=== PATIENT | female | born 1945 | race Caucasian/White ===

== ENCOUNTER 2022-11-01 15:08 | Emergency (ER) | payer MEDICARE, SELFPAY ==
[2022-11-01] VITALS (30 sets, daily range): BP systolic 119–180; BP diastolic 77–128; PULSE 63–88; RESP 15–97; TEMP 36.6; O2SAT 91–94; BMI 27.4
--- NOTE | 2022-11-01 15:13 | ED_ITS ---
Documented by User: CATALINO Valdivia 11/01/22 17:19 HPI - General Adult General Chief complaint: Dizziness Stated complaint: DIZZY Time Seen by Provider: 11/01/22 15:13 History of Present Illness HPI narrative: patient is a [age] her old female who arrives via EMS for evaluation of a dizzy episode. Patient states she was attending her grandson's graduation, felt well, started speaking with a friend that she had not seen in a long time. Started to feel as if she was going to pass out no set her vision started to come down, but she did not lose consciousness. Patient denies any room spinning or actual dizzy-like symptoms. Patient states now that she has sat down and had some IV fluidss per EMS she feels back to normal. She is on xarelto with a history of mini stroke. patient states with that episode she had noticeable dizziness with objects moving and double vision. Patient states she has not experiennced any of that with this episode. She reports having a similar episode of current symptoms in the spring with anemia/blood loss. Patient states she underwent a colonoscopy and had a part of the tumor removed, but does not feel it was cancerous. States after repeat colonoscopy to get more tissue. She reports being on iron supplementation and her stools are always black. patient denies any chest pain or shortness of breath, did have mild nausea with the episode but no palpitations. Patient feels like she is back to normal. Related Data Home Medications Medication Instructions Recorded Confirmed diltiazem HCl 180 mg capsule,24 180 mg PO DAILY 11/01/22 11/01/22 hr,extended release (Tiadylt ER) ferrous sulfate 325 mg (65 mg 325 mg PO BID 11/01/22 11/01/22 iron) tablet metoprolol tartrate 50 mg tablet 25 mg PO BID 11/01/22 11/01/22 rivaroxaban 20 mg tablet (Xarelto) 20 mg PO BID 11/01/22 11/01/22 Allergies Allergy/AdvReac Type Severity Reaction Status Date / Time No Known Drug Allergies Allergy Verified 11/01/22 15:14 Review of Systems ROS Constitutional Denies: fever or chills Eyes Denies: change in vision or blurry vision Ears, nose, mouth, and throat Denies: throat pain or neck pain Cardiovascular Denies: chest pain, palpitations or edema Respiratory Denies: shortness of breath, cough or wheezing Gastrointestinal Reports: nausea; Denies: abdominal pain, vomiting, diarrhea or blood in stool (dark stools with iron use) Genitourinary Denies: painful urination or urinary frequency Musculoskeletal Denies: back pain or neck pain Integumentary/Breast Denies: rash or itching Neurological Denies: headache, numbness in extremities, weakness in extremities (ppatient reports feeling weak all over like she was going to pass out), lack of coordination, dizziness, vertigo or confusion Psychiatric Denies: anxiety Allergic/Immunologic Denies: hives [facility] Medical History (Updated 11/01/22 @ 18:15 by Shivam Godinez) Exam Narrative Exam Narrative: Nurses notes and vital signs reviewed and patient is not hypoxic. General: The patient appears well and in no apparent distress. Patient is resting comfortably on cart. Skin: Warm, dry, no pallor noted. Head: Normocephalic, atraumatic Neck: Supple, trachea mid-line, no tenderness, no lymphadenopathy Eye: Pupils are equal, round and reactive to light, EOMI, remanence of cataract surgery noted, no subconjunctival pallor Ears, Nose, Mouth, and Throat: TM are clear, normal light reflex, oral mucosa is moist, no posterior oropharynx erythema or hypertrophy, uvula is mid-line Cardiovascular: Regular Rate and Rhythm Respiratory: Patient is in no distress, no accessory muscle use, lungs are clear to auscultation, no wheezing, rales or rhonchi. Chest Wall: no tenderness Back: non-tender, no CVA tenderness Musculoskeletal: normal ROM, no tenderness, no swelling GI: Normal bowel sounds, no tenderness to palpation, no masses appreciated. No rebound, guarding, or rigidity noted. Neurological: A&O x4, patient moves all extremities without difficulty. Psychiatric: Cooperative Constitutional Vital Signs, click to edit/add: Last Vital Signs Temp 97.9 F 11/01/22 15:10 Pulse 83 11/01/22 18:01 Resp 24 11/01/22 18:01 BP 119/85 11/01/22 18:01 Pulse Ox 94 L 11/01/22 15:20 O2 Del Method Room Air 11/01/22 15:20 Course Vital Signs Vital signs: Vital Signs Temperature 97.9 F 11/01/22 15:10 Pulse Rate 74 08/13/23 15:10 Respiratory Rate 20 11/01/22 15:10 Blood Pressure 177/101 H 11/01/22 15:10 Pulse Oximetry 94 L 11/01/22 15:10 Oxygen Delivery Method Room Air 11/01/22 15:10 Temperature 97.9 F 11/01/22 15:10 Pulse Rate 83 11/01/22 18:01 Respiratory Rate 24 11/01/22 18:01 Blood Pressure 119/85 11/01/22 18:01 Pulse Oximetry 94 L 11/01/22 15:20 Oxygen Delivery Method Room Air 11/01/22 15:20 Medical Decision Making MDM Narrative Medical decision making narrative: patient reports being in an air-conditioned building with a near syncopal episode after speaking with a friend she had not seen in a long time. After sitting down and receiving some IV fluid per EMS patient feels like she is back to normal. She denies any recent illness or fever. States she ate breakfast this morning and took her normal medications as prescribed. Notable history of xarelto use with prior TIA. Pt denies paresthesias dizziness, incoordination or vision changes. orthostatic vital signs unremarkable. patient reevaluated at 16:30. Patient reports feeling well, acting normal. She has been up into the bathroom without any difficulty. Patient made aware of her preliminary lab studies, chest x-ray, CT head pending. Recommend repeat 2 hour troponin patient agreeable. CT of the head, recommendations per radiologist will proceed with CTA of the head and neck for further evaluation. Patient reports having a MRI as for her any stroke workup with no mention of aneurysm at that time. Lab Data Labs: Lab Results 11/01/22 11/01/22 11/01/22 Range/Units 15:28 15:29 16:06 WBC 8.8 (4.0-11.0) 10^3/uL RBC 4.58 (4.20-5.40) 10^6/uL Hgb 13.8 (12.0-16.0) g/dL Hct 41.2 (36.0-48.0) % MCV 90.0 (81.0-99.0) fL MCH 30.1 (26.7-34.0) pg MCHC 33.5 (29.9-35.2) g/dL RDW 14.6 (11.0-15.0) % Plt Count 228 (150-450) 10^3/uL MPV 8.5 L (9.5-13.5) fL Neut % (Auto) 66.9 (43.0-75.0) % Lymph % (Auto) 20.9 (20.5-60.0) % Kern % (Auto) 8.1 (1.7-12.0) % Eos % (Auto) 2.8 (0.9-7.0) % Baso % (Auto) 0.8 (0.2-2.0) % Neut # (Auto) 5.9 (1.4-6.5) 10^3/uL Lymph # (Auto) 1.8 (1.2-3.8) 10^3/uL Kern # (Auto) 0.7 (0.3-0.8) 10^3/uL Eos # (Auto) 0.3 (0.0-0.7) 10^3/uL Baso # (Auto) 0.1 (0.0-0.1) 10^3/uL Abs Immat Gran (auto) 0.04 H (0.00-0.03) 10^3/uL Imm/Tot Granulo (auto) 0.5 (0.0-0.5) % PT 11.4 (9.0-11.6) sec INR 1.08 APTT 31.1 (22.3-36.2) sec Sodium 140 (136-145) mmol/L Potassium 4.0 (3.5-5.1) mmol/L Chloride 105 (98-107) mmol/L Carbon Dioxide 27.7 (21.0-32.0) mmol/L Anion Gap 11.3 BUN 19.0 H (7.0-18.0) mg/dL Creatinine 0.80 (0.55-1.02) mg/dL Est GFR ( Amer) >60 (>=60) Est GFR (Non-Af Amer) >60 (>=60) BUN/Creatinine Ratio 23.8 Glucose 120 H (74-106) mg/dL Calcium 8.3 L (8.5-10.1) mg/dL Total Bilirubin 0.3 (0.2-1.0) mg/dL AST 15 (15-37) U/L ALT <6 L (14-59) U/L Alkaline Phosphatase 108 (46-116) U/L Troponin I High Sens 5.6 (4.0-51.3) pg/mL Total Protein 6.5 (6.4-8.2) g/dL Albumin 3.6 (3.4-5.0) g/dL Globulin 2.9 g/dL Albumin/Globulin Ratio 1.2 Urine Color Lt. yellow (YELLOW) Urine Clarity Clear (CLEAR) Urine pH 6.0 (5.0-9.0) Ur Specific Fancy Gap 1.020 (1.005-1.025) Urine Protein Negative (NEG/TRACE) mg/dL Urine Glucose (UA) Negative (NEGATIVE) mg/dL Urine Ketones Negative (NEGATIVE) mg/dL Urine Occult Blood Small A (NEGATIVE) Urine Nitrite Negative (NEGATIVE) Urine Bilirubin Negative (NEGATIVE) Urine Urobilinogen 0.2 (0.2-1.0) EU/dL Ur Leukocyte Esterase Trace A (NEGATIVE) Urine RBC 2-5 A (0-2) #/HPF Urine WBC 0-2 A (NONE SEEN) #/HPF Ur Squamous Epith Cells Rare (NONE/RARE) #/LPF Urine Crystals None seen (None Seen) #/HPF Urine Bacteria Trace A (NONE SEEN) #/HPF Urine Casts None seen (NONE SEEN) #/LPF Urine Mucus Trace A (NONE SEEN) Ur Culture Indicated? No POC Glucose 111 H (74-106) mg/dL 11/01/22 Range/Units 17:18 WBC (4.0-11.0) 10^3/uL RBC (4.20-5.40) 10^6/uL Hgb (12.0-16.0) g/dL Hct (36.0-48.0) % MCV (81.0-99.0) fL MCH (26.7-34.0) pg MCHC (29.9-35.2) g/dL RDW (11.0-15.0) % Plt Count (150-450) 10^3/uL MPV (9.5-13.5) fL Neut % (Auto) (43.0-75.0) % Lymph % (Auto) (20.5-60.0) % Kern % (Auto) (1.7-12.0) % Eos % (Auto) (0.9-7.0) % Baso % (Auto) (0.2-2.0) % Neut # (Auto) (1.4-6.5) 10^3/uL Lymph # (Auto) (1.2-3.8) 10^3/uL Kern # (Auto) (0.3-0.8) 10^3/uL Eos # (Auto) (0.0-0.7) 10^3/uL Baso # (Auto) (0.0-0.1) 10^3/uL Abs Immat Gran (auto) (0.00-0.03) 10^3/uL Imm/Tot Granulo (auto) (0.0-0.5) % PT (9.0-11.6) sec INR APTT (22.3-36.2) sec Sodium (136-145) mmol/L Potassium (3.5-5.1) mmol/L Chloride (98-107) mmol/L Carbon Dioxide (21.0-32.0) mmol/L Anion Gap BUN (7.0-18.0) mg/dL Creatinine (0.55-1.02) mg/dL Est GFR ( Amer) (>=60) Est GFR (Non-Af Amer) (>=60) BUN/Creatinine Ratio Glucose (74-106) mg/dL Calcium (8.5-10.1) mg/dL Total Bilirubin (0.2-1.0) mg/dL AST (15-37) U/L ALT (14-59) U/L Alkaline Phosphatase (46-116) U/L Troponin I High Sens 6.0 (4.0-51.3) pg/mL Total Protein (6.4-8.2) g/dL Albumin (3.4-5.0) g/dL Globulin g/dL Albumin/Globulin Ratio Urine Color (YELLOW) Urine Clarity (CLEAR) Urine pH (5.0-9.0) Ur Specific Fancy Gap (1.005-1.025) Urine Protein (NEG/TRACE) mg/dL Urine Glucose (UA) (NEGATIVE) mg/dL Urine Ketones (NEGATIVE) mg/dL Urine Occult Blood (NEGATIVE) Urine Nitrite (NEGATIVE) Urine Bilirubin (NEGATIVE) Urine Urobilinogen (0.2-1.0) EU/dL Ur Leukocyte Esterase (NEGATIVE) Urine RBC (0-2) #/HPF Urine WBC (NONE SEEN) #/HPF Ur Squamous Epith Cells (NONE/RARE) #/LPF Urine Crystals (None Seen) #/HPF Urine Bacteria (NONE SEEN) #/HPF Urine Casts (NONE SEEN) #/LPF Urine Mucus (NONE SEEN) Ur Culture Indicated? POC Glucose (74-106) mg/dL Imaging Data Chest x-ray: Attestation: I have reviewed the pertinent imaging results. Radiologist's impression: Procedure: XR chest 1V EXAM: XR chest 1V HISTORY: near syncope COMPARISON: 05/28/2022 TECHNIQUE: Single view of the chest FINDINGS: Cardiomegaly, accentuated by technique. No pleural effusion. No pneumothorax. No vascular congestion. Multiple external leads. IMPRESSION: No acute findings. Electronically authenticated by: MALVIN MONTEJO Date: 11/01/2022 16:18 CT scan - head: Radiologist's impression: Procedure: CT head/brain wo con CT head without contrast CLINICAL: Near syncope. TECHNIQUE: Contiguous transaxial images were obtained from skull base to vertex without administration of intravenous contrast. Dose reduction: mA and/or kV are were adjusted by automated exposure control software based upon patients height and weight. FINDINGS: There are no prior exams for comparison. There is no focal scalp soft tissue swelling or acute calvarial fracture. The visualized globes and orbits are grossly normal. Visualized paranasal sinuses are clear. Bilateral mastoid air cells are clear. The ventricles and sulci are mildly prominent bilaterally. There are old bilateral basal ganglia lacunar infarcts. There is no intraparenchymal hemorrhage, extraaxial fluid collection, mass lesion, or acute large territory ischemia by noncontrast CT. 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 This corresponds to abnormality identified on artificial intelligence software. There is intracranial atherosclerosis. IMPRESSION: 1. No acute intracranial hemorrhage or acute large territory ischemia by noncontrast CT. 2. 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 Recommend follow-up CTA. 3. Old bilateral basal ganglia lacunar infarcts. I discussed critical findings with Dr. Godinez in the emergency department at 4:36 PM on 11/01/2022. Electronically authenticated by: RONNY SIBLEYJAN Date: 11/01/2022 16:38 ECG Data Attestation: I personally reviewed and interpreted this ECG as follows: Interpretation: EKG interpretation: Emergency Department physician interpretation, normal sinus rhythm,69bpm no ectopy, but no prominent [id number] artifact, no ST segment elevation, normal axis. Discharge Plan Discharge Chief Complaint: Dizziness Clinical Impression: Near syncope, Aneurysm, Hypertension Time of Disposition Decision: 18:15 Prescriptions / Home Meds: No Action diltiazem HCl [Tiadylt ER] 180 mg capsule,extended release 24 hr 180 mg PO DAILY ferrous sulfate 325 mg (65 mg iron) tablet 325 mg PO BID metoprolol tartrate 50 mg tablet 25 mg PO BID Xarelto 20 mg tablet 20 mg PO BID Instructions: Hypertension (ED), Near Syncope (ED) Stand Alone Forms: Portal Instructions Referrals: Physician,Non-Staff, MD [Primary Care Provider] - 1 week Documented by User: Shivam Godinez 11/01/22 18:15 HPI - General Adult General Chief complaint: Dizziness Stated complaint: DIZZY Time Seen by Provider: 11/01/22 15:13 Related Data Home Medications Medication Instructions Recorded Confirmed diltiazem HCl 180 mg capsule,24 180 mg PO DAILY 11/01/22 11/01/22 hr,extended release (Tiadylt ER) ferrous sulfate 325 mg (65 mg 325 mg PO BID 11/01/22 11/01/22 iron) tablet metoprolol tartrate 50 mg tablet 25 mg PO BID 11/01/22 11/01/22 rivaroxaban 20 mg tablet (Xarelto) 20 mg PO BID 11/01/22 11/01/22 Allergies Allergy/AdvReac Type Severity Reaction Status Date / Time No Known Drug Allergies Allergy Verified 11/01/22 15:14 [facility] Medical History (Updated 11/01/22 @ 18:15 by Shivam Godinez) Exam Constitutional Vital Signs, click to edit/add: Last Vital Signs Temp 97.9 F 11/01/22 15:10 Pulse 83 11/01/22 18:01 Resp 24 11/01/22 18:01 BP 119/85 11/01/22 18:01 Pulse Ox 94 L 11/01/22 15:20 O2 Del Method Room Air 11/01/22 15:20 Course Vital Signs Vital signs: Vital Signs Temperature 97.9 F 11/01/22 15:10 Pulse Rate 74 11/01/22 15:10 Respiratory Rate 20 11/01/22 15:10 Blood Pressure 177/101 H 11/01/22 15:10 Pulse Oximetry 94 L 11/01/22 15:10 Oxygen Delivery Method Room Air 11/01/22 15:10 Temperature 97.9 F 11/01/22 15:10 Pulse Rate 83 11/01/22 18:01 Respiratory Rate 24 11/01/22 18:01 Blood Pressure 119/85 11/01/22 18:01 Pulse Oximetry 94 L 11/01/22 15:20 Oxygen Delivery Method Room Air 11/01/22 15:20 Medical Decision Making MDM Narrative Medical decision making narrative: patient reports being in an air-conditioned building with a near syncopal episode after speaking with a friend she had not seen in a long time. After sitting down and receiving some IV fluid per EMS patient feels like she is back to normal. She denies any recent illness or fever. States she ate breakfast this morning and took her normal medications as prescribed. Notable history of xarelto use with prior TIA. Pt denies paresthesias dizziness, incoordination or vision changes. orthostatic vital signs unremarkable. patient reevaluated at 16:30. Patient reports feeling well, acting normal. She has been up into the bathroom without any difficulty. Patient made aware of her preliminary lab studies, chest x-ray, CT head pending. Recommend repeat 2 hour troponin patient agreeable. CT of the head shows possible non-leaking/non-ruptured aneurysm, recommendations per radiologist will proceed with CTA of the head and neck for further evaluation. Patient reports having a MRI as for her any stroke workup with no mention of aneurysm at that time. CTA revealed left supraclinoid ICA aneurysm [id number] - patient made aware of this finding and a copy of the report given to the patient. 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 Patient's BP was elevated so she received IV Labetalol and Vasotec. Her BP decreased to 119/85. On recheck she felt better and was ready to go home We discussed her results and the roll that her HTN played in her symptoms. I stressed the importance of seeing her PCP for follow up to address her HTN as well as referral information for her cerebral aneurysm. Family assured me they would have her follow up accordingly. Lab Data Lab results reviewed: Yes I reviewed the patient's lab results Labs: Lab Results 11/01/22 11/01/22 11/01/22 Range/Units 15:28 15:29 16:06 WBC 8.8 (4.0-11.0) 10^3/uL RBC 4.58 (4.20-5.40) 10^6/uL Hgb 13.8 (12.0-16.0) g/dL Hct 41.2 (36.0-48.0) % MCV 90.0 (81.0-99.0) fL MCH 30.1 (26.7-34.0) pg MCHC 33.5 (29.9-35.2) g/dL RDW 14.6 (11.0-15.0) % Plt Count 228 (150-450) 10^3/uL MPV 8.5 L (9.5-13.5) fL Neut % (Auto) 66.9 (43.0-75.0) % Lymph % (Auto) 20.9 (20.5-60.0) % Kern % (Auto) 8.1 (1.7-12.0) % Eos % (Auto) 2.8 (0.9-7.0) % Baso % (Auto) 0.8 (0.2-2.0) % Neut # (Auto) 5.9 (1.4-6.5) 10^3/uL Lymph # (Auto) 1.8 (1.2-3.8) 10^3/uL Kern # (Auto) 0.7 (0.3-0.8) 10^3/uL Eos # (Auto) 0.3 (0.0-0.7) 10^3/uL Baso # (Auto) 0.1 (0.0-0.1) 10^3/uL Abs Immat Gran (auto) 0.04 H (0.00-0.03) 10^3/uL Imm/Tot Granulo (auto) 0.5 (0.0-0.5) % PT 11.4 (9.0-11.6) sec INR 1.08 APTT 31.1 (22.3-36.2) sec Sodium 140 (136-145) mmol/L Potassium 4.0 (3.5-5.1) mmol/L Chloride 105 (98-107) mmol/L Carbon Dioxide 27.7 (21.0-32.0) mmol/L Anion Gap 11.3 BUN 19.0 H (7.0-18.0) mg/dL Creatinine 0.80 (0.55-1.02) mg/dL Est GFR ( Amer) >60 (>=60) Est GFR (Non-Af Amer) >60 (>=60) BUN/Creatinine Ratio 23.8 Glucose 120 H (74-106) mg/dL Calcium 8.3 L (8.5-10.1) mg/dL Total Bilirubin 0.3 (0.2-1.0) mg/dL AST 15 (15-37) U/L ALT <6 L (14-59) U/L Alkaline Phosphatase 108 (46-116) U/L Troponin I High Sens 5.6 (4.0-51.3) pg/mL Total Protein 6.5 (6.4-8.2) g/dL Albumin 3.6 (3.4-5.0) g/dL Globulin 2.9 g/dL Albumin/Globulin Ratio 1.2 Urine Color Lt. yellow (YELLOW) Urine Clarity Clear (CLEAR) Urine pH 6.0 (5.0-9.0) Ur Specific Fancy Gap 1.020 (1.005-1.025) Urine Protein Negative (NEG/TRACE) mg/dL Urine Glucose (UA) Negative (NEGATIVE) mg/dL Urine Ketones Negative (NEGATIVE) mg/dL Urine Occult Blood Small A (NEGATIVE) Urine Nitrite Negative (NEGATIVE) Urine Bilirubin Negative (NEGATIVE) Urine Urobilinogen 0.2 (0.2-1.0) EU/dL Ur Leukocyte Esterase Trace A (NEGATIVE) Urine RBC 2-5 A (0-2) #/HPF Urine WBC 0-2 A (NONE SEEN) #/HPF Ur Squamous Epith Cells Rare (NONE/RARE) #/LPF Urine Crystals None seen (None Seen) #/HPF Urine Bacteria Trace A (NONE SEEN) #/HPF Urine Casts None seen (NONE SEEN) #/LPF Urine Mucus Trace A (NONE SEEN) Ur Culture Indicated? No POC Glucose 111 H (74-106) mg/dL 11/01/22 Range/Units 17:18 WBC (4.0-11.0) 10^3/uL RBC (4.20-5.40) 10^6/uL Hgb (12.0-16.0) g/dL Hct (36.0-48.0) % MCV (81.0-99.0) fL MCH (26.7-34.0) pg MCHC (29.9-35.2) g/dL RDW (11.0-15.0) % Plt Count (150-450) 10^3/uL MPV (9.5-13.5) fL Neut % (Auto) (43.0-75.0) % Lymph % (Auto) (20.5-60.0) % Kern % (Auto) (1.7-12.0) % Eos % (Auto) (0.9-7.0) % Baso % (Auto) (0.2-2.0) % Neut # (Auto) (1.4-6.5) 10^3/uL Lymph # (Auto) (1.2-3.8) 10^3/uL Kern # (Auto) (0.3-0.8) 10^3/uL Eos # (Auto) (0.0-0.7) 10^3/uL Baso # (Auto) (0.0-0.1) 10^3/uL Abs Immat Gran (auto) (0.00-0.03) 10^3/uL Imm/Tot Granulo (auto) (0.0-0.5) % PT (9.0-11.6) sec INR APTT (22.3-36.2) sec Sodium (136-145) mmol/L Potassium (3.5-5.1) mmol/L Chloride (98-107) mmol/L Carbon Dioxide (21.0-32.0) mmol/L Anion Gap BUN (7.0-18.0) mg/dL Creatinine (0.55-1.02) mg/dL Est GFR ( Amer) (>=60) Est GFR (Non-Af Amer) (>=60) BUN/Creatinine Ratio Glucose (74-106) mg/dL Calcium (8.5-10.1) mg/dL Total Bilirubin (0.2-1.0) mg/dL AST (15-37) U/L ALT (14-59) U/L Alkaline Phosphatase (46-116) U/L Troponin I High Sens 6.0 (4.0-51.3) pg/mL Total Protein (6.4-8.2) g/dL Albumin (3.4-5.0) g/dL Globulin g/dL Albumin/Globulin Ratio Urine Color (YELLOW) Urine Clarity (CLEAR) Urine pH (5.0-9.0) Ur Specific Fancy Gap (1.005-1.025) Urine Protein (NEG/TRACE) mg/dL Urine Glucose (UA) (NEGATIVE) mg/dL Urine Ketones (NEGATIVE) mg/dL Urine Occult Blood (NEGATIVE) Urine Nitrite (NEGATIVE) Urine Bilirubin (NEGATIVE) Urine Urobilinogen (0.2-1.0) EU/dL Ur Leukocyte Esterase (NEGATIVE) Urine RBC (0-2) #/HPF Urine WBC (NONE SEEN) #/HPF Ur Squamous Epith Cells (NONE/RARE) #/LPF Urine Crystals (None Seen) #/HPF Urine Bacteria (NONE SEEN) #/HPF Urine Casts (NONE SEEN) #/LPF Urine Mucus (NONE SEEN) Ur Culture Indicated? POC Glucose (74-106) mg/dL Imaging Data cta head: Radiologist's impression: Patient Name: JEANETTE ACEVEDO MRN: [id number] date: 1945 Sex: F Assigned Patient Location: ER Current Patient Location: ER Accession/Order Number: [id number] Exam Date: 11/01/2022 17:00 Report Date: 11/01/2022 17:48 At the request of: SHIRA JOHN Procedure: CT angio head EXAMINATION: CT angio head, CT angio neck, 11/01/2022 2:00 PM PDT HISTORY: r/o aneurysm, near syncopal episode COMPARISON: Same day CT head. TECHNIQUE: Multiple CTA images of the head and neck were obtained after the rapid bolus intravenous contrast administration. MIP reformats or 3-dimensional volume related imaging created and submitted for evaluation. NASCET CRITERIA UTILIZATION: Carotid artery stenosis, if present, was calculated according to the NASCET criteria, which calculates the degree of stenosis with reference to the lumen of the internal carotid artery distal to the stenosis. Dose reduction technique was used including one or more of the following: automated exposure control, adjustment of mA and kV according to patient size, and/or iterative reconstruction. 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 No evidence of intracranial carotid canal. The left common carotid and internal carotid artery are compensatorily enlarged. Approximately 40% stenosis of the left cervical ICA at the origin. Otherwise the left ICA is patent. Left supraclinoid ICA aneurysm measures approximately 5 x 4 x 3 mm. Prominent left A1 segment anterior cerebral artery supplying the bilateral ACAs as well as the right MCA. Left MCA is patent. Right MCA is patent. Left-sided MANAGER TRANSIT is patent. 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 Basal artery patent. Dolichoectasia of the basilar artery tip. Intracranial vertebral arteries are patent. Moderate left subclavian artery origin stenosis. Biapical scarring and pleural plaque formation. Emphysema. 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 Compensatory enlarged left cervical and intracranial carotid vasculature. No acute intracranial large vessel occlusion. 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 40% stenosis of the left proximal cervical ICA. Moderate left subclavian artery origin stenosis. Electronically authenticated by: MALVIN MONTEJO Date: 11/01/2022 17:48 Discharge Plan Discharge Chief Complaint: Dizziness Clinical Impression: Near syncope, Aneurysm, Hypertension Time of Disposition Decision: 18:15 Prescriptions / Home Meds: No Action diltiazem HCl [Tiadylt ER] 180 mg capsule,extended release 24 hr 180 mg PO DAILY ferrous sulfate 325 mg (65 mg iron) tablet 325 mg PO BID metoprolol tartrate 50 mg tablet 25 mg PO BID Xarelto 20 mg tablet 20 mg PO BID Instructions: Hypertension (ED), Near Syncope (ED) Stand Alone Forms: Portal Instructions Referrals: Physician,Non-Staff, MD [Primary Care Provider] - 1 week
--- NOTE | 2022-11-01 15:14 | XR_ITS ---
The [address] [address] Patient Name: JEANETTE ACEVEDO MRN: [id number] date: 1945 Sex: F Assigned Patient Location: ER Current Patient Location: ER Accession/Order Number: [id number] Exam Date: 11/01/2022 15:45 Report Date: 11/01/2022 16:18 At the request of: SHIRA JOHN Procedure: XR chest 1V EXAM: XR chest 1V HISTORY: near syncope COMPARISON: 05/28/2022 TECHNIQUE: Single view of the chest FINDINGS: Cardiomegaly, accentuated by technique. No pleural effusion. No pneumothorax. No vascular congestion. Multiple external leads. XR/XR chest 1V IMPRESSION: No acute findings. Electronically authenticated by: MALVIN MONTEJO Date: 11/01/2022 16:18
--- NOTE | 2022-11-01 15:14 | ECG_ITS ---
The 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
--- NOTE | 2022-11-01 15:16 | CT_ITS ---
The [address] [address] Patient Name: JEANETTE ACEVEDO MRN: [id number] date: 1945 Sex: F Assigned Patient Location: ED.MAIN Current Patient Location: ED.MAIN Accession/Order Number: [id number] Exam Date: 11/01/2022 16:10 Report Date: 11/01/2022 16:38 At the request of: SHIRA JOHN Procedure: CT head/brain wo con CT head without contrast CLINICAL: Near syncope. TECHNIQUE: Contiguous transaxial images were obtained from skull base to vertex without administration of intravenous contrast. Dose reduction: mA and/or kV are were adjusted by automated exposure control software based upon patients height and weight. FINDINGS: There are no prior exams for comparison. There is no focal scalp soft tissue swelling or acute calvarial fracture. The visualized globes and orbits are grossly normal. Visualized paranasal sinuses are clear. Bilateral mastoid air cells are clear. The ventricles and sulci are mildly prominent bilaterally. There are old bilateral basal ganglia lacunar infarcts. There is no intraparenchymal hemorrhage, extraaxial fluid collection, mass lesion, or acute large territory ischemia by noncontrast CT. 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 This corresponds to abnormality identified on artificial intelligence software. There is intracranial atherosclerosis. CT/CT head/brain wo con IMPRESSION: 1. No acute intracranial hemorrhage or acute large territory ischemia by noncontrast CT. 2. 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 Recommend follow-up CTA. 3. Old bilateral basal ganglia lacunar infarcts. I discussed critical findings with Dr. Godinez in the emergency department at 4:36 PM on 11/01/2022. Electronically authenticated by: RONNY CHRISTINE Date: 11/01/2022 16:38
[2022-11-01 15:30] LABS: Glucometer 111 mg/dL (74-106)
[2022-11-01] MEDS: 0.9 % SODIUM CHLORIDE 1,000 ML 999 ML IV (15:36)
[2022-11-01 15:37] LABS: Basophils Absolute Auto 0.1 10^3/uL (0.0-0.1); Basophils Percent Auto 0.8 % (0.2-2.0); Eosinophils Absolute Auto 0.3 10^3/uL (0.0-0.7); Eosinophils Percent Auto 2.8 % (0.9-7.0); Hematocrit 41.2 % (36.0-48.0); Hemoglobin 13.8 g/dL (12.0-16.0); Immature Granulocytes Abs Auto 0.04 10^3/uL (0.00-0.03); Immature Granulocytes Pct Auto 0.5 % (0.0-0.5); Lymphocytes Absolute Auto 1.8 10^3/uL (1.2-3.8); Lymphocytes Percent Auto 20.9 % (20.5-60.0); Mean Corpuscular HGB Conc 33.5 g/dL (29.9-35.2); Mean Corpuscular Hemoglobin 30.1 pg (26.7-34.0); Mean Platelet Volume 8.5 fL (9.5-13.5); Monocytes Absolute Auto 0.7 10^3/uL (0.3-0.8); Monocytes Percent Auto 8.1 % (1.7-12.0); Neutrophils Absolute Auto 5.9 10^3/uL (1.4-6.5); Neutrophils Percent Auto 66.9 % (43.0-75.0); Platelet Count 228 10^3/uL (150-450); Red Blood Count 4.58 10^6/uL (4.20-5.40); Red Cell Distribution Width 14.6 % (11.0-15.0); White Blood Count 8.8 10^3/uL (4.0-11.0)
[2022-11-01 15:52] LABS: INR 1.08; Partial Thromboplastin Time 31.1 sec (22.3-36.2); Prothrombin Time 11.4 sec (9.0-11.6)
[2022-11-01 15:56] LABS: Alanine Aminotransferase <6 U/L (14-59); Albumin Globulin Ratio 1.2; Albumin Level 3.6 g/dL (3.4-5.0); Alkaline Phosphatase 108 U/L (46-116); Anion Gap 11.3; Aspartate Amino Transferase 15 U/L (15-37); BUN Creatinine Ratio 23.8; Bilirubin Total 0.3 mg/dL (0.2-1.0); Calcium 8.3 mg/dL (8.5-10.1); Carbon Dioxide 27.7 mmol/L (21.0-32.0); Chloride 105 mmol/L (98-107); Estimated GFR (African America >60 (>=60); Estimated GFR (Non-African Ame >60 (>=60); Globulin 2.9 g/dL; Glucose 120 mg/dL (74-106); Sodium 140 mmol/L (136-145); Total Protein 6.5 g/dL (6.4-8.2); Troponin I High Sensitivity 5.6 pg/mL (4.0-51.3)
[2022-11-01 16:16] LABS: Bilirubin Urine NEGATIVE (NEGATIVE); Blood Urine SMALL (NEGATIVE); Clarity Urine CLEAR (CLEAR); Color Urine LT. YELLOW (YELLOW); Glucose Urine UA NEGATIVE (NEGATIVE); Ketones Urine NEGATIVE (NEGATIVE); Leukocyte Esterase Urine TRACE (NEGATIVE); Nitrite Urine NEGATIVE (NEGATIVE); Protein Urine NEGATIVE (NEG/TRACE); Urobilinogen Urine 0.2 EU/dL (0.2-1.0)
--- NOTE | 2022-11-01 16:37 | CT_ITS ---
The [address] [address] Patient Name: JEANETTE ACEVEDO MRN: [id number] date: 1945 Sex: F Assigned Patient Location: ER Current Patient Location: Accession/Order Number: [id number] Exam Date: 11/01/2022 17:00 Report Date: 11/01/2022 17:48 At the request of: SHIRA JOHN Procedure: CT angio neck EXAMINATION: CT angio head, CT angio neck, 11/01/2022 2:00 PM PDT HISTORY: r/o aneurysm, near syncopal episode COMPARISON: Same day CT head. TECHNIQUE: Multiple CTA images of the head and neck were obtained after the rapid bolus intravenous contrast administration. MIP reformats or 3-dimensional volume related imaging created and submitted for evaluation. NASCET CRITERIA UTILIZATION: Carotid artery stenosis, if present, was calculated according to the NASCET criteria, which calculates the degree of stenosis with reference to the lumen of the internal carotid artery distal to the stenosis. Dose reduction technique was used including one or more of the following: automated exposure control, adjustment of mA and kV according to patient size, and/or iterative reconstruction. 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 No evidence of intracranial carotid canal. The left common carotid and internal carotid artery are compensatorily enlarged. Approximately 40% stenosis of the left cervical ICA at the origin. Otherwise the left ICA is patent. Left supraclinoid ICA aneurysm measures approximately 5 x 4 x 3 mm. Prominent left A1 segment anterior cerebral artery supplying the bilateral ACAs as well as the right MCA. Left MCA is patent. Right MCA is patent. Left-sided PRICING ANALYST is patent. Right photography intern patent. Basal artery patent. Dolichoectasia of the basilar artery tip. Intracranial vertebral arteries are patent. Moderate left subclavian artery origin stenosis. Biapical scarring and pleural plaque formation. Emphysema. 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 Compensatory enlarged left cervical and intracranial carotid vasculature. No acute intracranial large vessel occlusion. 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 40% stenosis of the left proximal cervical ICA. Moderate left subclavian artery origin stenosis. Electronically authenticated by: MALVIN MONTEJO Date: 11/01/2022 17:48
--- NOTE | 2022-11-01 16:37 | CT_ITS ---
The [address] [address] Patient Name: JEANETTE ACEVEDO MRN: [id number] date: 1945 Sex: F Assigned Patient Location: ER Current Patient Location: Accession/Order Number: [id number] Exam Date: 11/01/2022 17:00 Report Date: 11/01/2022 17:48 At the request of: SHIRA JOHN Procedure: CT angio head EXAMINATION: CT angio head, CT angio neck, 11/01/2022 2:00 PM PDT HISTORY: r/o aneurysm, near syncopal episode COMPARISON: Same day CT head. TECHNIQUE: Multiple CTA images of the head and neck were obtained after the rapid bolus intravenous contrast administration. MIP reformats or 3-dimensional volume related imaging created and submitted for evaluation. NASCET CRITERIA UTILIZATION: Carotid artery stenosis, if present, was calculated according to the NASCET criteria, which calculates the degree of stenosis with reference to the lumen of the internal carotid artery distal to the stenosis. Dose reduction technique was used including one or more of the following: automated exposure control, adjustment of mA and kV according to patient size, and/or iterative reconstruction. 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 No evidence of intracranial carotid canal. The left common carotid and internal carotid artery are compensatorily enlarged. Approximately 40% stenosis of the left cervical ICA at the origin. Otherwise the left ICA is patent. Left supraclinoid ICA aneurysm measures approximately 5 x 4 x 3 mm. Prominent left A1 segment anterior cerebral artery supplying the bilateral ACAs as well as the right MCA. Left MCA is patent. Right MCA is patent. Left-sided SENIOR BUSINESS ANALYST is patent. Right hair weaver patent. Basal artery patent. Dolichoectasia of the basilar artery tip. Intracranial vertebral arteries are patent. Moderate left subclavian artery origin stenosis. Biapical scarring and pleural plaque formation. Emphysema. 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 Compensatory enlarged left cervical and intracranial carotid vasculature. No acute intracranial large vessel occlusion. 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 40% stenosis of the left proximal cervical ICA. Moderate left subclavian artery origin stenosis. Electronically authenticated by: MALVIN MONTEJO Date: 11/01/2022 17:48
[2022-11-01 16:59] LABS: Urine Microscopic Indicated YES
[2022-11-01 17:08] LABS: Bacteria Urine TRACE #/HPF (NONE SEEN); Cast Seen? NONE SEEN #/LPF (NONE SEEN); Crystals Seen? None Seen #/HPF (None Seen); Mucus Urine TRACE (NONE SEEN); Squamous Epithelial Cell Urine RARE #/LPF (NONE/RARE); Urine Culture Indicated NO; WBC Urine 0-2 #/HPF (NONE SEEN)
[2022-11-01] MEDS: ENALAPRILAT DIHYDRATE 1.25 MG/ML VIAL IV (17:28)
[2022-11-01] MEDS: LABETALOL HCL 20 MG/4 ML SYRINGE IVP (17:28)
== END 2022-11-01 18:28 | disposition home or self-care (01) ==
PROVIDERS: Personal Emergency Response Attendant; Emergency Provider Emergency Medicine
DX: R55 Syncope and collapse (principal); I10 Essential (primary) hypertension; I67.1 Cerebral aneurysm, nonruptured; Z79.01 Long term (current) use of anticoagulants; Z86.73 Personal history of transient ischemic attack (TIA), and cerebral infarction without residual deficits; Z79.899 Other long term (current) drug therapy
CPT/HCPCS: 36415; 70450; 70496; 70498; 71045; 80053; 81001; 82948; 84484; 85025; 85610; 85730; 93005; 96361; 96374; 96375; 99285; Q9967

== ENCOUNTER 2022-11-20 11:36 | Outpatient (OUT) | payer MEDICARE, SELFPAY ==
[2022-11-20 12:34] LABS: Thyroid Stimulating Hormone 2.662 uIU/mL (0.358-3.740)
== END 2022-11-20 11:37 | disposition home or self-care (01) ==
LOC: LAB 11:39
PROVIDERS: PCP Family Medicine; Visit Provider Nurse Practitioner
DX: R55 Syncope and collapse (principal); R53.82 Chronic fatigue, unspecified
CPT/HCPCS: 36415; 84443

== ENCOUNTER 2022-11-30 13:51 | Outpatient (OUT) | payer MEDICARE, SELFPAY ==
--- NOTE | 2022-11-30 14:50 | CA_ITS ---
Patient: JEANETTE ACEVEDO Exam Date: 11/30/2022 : 1945 Gender:F Ordering : BOB GODFREY Admission #: [id number] Family : Order #: [id number] CLICK HERE TO VIEW EXAM ECHOCARDIOGRAM REPORT PROCEDURE: CA ECHO DOPPLER COMPLETE INDICATIONS: CAD, SYNCOPE AND COLLAPSE COMPARISON: None. DESCRIPTION: COMPLETE ECHOCARDIOGRAM Real-time transthoracic echocardiography with 2D, M-mode, spectral and color flow Doppler performed. QUALITY: Technical quality was good. LEFT VENTRICLE: Normal chamber size. Normal left ventricular wall thickness. LV EF: Global left ventricular systolic function is normal. Calculated left ventricular ejection fraction is 65% DIASTOLIC: Grade I diastolic dysfunction. ATRIAL SEPTUM: Inadequately seen. LEFT ATRIUM: Severe dilatation. RIGHT ATRIUM: Mild dilatation. RIGHT VENTRICLE: Normal chamber size. Normal right ventricular systolic function. TRICUSPID VALVE: Normal mobility and thickness. No stenosis with trivial regurgitation. Moderate pulmonary hypertension. RVSP 45mmHg MITRAL VALVE: Normal mobility and thickness. No evidence of mitral valve stenosis. There is no mitral annular calcification. Trivial mitral regurgitation. AORTIC VALVE: Normal trileaflet appearance. No visible sclerosis. Normal leaflet mobility. No evidence of aortic valve stenosis. No aortic regurgitation. AORTIC ROOT: Normal diameter and appearance. PULMONIC VALVE: Normal thickness and mobility. No stenosis. No regurgitation. PERICARDIUM: Anterior free space; trivial effusion versus fat pad. IVC: Collapses with inspirations. Normal size. CONCLUSION: 1. Global left ventricular systolic function is normal; visually estimated ejection fraction is 55 to 60% 2. Grade 1 diastolic dysfunction 3. Biatrial enlargement 4. Right ventricle is normal in size and systolic function 5. Moderately elevated right ventricular systolic pressure 6. No significant valvular abnormalities 7. Anterior free space; trivial effusion versus fat pad Adult Echocardiography Procedure Report Left Ventricle LVEDD (3.7 - 5.6 cm): 5.22 cm LVESD (2.2 - 4.0 cm): 3.60 cm LVIVS thickness (0.6 - 1.2 cm): 1.09 cm LVPW thickness (0.5 - 1.0 cm): 0.88 cm e': 0.07 m/s E - e': 7.39 LVOT Max Gradient: 3.51 mm[Hg] LVOT Area (cm2): 0.94 m/s Peak Velocity (LVOT): 0.94 m/s Mean Velocity (LVOT): 0.50 m/s LVOT Diameter 2.12 cm Left Ventricular Ejection Fraction: 65.09 % Left Atrium LA Volume Index (2D A2C): 56.62 ml/m2 Left Atrium Systolic Dimension: 4.00 cm Mitral Valve MV E to A Ratio: 0.59 Mitral Valve A-Wave Peak Velocity: 0.90 m/s Mitral Valve E-Wave Peak Velocity: 0.53 m/s Right Ventricle RV Internal Diastolic Dimension: 3.14 cm Aorta AO Root Diam: 3.42 cm Ascending Ao Diam: 2.78 cm Aortic Valve AoV Area (Peak Tulio): 2.14 cm2, 2.14 cm2 AoV Area (VTI): 1.96 cm2, 1.96 cm2 Peak Velocity(Antegrade Flow): 1.55 m/s Peak Gradient(Antegrade Flow): 9.55 mm[Hg] Mean Velocity(Antegrade Flow): 1.05 m/s Mean Gradient(Antegrade Flow): 5.04 mm[Hg] Velocity Time Integral: 37.20 cm Tricuspid Valve Peak Velocity (Regurgitant Flow): 2.68 m/s, 3.27 m/s, 3.21 m/s Pulmonic Valve Peak Velocity: 0.86 m/s Peak Gradient: 3.15 mm[Hg], 2.76 mm[Hg] Right Atrium Right Atrium Systolic Pressure: 43.13 ml, 43.13 ml Dictated by: Jack Lara M.D. on 12/01/2022 at 16:33 Approved by: Jcak Lara M.D. on 12/01/2022 at 16:37
== END 2022-11-30 13:52 | disposition home or self-care (01) ==
LOC: CARD 13:51
PROVIDERS: PCP Family Medicine; Visit Provider Nurse Practitioner
DX: I25.118 Atherosclerotic heart disease of native coronary artery with other forms of angina pectoris (principal); R55 Syncope and collapse
CPT/HCPCS: 93306

== ENCOUNTER 2022-12-02 08:50 | Outpatient (OUT) | payer MEDICARE, SELFPAY ==
--- NOTE | 2022-12-02 | PCN_ITS ---
CARDIAC STRESS TEST Requesting Physician:? Safia Mulligan NP Procedure Date:? 12/02/2022 PERFORMING PROVIDER:? Stephie Del Toro M.D. INDICATION:? Syncope, CAD. STRESS TEST PROTOCOL:? Lexiscan myocardial perfusion imaging. Resting heart rate:? 60 beats per minute. Max heart rate:? 92 beats per minute. Resting blood pressure:? 182/98 Maximum blood pressure: 182/98 CONCLUSIONS:? 1.? Baseline EKG is abnormal with sinus bradycardia with sinus arrhythmia. 2.? Abnormal resting blood pressure at 182/98. 3.? No definite EKG changes meeting the criteria for ischemia. 4.? Please refer to separately interpreted and reported myocardial perfusion imaging. ARIADNE
--- NOTE | 2022-12-02 07:45 | NM_ITS ---
Patient: JEANETTE ACEVEDO Exam Date: 12/02/2022 : 1945 Gender:F Ordering : BOB GODFREY Admission #: [id number] Family : DR WESLY ROSA DUmerOUmer Order #: [id number] CLICK HERE TO VIEW EXAM RADIOLOGY REPORT PROCEDURE: NM DINAH PERF SPECT REST STR COMPARISON: None. INDICATIONS: CORONARY ARTERY DISEASE TECHNIQUE: Exam Description: Stress/Rest one day protocol gated SPECT Rest Imagin.0 mCi Tc-99m Cardiolite IV on 12/02/2022 Stress Imaging 30.6 mCi Tc-99m Cardiolite IV on 12/02/2022 Exercise Protocol: 0.4 mg Lexiscan given IV Heart Rate (bpm): Rest: 60 Max: 92 PMHR: 63 Blood Pressure: Rest: 182/98 Max: 182/98 Symptoms: Rest and peak stress ECG findings were normal and the exercise portion of the study was normal per attending physician Dr. Del Toro . For more details please see separate cardiac stress test report. FINDINGS: QUALITY OF STUDY: Excellent. PERFUSION DEFECT: None. LOCATION: N/A SIZE: N/A. SEVERITY: N/A. TYPE: N/A. WALL MOTION: Normal. LV SIZE: Normal. 80 mL. TID / TCD: None; 0.8 LVEF: Normal. Calculated EF 69%. SUMMARY: Myocardial perfusion imaging study is NORMAL. CONCLUSION: 1. Normal nuclear medicine myocardial perfusion scan. Dictated by: Kulwant Franklin M.D. on 12/03/2022 at 15:29 Approved by: Kulwant Franklin M.D. on 12/03/2022 at 15:30
[2022-12-02] MEDS: REGADENOSON 0.4 MG/5 ML SYRINGE IV (09:37)
== END 2022-12-02 08:51 | disposition home or self-care (01) ==
LOC: NM 08:50
PROVIDERS: PCP Family Medicine; Visit Provider Nurse Practitioner
DX: I25.118 Atherosclerotic heart disease of native coronary artery with other forms of angina pectoris (principal); R55 Syncope and collapse
CPT/HCPCS: 78452; 93017; A9500; J2785

== ENCOUNTER 2022-12-11 14:44 | Outpatient (OUT) | payer MEDICARE, SELFPAY ==
--- NOTE | 2022-12-11 14:47 | US_ITS ---
[address] [address] Patient Name: JEANETTE ACEVEDO MRN: [id number] date: 1945 Sex: F Assigned Patient Location: Current Patient Location: Accession/Order Number: [id number] Exam Date: 12/11/2022 14:51 Report Date: 12/12/2022 02:09 At the request of: BOB GODFREY Procedure: US carotid duplex BI EXAMINATION: US carotid duplex BI HISTORY: Coronary artery disease, mixed hyperlipidemia ; syncope and collapse COMPARISON: No relevant comparison available. TECHNIQUE: Duplex Doppler ultrasound analysis of carotid and vertebral arteries. . Bilateral carotid arterial duplex examination was performed using B-mode, color flow and spectral analysis. Carotid stenosis is reported according to validated velocity parameters, similar to NASCET criteria. FINDINGS: RIGHT CAROTID ARTERY: Mild plaque within bulb and proximal ICA without significant stenosis. Right carotid artery is significantly smaller than left, 0.6 cm diameter versus 1.1 cm. RIGHT VERTEBRAL: Antegrade flow. Subclavian: PSV: 83.6 cm/s EDV: 0.0 cm/s CCA: Prox: PSV: 69.3 cm/s EDV: 12.4 cm/s Mid: PSV: 71.9 cm/s EDV: 13.7 cm/s Distal: PSV: 65.5 cm/s EDV: 9.8 cm/s BULB: PSV: 70.6 cm/s EDV: 11.1 cm/s ICA: Prox: PSV: 81.0 cm/s EDV: 8.5 cm/s Mid: PSV: 83.6 cm/s EDV: 13.7 cm/s Distal: PSV: 43.5 cm/s EDV: 7.2 cm/s ECA: PSV: 68.8 cm/s EDV: 6.7 cm/s VERTEBRAL: PSV: 53.0 cm/s EDV: 15.6 cm/s ICA/CCA ratio: PSV: 1.2 EDV: 1.0 LEFT CAROTID ARTERY: Moderate atherosclerotic plaque within bulb and proximal ICA with mild narrowing. LEFT VERTEBRAL: Antegrade flow. Subclavian: PSV: 161.4 cm/s EDV: 0.0 cm/s CCA: Prox: PSV: 65.9 cm/s EDV: 18.0 cm/s Mid: PSV: 44.4 cm/s EDV: 15.6 cm/s Distal: PSV: 41.8 cm/s EDV: 13.0 cm/s BULB: PSV: 40.0 cm/s EDV: 12.1 cm/s ICA: Prox: PSV: 57.5 cm/s EDV: 20.0 cm/s Mid: PSV: 80.1 cm/s EDV: 25.8 cm/s Distal: PSV: 78.8 cm/s EDV: 24.5 cm/s ECA: PSV: 65.9 cm/s EDV: 10.2 cm/s VERTEBRAL: PSV: 40.0 cm/s EDV: 10.4 cm/s ICA/CCA ratio: PSV: 1.2 EDV: 1.4 US/US carotid duplex BI IMPRESSION: 1. 0-49% flow stenosis within the right left carotid arteries. 2. Moderate atherosclerotic disease. Spectral Doppler US Thresholds Stenosis (%) PSV (cm/sec) VICA/VCCA 0-49 <150 <2.5 50-69 150-225 2.5-4.0 >70 >225 >4.0 Electronically authenticated by: AMANDA SANTOS Date: 12/12/2022 02:09
== END 2022-12-11 14:45 | disposition home or self-care (01) ==
LOC: US 14:44
PROVIDERS: PCP Family Medicine; Visit Provider Nurse Practitioner
DX: E78.2 Mixed hyperlipidemia (principal); R55 Syncope and collapse; I25.10 Atherosclerotic heart disease of native coronary artery without angina pectoris
CPT/HCPCS: 93880

== ENCOUNTER 2023-02-07 09:10 | Emergency (ER) | payer MEDICARE, SELFPAY ==
[2023-02-07 09:29] VITALS: BP 165/104; PULSE 75; RESP 18; TEMP 36.7; O2SAT 96; BMI 25.5
--- NOTE | 2023-02-07 09:33 | ED.GENADUL1 ---
HPI - General Adult General Chief complaint: Abdominal Pain Stated complaint: ABDOMINAL PAIN Time Seen by Provider: 02/07/23 09:20 History of Present Illness HPI narrative: 77-year-old female presents for dysuria, hematuria, frequency, and urinating small amounts. She's had this for the last few days. No gross hematuria or back pain. No fever or vomiting. She may have a urinary tract infection. Symptoms are intermittent. Related Data Home Medications Medication Instructions Recorded Confirmed diltiazem HCl 180 mg capsule,24 180 mg PO DAILY 11/01/22 02/07/23 hr,extended release (Tiadylt ER) ferrous sulfate 325 mg (65 mg 325 mg PO BID 11/01/22 02/07/23 iron) tablet metoprolol tartrate 50 mg tablet 25 mg PO BID 11/01/22 02/07/23 rivaroxaban 20 mg tablet (Xarelto) 20 mg PO BID 11/01/22 02/07/23 Previous Rx's Medication Instructions Recorded cephalexin 500 mg capsule 500 mg PO QID 7 days #21 caps 02/07/23 Allergies Allergy/AdvReac Type Severity Reaction Status Date / Time codeine AdvReac Intermediate Dizziness Verified 02/07/23 09:28 Review of Systems ROS Narrative A ten point review of systems is negative except as noted above. [facility] Medical History (Updated 02/07/23 @ 10:12 by Sameer Lazar MD) Afib ?I48.91 - Unspecified atrial fibrillation (ICD-10) COPD (chronic obstructive pulmonary disease) ?J44.9 - Chronic obstructive pulmonary disease, unspecified (ICD-10) Hypertension ?I10 - Essential (primary) hypertension (ICD-10) TIA (transient ischemic attack) ?G45.9 - Transient cerebral ischemic attack, unspecified (ICD-10) Social History Smoking status: Former smoker Exam Narrative Exam Narrative: Nurses note and vital signs reviewed and patient is not hypoxic. General: The patient appears well and in no apparent distress. Patient is resting comfortably on cart. Skin: Warm, dry, no pallor noted. There is no rash noted. Head: Normocephalic, atraumatic Eye: Normal conjunctiva, no drainage Ears, Nose, Mouth, and Throat: oral mucosa is moist. Nares patent. Cardiovascular: Regular Rate and Rhythm Respiratory: Patient is in no distress, no accessory muscle use, lungs are clear to auscultation, no wheezing, rales or rhonchi Back: non-tender GI: soft and nontender Musculoskeletal: The patient has no evidence of calf tenderness, no pitting edema, symmetrical pulses noted bilaterally Neurological: A&O, normal speech Psychiatric: Cooperative Constitutional Vital Signs, click to edit/add: Last Vital Signs Temp 98.0 F 02/07/23 09:29 Pulse 75 02/07/23 09:29 Resp 18 02/07/23 09:29 BP 165/104 H 02/07/23 09:29 Pulse Ox 96 02/07/23 09:29 O2 Del Method Room Air 02/07/23 09:29 Course Vital Signs Vital signs: Vital Signs Temperature 98.0 F 02/07/23 09:29 Pulse Rate 75 02/07/23 09:29 Respiratory Rate 18 02/07/23 09:29 Blood Pressure 165/104 H 02/07/23 09:29 Pulse Oximetry 96 02/07/23 09:29 Oxygen Delivery Method Room Air 02/07/23 09:29 Temperature 98.0 F 02/07/23 09:29 Pulse Rate 75 02/07/23 09:29 Respiratory Rate 18 02/07/23 09:29 Blood Pressure 165/104 H 02/07/23 09:29 Pulse Oximetry 96 02/07/23 09:29 Oxygen Delivery Method Room Air 02/07/23 09:29 Medical Decision Making MDM Narrative Medical decision making narrative: Urinary tract infection is identified. Culture ordered and she is started on Keflex here and prescribed same. Treatment diagnosis and follow-up were discussed with the patient. Differential Diagnosis Differential Diagnosis: urinary tract infection Lab Data Lab results reviewed: Yes I reviewed the patient's lab results Labs: Lab Results 02/07/23 Range/Units 09:40 Urine Color Lt. yellow (YELLOW) Urine Clarity Cloudy A (CLEAR) Urine pH 6.0 (5.0-9.0) Ur Specific [place] 1.025 (1.005-1.025) Urine Protein 30 A (NEG/TRACE) mg/dL Urine Glucose (UA) Negative (NEGATIVE) mg/dL Urine Ketones Negative (NEGATIVE) mg/dL Urine Occult Blood Large A (NEGATIVE) Urine Nitrite Positive A (NEGATIVE) Urine Bilirubin Negative (NEGATIVE) Urine Urobilinogen 0.2 (0.2-1.0) EU/dL Ur Leukocyte Esterase Moderate A (NEGATIVE) Urine RBC 10-20 A (0-2) #/HPF Urine WBC >100 A (NONE SEEN) #/HPF Ur Squamous Epith Cells None seen (NONE/RARE) #/LPF Urine Crystals None seen (None Seen) #/HPF Urine Bacteria Moderate A (NONE SEEN) #/HPF Urine Casts None seen (NONE SEEN) #/LPF Urine Mucus None seen (NONE SEEN) Ur Culture Indicated? Yes Discharge Plan Discharge Chief Complaint: Abdominal Pain Clinical Impression: Urinary tract infection Patient Disposition: Home, Self-Care Time of Disposition Decision: 10:11 Condition: Good Mode of Transportation: Private Vehicle Prescriptions / Home Meds: New cephalexin 500 mg capsule 500 mg PO QID 7 Days Qty: 21 0RF No Action diltiazem HCl [Tiadylt ER] 180 mg capsule,extended release 24 hr 180 mg PO DAILY ferrous sulfate 325 mg (65 mg iron) tablet 325 mg PO BID metoprolol tartrate 50 mg tablet 25 mg PO BID Xarelto 20 mg tablet 20 mg PO BID Instructions: Urinary Tract Infection in Women (ED) Stand Alone Forms: Portal Instructions Referrals: WESLY ROSA [Primary Care Provider] - 1 week
[2023-02-07 09:48] LABS: Bilirubin Urine NEGATIVE (NEGATIVE); Blood Urine LARGE (NEGATIVE); Color Urine LT. YELLOW (YELLOW); Glucose Urine UA NEGATIVE (NEGATIVE); Ketones Urine NEGATIVE (NEGATIVE); Leukocyte Esterase Urine MODERATE (NEGATIVE); Nitrite Urine POSITIVE (NEGATIVE); Protein Urine 30 mg/dL (NEG/TRACE); Specific Gravity Urine 1.025 (1.005-1.025); Urobilinogen Urine 0.2 EU/dL (0.2-1.0)
[2023-02-07 09:49] LABS: Clarity Urine CLOUDY (CLEAR)
[2023-02-07 09:54] LABS: Bacteria Urine MODERATE #/HPF (NONE SEEN); Crystals Seen? None Seen #/HPF (None Seen); Mucus Urine NONE SEEN (NONE SEEN); Squamous Epithelial Cell Urine NONE SEEN #/LPF (NONE/RARE); WBC Urine >100 #/HPF (NONE SEEN)
[2023-02-07 09:55] LABS: Cast Seen? NONE SEEN #/LPF (NONE SEEN); Urine Culture Indicated YES
[2023-02-07] MEDS: CEPHALEXIN 500 MG CAPSULE PO (10:15)
[2023-02-07 10:18] VITALS: BP 152/93; PULSE 63; RESP 22; O2SAT 95
== END 2023-02-07 10:21 | disposition home or self-care (01) ==
PROVIDERS: Emergency Provider Emergency Medicine; PCP Family Medicine
DX: N39.0 Urinary tract infection, site not specified (principal); I48.91 Unspecified atrial fibrillation; J44.9 Chronic obstructive pulmonary disease, unspecified; I10 Essential (primary) hypertension; Z86.73 Personal history of transient ischemic attack (TIA), and cerebral infarction without residual deficits; Z79.899 Other long term (current) drug therapy; Z79.01 Long term (current) use of anticoagulants; Z87.891 Personal history of nicotine dependence
CPT/HCPCS: 81001; 87086; 87150; 87186; 99283

== ENCOUNTER 2023-09-17 18:09 | Emergency (ER) | payer MEDICARE, SELFPAY ==
[2023-09-17 18:17] VITALS: BP 187/99; PULSE 75; TEMP 36.5; O2SAT 94; BMI 27.5
--- OUTSIDE RECORDS SUMMARY | 2023-09-17 18:17 | XMS_ITS | CCD ---
Author Organization [facility] CliniSyar Care Team Providers Care Manager Global Communications Name Role Phone MOE, JEB Primary Care Unavailable SELF, REFERRED Referring Unavailable KAYLA, MAURY Admitting Unavailable KAYLA, MAURY Attending Unavailable KAYLA, MAURY Admitting Unavailable HOUSE, JEB Referring Unavailable HOUSE, JEB Primary Care Unavailable KAYLA, MAURY Attending Unavailable KAYLA, MAURY Admitting Unavailable HOUSE, JEB Referring Unavailable HOUSE, JEB Primary Care Unavailable KAYLA, MAURY Attending Unavailable HOUSE, DR JARRELL Primary Care Unavailable MOSES ., DR KETAN Olivas Consulting Unavailable NADERER, DR NICK Baptiste Admitting Unavailable NADEREJosiah, DR NICK Baptiste Attending Unavailable JARRED, HERMELINDO Procedure Practitioner Unavailab katie MELENDEZ, DR NICK Baptiste Consulting Unavailable NILL ., DR JEFFERSON Consulting Unavailable JARRED, HERMELINDO Consulting Unavailable NILL ., DR JEFFERSON Procedure Practitioner Unagilbert LACY, EDDIE Consulting Unavailable RIVAS II, PER Consulting Unavailable JESSELARDARLING, CLARE Consulting Unavailable MAURY VILLAREAL Consulting Unavailable HOUSE, DR JARRELL Admitting Unavailable HOUSE, DR JARRELL Attending Unavailable HOUSE, DR JARRELL Primary Care Unavailable HOUSE, DR JARRELL Consulting Unavailable NILL, Max Rahman Attending Unavailable NILL, Max Rahman Attending Unavailable Unknown, Referring Provider Unavailable Unav ailable Self, Referral Referring Unavailable UNKNOWN, PCP Primary Care Unavailable MD RANDALL HAWTHORNE Attending Unavailable HOUSE, JEB Bauman Primary Care Unavailable HOUSE, JEB Bauman Primary Care Unavailable Vikas Bazzi MD Attending Unavailable HOUSE, JEB Bauman Primary Care Unavailable Vikas Bazzi MD Attending Unavailable VITO LEZAMA Attending Unavailable ELZBIETA MADRID Referring Unavailable NAWRPAUL SHARP Admitting Unavailable NAWRPAUL SHARP Attending Unavailable GALINA SANCHEZ Attending Unavailable CAMDEN GUTIERREZ Attending Unavailable BEKAH, RENETTA Attending Unavailable BEKAH, RENETTA Attending Unavailable Allergies Allergy Classification Reported Allergen(s) Allergy Type Date of Onset Reaction(s) Facility (4 sources) Codeine; Translations: [codeine] Drug Allergy 06-03-2012 [facility] Repository Medications Completed/Discontinued Medications Medication Drug Class(es) Dates Sig (Normalized) Sig (Original) aspirin 325 mg oral tablet (2 sources) Platelet Aggregation Inhibitor, Nonsteroidal Anti-inflammatory Drug Start: 11-12-2022 take 1 tablet by mouth every four hours as needed [facility] Advanced Aspirin Reg St 325 MG Oral Tablet TAKE 1 TABLET EVERY 4 HOURS NEEDED. Quantity: 0 Refills: 0 Ordered: 12-Nov-2022 DO Start : 12-Nov-2022 Active 24 hr dilTIAZem hydrochloride 240 mg extended release oral tablet (2 sources) Calcium Channel Kylah Start: 11-12-2022 take 1 tablet by mouth every twenty-four hours dilTIAZem HCl ER 240 MG Oral Tablet Extended Release 24 Hour Quantity: 0 Refills: 0 Ordered: 12-Nov-2022 DO Start : 12-Nov-2022 Active ferrous sulfate 324 mg delayed release oral tablet (2 sources) Start: 11-12-2022 Ferrous Sulfate 324 (65 Fe) MG Oral Tablet Delayed Release Quantity: 0 Refills: 0 Ordered: 12-Nov-2022 DO Start : 12-Nov-2022 Active hydrOXYzine hydrochloride 25 mg oral tablet (2 sources) Antihistamine Start: 11-12-2022 take 1 tablet by mouth three times daily as needed hydrOXYzine HCl - 25 MG Oral Tablet TAKE 1 TABLET 3 TIMES DAILY NEEDED. Quantity: 0 Refills: 0 Ordered: 12-Nov-2022 DO Start : 12-Nov-2022 Active metoprolol tartrate 25 mg oral tablet (2 sources) beta-Adrenergic Kylah Start: 11-12-2022 take 0.5 tablet by mouth twice daily Metoprolol Tartrate 25 MG Oral Tablet TAKE ONE-HALF (1/2) TABLET TWICE A DAY Quantity: 90 Refills: 1 Ordered: 12-Nov-2022 DO Start : 12-Nov-2022 Active rivaroxaban 20 mg oral tablet (2 sources) Factor Xa Inhibitor Start: 11-12-2022 take 1 tablet by mouth once daily Xarelto 20 MG Oral Tablet TAKE 1 TABLET BY MOUTH DAILY Quantity: 90 Refills: 0 Ordered: 12-Nov-2022 DO Start : 12-Nov-2022 Active rOPINIRole 5 mg oral tablet (2 sources) Nonergot Dopamine Agonist Start: 11-12-2022 take 1 tablet by mouth three times daily rOPINIRole HCl - 5 MG Oral Tablet TAKE 1 TABLET 3 TIMES DAILY. Quantity: 0 Refills: 0 Ordered: 12-Nov-2022 DO Start : 12-Nov-2022 Active Problems Active Problems Problem Classification Problem Date Documented Da te Episodic/Chronic Acute posthemorrhagic anemia (1 source) Acute posthemorrhagic anemia; Translations: [ACUTE POSTHEMORRHAGIC ANEMIA] Onset: 3 Episodic Cardiac dysrhythmias (5 sources) Paroxysmal atrial fibrillation; Translations: [Atrial fibrillation] Onset: 2 Chronic Chronic obstructive pulmonary disease and bronchiectasis (3 sources) Chronic obstructive pulmonary disease, unspecified; Translations: [COPD UNSPECIFIED] Onset: 2 Chronic Coronary atherosclerosis and other heart disease (5 sources) Atherosclerotic heart disease of [place] coronary artery without angina pectoris; Translations: [Atherosclerotic heart disease of [place] coronary artery with other forms of angina pectoris] Onset: 3 Chronic Deficiency and other anemia (4 sources) Anemia, unspecified; Translations: [ANEMIA UNSPECIFIED] Onset: 3 Episodic Deficiency and other anemia (2 sources) Iron deficiency anemia, unspecified; Translations: [IRON DEFICIENCY ANEMIA UNSPECIFIED] Onset: 3 Episodic Disorders of lipid metabolism (6 sources) Hyperlipidemia, unspecified; Translations: [Mixed hyperlipidemia] Onset: 2 Chronic Essential hypertension (3 sources) Essential (primary) hypertension; Translations: [ESSENTIAL PRIMARY HYPERTENSION] Onset: 2 Chronic Gastrointestinal hemorrhage (1 source) Gastrointestinal hemorrhage, unspecified; Translations: [GASTROINTESTINAL HEMORRHAGE UNS] Onset: 3 Episodic Malaise and fatigue (2 sources) Chronic fatigue, unspecified; Translations: [Chronic fatigue, unspecified] Onset: 3 Chronic Nonspecific chest pain (1 source) Chest pain, unspecified; Translations: [CHEST PAIN UNSPECIFIED] Onset: 3 Episodic Other aftercare (1 source) correction (current) use of aspirin; Translations: [RETIREMENT CURRENT USE OF ASPIRIN] Onset: 3 Episodic Other aftercare (1 source) correction (current) use of anticoagulants; Translations: [RETIREMENT CURRNT USE ANTICOAGULANTS] Onset: 3 Episodic Other aftercare (1 source) Other care home (current) drug therapy; Translations: [OTH CABIN SUPERVISOR CURRENT DRUG THERAPY] Onset: 3 Episodic Other and ill-defined cerebrovascular disease (1 source) Cerebral aneurysm, nonruptured; Translations: [Cerebral aneurysm, nonruptured] Onset: 3 Chronic Other and unspecified benign neoplasm (1 source) Polyp of colon; Translations: [POLYP OF COLON] Onset: 3 Episodic Other circulatory disease (1 source) Personal history of transient ischemic attack (TIA), and cerebral infarction without residual deficits; Translations: [PERS HX TIA AND CI NO RESID DEFICIT] Onset: 3 Episodic Other gastrointestinal disorders (1 source) Disease of intestine, unspecified; Translations: [DISEASE OF INTESTINE UNSPECIFIED] Onset: 3 Episodic Other gastrointestinal disorders (1 source) Other fecal abnormalities; Translations: [OTHER FECAL ABNORMALITIES] Onset: 3 Episodic Screening and history of mental health and substance abuse codes (1 source) Personal history of nicotine dependence; Translations: [PERSONAL HISTORY OF NICOTINE DEPEND] Onset: 3 Episodic Unclassified (1 source) ESOPHAGITIS UNSPEC WITHOUT BLEEDING; Translations: [ESOPHAGITIS UNSPEC WITHOUT BLEEDING] Onset: 3 Unclassified (2 sources) Other persistent atrial fibrillation; Translations: [Other persistent atrial fibrillation] Onset: 2 Past or Other Problems Problem Classification Problem Date Documented Da te Episodic/Chronic Other gastrointestinal disorders (2 sources) Other specified diseases of intestine; Translations: [Other specified diseases of intestine] Onset: 07-30-2022 Episodic Syncope (2 sources) Syncope and collapse; Translations: [Syncope and collapse] Onset: 11-20-2022 Episodic Results Test Name Value Interpretation Reference Range Facility Office Visiton 06-29-2023 Follow-up visit [id number] Karolina Bashir 1945 F Date Provider Department Center 06/29/2023 [id number] ANDRE Family History Problem Relation Age of Onset Diabetes Mother Heart failure Mother No Known Problems Father Family Status - Relation Status Age at Mother Father Level of Service:20002 [place] OFFICE/OUTPATIENT ESTABLISHED MOD MDM 30 MIN Reason for Visit and Comments: Follow-up [454503] - 6 month follow up [facility] Office Visiton 12-30-2022 Follow-up visit [id number] Karolina Bashir 1945 F Date Provider Department Center 12/30/2022 RENETTA SILVEIRAue Janneth Family History Problem Relation Age of Onset Diabetes Mother Heart failure Mother No Known Problems Father Family Status - Relation Status Age at Mother Father Level of Service:43810 [place] OFFICE/OUTPATIENT ESTABLISHED MOD MDM 30-39 MIN [facility] Documentationon 12-10-2022 Documentation [id number] Karolina Bashir 1945 F Date Provider Department Center 12/10/2022 RENETTA SILVEIRA [facility] Family History Problem Relation Age of Onset Diabetes Mother Heart failure Mother No Known Problems Father Family Status - Relation Status Age at Mother Father [facility] Office Visiton 11-20-2022 Follow-up visit [id number] Karolina Bashir 1945 F Date Provider Department Center 11/20/2022 RENETTA SILVEIRA Family History Problem Relation Age of Onset Diabetes Mother Heart failure Mother No Known Problems Father Family Status - Relation Status Age at Mother Father Level of Service:94248 [place] OFFICE/OUTPATIENT ESTABLISHED MOD [facility] 30-39 MIN [facility] Initial Visit (Neurosurgery) on 11-12-2022 Initial Visit (Neurosurgery) Provider Impressions I had the pleasure of seeing Ms. Bashir and her and had a thorough discussion as well as reviewed her CTA together. Upon reconstructing the source imaging of the CTA, she does not have a 8 or 9 mm left carotid aneurysm. 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 We discussed the natural history of cerebral aneurysms. Based on the location and her other factors, the annual rupture risks is <0.5%. We discussed the treatment options including observation with serial imaging, endovascular and microsurgical options. We also discussed the signs and symptoms of a ruptured aneurysm and she should seek the closest ER if that occurs. In addition, we discussed the statistics associated with a ruptured aneurysm and the functional outcome. I would recommend observation with repeat CTA in a year. All questions were answered to her satisfaction. Thank you for visiting our office today. It was our pleasure to take part in your healthcare. Do not hesitate to call with any questions regarding your plan of care after leaving at [phone] M-F 8am-5pm. To clinicians, thank you very much for this kind referral. It is a privilege to partner with you in the care of your patients. My office would be delighted to assist you with any further consultations or with questions regarding the plan of care outlined. Do not hesitate to call the office or contact me directly. Warmest Regards, Randall Hawthorne MD Cerebrovascular / Endovascular / Skull Base Surgery Director of Neurosurgery, [facility] Fellowship Director, Endovascular Neurosurgery [address] [place] [address] (p) [phone] (f) [phone] Chief Complaint Patient is being seen for an initial Neurosurgical evaluation and Hx of TIA with c/o of recent and sudden near syncope. Here for evaluation of possible Aneurysm. CTA 11/01/22 in PACs from [facility]. History of Present Illness Ms. Bashir is a 77-year-old lady recently diagnosed with TIA and syncope. Further work-up at [facility] showed a a reported 8 to 9 mm left carotid aneurysm. Quit smoking No family history of ruptured brain aneurysm No other symptoms Allergies No Known Allergies Recorded By: Kristen Alcazar; 11/12/2022 11:28:51 AM Current Meds Medication NameInstruction [place] Advanced Aspirin Reg St 325 MG Oral TabletTAKE 1 TABLET EVERY 4 HOURS NEEDED. dilTIAZem HCl ER 240 MG Oral Tablet Extended Release 24 Hour Ferrous Sulfate 324 (65 Fe) MG Oral Tablet Delayed Release hydrOXYzine HCl - 25 MG Oral TabletTAKE 1 TABLET 3 TIMES DAILY NEEDED. Metoprolol Tartrate 25 MG Oral TabletTAKE ONE-HALF (1/2) TABLET TWICE A DAY rOPINIRole HCl - 5 MG Oral TabletTAKE 1 TABLET 3 TIMES DAILY. Xarelto 20 MG Oral TabletTAKE 1 TABLET BY MOUTH DAILY Vitals Vital Signs Recorded: [id number] 11:20AM Heart Rate70 Heuhkmbomcu01 Wquvmdke298 Jbiwpfffe73 Height5 ft 3 in Hvmcjt723 lb BMI Rkydevgrqv07.69 kg/m2 BSA Calculated1.69 Tobacco Useb) No PHQ-2 #1. Over the last 2 weeks have you felt down, depressed or hopeless? (If yes, answer PHQ-9 below)No PHQ-2 #2. Over the last 2 weeks have you felt little interest or pleasure in doing things? (If yes, answer PHQ-9 below)No Falls Screening (Age 18+)a) No falls within the last year O2 Octpeirogy49 Physical Exam AAO x 3 PERRL, EOMI, FS, TML 5/5 SILT No drift Results/Data CTA ([facility]) -8 - 9 mm aneurysm of the left carotid artery Signatures Electronically signed by : Randall Hawthorne MD; Nov 13 2022 11:07PM EST (Author) Normal [employer] Tobacco Screening.on 023 Adult depression screening assessment No -Neurolog y-B [facility] Work Phone: Fall risk assessment a) No falls within the last year CG-Cabzjfoss-K [facility] Work Phone: Tobacco use status CPHS b) No UW-Ndivybkmv-U [facility] Work Phone: Patient Provided Health Data on 11-05-2022 Patient Provided Health Data [id number]#1.00 [facility] Patient Provided Health Data [id number]#1.00 [facility] Rad - Other Radiology Report on 11-05-2022 Rad - Other Radiology Report [id number]#1.00 [facility] Outside Recordson 11-03-2022 Outside Records [id number]#1.0 0[facility] Office Visiton 08-18-2022 Follow-up visit [id number] Karolina Bashir 1945 F Date Provider Department Center 08/18/2022 Kane-CAMDEN GUTIERREZ [facility] Family History Problem Relation Age of Onset Diabetes Mother Heart failure Mother No Known Problems Father Family Status - Relation Status Age at Mother Father Level of Service:05041 [place] OFFICE/OUTPATIENT ESTABLISHED MOD MDM 30-39 MIN Reason for Visit and Comments: Atrial Fibrillation [80] Coronary Artery Disease [187] Hyperlipidemia [182] Normal [facility] Anesthesiaon 07-30-2022 Anesthesia [id number] Karolina Bashir 1945 F Date Provider Department Center 07/30/2022 CRESENCIO BLEVINS [facility] MICHELLE Family History Problem Relation Age of Onset Diabetes Mother Heart failure Mother No Known Problems Father Family Status - Relation Status Age at Mother Father Normal [facility] HISTOLOGY - TISSUE EXAMon LAB AP CASE REPORT Normal [facility] Comment on above: Result Comment: Surg ical Pathology Case: [id number] Authorizing Provider: Paul Deal MD Collected: 07/30/2022 1158 Ordering Location: [facility] Received: 07/30/2022 1359 [facility] Endoscopy Pathologist: Taco Lua MD Specimens: A) - Large Intestine, Hepatic Flexure, hepatic flexure polyp EMR r/o adenoma B) - Large Intestine, Sigmoid Colon, Sigmoid polyp r/o Adenoma Performed By: #### L [id number] ####[facility] LAB (BEAKER)[address] [facility] [place] [address] LAB AP CLINICAL INFORMATION Order Diagnoses Normal [facility] Comment on above: Result Comment: K63. 89 - Mass of hepatic flexure of colon [ICD-10-CM] Performed By: #### L [id number] ####[facility] (BEAKER)[address] [facility] [place] [address] LAB AP DIAGNOSIS COMMENT A. Specimen received fragmented. Clinical and endoscopic correlation suggested regarding resection margin. [facility] Comment on above: Performed By: #### L [id number] ####[facility] (BEAKER)[address] [facility] [place] [address] LAB AP GROSS DESCRIPTION [facility] Comment on above: Result Comment: A. L arge Intestine, Hepatic Flexure. Part A is received in formalin and labeled Mardelle L. Setzler and hepatic flexure polyp EMR. It consists of numerous romo-pink, polypoid fragments of mucosal tissue measuring 3.2 x 2.8 x 0.4 cm in aggregate. The specimen is submitted in toto in 2 cassettes. Radha Fierro, Pathologists' Ophthalmic Assistant Student Dawood Potter Pathologists' Ophthalmic Assistant B. Large Intestine, Sigmoid Colon. Part B is received in formalin and labeled Mardelle L. Setzler and sigmoid polyp. It consists of a romo-pink, polypoid fragment of mucosal tissue measuring 0.5 x 0.5 x 0.5 cm. The resection margin is inked green. The specimen is trisected to reveal a romo-pink, homogenous cut surface. The specimen is entirely submitted in 1 cassette. Radha Fierro, Pathologists' Ophthalmic Assistant Student Dawood Potter, Pathologists' Ophthalmic Assistant Performed By: #### L [id number] ####[facility] (BEAKER)[address] [facility] [place] [address] LAB AP MICROSCOPIC DESCRIPTION Microscopic examination performed. [facility] Comment on above: Performed By: #### L [id number] ####[facility] (BEAKER)[address] [facility] [place] [address] LAB AP REPORT FINAL DIAGNOSIS NARRATIVE [facility] Comment on above: Result Comment: A. C olon, hepatic flexure polyp, endoscopic mucosal resection: Multiple fragments of tubular adenoma. No high-grade dysplasia or malignancy identified (see comment). B. Colon, sigmoid, polypectomy: Tubular adenoma. No high-grade dysplasia or malignancy identified. Performed By: #### L [id number] ####[facility] (BEAKER)[address] [facility] [place] [address] HPon 07-30-2022 HP H&P reviewed. The patient was examined and there are no changes to the H&P. A 77 y.o. female who had a routine colonoscopy when they discovered a large polyp around the hepatic flexure that was between 20 and 25% of the lumen. Plan for colonoscopy with EMR today. [facility] NURSNOTEon 07-30-2022 RENEE Gave discharge instructions at bedside [facility] NURSNOTE Refer to colorectal surgeon for surgical resection of EMR site r/t incomplete removal of polyp because mucosal area would not raise. Normal [facility] NURSNOTE Colonoscopy Findings : Hepatic Flexure Polyp; Sigmoid Polyp; Diverticulosis; Hemorrhoids Normal [facility] POCT GLUCOSE METER UNSOLICIT ED RESULTSon 07-30-2022 Glucose [Mass/Vol] 109 mg/dL High 70-105 Univer elli [facility] Comment on above: Result Comment: jenc k2 Performed By: #### L [id number] ####[facility] LAB (BEAKER)[address] [place] [address] Prep for Procedureon 023 Prep for Procedure [id number] WaleskamalikAdele downeyMason 1945 F Date Provider Department Center 07/22/2022 PAUL SALDANA [facility] GIS GEORGEI Family History Problem Relation Age of Onset Diabetes Mother Heart failure Mother No Known Problems Father Family Status - Relation Status Age at Mother Father Normal [facility] Orders Onlyon 07-15-2022 Orders Only [id number] WaleskamalikAracelis downeykatie Pino 1945 F Date Provider Department Center 07/15/2022 ELZBIETA ISBELL [facility] Family History Problem Relation Age of Onset Diabetes Mother Heart failure Mother No Known Problems Father Family Status - Relation Status Age at Mother Father [facility] Consulton 07-10-2022 Consult [id number] WaleskamalikAdele downeyMason 1945 Date Provider Department Center 07/10/2022 GALINA BUCKLEY [facility] SURG [place] Family History Problem Relation Age of Onset Diabetes Mother Heart failure Mother No Known Problems Father Family Status - Relation Status Age at Mother Father Level of Service:87799 [place] OFFICE/OUTPATIENT NEW MODERATE MDM 45-59 MINUTES Reason for Visit and Comments: Colon Cancer [308] - Karolina is in to consult for Tubular adenoma; Normal [facility] HPon 07-10-2022 HP Subjective Patient ID: Karolina Bashir is a 77 y.o. female who presents for Colon Cancer (Karolina is in to consult for Tubular adenoma;). HPIPatient was having a routine colonoscopy when they discovered a polyp around the hepatic flexure that was between 20 and 25% of the lumen. Otherwise there were no polyps that could not be removed during the scope. The pathology was all benign for these lesions but they were unable to completely resect this hepatic flexure lesion. All of her outside documentation was reviewed. I had a long discussion with the patient and the male in the room with her about attempting an EMR with GI before we proceed with right colectomy. Patient vocalized that she would like to proceed with an EMR and if it is unsuccessful or she needs surgery due to cancer diagnosis we will do the operation when I am back in October. Review of Systems Constitutional: Negative. HENT: Negative. Eyes: Negative. Respiratory: Negative. Cardiovascular: Negative. Gastrointestinal: Negative. Endocrine: Negative. Genitourinary: Negative. Musculoskeletal: Negative. Skin: Negative. Allergic/Immunologic: Negative. Neurological: Negative. Hematological: Negative. Psychiatric/Behavioral : Negative. Objective Visit Vitals BP 127/66 (BP Location: Right arm, Patient Position: Sitting) Pulse 66 Temp 36.6 ???C (97.9 ???F) Physical Exam Constitutional: Appearance: Normal appearance. HENT: Head: Normocephalic and atraumatic. Nose: Nose normal. Cardiovascular: Rate and Rhythm: Normal rate. Pulmonary: Effort: Pulmonary effort is normal. Abdominal: General: Abdomen is flat. Palpations: Abdomen is soft. Musculoskeletal: General: Normal range of motion. Cervical back: Normal range of motion. Skin: General: Skin is warm. Neurological: General: No focal deficit present. Mental Status: She is alert and oriented to person, place, and time. Psychiatric: Mood and Affect: Mood normal. Behavior: Behavior normal. Thought Content: Thought content normal. Judgment: Judgment normal. Assessment/Plan Diagnoses and all orders for this visit: Mass of hepatic flexure of colon - Ambulatory referral to Gastroenterology; Future Diagnosis Plan 1. Mass of hepatic flexure of colon Ambulatory referral to Gastroenterology Orders Placed This Encounter Procedures Ambulatory referral to Gastroenterology Standing Status: Future Standing Expiration Date: 01/09/2023 Referral Priority: Routine Referral Type: Consultation Referral Reason: Specialty Services Required Referred to Provider: Paul Deal MD Requested Specialty: Gastroenterology Number of Visits Requested: 1 Will refer for EMR and if unsuccessful or cancer diagnosis will do right colectomy in October. No results found for this or any previous visit (from the past 36 hour(s)). No follow-ups on file. Normal [facility] Pathology Noteon 06-18-2022 Pathology Note [id number] 0CD:127 Normal [facility] CBC AUTO DIFFon 06-10-2022 BASO # 0.1 103/ul Normal 0.0-0.1 [facility] Comment on above: Performed By: #### S EDR #### [facility] [address] [address] [address] Bao Hsu Basophils/100 WBC (Bld) 1.0 % Normal 0.2-2.0 [facility] Comment on above: Performed By: #### S EDR #### [facility] [address] [address] [address] Bao Hsu EO # 0.3 103/ul Normal 0.0-0.7 [facility] Comment on above: Performed By: #### S EDR #### [facility] [address] [address] [address] Bao Hsu Eosinophils/100 WBC (Bld) 2.7 % Normal 0.9-7.0 [facility] Comment on above: Performed By: #### S EDR #### [facility] [address] [address] [address] Bao Hsu Erythrocyte distribution width (RBC) [Ratio] 29.4 % Critically high 11.0-15.0 [facility] Comment on above: Performed By: #### S EDR #### [facility] [address] [address] [address] Bao Hsu Hematocrit (Bld) [Volume fraction] 34.5 % Critically low 36.0-48.0 [facility] Comment on above: Performed By: #### S EDR #### [facility] [address] [address] [address] Bao Hsu Hemoglobin (Bld) [Mass/Vol] 9.6 g/dL Critically low 12.0-16.0 [facility] Comment on above: Performed By: #### S EDR #### [facility] [address] [address] [address] Bao Hsu IG # 0.03 10e3/ul Normal 0.00-0.03 [facility] Comment on above: Performed By: #### S EDR #### [facility] [address] [address] [address] Bao Hsu IG % 0.3 % Normal 0.0-0.5 [facility] Comment on above: Performed By: #### S EDR #### [facility] [address] [place] [address] Dr. Bao Hsu LYMPH # 1.4 103/ul Normal 1.2-3.8 [facility] Comment on above: Performed By: #### S EDR #### [facility] [address] [place] [address] Dr. Bao Hsu Lymphocytes/100 WBC (Bld) 14.1 % Critically low 20.5-60.0 [facility] Comment on above: Performed By: #### S EDR #### [facility] [address] [place] [address] Dr. Bao Hsu MANUAL DIFF REQ NO Normal [facility] Comment on above: Performed By: #### S EDR #### [facility] [address] [address] [address] Bao Hsu MCH (RBC) [Entitic mass] 20.8 pg Critically low 26.7-34.0 [facility] Comment on above: Performed By: #### S EDR #### [facility] [address] [place] [address] Dr. Bao Hsu MCHC (RBC) [Mass/Vol] 27.8 g/dL Critically low 29.9-35.2 [facility] Comment on above: Performed By: #### S EDR #### [facility] [address] [place] [address] Dr. Bao Hsu MCV (RBC) [Entitic vol] 74.8 fL Critically low 81.0-99.0 [facility] Comment on above: Performed By: #### S EDR #### [facility] [address] [address] [address] Bao Hsu MONO # 0.6 103/ul Normal 0.3-0.8 [facility] Comment on above: Performed By: #### S EDR #### [facility] [address] [address] [address] Bao Hsu Monocytes/100 WBC (Bld) 5.9 % Normal 1.7-12.0 [facility] Comment on above: Performed By: #### S EDR #### [facility] [address] [place] [address] Dr. Bao Hsu NEUT # 7.5 103/ul Critically high 1.4-6.5 [facility] Comment on above: Performed By: #### S EDR #### [facility] [address] [place] [address] Dr. Bao Hsu Neutrophils/100 WBC (Bld) 76.0 % Critically high 43.0-75.0 [facility] Comment on above: Performed By: #### S EDR #### [facility] [address] [place] [address] Dr. Bao Hsu Platelet mean volume (Bld) [Entitic vol] 8.0 fL Critically low 9.5-13.5 [facility] Comment on above: Performed By: #### S EDR #### [facility] [address] [place] [address] Dr. Bao Hsu PLT 472 103/ul Critically high 150-450 [facility] Comment on above: Performed By: #### S EDR #### [facility] [address] [place] [address] Dr. Bao Hsu RBC 4.61 106/ul Normal 4.20-5.40 [facility] Comment on above: Performed By: #### S EDR #### [facility] [address] [place] [address] Dr. Bao Hsu WBC 9.9 103/ul Normal 4.0-11.0 [facility] Comment on above: Performed By: #### S EDR #### [facility] [address] [place] [address] Dr. Bao Hsu PRBC LEUKOREDUCEDon 06-11-19 ABO and Rh group Nom (Bld) Cross Match Result Compatible Unit Blood Type A Pos Unit Number [id number] Status Information Transfused Product ID Red Blood Cells Product Code [id number] Cross Match Result Compatible Unit Blood Type A Pos Unit Number [id number] Status Information Transfused Product ID Red Blood Cells Product Code [id number] Normal [facility] Comment on above: Performed By: #### C WESLEY, BMP #### [facility] [address] [place] [address] Dr. Bao Hsu Consultation Noteon 06-05-19 Consultation Note [id number] 0CD:127 Normal [facility] Outside Colonoscopyon 2022 Outside Colonoscopy [id number] CD:127 Normal [facility] CBC AUTO DIFFon 06-01-2022 BASO # 0.1 103/ul Normal 0.0-0.1 [facility] Comment on above: Performed By: #### C WESLEY, BMP #### [facility] [address] [place] [address] Dr. Bao Hsu Basophils/100 WBC (Bld) 0.3 % Normal 0.2-2.0 [facility] Comment on above: Performed By: #### C WESLEY, BMP #### [facility] [address] [place] [address] Dr. Bao Hsu EO # 0.1 103/ul Normal 0.0-0.7 [facility] Comment on above: Performed By: #### C WESLEY, BMP #### [facility] [address] [place] [address] Dr. Bao Hsu Eosinophils/100 WBC (Bld) 0.6 % Critically low 0.9-7.0 [facility] Comment on above: Performed By: #### C WESLEY, BMP #### [facility] [address] [place] [address] Dr. Bao Hsu Erythrocyte distribution width (RBC) [Ratio] 26.8 % Critically high 11.0-15.0 [facility] Comment on above: Performed By: #### C MADM, BMP #### [facility] [address] [place] [address] Dr. Bao Hsu Hematocrit (Bld) [Volume fraction] 31.8 % Critically low 36.0-48.0 [facility] Comment on above: Performed By: #### C MADM, BMP #### [facility] [address] [place] [address] Dr. Bao Hsu Hemoglobin (Bld) [Mass/Vol] 8.8 g/dL Critically low 12.0-16.0 [facility] Comment on above: Performed By: #### C MADM, BMP #### [facility] [address] [place] [address] Dr. Bao Hsu IG # 0.07 10e3/ul Critically high 0.00-0.03 [facility] Comment on above: Performed By: #### C MADM, BMP #### [facility] [address] [place] [address] Dr. Bao Hsu IG % 0.4 % Normal 0.0-0.5 [facility] Comment on above: Performed By: #### C DLM, BMP #### [facility] [address] [place] [address] Dr. Bao Hsu LYMPH # 1.3 103/ul Normal 1.2-3.8 [facility] Comment on above: Performed By: #### C MADM, BMP #### [facility] [address] [place] [address] Dr. Bao Hsu Lymphocytes/100 WBC (Bld) 7.8 % Critically low 20.5-60.0 [facility] Comment on above: Performed By: #### C MADM, BMP #### [facility] [address] [place] [address] Dr. Boa Hsu MANUAL DIFF REQ NO Normal [facility] Comment on above: Performed By: #### C WESLEY, BMP #### [facility] [address] [address] [address] Bao Hsu MCH (RBC) [Entitic mass] 19.4 pg Critically low 26.7-34.0 [facility] Comment on above: Performed By: #### C WESLEY, BMP #### [facility] [address] [address] [address] Bao Hsu MCHC (RBC) [Mass/Vol] 27.7 g/dL Critically low 29.9-35.2 [facility] Comment on above: Result Comment: slig ht hypochromasia present Performed By: #### C WESLEY, BMP #### [facility] [address] [place] [address] Dr. Bao Hsu MCV (RBC) [Entitic vol] 70.0 fL Critically low 81.0-99.0 [facility] Comment on above: Result Comment: slig ht microcytosis present Performed By: #### C WESLEY, BMP #### [facility] [address] [place] [address] Dr. Bao Hus MONO # 1.0 103/ul Critically high 0.3-0.8 [facility] Comment on above: Performed By: #### C WESLEY, BMP #### [facility] [address] [place] [address] Dr. Bao Hsu Monocytes/100 WBC (Bld) 5.6 % Normal 1.7-12.0 [facility] Comment on above: Performed By: #### C WESLEY, BMP #### [facility] [address] [place] [address] Dr. Bao Hsu NEUT # 14.4 103/ul Critically high 1.4-6.5 [facility] Comment on above: Performed By: #### C WESLEY, BMP #### [facility] [address] [place] [address] Dr. Bao Hsu Neutrophils/100 WBC (Bld) 85.3 % Critically high 43.0-75.0 [facility] Comment on above: Performed By: #### C WESLEY, BMP #### [facility] [address] [address] [address] Bao Hsu Platelet mean volume (Bld) [Entitic vol] 8.2 fL Critically low 9.5-13.5 [facility] Comment on above: Performed By: #### C MADM, BMP #### [facility] [address] [address] [address] Bao Hsu PLT 356 103/ul Normal 150-450 [facility] Comment on above: Performed By: #### C MADM, BMP #### [facility] [address] [address] [address] Bao Hsu RBC 4.54 106/ul Normal 4.20-5.40 [facility] Comment on above: Performed By: #### C MADM, BMP #### [facility] [address] [place] [address] Dr. Bao Hsu WBC 16.9 103/ul Critically high 4.0-11.0 [facility] Comment on above: Performed By: #### C MADM, BMP #### [facility] [address] [place] [address] Dr. Bao Hsu BASO # 0.1 103/ul Normal 0.0-0.1 [facility] Comment on above: Performed By: #### C DLM, BMP #### [facility] [address] [place] [address] Dr. Bao Hsu Basophils/100 WBC (Bld) 0.5 % Normal 0.2-2.0 [facility] Comment on above: Performed By: #### C MADM, BMP #### [facility] [address] [place] [address] Dr. Bao Hsu EO # 0.2 103/ul Normal 0.0-0.7 [facility] Comment on above: Performed By: #### C MADM, BMP #### [facility] [address] [place] [address] Dr. Bao Hsu Eosinophils/100 WBC (Bld) 1.2 % Normal 0.9-7.0 [facility] Comment on above: Performed By: #### C MADM, BMP #### [facility] [address] [place] [address] Dr. Bao Hsu Erythrocyte distribution width (RBC) [Ratio] 26.1 % Critically high 11.0-15.0 [facility] Comment on above: Performed By: #### C MADM, BMP #### [facility] [address] [place] [address] Dr. Bao Hsu Hematocrit (Bld) [Volume fraction] 28.8 % Critically low 36.0-48.0 [facility] Comment on above: Performed By: #### C MADM, BMP #### [facility] [address] [place] [address] Dr. Bao Hsu Hemoglobin (Bld) [Mass/Vol] 8.1 g/dL Critically low 12.0-16.0 [facility] Comment on above: Performed By: #### C DLM, BMP #### [facility] [address] [place] [address] Dr. Bao Hsu IG # 0.05 10e3/ul Critically high 0.00-0.03 [facility] Comment on above: Performed By: #### C MADM, BMP #### [facility] [address] [place] [address] Dr. Bao Hsu IG % 0.4 % Normal 0.0-0.5 [facility] Comment on above: Performed By: #### C DLM, BMP #### [facility] [address] [place] [address] Dr. Bao Hsu LYMPH # 1.6 103/ul Normal 1.2-3.8 [facility] Comment on above: Performed By: #### C MADM, BMP #### [facility] [address] [place] [address] Dr. Bao Hsu Lymphocytes/100 WBC (Bld) 12.0 % Critically low 20.5-60.0 [facility] Comment on above: Performed By: #### C MADM, BMP #### [facility] [address] [place] [address] Dr. Bao Hsu MANUAL DIFF REQ NO Normal [facility] Comment on above: Performed By: #### C DLM, BMP #### [facility] [address] [place] [address] Dr. Bao Hsu MCH (RBC) [Entitic mass] 19.4 pg Critically low 26.7-34.0 [facility] Comment on above: Performed By: #### C DLM, BMP #### [facility] [address] [place] [address] Dr. Bao Hsu MCHC (RBC) [Mass/Vol] 28.1 g/dL Critically low 29.9-35.2 [facility] Comment on above: Performed By: #### C WESLEY, BMP #### [facility] [address] [place] [address] Dr. Bao Hsu MCV (RBC) [Entitic vol] 69.1 fL Critically low 81.0-99.0 [facility] Comment on above: Performed By: #### C WESLEY, BMP #### [facility] [address] [place] [address] Dr. Bao Hsu MONO # 1.1 103/ul Critically high 0.3-0.8 [facility] Comment on above: Performed By: #### C WESLEY, BMP #### [facility] [address] [place] [address] Dr. Bao Hsu Monocytes/100 WBC (Bld) 8.2 % Normal 1.7-12.0 [facility] Comment on above: Performed By: #### C WESLEY, BMP #### [facility] [address] [place] [address] Dr. Bao Hsu NEUT # 10.4 103/ul Critically high 1.4-6.5 [facility] Comment on above: Performed By: #### C WESLEY, BMP #### [facility] [address] [place] [address] Dr. Bao Hsu Neutrophils/100 WBC (Bld) 77.7 % Critically high 43.0-75.0 [facility] Comment on above: Performed By: #### C WESLEY, BMP #### [facility] [address] [address] [address] Bao Hsu Platelet mean volume (Bld) [Entitic vol] 8.1 fL Critically low 9.5-13.5 [facility] Comment on above: Performed By: #### C WESLEY, BMP #### [facility] [address] [address] [address] Bao Hsu PLT 344 103/ul Normal 150-450 [facility] Comment on above: Performed By: #### C WESLEY, BMP #### [facility] [address] [address] [address] Bao Hsu RBC 4.17 106/ul Critically low 4.20-5.40 [facility] Comment on above: Performed By: #### C WESLEY, BMP #### [facility] [address] [address] [address] Bao Hsu WBC 13.3 103/ul Critically high 4.0-11.0 [facility] Comment on above: Performed By: #### C WESLEY, BMP #### [facility] [address] [place] [address] Dr. Bao Hsu MAGNESIUMon 06-01-2022 Magnesium [Mass/Vol] 1.8 mg/dL Normal 1.8-2.4 [facility] Comment on above: Performed By: #### C WESLEY, BMP #### [facility] [address] [place] [address] Dr. Bao Hsu PROF 14(COMP METB)on 023 Albumin [Mass/Vol] 3.4 g/dL Normal 3.4-5.0 [facility] Comment on above: Performed By: #### C WESLEY, BMP #### [facility] [address] [address] [address] Bao Hsu Albumin/Globulin [Mass ratio] 1.2 {ratio} Normal [facility] Comment on above: Performed By: #### C WESLEY, BMP #### [facility] [address] [address] [address] Bao Hsu ALP [Catalytic activity/Vol] 123 U/L Critically high 46-116 [facility] Comment on above: Performed By: #### C MADM, BMP #### [facility] [address] [address] [address] Bao Hsu ALT [Catalytic activity/Vol] 14 U/L Normal 14-59 [facility] Comment on above: Performed By: #### C MADM, BMP #### [facility] [address] [address] [address] Bao Hsu Anion gap [Moles/Vol] 13.7 mmol/L Normal [facility] Comment on above: Performed By: #### C MADM, BMP #### [facility] [address] [address] [address] Bao Hsu AST [Catalytic activity/Vol] 14 U/L Critically low 15-37 [facility] Comment on above: Performed By: #### C MADM, BMP #### [facility] [address] [address] [address] Bao Hsu Bilirubin [Mass/Vol] 0.6 mg/dL Normal 0.2-1.0 [facility] Comment on above: Performed By: #### C MADM, BMP #### [facility] [address] [address] [address] Bao Hsu Calcium [Mass/Vol] 8.4 mg/dL Critically low 8.5-10.1 [facility] Comment on above: Performed By: #### C MADM, BMP #### [facility] [address] [address] [address] Bao Hsu Chloride [Moles/Vol] 101 mmol/L Normal 98-107 [facility] Comment on above: Performed By: #### C MADM, BMP #### [facility] [address] [address] [address] Bao Hsu CO2 [Moles/Vol] 25.2 mmol/L Normal 21.0-32.0 [facility] Comment on above: Performed By: #### C MADM, BMP #### [facility] [address] [address] [address] Bao Hsu Creatinine [Mass/Vol] 0.68 mg/dL Normal 0.55-1.02 [facility] Comment on above: Performed By: #### C MADM, BMP #### [facility] [address] [address] [address] Bao Hsu EGFR-AF LEBANESE >60 Normal >=60 [facility] Comment on above: Performed By: #### C MADM, BMP #### [facility] [address] [address] [address] Bao Hsu EGFR-NON AF LEBANESE >60 Normal >=60 [facility] Comment on above: Performed By: #### C MADM, BMP #### [facility] [address] [address] [address] Bao Hsu Globulin (S) [Mass/Vol] 2.9 g/dL Normal [facility] Comment on above: Performed By: #### C MADM, BMP #### [facility] [address] [place] [address] Dr. Bao Hsu Glucose [Mass/Vol] 92 mg/dL Normal 74-106 [facility] Comment on above: Performed By: #### C MADM, BMP #### [facility] [address] [address] [address] Bao Hsu Potassium [Moles/Vol] 3.9 mmol/L Normal 3.5-5.1 [facility] Comment on above: Performed By: #### C MADM, BMP #### [facility] [address] [address] [address] Bao Hsu Protein [Mass/Vol] 6.3 g/dL Critically low 6.4-8.2 Th [facility] Comment on above: Performed By: #### C MADM, BMP #### [facility] [address] [address] [address] Bao Hsu Sodium [Moles/Vol] 136 mmol/L Normal 136-145 [facility] Comment on above: Performed By: #### C MADM, BMP #### [facility] [address] [address] [address] Bao Hsu Urea nitrogen [Mass/Vol] 12.0 mg/dL Normal 7.0-18.0 [facility] Comment on above: Performed By: #### C WESLEY, BMP #### [facility] [address] [place] [address] Dr. Bao Hsu Urea nitrogen/Creatinine [Mass ratio] 17.6 mg/mg Normal [facility] Comment on above: Performed By: #### C WESLEY, BMP #### [facility] [address] [place] [address] Dr. Bao Hsu PTTon 06-01-2022 aPTT Coag (Bld) [Time] 25.6 s Normal 22.3-36.2 [facility] Comment on above: Performed By: #### C WESLEY BMP #### [facility] [address] [place] [address] Dr. Bao Hsu SED RATE WESTERGRENon 2022 SED RATE 20 mm/hr Normal <=30 [facility] Comment on above: Performed By: #### S EDR #### [facility] [address] [place] [address] Dr. Bao Hsu CBC AUTO DIFFon 05-31-2022 BASO # 0.1 103/ul Normal 0.0-0.1 [facility] Comment on above: Performed By: #### C BC #### [facility] [address] [place] [address] Dr. Bao Hsu Basophils/100 WBC (Bld) 0.7 % Normal 0.2-2.0 [facility] Comment on above: Performed By: #### C BC #### [facility] [address] [place] [address] Dr. Bao Hsu EO # 0.5 103/ul Normal 0.0-0.7 [facility] Comment on above: Performed By: #### C BC #### [facility] [address] [place] [address] Dr. Bao Hsu Eosinophils/100 WBC (Bld) 3.7 % Normal 0.9-7.0 [facility] Comment on above: Performed By: #### C BC #### [facility] [address] [place] [address] Dr. Bao Hsu Erythrocyte distribution width (RBC) [Ratio] 25.7 % Critically high 11.0-15.0 [facility] Comment on above: Result Comment: 2+ a niso Performed By: #### C BC #### [facility] [address] [place] [address] Dr. Bao Hsu Hematocrit (Bld) [Volume fraction] 34.1 % Critically low 36.0-48.0 [facility] Comment on above: Performed By: #### C BC #### [facility] [address] [place] [address] Dr. Bao Hsu Hemoglobin (Bld) [Mass/Vol] 9.6 g/dL Critically low 12.0-16.0 [facility] Comment on above: Performed By: #### C BC #### [facility] [address] [place] [address] Dr. Bao Hsu IG # 0.08 10e3/ul Critically high 0.00-0.03 [facility] Comment on above: Performed By: #### C BC #### [facility] [address] [place] [address] Dr. Bao Hsu IG % 0.6 % Critically high 0.0-0.5 [facility] Comment on above: Performed By: #### C BC #### [facility] [address] [place] [address] Dr. Bao Hsu LYMPH # 1.9 103/ul Normal 1.2-3.8 [facility] Comment on above: Performed By: #### C BC #### [facility] [address] [place] [address] Dr. Bao Hsu Lymphocytes/100 WBC (Bld) 13.3 % Critically low 20.5-60.0 [facility] Comment on above: Performed By: #### C BC #### [facility] [address] [place] [address] Dr. Bao Hsu MANUAL DIFF REQ NO Normal [facility] Comment on above: Performed By: #### C BC #### [facility] [address] [address] [address] Bao Hsu MCH (RBC) [Entitic mass] 19.4 pg Critically low 26.7-34.0 [facility] Comment on above: Result Comment: 2+ h ypochromasia Performed By: #### C BC #### [facility] [address] [place] [address] Dr. Bao Hsu MCHC (RBC) [Mass/Vol] 28.2 g/dL Critically low 29.9-35.2 [facility] Comment on above: Performed By: #### C BC #### [facility] [address] [place] [address] Dr. Bao Hsu MCV (RBC) [Entitic vol] 68.9 fL Critically low 81.0-99.0 [facility] Comment on above: Performed By: #### C BC #### [facility] [address] [place] [address] Dr. Bao Hsu MONO # 0.9 103/ul Critically high 0.3-0.8 [facility] Comment on above: Performed By: #### C BC #### [facility] Laboratory [address] [place] [address] Dr. Bao Hsu Monocytes/100 WBC (Bld) 6.2 % Normal 1.7-12.0 [facility] Comment on above: Performed By: #### C BC #### [facility] [address] [place] [address] Dr. Bao Hsu NEUT # 10.9 103/ul Critically high 1.4-6.5 [facility] Comment on above: Performed By: #### C BC #### [facility] [address] [place] [address] Dr. Bao Hsu Neutrophils/100 WBC (Bld) 75.5 % Critically high 43.0-75.0 [facility] Comment on above: Performed By: #### C BC #### [facility] [address] [place] [address] Dr. Bao Hsu Platelet mean volume (Bld) [Entitic vol] 8.7 fL Critically low 9.5-13.5 [facility] Comment on above: Performed By: #### C BC #### [facility] [address] [address] [address] Bao Hsu PLT 375 103/ul Normal 150-450 [facility] Comment on above: Performed By: #### C BC #### [facility] [address] [address] [address] Bao Hsu RBC 4.95 106/ul Normal 4.20-5.40 [facility] Comment on above: Performed By: #### C BC #### [facility] [address] [address] [address] Bao Hsu WBC 14.4 103/ul Critically high 4.0-11.0 [facility] Comment on above: Performed By: #### C BC #### [facility] [address] [address] [address] Bao Hsu BASO # 0.1 103/ul Normal 0.0-0.1 [facility] Comment on above: Performed By: #### C WESLEY, BMP #### [facility] [address] [address] [address] Bao Hsu Basophils/100 WBC (Bld) 0.7 % Normal 0.2-2.0 [facility] Comment on above: Performed By: #### C WESLEY, BMP #### [facility] [address] [place] [address] Dr. Bao Hsu EO # 0.4 103/ul Normal 0.0-0.7 [facility] Comment on above: Performed By: #### C WESLEY, BMP #### [facility] [address] [address] [address] Bao Hsu Eosinophils/100 WBC (Bld) 3.7 % Normal 0.9-7.0 [facility] Comment on above: Performed By: #### C WESLEY, BMP #### [facility] [address] [place] [address] Dr. Bao Hsu Erythrocyte distribution width (RBC) [Ratio] 25.0 % Critically high 11.0-15.0 [facility] Comment on above: Performed By: #### C WESLEY, BMP #### [facility] [address] [place] [address] Dr. Bao Hsu Hematocrit (Bld) [Volume fraction] 29.9 % Critically low 36.0-48.0 [facility] Comment on above: Performed By: #### C MADM, BMP #### [facility] [address] [place] [address] Dr. Bao Hsu Hemoglobin (Bld) [Mass/Vol] 8.5 g/dL Critically low 12.0-16.0 [facility] Comment on above: Performed By: #### C MADM, BMP #### [facility] [address] [place] [address] Dr. Bao Hsu IG # 0.06 10e3/ul Critically high 0.00-0.03 [facility] Comment on above: Performed By: #### C MADM, BMP #### [facility] [address] [place] [address] Dr. Bao Hsu IG % 0.6 % Critically high 0.0-0.5 [facility] Comment on above: Performed By: #### C MADM, BMP #### [facility] [address] [place] [address] Dr. Bao Hsu LYMPH # 1.6 103/ul Normal 1.2-3.8 [facility] Comment on above: Performed By: #### C MADM, BMP #### [facility] [address] [place] [address] Dr. Bao Hsu Lymphocytes/100 WBC (Bld) 15.0 % Critically low 20.5-60.0 [facility] Comment on above: Performed By: #### C MADM, BMP #### [facility] [address] [place] [address] Dr. Bao Hsu MANUAL DIFF REQ NO Normal [facility] Comment on above: Performed By: #### C MADM, BMP #### [facility] [address] [place] [address] Dr. Bao Hsu MCH (RBC) [Entitic mass] 19.4 pg Critically low 26.7-34.0 [facility] Comment on above: Performed By: #### C WESLEY, BMP #### [facility] [address] [place] [address] Dr. Bao Hsu MCHC (RBC) [Mass/Vol] 28.4 g/dL Critically low 29.9-35.2 [facility] Comment on above: Performed By: #### C WESLEY, BMP #### [facility] [address] [place] [address] Dr. Bao Hsu MCV (RBC) [Entitic vol] 68.3 fL Critically low 81.0-99.0 [facility] Comment on above: Performed By: #### C WESLEY, BMP #### [facility] [address] [place] [address] Dr. Bao Hsu MONO # 0.8 103/ul Normal 0.3-0.8 [facility] Comment on above: Performed By: #### C WESLEY, BMP #### [facility] [address] [place] [address] Dr. Bao Hsu Monocytes/100 WBC (Bld) 7.8 % Normal 1.7-12.0 [facility] Comment on above: Performed By: #### C WESLEY, BMP #### [facility] [address] [place] [address] Dr. Bao Hsu NEUT # 7.7 103/ul Critically high 1.4-6.5 [facility] Comment on above: Performed By: #### C WESLEY, BMP #### [facility] [address] [place] [address] Dr. Bao Hsu Neutrophils/100 WBC (Bld) 72.2 % Normal 43.0-75.0 [facility] Comment on above: Performed By: #### C WESLEY, BMP #### [facility] [address] [place] [address] Dr. Bao Hsu Platelet mean volume (Bld) [Entitic vol] 8.4 fL Critically low 9.5-13.5 [facility] Comment on above: Performed By: #### C WESLEY, BMP #### [facility] [address] [place] [address] Dr. Bao Hsu PLT 369 103/ul Normal 150-450 [facility] Comment on above: Performed By: #### C DLM, BMP #### [facility] [address] [place] [address] Dr. Bao Hsu RBC 4.38 106/ul Normal 4.20-5.40 [facility] Comment on above: Performed By: #### C DLM, BMP #### [facility] [address] [place] [address] Dr. Bao Hsu WBC 10.7 103/ul Normal 4.0-11.0 [facility] Comment on above: Performed By: #### C DLM, BMP #### [facility] [address] [place] [address] Dr. Bao Hsu MAGNESIUMon 05-31-2022 Magnesium [Mass/Vol] 1.9 mg/dL Normal 1.8-2.4 [facility] Comment on above: Performed By: #### C MP, MG #### [facility] [address] [place] [address] Dr. Bao Hsu OCC BLD IMMUNO SCREENon 05-20 OCCULT BLOOD Positive Abnormal NEGATIVE [facility] Comment on above: Performed By: #### C DLM, BMP #### [facility] [address] [place] [address] Dr. Bao Hsu PROF 14(COMP METB)on 023 Albumin [Mass/Vol] 3.3 g/dL Critically low 3.4-5.0 [facility] Comment on above: Performed By: #### C MP, MG #### [facility] [address] [place] [address] Dr. Bao Hsu Albumin/Globulin [Mass ratio] 1.1 {ratio} Normal [facility] Comment on above: Performed By: #### C MP, MG #### [facility] [address] [place] [address] Dr. Bao Hsu ALP [Catalytic activity/Vol] 123 U/L Critically high 46-116 [facility] Comment on above: Performed By: #### C MP, MG #### [facility] [address] [address] [address] Bao Hsu ALT [Catalytic activity/Vol] 15 U/L Normal 14-59 [facility] Comment on above: Performed By: #### C MP, MG #### [facility] [address] [address] [address] Bao Hsu Anion gap [Moles/Vol] 11.8 mmol/L Normal [facility] Comment on above: Performed By: #### C MP, MG #### [facility] [address] [address] [address] Bao Hsu AST [Catalytic activity/Vol] 14 U/L Critically low 15-37 [facility] Comment on above: Performed By: #### C MP, MG #### [facility] [address] [place] [address] Dr. Bao Hsu Bilirubin [Mass/Vol] 0.5 mg/dL Normal 0.2-1.0 [facility] Comment on above: Performed By: #### C MP, MG #### [facility] [address] [address] [address] Bao Hsu Calcium [Mass/Vol] 8.7 mg/dL Normal 8.5-10.1 [facility] Comment on above: Performed By: #### C MP, MG #### [facility] [address] [place] [address] Dr. Bao Hsu Chloride [Moles/Vol] 101 mmol/L Normal 98-107 [facility] Comment on above: Performed By: #### C MP, MG #### [facility] [address] [address] [address] Bao Hsu CO2 [Moles/Vol] 27.0 mmol/L Normal 21.0-32.0 [facility] Comment on above: Performed By: #### C MP, MG #### [facility] [address] [address] [address] Bao Hsu Creatinine [Mass/Vol] 0.64 mg/dL Normal 0.55-1.02 [facility] Comment on above: Performed By: #### C MP, MG #### [facility] [address] [place] [address] Dr. Bao Hsu EGFR-AF LEBANESE >60 Normal >=60 [facility] Comment on above: Performed By: #### C MP, MG #### [facility] [address] [address] [address] Bao Hsu EGFR-NON AF LEBANESE >60 Normal >=60 [facility] Comment on above: Performed By: #### C MP, MG #### [facility] [address] [place] [address] Dr. Bao Hsu Globulin (S) [Mass/Vol] 3.1 g/dL Normal [facility] Comment on above: Performed By: #### C MP, MG #### [facility] [address] [place] [address] Dr. Bao Hsu Glucose [Mass/Vol] 103 mg/dL Normal 74-106 [facility] Comment on above: Performed By: #### C MP, MG #### [facility] [address] [place] [address] Dr. Bao Hsu Potassium [Moles/Vol] 3.8 mmol/L Normal 3.5-5.1 [facility] Comment on above: Performed By: #### C MP, MG #### [facility] [address] [place] [address] Dr. Bao Hsu Protein [Mass/Vol] 6.4 g/dL Normal 6.4-8.2 [facility] Comment on above: Performed By: #### C MP, MG #### [facility] [address] [place] [address] Dr. Bao Hsu Sodium [Moles/Vol] 136 mmol/L Normal 136-145 [facility] Comment on above: Performed By: #### C MP, MG #### [facility] [address] [place] [address] Dr. Bao Hsu Urea nitrogen [Mass/Vol] 12.0 mg/dL Normal 7.0-18.0 [facility] Comment on above: Performed By: #### C MP, MG #### [facility] [address] [place] [address] Dr. Bao Hsu Urea nitrogen/Creatinine [Mass ratio] 18.8 mg/mg Normal [facility] Comment on above: Performed By: #### C MP, MG #### [facility] [address] [place] [address] Dr. Bao Hsu PTTon 05-31-2022 aPTT Coag (Bld) [Time] 24.8 s Normal 22.3-36.2 [facility] Comment on above: Performed By: #### C MADM, BMP #### [facility] [address] [place] [address] Dr. Bao Hus [facility] 13 mm/hr Normal <=30 [facility] Comment on above: Performed By: #### C MADM, BMP #### [facility] [address] [place] [address] Dr. Bao Hsu CBC AUTO DIFFon 05-30-2022 BASO # 0.1 103/ul Normal 0.0-0.1 [facility] Comment on above: Performed By: #### C BC #### [facility] [address] [place] [address] Dr. Bao Hsu Performed By: #### S EDR #### [facility] [address] [place] [address] Dr. Bao Hsu Basophils/100 WBC (Bld) 0.5 % Normal 0.2-2.0 [facility] Comment on above: Performed By: #### C BC #### [facility] [address] [place] [address] Dr. Bao Hsu EO # 0.4 103/ul Normal 0.0-0.7 [facility] Comment on above: Performed By: #### C BC #### [facility] [address] [place] [address] Dr. Bao Hsu Eosinophils/100 WBC (Bld) 2.9 % Normal 0.9-7.0 [facility] Comment on above: Performed By: #### C BC #### [facility] [address] [place] [address] Dr. Bao Hsu Erythrocyte distribution width (RBC) [Ratio] 24.8 % Critically high 11.0-15.0 [facility] Comment on above: Result Comment: 2+ a nisocytosis Performed By: #### C BC #### [facility] [address] [place] [address] Dr. Bao Hsu Hematocrit (Bld) [Volume fraction] 32.0 % Critically low 36.0-48.0 [facility] Comment on above: Performed By: #### C BC #### [facility] [address] [place] [address] Dr. Bao Hsu Hemoglobin (Bld) [Mass/Vol] 9.0 g/dL Critically low 12.0-16.0 [facility] Comment on above: Performed By: #### C BC #### [facility] [address] [place] [address] Dr. Bao Hsu IG # 0.04 10e3/ul Critically high 0.00-0.03 [facility] Comment on above: Performed By: #### C BC #### [facility] [address] [place] [address] Dr. Bao Hsu Performed By: #### S EDR #### [facility] [address] [place] [address] Dr. Bao Hsu IG % 0.3 % Normal 0.0-0.5 [facility] Comment on above: Performed By: #### C BC #### [facility] [address] [place] [address] Dr. Bao Hsu Performed By: #### S EDR #### [facility] [address] [place] [address] Dr. Bao Hsu LYMPH # 1.8 103/ul Normal 1.2-3.8 [facility] Comment on above: Performed By: #### C BC #### [facility] [address] [place] [address] Dr. Bao Hsu Lymphocytes/100 WBC (Bld) 14.4 % Critically low 20.5-60.0 [facility] Comment on above: Performed By: #### C BC #### [facility] [address] [place] [address] Dr. Bao Hsu MANUAL DIFF REQ NO Normal [facility] Comment on above: Performed By: #### C BC #### [facility] [address] [place] [address] Dr. Bao Hsu Performed By: #### S EDR #### [facility] [address] [place] [address] Dr. Bao Hsu MCH (RBC) [Entitic mass] 19.2 pg Critically low 26.7-34.0 [facility] Comment on above: Result Comment: 2+ h ypochromasia Performed By: #### C BC #### [facility] [address] [place] [address] Dr. Bao Hsu MCHC (RBC) [Mass/Vol] 28.1 g/dL Critically low 29.9-35.2 [facility] Comment on above: Performed By: #### C BC #### [facility] [address] [place] [address] Dr. Bao Hsu MCV (RBC) [Entitic vol] 68.4 fL Critically low 81.0-99.0 [facility] Comment on above: Performed By: #### C BC #### [facility] [address] [place] [address] Dr. Bao Hsu MONO # 0.7 103/ul Normal 0.3-0.8 [facility] Comment on above: Performed By: #### C BC #### [facility] [address] [place] [address] Dr. Bao Hsu Monocytes/100 WBC (Bld) 5.5 % Normal 1.7-12.0 [facility] Comment on above: Performed By: #### C BC #### [facility] [address] [place] [address] Dr. Bao Hsu NEUT # 9.5 103/ul Critically high 1.4-6.5 [facility] Comment on above: Performed By: #### C BC #### [facility] [address] [place] [address] Dr. Bao Hsu Neutrophils/100 WBC (Bld) 76.4 % Critically high 43.0-75.0 [facility] Comment on above: Performed By: #### C BC #### [facility] [address] [place] [address] Dr. Bao Hsu Platelet mean volume (Bld) [Entitic vol] 8.4 fL Critically low 9.5-13.5 [facility] Comment on above: Performed By: #### C BC #### [facility] [address] [place] [address] Dr. Bao Hsu PLT 396 103/ul Normal 150-450 [facility] Comment on above: Performed By: #### C BC #### [facility] [address] [place] [address] Dr. Bao Hsu RBC 4.68 106/ul Normal 4.20-5.40 [facility] Comment on above: Performed By: #### C BC #### [facility] [address] [place] [address] Dr. Bao Hsu WBC 12.4 103/ul Critically high 4.0-11.0 [facility] Comment on above: Performed By: #### C BC #### [facility] [address] [place] [address] Dr. Bao Hsu Basophils/100 WBC (Bld) 0.7 % Normal 0.2-2.0 [facility] Comment on above: Performed By: #### S EDR #### [facility] [address] [place] [address] Dr. Bao Hsu EO # 0.3 103/ul Normal 0.0-0.7 [facility] Comment on above: Performed By: #### S EDR #### [facility] [address] [place] [address] Dr. Bao Hsu Eosinophils/100 WBC (Bld) 2.7 % Normal 0.9-7.0 [facility] Comment on above: Performed By: #### S EDR #### [facility] [address] [place] [address] Dr. Bao Hsu Erythrocyte distribution width (RBC) [Ratio] 23.8 % Critically high 11.0-15.0 [facility] Comment on above: Performed By: #### S EDR #### [facility] [address] [place] [address] Dr. Bao Hsu Hematocrit (Bld) [Volume fraction] 29.0 % Critically low 36.0-48.0 [facility] Comment on above: Performed By: #### S EDR #### [facility] [address] [address] [address] Bao Hsu Hemoglobin (Bld) [Mass/Vol] 8.3 g/dL Critically low 12.0-16.0 [facility] Comment on above: Performed By: #### S EDR #### [facility] [address] [place] [address] Dr. Bao Hsu LYMPH # 1.6 103/ul Normal 1.2-3.8 [facility] Comment on above: Performed By: #### S EDR #### [facility] [address] [place] [address] Dr. Bao Hsu Lymphocytes/100 WBC (Bld) 14.0 % Critically low 20.5-60.0 [facility] Comment on above: Performed By: #### S EDR #### [facility] [address] [place] [address] Dr. Bao Hsu MCH (RBC) [Entitic mass] 19.1 pg Critically low 26.7-34.0 [facility] Comment on above: Performed By: #### S EDR #### [facility] [address] [place] [address] Dr. Bao Hsu MCHC (RBC) [Mass/Vol] 28.6 g/dL Critically low 29.9-35.2 [facility] Comment on above: Performed By: #### S EDR #### [facility] [address] [place] [address] Dr. Bao Hsu MCV (RBC) [Entitic vol] 66.8 fL Critically low 81.0-99.0 [facility] Comment on above: Performed By: #### S EDR #### [facility] [address] [address] [address] Bao Hsu MONO # 0.8 103/ul Normal 0.3-0.8 [facility] Comment on above: Performed By: #### S EDR #### [facility] [address] [address] [address] Bao Hsu Monocytes/100 WBC (Bld) 6.9 % Normal 1.7-12.0 [facility] Comment on above: Performed By: #### S EDR #### [facility] [address] [place] [address] Dr. Bao Hsu NEUT # 8.7 103/ul Critically high 1.4-6.5 [facility] Comment on above: Performed By: #### S EDR #### [facility] [address] [place] [address] Dr. Bao Hsu Neutrophils/100 WBC (Bld) 75.4 % Critically high 43.0-75.0 [facility] Comment on above: Performed By: #### S EDR #### [facility] [address] [place] [address] Dr. Bao Hsu Platelet mean volume (Bld) [Entitic vol] 8.1 fL Critically low 9.5-13.5 [facility] Comment on above: Performed By: #### S EDR #### [facility] [address] [place] [address] Dr. Bao Hsu PLT 327 103/ul Normal 150-450 [facility] Comment on above: Performed By: #### S EDR #### [facility] [address] [place] [address] Dr. Bao Hsu RBC 4.34 106/ul Normal 4.20-5.40 [facility] Comment on above: Performed By: #### S EDR #### [facility] [address] [place] [address] Dr. Bao Hsu WBC 11.5 103/ul Critically high 4.0-11.0 [facility] Comment on above: Performed By: #### S EDR #### [facility] [address] [address] [address] Bao Hsu MAGNESIUMon 05-30-2022 Magnesium [Mass/Vol] 1.8 mg/dL Normal 1.8-2.4 [facility] Comment on above: Performed By: #### S EDR #### [facility] [address] [address] [address] Bao Hsu PROF 14(COMP METB)on 023 Albumin [Mass/Vol] 3.5 g/dL Normal 3.4-5.0 [facility] Comment on above: Performed By: #### S EDR #### [facility] [address] [address] [address] Bao Hsu Albumin/Globulin [Mass ratio] 1.2 {ratio} Normal [facility] Comment on above: Performed By: #### S EDR #### [facility] [address] [place] [address] Dr. Bao Hsu ALP [Catalytic activity/Vol] 135 U/L Critically high 46-116 [facility] Comment on above: Performed By: #### S EDR #### [facility] [address] [address] [address] Bao Hsu ALT [Catalytic activity/Vol] 12 U/L Critically low 14-59 [facility] Comment on above: Performed By: #### S EDR #### [facility] [address] [address] [address] Bao Hsu Anion gap [Moles/Vol] 9.3 mmol/L Normal [facility] Comment on above: Performed By: #### S EDR #### [facility] [address] [address] [address] Bao Hsu AST [Catalytic activity/Vol] 12 U/L Critically low 15-37 [facility] Comment on above: Performed By: #### S EDR #### [facility] [address] [address] [address] Bao Hsu Bilirubin [Mass/Vol] 0.7 mg/dL Normal 0.2-1.0 [facility] Comment on above: Performed By: #### S EDR #### [facility] [address] [address] [address] Bao Hsu Calcium [Mass/Vol] 8.6 mg/dL Normal 8.5-10.1 [facility] Comment on above: Performed By: #### S EDR #### [facility] [address] [address] [address] Bao Hsu Chloride [Moles/Vol] 102 mmol/L Normal 98-107 [facility] Comment on above: Performed By: #### S EDR #### [facility] [address] [address] [address] Bao Hsu CO2 [Moles/Vol] 26.6 mmol/L Normal 21.0-32.0 [facility] Comment on above: Performed By: #### S EDR #### [facility] [address] The [place] [address] Dr. Bao Hsu Creatinine [Mass/Vol] 0.59 mg/dL Normal 0.55-1.02 [facility] Comment on above: Performed By: #### S EDR #### [facility] [address] [place] [address] Dr. Bao Hsu EGFR-AF LEBANESE >60 Normal >=60 [facility] Comment on above: Performed By: #### S EDR #### [facility] [address] [place] [address] Dr. Bao Hsu EGFR-NON AF LEBANESE >60 Normal >=60 [facility] Comment on above: Performed By: #### S EDR #### [facility] [address] [place] [address] Dr. Bao Hsu Globulin (S) [Mass/Vol] 2.9 g/dL Normal [facility] Comment on above: Performed By: #### S EDR #### [facility] [address] [place] [address] Dr. Bao Hsu Glucose [Mass/Vol] 115 mg/dL Critically high 74-106 [facility] Comment on above: Performed By: #### S EDR #### [facility] [address] [address] [address] Bao Hsu Potassium [Moles/Vol] 3.9 mmol/L Normal 3.5-5.1 [facility] Comment on above: Performed By: #### S EDR #### [facility] [address] [place] [address] Dr. Bao Hsu Protein [Mass/Vol] 6.4 g/dL Normal 6.4-8.2 [facility] Comment on above: Performed By: #### S EDR #### [facility] [address] [address] [address] Bao Hsu Sodium [Moles/Vol] 134 mmol/L Critically low 136-145 [facility] Comment on above: Performed By: #### S EDR #### [facility] [address] [place] [address] Dr. Bao Hsu Urea nitrogen [Mass/Vol] 9.0 mg/dL Normal 7.0-18.0 [facility] Comment on above: Performed By: #### S EDR #### [facility] [address] [place] [address] Dr. Bao Hsu Urea nitrogen/Creatinine [Mass ratio] 15.3 mg/mg Normal [facility] Comment on above: Performed By: #### S EDR #### [facility] [address] [place] [address] Dr. Bao Hsu PTTon 05-30-2022 aPTT Coag (Bld) [Time] 23.1 s Normal 22.3-36.2 [facility] Comment on above: Performed By: #### S EDR #### [facility] [address] [place] [address] Dr. Bao Hsu SED RATE SHINNSTONERGRENon 2022 SED RATE 23 mm/hr Normal <=30 [facility] Comment on above: Performed By: #### S EDR #### [facility] [address] [place] [address] Dr. Bao Hsu ABO RH RETYPEon 05-29-2022 ABO and Rh group Nom (Bld) DONE Normal [facility] Comment on above: Performed By: #### C MADM, BMP #### [facility] [address] [address] [address] Bao Hsu CARDIAC DARION 3-6on 3 CK [Catalytic activity/Vol] 30 U/L Normal 26-192 [facility] Comment on above: Performed By: #### C MADM, BMP #### [facility] [address] [address] [address] Bao Hsu CK.MB [Mass/Vol] ng/mL Normal <=3.60 [facility] Comment on above: Performed By: #### C MADM, BMP #### [facility] [address] [address] [address] Bao Hsu HSTROP 7.0 pg/mL Normal 4.0-51.3 [facility] Comment on above: Result Comment: CUT- OFF POINTS HAVE BEEN ESTABLISHED BASED ON THE FOURTH UNIVERSAL DEFINITIONS OF MYOCARDIAL INFARCTION. THE UPPER REFERENCE LIMIT (URL) OF TROPONIN, DEFINED THE 99TH PERCENTILE OF cTnI DISTRIBUTION IN A REFERENCE POPULATION, HAS BEEN CONFIRMED THE DECISION THRESHOLD FOR [place] DIAGNOSIS. Performed By: #### C MADM, BMP #### [facility] [address] [address] [address] Bao Hsu CK [Catalytic activity/Vol] 62 U/L Normal 26-192 [facility] Comment on above: Performed By: #### C MADM, BMP #### [facility] [address] [address] [address] Bao Hsu CK.MB [Mass/Vol] ng/mL Normal <=3.60 [facility] Comment on above: Performed By: #### C MADM, BMP #### [facility] [address] [address] [address] Bao Hsu HSTROP 6.2 pg/mL Normal 4.0-51.3 [facility] Comment on above: Result Comment: CUT- OFF POINTS HAVE BEEN ESTABLISHED BASED ON THE FOURTH UNIVERSAL DEFINITIONS OF MYOCARDIAL INFARCTION. THE UPPER REFERENCE LIMIT (URL) OF TROPONIN, DEFINED THE 99TH PERCENTILE OF cTnI DISTRIBUTION IN A REFERENCE POPULATION, HAS BEEN CONFIRMED THE DECISION THRESHOLD FOR [place] DIAGNOSIS. Performed By: #### C MADM, BMP #### [facility] [address] [address] [address] Bao Hsu CARDIAC DARION ADMITon 023 CK [Catalytic activity/Vol] 29 U/L Normal 26-192 [facility] Comment on above: Performed By: #### C MADM, BMP #### [facility] [address] [address] [address] Bao Hsu CK.MB [Mass/Vol] ng/mL Normal <=3.60 [facility] Comment on above: Performed By: #### C MADM, BMP #### [facility] [address] [place] [address] Dr. Bao Hsu HSTROP 7.0 pg/mL Normal 4.0-51.3 [facility] Comment on above: Result Comment: CUT- OFF POINTS HAVE BEEN ESTABLISHED BASED ON THE FOURTH UNIVERSAL DEFINITIONS OF MYOCARDIAL INFARCTION. THE UPPER REFERENCE LIMIT (URL) OF TROPONIN, DEFINED THE 99TH PERCENTILE OF cTnI DISTRIBUTION IN A REFERENCE POPULATION, HAS BEEN CONFIRMED THE DECISION THRESHOLD FOR [place] DIAGNOSIS. Performed By: #### C MADM, BMP #### [facility] [address] [place] [address] Dr. Bao Hsu DINAH 24 ng/mL Normal 9-82 [facility] Comment on above: Performed By: #### C MADM, BMP #### [facility] [address] [place] [address] Dr. Bao Hsu CBC AUTO DIFFon 05-29-2022 BASO # 0.1 103/ul Normal 0.0-0.1 [facility] Comment on above: Performed By: #### C BC #### [facility] [address] [address] [address] Bao Hsu Basophils/100 WBC (Bld) 0.5 % Normal 0.2-2.0 [facility] Comment on above: Performed By: #### C BC #### [facility] [address] [place] [address] Dr. Bao Hsu EO # 0.2 103/ul Normal 0.0-0.7 [facility] Comment on above: Performed By: #### C BC #### [facility] [address] [address] [address] Bao Hsu Eosinophils/100 WBC (Bld) 1.9 % Normal 0.9-7.0 [facility] Comment on above: Performed By: #### C BC #### [facility] [address] [place] [address] Dr. Bao Hsu Erythrocyte distribution width (RBC) [Ratio] 24.0 % Critically high 11.0-15.0 [facility] Comment on above: Performed By: #### C BC #### [facility] [address] [place] [address] Dr. Bao Hsu Hematocrit (Bld) [Volume fraction] 30.1 % Critically low 36.0-48.0 [facility] Comment on above: Performed By: #### C BC #### [facility] [address] [place] [address] Dr. Bao Hsu Hemoglobin (Bld) [Mass/Vol] 8.8 g/dL Critically low 12.0-16.0 [facility] Comment on above: Performed By: #### C BC #### [facility] [address] [place] [address] Dr. Bao Hsu IG # 0.07 10e3/ul Critically high 0.00-0.03 [facility] Comment on above: Performed By: #### C BC #### [facility] [address] [place] [address] Dr. Bao Hsu IG % 0.6 % Critically high 0.0-0.5 [facility] Comment on above: Performed By: #### C BC #### [facility] [address] [place] [address] Dr. Bao Hsu LYMPH # 1.2 103/ul Normal 1.2-3.8 [facility] Comment on above: Performed By: #### C BC #### [facility] [address] [place] [address] Dr. Bao Hsu Lymphocytes/100 WBC (Bld) 10.6 % Critically low 20.5-60.0 [facility] Comment on above: Performed By: #### C BC #### [facility] [address] [address] [address] Bao Hsu MANUAL DIFF REQ NO Normal [facility] Comment on above: Performed By: #### C BC #### [facility] [address] [address] [address] Bao Hsu MCH (RBC) [Entitic mass] 19.4 pg Critically low 26.7-34.0 [facility] Comment on above: Performed By: #### C BC #### [facility] [address] [address] [address] Bao Hsu MCHC (RBC) [Mass/Vol] 29.2 g/dL Critically low 29.9-35.2 [facility] Comment on above: Performed By: #### C BC #### [facility] [address] [place] [address] Dr. Bao Hsu MCV (RBC) [Entitic vol] 66.3 fL Critically low 81.0-99.0 [facility] Comment on above: Performed By: #### C BC #### [facility] [address] [address] [address] Bao Hsu MONO # 0.7 103/ul Normal 0.3-0.8 [facility] Comment on above: Performed By: #### C BC #### [facility] [address] [place] [address] Dr. Bao Hsu Monocytes/100 WBC (Bld) 6.1 % Normal 1.7-12.0 [facility] Comment on above: Performed By: #### C BC #### [facility] [address] [place] [address] Dr. Bao Hsu NEUT # 9.2 103/ul Critically high 1.4-6.5 [facility] Comment on above: Performed By: #### C BC #### [facility] [address] [place] [address] Dr. Bao Hsu Neutrophils/100 WBC (Bld) 80.3 % Critically high 43.0-75.0 [facility] Comment on above: Performed By: #### C BC #### [facility] [address] [place] [address] Dr. Bao Hsu Platelet mean volume (Bld) [Entitic vol] 7.9 fL Critically low 9.5-13.5 [facility] Comment on above: Performed By: #### C BC #### [facility] [address] [place] [address] Dr. Bao Hsu PLT 322 103/ul Normal 150-450 [facility] Comment on above: Performed By: #### C BC #### [facility] [address] [place] [address] Dr. Bao Hsu RBC 4.54 106/ul Normal 4.20-5.40 [facility] Comment on above: Performed By: #### C BC #### [facility] [address] [place] [address] Dr. Bao Hsu WBC 11.4 103/ul Critically high 4.0-11.0 [facility] Comment on above: Performed By: #### C BC #### [facility] [address] [place] [address] Dr. Bao Hsu BASO # 0.1 103/ul Normal 0.0-0.1 [facility] Comment on above: Performed By: #### C BC #### [facility] [address] [place] [address] Dr. Bao Hsu Basophils/100 WBC (Bld) 0.4 % Normal 0.2-2.0 [facility] Comment on above: Performed By: #### C BC #### [facility] [address] [place] [address] Dr. Bao Hsu EO # 0.2 103/ul Normal 0.0-0.7 [facility] Comment on above: Performed By: #### C BC #### [facility] [address] [place] [address] Dr. Bao Hsu Eosinophils/100 WBC (Bld) 1.6 % Normal 0.9-7.0 [facility] Comment on above: Performed By: #### C BC #### [facility] [address] [place] [address] Dr. Bao Hsu Erythrocyte distribution width (RBC) [Ratio] 24.4 % Critically high 11.0-15.0 [facility] Comment on above: Performed By: #### C BC #### [facility] [address] [place] [address] Dr. Bao Hsu Hematocrit (Bld) [Volume fraction] 29.5 % Critically low 36.0-48.0 [facility] Comment on above: Performed By: #### C BC #### [facility] [address] [place] [address] Dr. Bao Hsu Hemoglobin (Bld) [Mass/Vol] 8.5 g/dL Critically low 12.0-16.0 [facility] Comment on above: Performed By: #### C BC #### [facility] [address] [place] [address] Dr. Bao Hsu IG # 0.06 10e3/ul Critically high 0.00-0.03 [facility] Comment on above: Performed By: #### C BC #### [facility] [address] [place] [address] Dr. Bao Hsu IG % 0.4 % Normal 0.0-0.5 [facility] Comment on above: Performed By: #### C BC #### [facility] [address] [place] [address] Dr. Bao Hsu LYMPH # 1.1 103/ul Critically low 1.2-3.8 [facility] Comment on above: Performed By: #### C BC #### [facility] [address] [place] [address] Dr. Bao Hsu Lymphocytes/100 WBC (Bld) 8.1 % Critically low 20.5-60.0 [facility] Comment on above: Performed By: #### C BC #### [facility] [address] [place] [address] Dr. Bao Hsu MANUAL DIFF REQ NO Normal [facility] Comment on above: Performed By: #### C BC #### [facility] [address] [place] [address] Dr. Bao Hsu MCH (RBC) [Entitic mass] 19.3 pg Critically low 26.7-34.0 [facility] Comment on above: Performed By: #### C BC #### [facility] [address] [address] [address] Bao Hsu MCHC (RBC) [Mass/Vol] 28.8 g/dL Critically low 29.9-35.2 [facility] Comment on above: Performed By: #### C BC #### [facility] [address] [address] [address] Bao Hsu MCV (RBC) [Entitic vol] 66.9 fL Critically low 81.0-99.0 [facility] Comment on above: Performed By: #### C BC #### [facility] [address] [place] [address] Dr. Bao Hsu MONO # 0.7 103/ul Normal 0.3-0.8 [facility] Comment on above: Performed By: #### C BC #### [facility] [address] [place] [address] Dr. Bao Hsu Monocytes/100 WBC (Bld) 5.3 % Normal 1.7-12.0 [facility] Comment on above: Performed By: #### C BC #### [facility] [address] [place] [address] Dr. Bao Hsu NEUT # 11.3 103/ul Critically high 1.4-6.5 [facility] Comment on above: Performed By: #### C BC #### [facility] [address] [place] [address] Dr. Bao Hsu Neutrophils/100 WBC (Bld) 84.2 % Critically high 43.0-75.0 [facility] Comment on above: Performed By: #### C BC #### [facility] [address] [place] [address] Dr. Bao Hsu Platelet mean volume (Bld) [Entitic vol] 8.2 fL Critically low 9.5-13.5 [facility] Comment on above: Performed By: #### C BC #### [facility] [address] [address] [address] Bao Hsu PLT 353 103/ul Normal 150-450 [facility] Comment on above: Performed By: #### C BC #### [facility] [address] [address] [address] Bao Hsu RBC 4.41 106/ul Normal 4.20-5.40 [facility] Comment on above: Performed By: #### C BC #### [facility] [address] [address] [address] Bao Hsu WBC 13.4 103/ul Critically high 4.0-11.0 [facility] Comment on above: Performed By: #### C BC #### [facility] [address] [place] [address] Dr. Bao Hsu BASO # 0.1 103/ul Normal 0.0-0.1 [facility] Comment on above: Performed By: #### C WESLEY, BMP #### [facility] [address] [place] [address] Dr. Bao Hsu Basophils/100 WBC (Bld) 0.4 % Normal 0.2-2.0 [facility] Comment on above: Performed By: #### C WESLEY, BMP #### [facility] [address] [place] [address] Dr. Bao Hsu EO # 0.2 103/ul Normal 0.0-0.7 [facility] Comment on above: Performed By: #### C WESLEY, BMP #### [facility] [address] [place] [address] Dr. Bao Hsu Eosinophils/100 WBC (Bld) 2.0 % Normal 0.9-7.0 [facility] Comment on above: Performed By: #### C WESLEY, BMP #### [facility] [address] [place] [address] Dr. Bao Hsu Erythrocyte distribution width (RBC) [Ratio] 20.8 % Critically high 11.0-15.0 [facility] Comment on above: Performed By: #### C WESLEY, BMP #### [facility] [address] [place] [address] Dr. Bao Hsu Hematocrit (Bld) [Volume fraction] 22.5 % Critically low 36.0-48.0 [facility] Comment on above: Performed By: #### C DLM, BMP #### [facility] [address] [place] [address] Dr. Bao Hsu Hemoglobin (Bld) [Mass/Vol] 5.7 g/dL Critically low 12.0-16.0 [facility] Comment on above: Performed By: #### C MADM, BMP #### [facility] [address] [place] [address] Dr. Bao Hsu IG # 0.07 10e3/ul Critically high 0.00-0.03 [facility] Comment on above: Performed By: #### C DLM, BMP #### [facility] [address] [place] [address] Dr. Bao Hsu IG % 0.6 % Critically high 0.0-0.5 [facility] Comment on above: Performed By: #### C DLM, BMP #### [facility] [address] [place] [address] Dr. Bao Hsu LYMPH # 1.7 103/ul Normal 1.2-3.8 [facility] Comment on above: Performed By: #### C DLM, BMP #### [facility] [address] [place] [address] Dr. Bao Hsu Lymphocytes/100 WBC (Bld) 15.0 % Critically low 20.5-60.0 [facility] Comment on above: Performed By: #### C MADM, BMP #### [facility] [address] [place] [address] Dr. Bao Hsu MANUAL DIFF REQ NO Normal [facility] Comment on above: Performed By: #### C MADM, BMP #### [facility] [address] [place] [address] Dr. Bao Hsu MCH (RBC) [Entitic mass] 15.8 pg Critically low 26.7-34.0 [facility] Comment on above: Performed By: #### C DLM, BMP #### [facility] [address] [place] [address] Dr. Bao Hsu MCHC (RBC) [Mass/Vol] 25.3 g/dL Critically low 29.9-35.2 [facility] Comment on above: Performed By: #### C MADM, BMP #### [facility] [address] [place] [address] Dr. Bao Hsu MCV (RBC) [Entitic vol] 62.3 fL Critically low 81.0-99.0 [facility] Comment on above: Performed By: #### C MADM, BMP #### [facility] [address] [place] [address] Dr. Bao Hsu MONO # 0.7 103/ul Normal 0.3-0.8 [facility] Comment on above: Performed By: #### C MADM, BMP #### [facility] [address] [place] [address] Dr. Bao Hsu Monocytes/100 WBC (Bld) 5.8 % Normal 1.7-12.0 [facility] Comment on above: Performed By: #### C MADM, BMP #### [facility] [address] [place] [address] Dr. Bao Hsu NEUT # 8.7 103/ul Critically high 1.4-6.5 [facility] Comment on above: Performed By: #### C MADM, BMP #### [facility] [address] [place] [address] Dr. Bao Hsu Neutrophils/100 WBC (Bld) 76.2 % Critically high 43.0-75.0 [facility] Comment on above: Performed By: #### C MADM, BMP #### [facility] [address] [place] [address] Dr. Bao Hsu Platelet mean volume (Bld) [Entitic vol] 8.4 fL Critically low 9.5-13.5 [facility] Comment on above: Performed By: #### C MADM, BMP #### [facility] [address] [place] [address] Dr. Bao Hsu PLT 384 103/ul Normal 150-450 [facility] Comment on above: Performed By: #### C MADM, BMP #### [facility] [address] [place] [address] Dr. Bao Hsu RBC 3.61 106/ul Critically low 4.20-5.40 [facility] Comment on above: Performed By: #### C MADM, BMP #### [facility] [address] [address] [address] Bao Hsu WBC 11.4 103/ul Critically high 4.0-11.0 [facility] Comment on above: Performed By: #### C MADM, BMP #### [facility] [address] [place] [address] Dr. Bao Hsu [facility]20 SARS-CoV-2 (COVID-19) RNA GREG+probe Ql (Unsp spec) Not detected Normal NOT DETECTED [facility] Comment on above: Result Comment: When diagnostic testing is negative, the possibility of a false negative should be considered in the context of a patient's recent exposures and the presence of clinical signs and symptoms consistent with SARS-CoV-2. This test is not yet approved or cleared by the [place] FDA. When there are no FDA-approved or cleared tests available, and other criteria are met, FDA can make tests available under an emergency access mechanism called an Emergency Use Authorization (EUA). The EUA for this test is supported by the [place] of Health and Human Service's declaration that circumstances exist to justify the emergency use of in vitro diagnostics for the detection and/or diagnosis of the virus that causes COVID-19. This EUA will remain in effect for the duration of the COVID-19 declaration justifying emergency of IVDs, unless it is terminated or revoked by the FDA (after which the test may no longer be used). Performed By: #### C VDTBH #### [facility] [address] [place] [address] Dr. Bao Hsu MAGNESIUMon 05-29-2022 Magnesium [Mass/Vol] 1.7 mg/dL Critically low 1.8-2.4 [facility] Comment on above: Performed By: #### C MADM, BMP #### [facility] [address] [address] [address] Bao Hsu PROF 14(COMP METB)on 023 Albumin [Mass/Vol] 3.7 g/dL Normal 3.4-5.0 [facility] Comment on above: Performed By: #### C MADM, BMP #### [facility] [address] [address] [address] Bao Hsu Albumin/Globulin [Mass ratio] 1.2 {ratio} Normal [facility] Comment on above: Performed By: #### C MADM, BMP #### [facility] [address] [address] [address] Bao Hsu ALP [Catalytic activity/Vol] 130 U/L Critically high 46-116 [facility] Comment on above: Performed By: #### C DLM, BMP #### [facility] [address] [place] [address] Dr. Bao Hsu ALT [Catalytic activity/Vol] 10 U/L Critically low 14-59 [facility] Comment on above: Performed By: #### C MADM, BMP #### [facility] [address] [place] [address] Dr. Bao Hsu Anion gap [Moles/Vol] 14.4 mmol/L Normal [facility] Comment on above: Performed By: #### C DLM, BMP #### [facility] [address] [address] [address] Bao Hsu AST [Catalytic activity/Vol] 14 U/L Critically low 15-37 [facility] Comment on above: Performed By: #### C MADM, BMP #### [facility] [address] [address] [address] Bao Hsu Bilirubin [Mass/Vol] 1.3 mg/dL Critically high 0.2-1.0 [facility] Comment on above: Performed By: #### C MADM, BMP #### [facility] [address] [address] [address] Bao Hsu Calcium [Mass/Vol] 8.9 mg/dL Normal 8.5-10.1 [facility] Administration Comment on above: Performed By: #### C MADM, BMP #### [facility] [address] [place] [address] Dr. Bao Hsu Chloride [Moles/Vol] 104 mmol/L Normal 98-107 [facility] Comment on above: Performed By: #### C MADM, BMP #### [facility] [address] [place] [address] Dr. Bao Hsu CO2 [Moles/Vol] 25.6 mmol/L Normal 21.0-32.0 [facility] Comment on above: Performed By: #### C MADM, BMP #### [facility] [address] [place] [address] Dr. Bao Hsu Creatinine [Mass/Vol] 0.62 mg/dL Normal 0.55-1.02 [facility] Comment on above: Performed By: #### C MADM, BMP #### [facility] [address] [place] [address] Dr. Bao Hsu EGFR-AF LEBANESE >60 Normal >=60 [facility] Comment on above: Performed By: #### C DLM, BMP #### [facility] [address] [place] [address] Dr. Bao Hsu EGFR-NON AF LEBANESE >60 Normal >=60 [facility] Comment on above: Performed By: #### C DLM, BMP #### [facility] [address] [place] [address] Dr. Bao Hsu Globulin (S) [Mass/Vol] 3.1 g/dL Normal [facility] Comment on above: Performed By: #### C MADM, BMP #### [facility] [address] [place] [address] Dr. Bao Hsu Glucose [Mass/Vol] 125 mg/dL Critically high 74-106 T [facility] Comment on above: Performed By: #### C MADM, BMP #### [facility] [address] [place] [address] Dr. Bao Hsu Potassium [Moles/Vol] 4.0 mmol/L Normal 3.5-5.1 [facility] Comment on above: Performed By: #### C WESLEY, BMP #### [facility] [address] [place] [address] Dr. Bao Hsu Protein [Mass/Vol] 6.8 g/dL Normal 6.4-8.2 The [facility] Comment on above: Performed By: #### C WESLEY, BMP #### [facility] [address] [place] [address] Dr. Bao Hsu Sodium [Moles/Vol] 140 mmol/L Normal 136-145 [facility] Comment on above: Performed By: #### C WESLEY, BMP #### [facility] [address] [place] [address] Dr. Bao Hsu Urea nitrogen [Mass/Vol] 8.0 mg/dL Normal 7.0-18.0 [facility] Comment on above: Performed By: #### C WESLEY, BMP #### [facility] [address] [place] [address] Dr. Bao Hsu Urea nitrogen/Creatinine [Mass ratio] 12.9 mg/mg Normal [facility] Comment on above: Performed By: #### C WESLEY, BMP #### [facility] [address] [place] [address] Dr. Bao Hsu PROF CHEM 8 (BAS METB)on Anion gap [Moles/Vol] 10.3 mmol/L Normal [facility] Comment on above: Performed By: #### C WESLEY, BMP #### [facility] [address] [place] [address] Dr. Bao Hsu Calcium [Mass/Vol] 8.8 mg/dL Normal 8.5-10.1 The [facility] Comment on above: Performed By: #### C WESLEY, BMP #### [facility] [address] [place] [address] Dr. Bao Hsu Chloride [Moles/Vol] 100 mmol/L Normal 98-107 [facility] Comment on above: Performed By: #### C WESLEY, BMP #### [facility] [address] [address] [address] Bao Hsu CO2 [Moles/Vol] 25.5 mmol/L Normal 21.0-32.0 [facility] Comment on above: Performed By: #### C DLM, BMP #### [facility] [address] [address] [address] Bao Hsu Creatinine [Mass/Vol] 0.67 mg/dL Normal 0.55-1.02 [facility] Comment on above: Performed By: #### C MADM, BMP #### [facility] [address] [address] [address] Bao Hsu EGFR-AF LEBANESE >60 Normal >=60 [facility] Comment on above: Performed By: #### C DLM, BMP #### [facility] [address] [address] [address] Bao Hsu EGFR-NON AF LEBANESE >60 Normal >=60 [facility] Comment on above: Performed By: #### C DLM, BMP #### [facility] [address] [address] [address] Bao Hsu Glucose [Mass/Vol] 118 mg/dL Critically high 74-106 T [facility] Comment on above: Performed By: #### C DLM, BMP #### [facility] [address] [address] [address] Bao Hsu Potassium [Moles/Vol] 3.8 mmol/L Normal 3.5-5.1 [facility] Comment on above: Performed By: #### C DLM, BMP #### [facility] [address] [address] [address] Bao Hsu Sodium [Moles/Vol] 132 mmol/L Critically low 136-145 Th [facility] Comment on above: Performed By: #### C MADM, BMP #### [facility] [address] [address] [address] Bao Hsu Urea nitrogen [Mass/Vol] 12.0 mg/dL Normal 7.0-18.0 [facility] Comment on above: Performed By: #### C DLM, BMP #### [facility] [address] [address] [address] Bao Hsu Urea nitrogen/Creatinine [Mass ratio] 17.9 mg/mg Normal [facility] Comment on above: Performed By: #### C WESLEY, BMP #### [facility] [address] [address] [address] Bao Hsu PTTon 05-29-2022 aPTT Coag (Bld) [Time] 27.5 s Normal 22.3-36.2 [facility] Comment on above: Performed By: #### S EDR #### [facility] [address] [place] [address] Dr. Bao Hsu [facility] 15 mm/hr Normal <=30 [facility] Comment on above: Performed By: #### S EDR #### [facility] [address] [place] [address] Dr. Bao Hsu TYPE AND SCREENon 05-29-2022 TYPE AND SCREEN Negative Normal [facility] Comment on above: Performed By: #### C WESLEY, BMP #### [facility] [address] [place] [address] Dr. Bao Hsu XR CHEST 1 Von 05-29-2022 XR CHEST 1 V EXAMINATION: XR CHES T 1 V HISTORY: Chest pain COMPARISON: Portable chest 01/30/2021 TECHNIQUE: Portable chest FINDINGS: The lung parenchyma is free of consolidation or infiltrate. No pneumothorax or pleural effusion. The cardiac, mediastinal and hilar contours are normal. The visualized osseous structures exhibit no gross abnormality. IMPRESSION: No acute cardiopulmonary abnormality. Electronically authenticated by: EDDIE LACY Date: 2022-05-28 23:05 Normal [facility] FERRITINon 05-28-2022 Ferritin [Mass/Vol] 4.0 ng/mL Critically low 8.0-252.0 T [facility] Comment on above: Performed By: #### S EDR #### [facility] [address] [place] [address] Dr. Bao Hsu IRON AND TIBCon 05-28-2022 % SATURATION 2.1 % Normal [facility] Comment on above: Performed By: #### S EDR #### [facility] [address] [address] [address] Bao Hsu Iron [Mass/Vol] 10.0 ug/dL Critically low 50.0-170.0 [facility] Comment on above: Performed By: #### S EDR #### [facility] [address] [place] [address] Dr. Bao Hsu TIBC DIRECT 483.0 ug/dL Critically high 250.0-450.0 [facility] Comment on above: Performed By: #### S EDR #### [facility] [address] [place] [address] Dr. Bao Hsu VIT B12 AND FOLATEon 2022 Cobalamin (Vitamin B12) [Mass/Vol] 438.0 pg/mL Normal 193.0-986.0 [facility] Comment on above: Performed By: #### S EDR #### [facility] [address] [place] [address] Dr. Bao Hsu FOLATE 8.80 ng/mL Normal 8.60-58.90 [facility] Comment on above: Performed By: #### S EDR #### [facility] [address] [place] [address] Dr. Bao Hsu CBC W/DIFFon 01-02-2021 ABS IMM GRANS 0.1 10*3/uL Normal 0.0-0.[address] [facility] Comment on above: Order Comment: pre a blation? pacemaker? Performed By: #### 5 0103 ####[facility] ABS NEUTROPHILS 15.2 10*3/uL High 1.6-7.6 The [facility] Comment on above: Order Comment: pre a blation? pacemaker? Performed By: #### 5 0103 ####[facility] [place] [address], [facility] Basophils (Bld) [#/Vol] 0.0 10*3/uL Normal 0.0-0.2 The [facility] Comment on above: Order Comment: pre a blation? pacemaker? Performed By: #### 5 0103 ####[facility] [place] [address], [facility] Basophils/100 WBC (Bld) 0.2 % Normal 0.0-1.0 The [facility] Comment on above: Order Comment: pre a blation? pacemaker? Performed By: #### 5 0103 ####[facility] [place] [address], [facility] Eosinophils (Bld) [#/Vol] 0.0 10*3/uL Normal 0.0-0.5 [facility] Comment on above: Order Comment: pre a blation? pacemaker? Performed By: #### 5 0103 ####[facility] [place] [address], [facility] Eosinophils/100 WBC (Bld) 0.0 % Normal 0.0-6.0 The [facility] Comment on above: Order Comment: pre a blation? pacemaker? Performed By: #### 5 0103 ####[facility] Erythrocyte distribution width (RBC) [Ratio] 18.6 % High 11.5-15.0 The [facility] Comment on above: Order Comment: pre a blation? pacemaker? Performed By: #### 5 0103 ####[facility] Hematocrit (Bld) [Volume fraction] 29.4 % Low 36.0-45.0 [facility] Comment on above: Order Comment: pre a blation? pacemaker? Performed By: #### 5 0103 ####[facility] [place] [address], [facility] Hemoglobin (Bld) [Mass/Vol] 8.1 g/dL Low 12.0-15.0 The [facility] Comment on above: Order Comment: pre a blation? pacemaker? Performed By: #### 5 0103 ####[facility] IMMATURE GRANS 0.6 % Normal 0.0-1.0 The [facility] Comment on above: Order Comment: pre a blation? pacemaker? Performed By: #### 5 0103 ####[facility] Lymphocytes (Bld) [#/Vol] 1.2 10*3/uL Normal 1.2-4.0 The [facility] Comment on above: Order Comment: pre a blation? pacemaker? Performed By: #### 5 0103 ####[facility] Lymphocytes/100 WBC (Bld) 6.8 % Low 20.0-45.0 [facility] Comment on above: Order Comment: pre a blation? pacemaker? Performed By: #### 5 0103 ####[facility] MCH (RBC) [Entitic mass] 20.7 pg Low 27.0-33.0 The [facility] Comment on above: Order Comment: pre a blation? pacemaker? Performed By: #### 5 0103 ####[facility] MCHC (RBC) [Mass/Vol] 27.6 g/dL Low 32.0-35.0 The [facility] Comment on above: Order Comment: pre a blation? pacemaker? Performed By: #### 5 0103 ####[facility] [place] [address] MCV (RBC) [Entitic vol] 75.2 fL Low 82.0-98.0 The [facility] Comment on above: Order Comment: pre a blation? pacemaker? Performed By: #### 5 0103 ####[facility] [facility] [address], [facility] Monocytes (Bld) [#/Vol] 1.3 10*3/uL High 0.1-1.0 The [facility] Comment on above: Order Comment: pre a blation? pacemaker? Performed By: #### 5 0103 ####[facility] [facility] [address], [facility] MONOS 7.3 % Normal 5.0-12.0 The [facility] Comment on above: Order Comment: pre a blation? pacemaker? Performed By: #### 5 0103 ####[facility] [facility] [address], [facility] Neutrophils/100 WBC (Bld) 85.1 % High 40.0-72.0 The [facility] Comment on above: Order Comment: pre a blation? pacemaker? Performed By: #### 5 0103 ####[facility] [facility] [address], [facility] Nucleated RBC/100 WBC (Bld) [Ratio] 0 % Normal 0-0 The [facility] Comment on above: Order Comment: pre a blation? pacemaker? Performed By: #### 5 0103 ####[facility] [facility] [address], [facility] PLAT CNT 404 10*3/uL High 150-[address] [facility] Comment on above: Order Comment: pre a blation? pacemaker? Performed By: #### 5 0103 ####[facility] [facility] [address], [facility] RBC (Bld) [#/Vol] 3.91 10*6/uL Normal 3.80-5.00 The [facility] Comment on above: Order Comment: pre a blation? pacemaker? Performed By: #### 5 0103 ####[facility] [place] [address], [facility] WBC (Bld) [#/Vol] 17.85 10*3/uL High 4.00-10.60 The [facility] Comment on above: Order Comment: pre a blation? pacemaker? Performed By: #### 5 0103 ####[facility] [place] [address], [facility] ABS IMM GRANS 0.1 10*3/uL Normal 0.0-0.[address] [facility] Comment on above: Order Comment: No: D o not add to previous draw Performed By: #### 5 0103 #### [facility] [address] [facility] [place] [address], [facility] ABS NEUTROPHILS 10.0 10*3/uL High 1.6-7.6 The [facility] Comment on above: Order Comment: No: D o not add to previous draw Performed By: #### 5 0103 #### [facility] [address] [facility] [place] [address], [facility] ANISO Moderate Normal The [facility] Comment on above: Order Comment: No: D o not add to previous draw Performed By: #### 5 0103 #### [facility] [address] [facility] [place] [address], [facility] Basophils (Bld) [#/Vol] 0.0 10*3/uL Normal 0.0-0.2 The [facility] Comment on above: Order Comment: No: D o not add to previous draw Performed By: #### 5 0103 #### [facility] [address] [facility] [place] [address], [facility] Basophils/100 WBC (Bld) 0.2 % Normal 0.0-1.0 The [facility] Comment on above: Order Comment: No: D o not add to previous draw Performed By: #### 5 0103 #### [facility] [address] Eosinophils (Bld) [#/Vol] 0.0 10*3/uL Normal 0.0-0.5 The [facility] Comment on above: Order Comment: No: D o not add to previous draw Performed By: #### 5 0103 #### [facility] [address] [place] [address], [facility] Eosinophils/100 WBC (Bld) 0.0 % Normal 0.0-6.0 The [facility] Comment on above: Order Comment: No: D o not add to previous draw Performed By: #### 5 0103 #### [facility] [address] Erythrocyte distribution width (RBC) [Ratio] 18.6 % High 11.5-15.0 The [facility] Comment on above: Order Comment: No: D o not add to previous draw Performed By: #### 5 0103 #### [facility] [address] [facility] [place] [address], [facility] Hematocrit (Bld) [Volume fraction] 29.4 % Low 36.0-45.0 The [facility] Comment on above: Order Comment: No: D o not add to previous draw Performed By: #### 5 0103 #### [facility] [address] [facility] [place] [address], [facility] Hemoglobin (Bld) [Mass/Vol] 8.3 g/dL Low 12.0-15.0 The [facility] Comment on above: Order Comment: No: D o not add to previous draw Performed By: #### 5 0103 #### [facility] [address] [place] [address], [facility] HYPO Slight Normal The [facility] Comment on above: Order Comment: No: D o not add to previous draw Performed By: #### 5 0103 #### [facility] [address] [place] [address], [facility] IMMATURE GRANS 0.5 % Normal 0.0-1.0 The [facility] Comment on above: Order Comment: No: D o not add to previous draw Performed By: #### 5 0103 #### [facility] [address] [place] [address], [facility] Lymphocytes (Bld) [#/Vol] 0.6 10*3/uL Low 1.2-4.0 The [facility] Comment on above: Order Comment: No: D o not add to previous draw Performed By: #### 5 0103 #### [facility] [address] Lymphocytes/100 WBC (Bld) 5.7 % Low 20.0-45.0 The [facility] Comment on above: Order Comment: No: D o not add to previous draw Performed By: #### 5 0103 #### [facility] [address] [place] [address], [facility] MCH (RBC) [Entitic mass] 20.9 pg Low 27.0-33.0 The [facility] Comment on above: Order Comment: No: D o not add to previous draw Performed By: #### 5 0103 #### [facility] [address] Performed By: #### 5 0608 ####[facility] MCHC (RBC) [Mass/Vol] 28.2 g/dL Low 32.0-35.0 The [facility] Comment on above: Order Comment: No: D o not add to previous draw Performed By: #### 5 0103 #### [facility] [address] [place] [address], [facility] MCV (RBC) [Entitic vol] 73.9 fL Low 82.0-98.0 The [facility] Comment on above: Order Comment: No: D o not add to previous draw Performed By: #### 5 0103 #### [facility] [address] [place] [address], [facility] MICRO Slight Normal [facility] Comment on above: Order Comment: No: D o not add to previous draw Performed By: #### 5 0103 #### [facility] [address] [place] [address], [facility] Monocytes (Bld) [#/Vol] 0.4 10*3/uL Normal 0.1-1.0 The [facility] Comment on above: Order Comment: No: D o not add to previous draw Performed By: #### 5 0103 #### [facility] [address] [place] [address], [facility] MONOS 3.6 % Low 5.0-12.0 The [facility] Comment on above: Order Comment: No: D o not add to previous draw Performed By: #### 5 3 #### [facility] [address] [place] [address], [facility] Neutrophils/100 WBC (Bld) 90.0 % High 40.0-72.0 The [facility] Comment on above: Order Comment: No: D o not add to previous draw Performed By: #### 5 0103 #### [facility] [address] [place] [address], [facility] Nucleated RBC/100 WBC (Bld) [Ratio] 0 % Normal 0-0 The [facility] Comment on above: Order Comment: No: D o not add to previous draw Performed By: #### 5 0103 #### [facility] [address] [place] [address], [facility] Performed By: #### 5 0608 ####[facility] [place] [address], [facility] PLAT CNT 385 10*3/uL Normal 150-[address] [facility] Comment on above: Order Comment: No: D o not add to previous draw Performed By: #### 5 0103 #### [facility] [address] [place] [address], [facility] RBC (Bld) [#/Vol] 3.98 10*6/uL Normal 3.80-5.00 The [facility] Comment on above: Order Comment: No: D o not add to previous draw Performed By: #### 5 0103 #### [facility] [address] [place] [address], [facility] WBC (Bld) [#/Vol] 11.14 10*3/uL High 4.00-10.60 The [facility] Comment on above: Order Comment: No: D o not add to previous draw Performed By: #### 5 0103 #### [facility] [address] [place] [address], [facility] CBC COMPLETE BLOOD COUNTon Erythrocyte distribution width (RBC) [Ratio] 18.2 % High 11.5-15.0 [facility] Comment on above: Performed By: #### 5 0608 ####[facility] [facility] [place] [address], [facility] Hematocrit (Bld) [Volume fraction] 24.7 % Low 36.0-45.0 The [facility] Comment on above: Performed By: #### 5 0608 ####[facility] [facility] [place] [address], [facility] Hemoglobin (Bld) [Mass/Vol] 6.9 g/dL Low 12.0-15.0 The [facility] Comment on above: Performed By: #### 5 0608 ####[facility] [facility] [place] [address], [facility] MCHC (RBC) [Mass/Vol] 27.9 g/dL Low 32.0-35.0 The [facility] Comment on above: Performed By: #### 5 0608 ####[facility] [facility] [place] [address], [facility] MCV (RBC) [Entitic vol] 74.8 fL Low 82.0-98.0 The [facility] Comment on above: Performed By: #### 5 0608 ####[facility] PLAT CNT 269 10*3/uL Normal 150-[address] [facility] Comment on above: Performed By: #### 5 0608 ####[facility] RBC (Bld) [#/Vol] 3.30 10*6/uL Low 3.80-5.00 The [facility] Comment on above: Performed By: #### 5 0608 ####[facility] WBC (Bld) [#/Vol] 7.66 10*3/uL Normal 4.00-10.60 [facility] Comment on above: Performed By: #### 5 0608 ####[facility] Cardiovascular Lab Reporton 01-01-2021 Cardiovascular Lab Report [facility] Patient Name: Karolina Bashir [facility] MR #: [id number] Physician: Maury Jay MD Department of Service Date: 01/01/2021 Medicine Birthdate: 1945 Division of Room #: [id number] Cardiology Adult Cardiovascular Services [place] [address] Cardiovascular Laboratory Report ATRIAL FIBRILLATION ABLATION PROCEDURE NOTE DATE OF PROCEDURE: 01/01/2021 PERFORMING PHYSICIAN: Dr. Maury Jay CONSENT: Patient NAME OF THE PROCEDURE: Pulmonary Vein Isolation and Comprehensive EP study. INDICATIONS FOR PROCEDURE: 1. Persistent atrial fibrillation non responsive to pharmacologic therapy. PROCEDURES PERFORMED: 1. Sonosite guided venous access as noted below and images stored. 2. Comprehensive EP study and catheter ablation for persistent atrial fibrillation through the pulmonary vein isolation technique. This includes right atrial recording and pacing, His bundle recording and right ventricular recording and pacing. 3. Intracardiac EP 3D mapping. 4. Intracardiac echocardiogram 5. Left atrial and coronary sinus recording and pacing to assess ablation results. 6. Left heart pressure measurements and LV pacing and recording. 7. Induction of arrhythmia and testing of ablation results using intravenous adenosine infusion. 8. Fluroscopy. FLUROSCOPY:2min 22s/10mGray PROCEDURE NOTE: 75-year-old lady with a history of atrial fibrillation has failed a trial of antiarrhythmic therapy, but had recurrence and wanted to avoid antiarrhythmia drugs. On the day she presented, she was noted to be in sinus rhythm. ADDIE was performed to rule out any left atrial clot and to assess left atrial anatomy. Risks, benefits and alternatives of the procedure were discussed with the patient and family who agreed to proceed. Please refer to my consult note for details of the discussion and of indications. The patient was brought to the EP lab and a procedural pause was performed identifying the patient, the procedure. The patient presented in SR and ADDIE was performed to rule out SANDRA clot. ICE imaging was used to rule out SANDRA clot. Both the groins were then prepared and draped. Ultrasound was used to determine the course and patency of the femoral veins on both sides and they were noted to be patent and the image stored in Merge. After infiltration with 1% lidocaine, 4 venous sheaths were placed in the right as noted below and a radial arterial line was placed by Anesthesia team. RFV: 8Fx4 ThermoCool SF Bi-Directional over SL1/ Vizigo, SL1:Pentaray, ICE catheter. 8Fx1 CS Catheter (EZ Steer) 8,000U Heparin bolus was given followed by continuous intravenous drip to target ACT around 350. An intracardiac ultrasound catheter was inserted into the right atrium to examine the right atrial anatomy, atrial septum, pulmonary vein anatomy and to monitor for pericardial effusion and guide transseptal access. At baseline, there was mild pericardial effusion and no SANDRA clot. Esophagus was mapped using the QHB HOLDINGSSOUND 3D mapping software and noted to be in the middle. Double transseptal access technique was used to cross to the left side. Following the first transseptal access, which was achieved via puncture of the thinner aspect of the septum using Ran needle, Pentaray catheter was placed in the left atrium. Mean LA pressures were noted to 18/10 mmHg at baseline. LV pacing revealed was performed. A second transseptal access was then achieved. With repeat access, SL1 sheath was exchanged over a wire to 8.5F Vizigo sheath. Pulmonary vein and left atrial anatomic mapping was performed using a 3-D CARTO computer-based mapping system. Identification of the pulmonary vein ostia was assisted by the left atrial signals on the ablation catheter, the ICE catheter and the Pentaray catheter placed in the individual pulmonary veins. There was signals noted in all the veins but the left common antrum was not very active. A temperature probe was placed in the esophagus to monitor and avoid rise of temperature by more than a degree celsius. Wide area circumferential ablation technique (WACA) was then performed. Power settings were 30watts in the anterior aspect of WACA and shorter lesions while ablating on the posterior wall as well as the roof. Following left WACA, entrance block was observed. When ablation was performed and there was no notable increase of temperature. Right sided PVI was then performed using a WACA approach with care to pace the anterior aspect of WACA and aparna to ensure there was no phrenic capture. Upon completion of the right sided WACA, entrance block was not seen. I then targeted the aparna area and following this entrance block was seen. Thereafter perivenous pacing confirmed isolation. In the end, all pulmonary veins were isolated. Adenosine was given in (more content not included)... Normal [facility] POC GLUCOSE LABon 01-01-2021 Glucose [Mass/Vol] 124 mg/dL High 70-100 [facility] Comment on above: Performed By: #### [id number] #### [facility] [address] [facility] [place] [address], [facility] PROTHROMBIN TIMEon 1 INR Coag (PPP) [Relative time] 1.10 {INR} Normal 0.91-1.16 [facility] Comment on above: Result Comment: ACCC P RECOMMENDED INR FOR WARFARIN THERAPY ------- ------- CONDITION INR PROPHYLAXIS OF VENOUS THROMBOSIS 2-3 (HIGH-RISK SURGERY) TREATMENT OF VENOUS THROMBOSIS 2-3 TREATMENT OF PULMONARY EMBOLISM 2-3 PREVENTION OF SYSTEMIC EMBOLISM: 2-3 ACUTE MYOCARDIAL INFARCTION TISSUE HEART VALVES VALVULAR HEART DISEASE ATRIAL FIBRILLATION RECURRENT SYSTEMIC EMBOLISM MECHANICAL HEART VALVE 2.5-3.5 FROM: ORAL ANTICOAGULANTS. MECHANISM OF ACTION, CLINICAL EFFECTIVENESS, AND OPTIMAL THERAPEUTIC RANGE. CHEST 1995;108:231S-246S. Performed By: #### 5 [id number] #### [facility] [address] PT Coag (PPP) [Time] 14.2 s Normal 12.3-14.8 [facility] Comment on above: Result Comment: ALL RESULTS MUST BE INTERPRETED WITH RESPECT TO BLOOD DRAWING ARTIFACT OR DILUTION ERROR OF ANTICOAGULANT AT THE TIME OF SAMPLING. Performed By: #### 5 [id number] #### [facility] [address] *SARS-CoV-2 COVID-19on 12-28 SARS-CoV-2 (COVID-19) RNA GREG+probe Ql (Unsp spec) Not detected Normal Not Detected [facility] Comment on above: Order Comment: The A ptima SARS-CoV-2 assay is a nucleic acid amplification test intended for the qualitative detection of RNA from SARS-CoV-2 isolated and purified from nasopharyngeal (BOTTOM CRANE OPERATOR),oropharyngeal (OP), nasal swab, sputum, and bronchoalveolar lavage (BAL) specimens from patients with signs and symptoms of infection who are suspected of COVID-19. Results are for the identification of SARS-CoV-2 RNA. The SARS-CoV-2 RNA is generally detectable during the acute phase of infection. The Aptima SARS-CoV-2 Assay on the LIFE INTERACTION and LIFE INTERACTION Fusion system is intended for use by laboratory personnel specifically instructed and trained in the operation of the [place] and [place] Fusion system. The Aptima SARS-CoV-2 assay is only for use under the Food and Drug Administration Emergency Use Authorization. Testing is limited to laboratories certified under the Clinical Laboratory Improvement Amendments of 1988 (CLIA), 42 U.S.C. ???263a, to perform high complexity tests. Not Detected: Not detected does not preclude SARS-CoV-2 infection and should not be used as the sole basis for patient management decisions. Not detected results must be combined with clinical observations, patient history, and epidemiological information. Performed By: #### 3 [id number] #### [facility] [address] [place] [address], [facility] BASIC METABOLIC PANELon 10-0 Calcium [Mass/Vol] 9.2 mg/dL Normal 8.6-10.3 [facility] Comment on above: Performed By: #### 0 0071 #### [facility] [address] [facility] [place] [address], [facility] Chloride [Moles/Vol] 102 mmol/L Normal 98-107 [facility] Comment on above: Performed By: #### 0 0071 #### [facility] [address] [facility] [place] [address], [facility] CO2 [Moles/Vol] 27 mmol/L Normal 21-31 [facility] Comment on above: Performed By: #### 0 0071 #### [facility] [address] [facility] [place] [address], [facility] Creatinine [Mass/Vol] 0.84 mg/dL Normal 0.60-1.20 [facility] Comment on above: Performed By: #### 0 0071 #### [facility] [address] [facility] [place] [address], [facility] GFR/1.73 sq M.predicted among blacks MDRD (S/P/Bld) [Vol rate/Area] mL/min/{1.73_m2} Normal >60 [facility] Comment on above: Result Comment: Calc ulation may not be valid for patients over 70 years Performed By: #### 0 0071 #### [facility] [address] [place] [address], [facility] GFR/1.73 sq M.predicted among non-blacks MDRD (S/P/Bld) [Vol rate/Area] mL/min/{1.73_m2} Normal >60 [facility] Comment on above: Result Comment: Calc ulation may not be valid for patients over 70 years Performed By: #### 0 0071 #### [facility] [address] [place] [address], [facility] Glucose [Mass/Vol] 105 mg/dL High 70-100 [facility] Comment on above: Performed By: #### 0 0071 #### [facility] [address] [place] [address], [facility] Potassium [Moles/Vol] 4.7 mmol/L Normal 3.5-5.1 [facility] Comment on above: Performed By: #### 0 0071 #### [facility] [address] [place] [address], [facility] Sodium [Moles/Vol] 136 mmol/L Normal 136-145 [facility] Comment on above: Performed By: #### 0 0071 #### [facility] [address] [place] [address], [facility] Urea nitrogen [Mass/Vol] 17 mg/dL Normal 7-25 [facility] Comment on above: Performed By: #### 0 0071 #### [facility] [address] [place] [address], [facility] CBC W/DIFFon 12-28-2020 ABS IMM GRANS 0.0 10*3/uL Normal 0.0-0.[address] [facility] Comment on above: Performed By: #### 5 0103 #### [facility] [address] [place] [address], [place] ABS NEUTROPHILS 8.7 10*3/uL High 1.6-7.6 The [facility] Comment on above: Performed By: #### 5 0103 #### [facility] [address] [facility] [place] [address], [facility] ANISO Moderate Normal [facility] Comment on above: Performed By: #### 5 0103 #### [facility] [address] [facility] [place] [address], [facility] Basophils (Bld) [#/Vol] 0.1 10*3/uL Normal 0.0-0.2 [facility] Comment on above: Performed By: #### 5 0103 #### [facility] [address] [place] [address], [facility] Basophils/100 WBC (Bld) 0.8 % Normal 0.0-1.0 [facility] Comment on above: Performed By: #### 5 0103 #### [facility] [address] [place] [address], [facility] Eosinophils (Bld) [#/Vol] 0.3 10*3/uL Normal 0.0-0.5 [facility] Comment on above: Performed By: #### 5 0103 #### [facility] [address] [place] [address], [facility] Eosinophils/100 WBC (Bld) 2.2 % Normal 0.0-6.0 [facility] Comment on above: Performed By: #### 5 0103 #### [facility] [address] Erythrocyte distribution width (RBC) [Ratio] 18.5 % High 11.5-15.0 [facility] Comment on above: Performed By: #### 5 3 #### [facility] [address] [facility] [place] [address], [facility] Hematocrit (Bld) [Volume fraction] 33.7 % Low 36.0-45.0 [facility] Comment on above: Performed By: #### 5 0103 #### [facility] [address] Hemoglobin (Bld) [Mass/Vol] 9.6 g/dL Low 12.0-15.0 [facility] Comment on above: Performed By: #### 5 0103 #### [facility] [address] HYPO Slight Normal [facility] Comment on above: Performed By: #### 3 #### [facility] [address] IMMATURE GRANS 0.3 % Normal 0.0-1.0 The [facility] Comment on above: Performed By: #### 5 3 #### [facility] [address] Lymphocytes (Bld) [#/Vol] 1.7 10*3/uL Normal 1.2-4.0 [facility] Comment on above: Performed By: #### 5 0103 #### [facility] [address] Lymphocytes/100 WBC (Bld) 14.7 % Low 20.0-45.0 [facility] Comment on above: Performed By: #### 5 3 #### [facility] [address] MCH (RBC) [Entitic mass] 20.7 pg Low 27.0-33.0 [facility] Comment on above: Performed By: #### 5 3 #### [facility] [address] MCHC (RBC) [Mass/Vol] 28.5 g/dL Low 32.0-35.0 [facility] Comment on above: Performed By: #### 5 3 #### [facility] [address] [place] [address], [facility] MCV (RBC) [Entitic vol] 72.8 fL Low 82.0-98.0 [facility] Comment on above: Performed By: #### 5 3 #### [facility] [address] [place] [address], [facility] MICRO Slight Normal [facility] Comment on above: Performed By: #### 3 #### [facility] [address] [place] [address], [facility] Monocytes (Bld) [#/Vol] 0.8 10*3/uL Normal 0.1-1.0 [facility] Comment on above: Performed By: #### 102 #### [facility] [address] [place] [address], [facility] MONOS 6.6 % Normal 5.0-12.0 [facility] Comment on above: Performed By: #### 102 #### [facility] [address] [place] [address], [facility] Neutrophils/100 WBC (Bld) 75.4 % High 40.0-72.0 [facility] Comment on above: Performed By: #### 102 #### [facility] [address] [place] [id number], [facility] Nucleated RBC/100 WBC (Bld) [Ratio] 0 % Normal 0-0 [facility] Comment on above: Performed By: #### 102 #### [facility] [address] [place] [address], [facility] PLAT CNT 417 10*3/uL High 150-[address] [facility] Comment on above: Performed By: #### 102 #### [facility] [address] [place] [address], [facility] POIK Slight Normal [facility] Comment on above: Performed By: #### 5 0103 #### [facility] [address] [place] [address], [facility] RBC (Bld) [#/Vol] 4.63 10*6/uL Normal 3.80-5.00 The [facility] Comment on above: Performed By: #### 5 0103 #### [facility] [address] [place] [address], [facility] WBC (Bld) [#/Vol] 11.48 10*3/uL High 4.00-10.60 [facility] Comment on above: Performed By: #### 5 0103 #### [facility] [address] [facility] [place] [address], [facility] CREATININE BLOODon Creatinine [Mass/Vol] 0.91 mg/dL Normal 0.60-1.20 [facility] Comment on above: Performed By: #### 2 5656 #### [facility] [address] [facility] [place] [address], [facility] GFR/1.73 sq M.predicted among blacks MDRD (S/P/Bld) [Vol rate/Area] mL/min/{1.73_m2} Normal >60 [facility] Comment on above: Result Comment: Calc ulation may not be valid for patients over 70 years Performed By: #### 2 5656 #### [facility] [address] [facility] [place] [address], [facility] GFR/1.73 sq M.predicted among non-blacks MDRD (S/P/Bld) [Vol rate/Area] mL/min/{1.73_m2} Normal >60 [facility] Comment on above: Result Comment: Calc ulation may not be valid for patients over 70 years Performed By: #### 2 5656 #### [facility] [address] [place] [address], [facility] CTA CHESTon 10-11-2020 CTA CHEST [facility] Department of Radiology [address] [place] [id number] ======== Patient Name: KAROLINA BASHIR : 1945 Sex: F Age: Race: White Pt. Location: 30 Patient Status: D Ordered Date: 09/27/2020 9:50:00 AM Completed Date: 10/11/2020 01:50 PM Requesting Provider: MAURY JAY Attending Provider: MAURY JAY Report Copy To: JEB ROSA Signs & Symptoms: I48.0 Paroxysmal atrial fibrillation I10 History: [place] patient will need labs NPO 4 hrs. medicare no pc required med nec passed 10/02/20 *kw [id number] Comments: pre ablation? pacemaker? Exam: CTA CHEST ======== CTA CHEST 10/11/2020 1:50 PM CLINICAL INDICATIONS: I48.0 Paroxysmal atrial fibrillation I10 TECHNOLOGIST COMMENTS: Pre-ablation. QUESTION FOR RADIOLOGIST: pre ablation? pacemaker? PROTOCOL: Axial CT angiography images were obtained with IV contrast. CONTRAST: Contrast: OMNIPAQUE 350 (LOCM), 100 milliliter, Intravenous Contrast: OMNIPAQUE 300 (LOCM), 30 milliliter, Oral TECHNIQUE: Multidetector CT angiogram was obtained using prospective ECG gating. Imaging was performed from the level of the clavicles to the level of the hemidiaphragms. In order to provide better evaluation of the anatomy and disease process, advanced off-line 3-D post-processing techniques, including 3-D volume rendered left atrial evaluation. were performed and viewed on PACS.. Medication administered in preparation for the examination is located in nursing documentation. All CT scans at this facility use dose modulation, iterative reconstruction, and/or weight based dosing when appropriate to reduce radiation dose to as low as reasonably achievable COMPARISON: None. Gated cardiac CT: There is normal cardiac size and configuration. There is normal size of the left atrium which measures maximum transverse dimensions of 8 x 5.4 cm. 2 pulmonary veins are seen on the right side with the ostium of the right superior pulmonary vein measuring 17 mm and first branch is approximately 2.7 cm from the ostium. The right inferior pulmonary vein ostium measures 19 mm and first branch is approximately 1.6 cm from the ostium. Left atrial appendage ostium measures 2.3 cm and the left atrial appendage is at least 3.5 cm in length with no filling defects appreciated to suspect blood clot. There is suggestion of a large common trunk of the left superior and inferior pulmonary veins best seen in the coronal reconstruction and demonstrates an ostium of 3.3 cm in caliber EXTRACARDIAC FINDINGS: Other lung findings: Paraseptal bilateral upper lobe emphysematous changes. There are also bilateral apical pleural thickening posteriorly and mild centrilobular emphysematous changes. Airway: Normal. Pleura: No pleural effusion, thickening, or pneumothorax. Thoracic aorta and great vessels: Prominent diameter of the ascending aorta measuring 4.0 x 3.8 cm which could be secondary to long-standing hypertension or may represent post aortic stenosis dilatation Pulmonary arteries: Normal. Heart and pericardium: Normal. Lymph nodes: No enlarged thoracic lymph nodes. Thoracic spine: Minimal spurring in the thoracic spine suggesting minimal spondylosis. Chest wall: Normal. Visualized upper abdomen: Normal. IMPRESSION: 1. Gated cardiac CT examination revealed normal size and configuration of the left atrium with 2 pulmonary veins seen on the right side and a large common trunk draining the left upper and lower pulmonary veins on the left side with the measurements described above. Left atrial appendage with no definite filling defects to suspect left clot. Normal cardiac size and configuration. Prominent ascending aorta which could be secondary to long-standing hypertension or may represent post aortic stenosis dilatation. Bilateral apical centrilobular and paraseptal emphysematous changes and apical bilateral pleural thickening. Electronically signed: Don Dobson. Transcribed by: [email or web address], User Resident: Electronically Signed by: DON DOBSON @ 10/15/2020 09:26 AM Normal [facility] Comment on above: Order Comment: pre a blation? pacemaker? Cardiovascular Lab Reporton 10-07-2020 Cardiovascular Lab Report [facility] Patient Name: [facility] Rufus Pino MR #: [id number] Department of Physician: Maury Jay MD Medicine Service Date: 09/30/2020 Division of Birthdate: 1945 Cardiology Room #: Adult Cardiovascular Services [facility] [address] [facility] [place] [address] Cardiovascular Laboratory Report DIRECT CARDIOVERSION PROCEDURE NOTE Date: 09/30/2020. Type of procedure: DC Cardioversion. Performed by: Maury Jay MD. Informed consent: Signed by patient. Indication: 75-year-old lady with a history of atrial fibrillation, who was known to have rapid ventricular rate and symptomatic with that. She was brought to the EP lab for cardioversion having been trialed already on amiodarone. She has been on uninterrupted anticoagulation for a minimum of 4 weeks. Preparation and technique: Patient was brought into the procedure room. After an informed consent was obtained following a discussion with the patient where I explained the risk and benefit of the procedure that is not limited to skin courtney, fluid in the lungs, heart attack, stroke, or even , though that is very rare. Patches were placed in anteroposterior direction and once patient was made comfortable with Versed 3.5mg and Fentanyl 32.5mcg. Following sedation, the patient underwent synchronized cardioversion using 300J which failed to convert to sinus rhythm. Patches were repositioned and 360J energy was applied in biphasic fashion and yet she continued to be in AF. At this point decision was made not to attempt further DCCV. Post procedure, the patient was stable but remained in AF. No complications noted. Plan: Continue anticoagulation. F/u in EP clinic to discuss about ablation. Maury Jay MD Cardiac Electrophysiology Electronically Signed by: Maury aJy MD 10/16/2020 07:01 P Maury Jay MD Date Dict: 10/07/2020/08:03 P/Maury Jay MD Date Trans: 10/07/2020 09:00 P/alisa [id number] cc: Jeb Rosa D.O. [address] [place] [address] [facility] Vital Signs Date Time Vital Sign Value Performing Clinician Alma cox 11-12-2022 11:20-0400 Body height 160.02 cm Referring Provider Unknown HC-Tkptewgch-Veqvu ll Work Phone: 11-12-2022 11:20-0400 Body mass index (BMI) [Ratio] 25.69 kg/m2 Referring Provider Unknown RE-Kuecrgiyy-Ipikf ll Work Phone: 11-12-2022 11:20-0400 Body surface area Derived from formula 1.69 m2 Referring Provider Unknown WS-Jrxcswvuy-Gvgjh ll Work Phone: 11-12-2022 11:20-0400 Body weight 65.77 kg Referring Provider Unknown TW-Nycwuncgs-Ikxrq ll Work Phone: 11-12-2022 11:20-0400 Diastolic blood pressure 66 mm[Hg] Referring Provider Unknown KC-Xrbxogcvf-Qdaqz ll Work Phone: 11-12-2022 11:20-0400 Heart rate 70 /min Referring Provider Unknown VP-Ohgijkkss-Ixmeb ll Work Phone: 11-12-2022 11:20-0400 Respiratory rate 19 /min Referring Provider Unknown FR-Ukvwazlsh-Bdhbi ll Work Phone: 11-12-2022 11:20-0400 SaO2% (BldA) [Mass fraction] 93 % Referring Provider Unknown NH-Yuljuclys-Zttfs ll Work Phone: 11-12-2022 11:20-0400 Systolic blood pressure 104 mm[Hg] Referring Provider Unknown ZH-Nwzefurgn-Mzkkq ll Work Phone: Encounters Encounter Date Encounter Type Care Provider Facility Start: 06-29-2023 End: 06-29-2023 ambulatory VITO LEZAMA [facility] Start: 05-31-2023 End: 06-01-2023 ambulatory JEB ROSA Facility:[facility] Start: 12-30-2022 End: 12-30-2022 ambulatory [facility] Start: 11-20-2022 End: 11-20-2022 ambulatory [facility] Start: 11-17-2022 End: 11-18-2022 ambulatory JEB ROSA Facility:[facility] Start: 11-12-2022 Office outpatient ne w 20 minutes Referring Provider Unknown YO-Xpnxfjjeegbb-UWFQY Work Phone: Start: 11-12-2022 Patient encounter procedure Referring Provider Unknown ZB-Yntupzrot-Deekkhl 5th Work Phone: Start: 11-12-2022 ambulatory Referral Self Facility: [facility] Start: 11-04-2022 End: 11-05-2022 ambulatory JEB ROSA Facility:[facility] Start: 08-18-2022 End: 08-18-2022 [facility] Start: 07-30-2022 End: 07-31-2022 ambulatory ELZBIETA MADRID [facility] Start: 07-10-2022 End: 07-10-2022 ambulatory GALINA SANHCEZ [facility] Start: 06-10-2022 End: 06-11-[address] JEB ROSA Facility:[facility] Start: 06-01-2022 ambulatory Max TATUM Facility :[facility] Start: 05-30-2022 End: 06-02-2022 ambulatory Max TATUM Facility:CD:[id number] Start: 05-29-2022 End: 06-01-2022 Evaluation and management of inpatient DR JEB ROSA Facility:[facility] Start: 01-01-2021 End: 01-02-2021 ambulatory JEB ROSA Facility:[facility] Start: 10-11-2020 End: 10-12-2020 ambulatory MAURY JAY Facility:[facility] Start: 09-30-2020 End: 10-01-2020 [facility] KAYLA Facility:[facility] Procedures Date Procedure Procedure Detail Performing Clinician Start: 06-01-2022 Excision of Ascendin g Colon, Via Natural or Artificial Opening Endoscopic, Diagnostic DR JEB ROSA Start: 06-01-2022 Excision of Sigmoid Colon, Via Natural or Artificial Opening Endoscopic DR JEB ROSA Start: 06-01-2022 Inspection of Upper Intestinal Tract, Via Natural or Artificial Opening Endoscopic DR JEB ROSA Start: 05-29-2022 Transfusion of Nonau tologous Red Blood Cells into Peripheral Vein, Percutaneous Approach DR JEB ROSA Payers Date Payer Category Payer Medicare [id number] 1945 Unknown [id number] 2.16.8 [id number] 1945 Unknown [id number] 2.16.8 [id number] 1945 Unknown [id number] 2.16.8 [id number] 1945 Unknown [id number] 2.16.84 [id number] 1945 Unknown [id number] 2.16.84 [id number] 1945 Unknown [id number] 2.16.8 [id number] 1945 Unknown [id number] 2.16.8 [id number] 1945 Unknown [id number] 2.16. [id number] 1945 Unknown [id number] 2.16.8 [id number] 1945 Unknown [id number] 2.16.8 [id number] Unknown MEDICARE Clinical Notes 05-29-2022 to 06-29-2023 Note Date & Type Note Facility 06-29-2023 Note [facility] CARDIOLOGY PROGR ESS NOTE HPI: Karolina Bashir is a 78 y.o. female here for f/U and review of diagnostic testing S/P syncopal episodes HPI 78-year-old female with a past medical history including hypertension, atrial fibrillation, nonobstructive CAD, and syncope. Patient was referred to cardiology due to syncope. She presents today for follow-up. Overall, patient states that she is doing very well. Patient adamantly denies any cardiac complaints or concerns. Patient denies any chest pain or shortness of breath. Patient denies any lower extremity edema, orthopnea, or proximal nocturnal dyspnea. No near-syncope or syncope. No dizziness or lightheadedness. She has not had any recurrent episodes since her initial episodes in October. As per her description, patient did not lose consciousness. She became somewhat altered and leaned to the side, as per her report. She states that her relative is an EMT, and relative confirms that there was no loss of consciousness. Review of Systems 10 point ROS is performed and is negative unless otherwise specified in HPI Visit Vitals BP 136/76 (BP Location: Left arm, Patient Position: Sitting) Pulse 66 Ht 1.6 m (5' 3 ) Wt 72.6 kg (160 lb) SpO2 96% BMI 28.34 kg/m??? Smoking Status Former BSA 1.8 m??? Allergies Allergen Reactions Codeine Other DIAPHORETIC, Medications: Current Outpatient Medications on File Prior to Visit Medication Sig Dispense Refill albuterol 2.5 mg /3 mL (0.083 %) nebulizer solution USE 1 VIAL IN NEBULIZER EVERY 6 HOURS NEEDED albuterol 90 mcg/actuation inhaler every 4 (four) hours. aspirin 81 mg EC tablet in the morning. ferrous sulfate 325 (65 Fe) MG tablet Take 1 tablet by mouth in the morning and at bedtime. hydrOXYzine HCL (Atarax) 25 mg tablet Take 1 tablet by mouth in the morning. metoprolol tartrate (Lopressor) 50 mg tablet TAKE 1 & 1/2 TABLETS BY MOUTH TWICE DAILY 270 tablet 3 rOPINIRole (Requip) 0.5 mg tablet Take 1 tablet by mouth at bedtime. Tiadylt ER 180 mg 24 hr capsule TAKE 1 CAPSULE BY MOUTH ONCE DAILY. DO NOT OPEN,CHEW, OR CRUSH 90 capsule 3 [DISCONTINUED] Xarelto 20 mg tablet Take 1 tablet (20 mg) by mouth in the morning. 30 tablet 3 [DISCONTINUED] hydrOXYzine pamoate (Vistaril) 25 mg capsule in the morning. No current facility-administered medications on file prior to visit. Physical Exam: Constitutional: Appearance: Normal appearance. Without apparent distress, chronically ill HENT: Head: Normocephalic and atraumatic. Nose: Nose normal. Mouth/Throat: Mouth: Mucous membranes are moist. Eyes: Extraocular Movements: Extraocular movements intact. Conjunctiva/sclera: Conjunctivae normal. Neck: Vascular: No JVD. Cardiovascular: Rate and Rhythm: Normal rate and regular rhythm. Pulses: Dorsalis pedis pulses are 3 on the right side and 3on the left side. Posterior tibial pulses are 3 on the right side and 3 on the left side. Heart sounds: Normal heart sounds, S1 normal and S2 normal. Pulmonary: Effort: Pulmonary effort is normal. Breath sounds: Normal breath sounds. Abdominal: General: Bowel sounds are normal. Palpations: Abdomen is soft. Musculoskeletal: General: Normal range of motion. Cervical back: Normal range of motion. Right lower leg: No edema. Left lower leg: No edema. Skin: General: Skin is warm and dry. Capillary Refill: Capillary refill takes less than 2 seconds. Neurological: General: No focal deficit present. Mental Status: She is alert and oriented to person, place, and time. Psychiatric: Mood and Affect: Mood normal. Behavior: Behavior normal. Thought Content: Thought content normal. Judgment: Judgment normal. Labs:- Reviewed labs, ECHo, Stress test, Carotid US and monitor with pt TSH normal 11/01/22 CBC stable Renal function and liver function normal K+ and NA normal Last lab values have been reviewed CV Testin11/30/22 TTE 12/02/22 Lexiscan- Myocardial perfusion is normal No ischemic EKG changes noted- Sinus bradycardia and Sinus arrhythmia noted baseline Carotid US 11/01/22 01/02/21 TTE 06/05/2016 No echocardiogram results found for the past 12 months Assessment/Plan: Coronary artery disease of [place] artery of [place] heart with stable angina pectoris (CMS/HCC) Coronary artery disease, moderate non obstructive on cath in 2017, is stable without any concerning symptoms Continue GDMT. She is not on statin. Start Crestor 20 mg daily and check a lipid panel, CMP in 6 months. Continue Daily aspirin continue risk factor modifications- heart healthy diet, regular exercise as tolerated and continue all medications. Benign essential hypertension Bp well controlled at home Continue metoprolol Atrial fibrillation (CMS/HCC) Stable continue xarelto and metoprolol No issues with bleeding Syncope and collapse Reviewed Echocardiogram, stress test, event monitor and carotid US with pt and hus (more content not included)... [facility] 06-29-2023 Note Patient here for 6 m o follow up afib, hypertension, and syncope. Denies chest pain, and recurrent syncope. Palpitations are less often now. Still gets SOB due to COPD she says. 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 [facility] 05-31-2023 Note Entered by PING ROSA DO on May 31, 2023 07:57:20 EDT From: JEB ROSA DO To: [facility]/pharmacy #[id number] Sent: 05/31/2023 07:57:20 EDT Subject: Medication Management Submitted: Complete:rOPINIRole (rOPINIRole 0.5 mg oral tablet) Signed by JEB ROSA DO 05/31/2023 07:57:00 EDT Submitted: Complete:hydrOXYzine (hydrOXYzine hydrochloride 25 mg oral tablet) Signed by JEB ROSA DO 05/31/2023 07:57:00 EDT Approved hydrOXYzine (HYDROXYZINE HCL 25 MG TABLET) TAKE 1 TABLET BY MOUTH EVERY DAY Qty: 90 tab(s) Days Supply: 90 Refills: 1 Substitutions Allowed Route To Pharmacy - [facility]/pharmacy #[id number] Approved rOPINIRole (ROPINIROLE HCL 0.5 MG TABLET) TAKE 1 TABLET BY MOUTH EVERY DAY Qty: 90 tab(s) Days Supply: 90 Refills: 1 Substitutions Allowed Route To Pharmacy - [facility]/pharmacy #[id number] Patient matched by JEB ROSA DO on 05/31/2023 07:56:26 EDT -------- From: [facility] STORE [id number] To: JEB ROSA DO Sent: May 30, 2023 1:27:41 PM CDT Subject: Medication Management Due: May 31, 2023 1:13:05 AM CDT On Hold Pending Signature Dispensed Drug: hydrOXYzine (hydrOXYzine hydrochloride 25 mg oral tablet), TAKE 1 TABLET BY MOUTH EVERY DAY Quantity: 90 tab(s) Days Supply: 90 Refills: 1 Substitutions Allowed Notes from Pharmacy: On Hold Pending Signature Dispensed Drug: rOPINIRole (rOPINIRole 0.5 mg oral tablet), TAKE 1 TABLET BY MOUTH EVERY DAY Quantity: 90 tab(s) Days Supply: 90 Refills: 1 Substitutions Allowed Notes from Pharmacy: -------- [facility]30[facility]2022 [facility] Reviewed Echocardiog giuseppe, stress test, event monitor and carotid US with pt and and no acute ischemia/ or perfusion defect noted, normal EF and mild elevated Rt sided pressures most likely r/t COPD Carotid no acute or concerning stenosis noted [facility] 12-30-2022 Note Stable continue xare lto and metoprolol [facility] 12-30-2022 Note Hypertension is stab le, in light of syncope will allow her B/P to range SBP 140-150/80-90 She will continue to monitor b/p at home Continue metoprolol [facility] 12-30-2022 Note Coronary artery dise ase is stable without any concerning symptoms Continue GDMT continue risk factor modifications- heart healthy diet, regular exercise as tolerated and continue all medications. [facility] 12-30-2022 Note [facility] CARDIOLOGY PROGR ESS NOTE HPI: Karolina Bashir is a 77 y.o. female here for f/U and review of diagnostic testing S/P syncopal episodes HPI Patient here for follow up ED visit for syncope. She says it just came on and she did not feel chest pain, palpitations, SOB, dizzy or lightheaded leading up to episodes. Says she was diaphoretic also. Denies chest pain, palpitations, and bleeding on Xarelto. Reports 2 episodes of syncope and collapse in the last 11 days states she has no history of prior of syncope. States that she has noted these episodes it happens after looking to the side and she just goes down, denied LOC. States that sometimes she can be sitting on the couch and this has happened. Denied recent illness , fever, chills, URI, sinus congestion. Patient here for follow up echo, stress test, carotid US, and event monitor. Denies recurrent syncope and bleeding on Xarelto. Denies chest pain and LE edema. Review of Systems Cardiovascular: Positive for dyspnea on exertion and palpitations. Neurological: Positive for headaches and light-headedness. All other systems reviewed and are negative Visit Vitals BP (!) 137/91 (BP Location: Left arm, Patient Position: Sitting) Pulse 67 Ht 1.6 m (5' 3 ) Wt 68 kg (150 lb) SpO2 94% BMI 26.57 kg/m??? Smoking Status Former BSA 1.74 m??? Allergies Allergen Reactions Codeine Other DIAPHORETIC, Medications: Current Outpatient Medications on File Prior to Visit Medication Sig Dispense Refill albuterol 2.5 mg /3 mL (0.083 %) nebulizer solution USE 1 VIAL IN NEBULIZER EVERY 6 HOURS NEEDED albuterol 90 mcg/actuation inhaler every 4 (four) hours. aspirin 81 mg EC tablet in the morning. ferrous sulfate 325 (65 Fe) MG tablet Take 1 tablet by mouth in the morning and at bedtime. hydrOXYzine pamoate (Vistaril) 25 mg capsule in the morning. metoprolol tartrate (Lopressor) 50 mg tablet TAKE 1 & 1/2 TABLETS BY MOUTH TWICE DAILY 270 tablet 3 rOPINIRole (Requip) 0.5 mg tablet Take 1 tablet by mouth at bedtime. Tiadylt ER 180 mg 24 hr capsule TAKE 1 CAPSULE BY MOUTH ONCE DAILY. DO NOT OPEN,CHEW, OR CRUSH 90 capsule 3 Xarelto 20 mg tablet Take 1 tablet (20 mg) by mouth in the morning. 30 tablet 3 No current facility-administered medications on file prior to visit. Physical Exam: Constitutional: Appearance: Normal appearance. Without apparent distress, chronically ill HENT: Head: Normocephalic and atraumatic. Nose: Nose normal. Mouth/Throat: Mouth: Mucous membranes are moist. Eyes: Extraocular Movements: Extraocular movements intact. Conjunctiva/sclera: Conjunctivae normal. Neck: Vascular: No JVD. Cardiovascular: Rate and Rhythm: Normal rate and regular rhythm. Pulses: Dorsalis pedis pulses are 3 on the right side and 3on the left side. Posterior tibial pulses are 3 on the right side and 3 on the left side. Heart sounds: Normal heart sounds, S1 normal and S2 normal. Pulmonary: Effort: Pulmonary effort is normal. Breath sounds: Normal breath sounds. Abdominal: General: Bowel sounds are normal. Palpations: Abdomen is soft. Musculoskeletal: General: Normal range of motion. Cervical back: Normal range of motion. Right lower leg: No edema. Left lower leg: No edema. Skin: General: Skin is warm and dry. Capillary Refill: Capillary refill takes less than 2 seconds. Neurological: General: No focal deficit present. Mental Status: She is alert and oriented to person, place, and time. Psychiatric: Mood and Affect: Mood normal. Behavior: Behavior normal. Thought Content: Thought content normal. Judgment: Judgment normal. Labs:- Reviewed labs, ECHo, Stress test, Carotid US and monitor with pt TSH normal 11/01/22 CBC stable Renal function and liver function normal K+ and NA normal Last lab values have been reviewed CV Testin11/30/22 TTE 12/02/22 Lexiscan- Myocardial perfusion is normal No ischemic EKG changes noted- Sinus bradycardia and Sinus arrhythmia noted baseline Carotid US 11/01/22 01/02/21 TTE 06/05/2016 No echocardiogram results found for the past 12 months Assessment/Plan: Coronary artery disease of [place] artery of [place] heart with stable angina pectoris (CMS/HCC) Coronary artery disease is stable without any concerning symptoms Continue GDMT continue risk factor modifications- heart healthy diet, regular exercise as tolerated and continue all medications. Benign essential hypertension Hypertension is stable, in light of syncope will allow her B/P to range SBP 140-150/80-90 She will continue to monitor b/p at home Continue metoprolol Atrial fibrillation (CMS/HCC) Stable continue xarelto and metoprolol Syncope and collapse Reviewed Echocardiogram, stress test, event monitor and carotid US with pt and and no acute ischemia/ or perfusion defect noted, normal EF and mild elevated Rt sided pressures most likely r/t COPD Carotid no acu (more content not included)... [facility] 12-30-2022 Note Patient here for fol low up echo, stress test, carotid US, and event monitor. Denies recurrent syncope and bleeding on Xarelto. Denies chest pain and LE edema. Review of Systems Cardiovascular: Positive for dyspnea on exertion and palpitations. Neurological: Positive for headaches and light-headedness. All other systems reviewed and are negative. [facility] 12-10-2022 Note Reviewed stress test and echocardiogram, no acute concerns noted that would correlate with syncopal episode, no ischemia or myocardial perfusion defect noted that would require a cardiac cath. Awaiting monitor results to assess for arrhythmia. 12/02/22 Stress test- normal myocardial perfusion, no ischemia noted- Normal stress test 12/02/22 TTE Normal LVSF- Gr 1 DD, elevated Rt sided pressures- may be r/t COPD. Renetta Mulligan NP Division of Cardiology, [facility]- [phone] Pager- [phone] Email- [email or web address] 11-20-2022 Note Check thyroid function [facility] 11-20-2022 Note Reports 2 episodes o f syncope over the last 3 days without any precipitating symptoms, loss of consciousness, loss of bowel or bladder function. We will order 30-day event monitor to assess for any concerning arrhythmias, echocardiogram to assess cardiac function and valvular function, stress test to assess for any significant perfusion defect or ischemia in light of known moderate coronary artery disease on heart cath in 2017. We will order carotid ultrasound in light of syncope and collapse to assess for any significant carotid stenosis. Return to clinic after testing is completed to review we will call patient for any acute concerns noted on any of these diagnostic tests [facility] 11-20-2022 Note Recent EKG in ED 10/20 06/11 was sinus rhythm Remains on xarelto and metoprolol [facility] 11-20-2022 Note Hypertension is well controlled 139/86 Continue metorpolol [facility] 11-20-2022 Note Moderate Coronary ar yoana disease noted on previous Cardiac cath 2017 Continue GDMT- ASA, metoprolol [facility] 11-20-2022 Note Monitored per PCP [facility] 11-20-2022 Note [facility] CARDIOLOGY PROGR ESS NOTE HPI: Karolina Bashir is a 77 y.o. female here for hospital f/U Patient here for follow up ED visit for syncope. She says it just came on and she did not feel chest pain, palpitations, SOB, dizzy or lightheaded leading up to episodes. Says she was diaphoretic also. Denies chest pain, palpitations, and bleeding on Xarelto. Reports 2 episodes of syncope and collapse in the last 11 days states she has no history of prior of syncope. States that she has noted these episodes it happens after looking to the side and she just goes down, denied LOC. States that sometimes she can be sitting on the couch and this has happened. Denied recent illness , fever, chills, URI, sinus congestion. Review of Systems Cardiovascular: Positive for dyspnea on exertion. Neurological: Positive for headaches and light-headedness. All other systems reviewed and are negative. Visit Vitals BP 139/86 (BP Location: Right arm, Patient Position: Sitting) Pulse 68 Ht 1.6 m (5' 3 ) Wt 65.8 kg (145 lb) SpO2 96% BMI 25.69 kg/m??? Smoking Status Former BSA 1.71 m??? Allergies Allergen Reactions Codeine Other DIAPHORETIC, Medications: Current Outpatient Medications on File Prior to Visit Medication Sig Dispense Refill albuterol 2.5 mg /3 mL (0.083 %) nebulizer solution USE 1 VIAL IN NEBULIZER EVERY 6 HOURS NEEDED albuterol 90 mcg/actuation inhaler every 4 (four) hours. aspirin 81 mg EC tablet in the morning. ferrous sulfate 325 (65 Fe) MG tablet Take 1 tablet by mouth in the morning and at bedtime. hydrOXYzine pamoate (Vistaril) 25 mg capsule in the morning. metoprolol tartrate (Lopressor) 50 mg tablet TAKE 1 & 1/2 TABLETS BY MOUTH TWICE DAILY 270 tablet 3 rOPINIRole (Requip) 0.5 mg tablet Take 1 tablet by mouth at bedtime. Tiadylt ER 180 mg 24 hr capsule TAKE 1 CAPSULE BY MOUTH ONCE DAILY. DO NOT OPEN,CHEW, OR CRUSH 90 capsule 3 Xarelto 20 mg tablet Take 1 tablet (20 mg) by mouth in the morning. 30 tablet 3 [DISCONTINUED] omeprazole (PriLOSEC) [address] capsule Take by mouth in the morning. No current facility-administered medications on file prior to visit. Physical Exam: Constitutional: Appearance: Normal appearance. Without apparent distress, chronically ill HENT: Head: Normocephalic and atraumatic. Nose: Nose normal. Mouth/Throat: Mouth: Mucous membranes are moist. Eyes: Extraocular Movements: Extraocular movements intact. Conjunctiva/sclera: Conjunctivae normal. Neck: Vascular: No JVD. Cardiovascular: Rate and Rhythm: Normal rate and regular rhythm. Pulses: Dorsalis pedis pulses are 3 on the right side and 3on the left side. Posterior tibial pulses are 3 on the right side and 3 on the left side. Heart sounds: Normal heart sounds, S1 normal and S2 normal. Pulmonary: Effort: Pulmonary effort is normal. Breath sounds: Normal breath sounds. Abdominal: General: Bowel sounds are normal. Palpations: Abdomen is soft. Musculoskeletal: General: Normal range of motion. Cervical back: Normal range of motion. Right lower leg: No edema. Left lower leg: No edema. Skin: General: Skin is warm and dry. Capillary Refill: Capillary refill takes less than 2 seconds. Neurological: General: No focal deficit present. CN II-XII grossly intact. EOMIs intact Mental Status: She is alert and oriented to person, place, and time. Psychiatric: Mood and Affect: Mood normal. Behavior: Behavior normal. Thought Content: Thought content normal. Judgment: Judgment normal. Labs: 11/01/22 CBC stable Renal function and liver function normal K+ and NA normal Last lab values have been reviewed CV Testin11/01/22 01/02/21 TTE 06/05/2016 No echocardiogram results found for the past 12 months Assessment/Plan: Hyperlipidemia Monitored per PCP Coronary artery disease of [place] artery of [place] heart with stable angina pectoris (CMS/HCC) Moderate Coronary artery disease noted on previous Cardiac cath 2016 Continue GDMT- ASA, metoprolol Benign essential hypertension Hypertension is well controlled 139/86 Continue metorpolol Atrial fibrillation (CMS/HCC) Recent EKG in ED 11/01/22 was sinus rhythm Remains on xarelto and metoprolol Syncope and collapse Reports 2 episodes of syncope over the last 3 days without any precipitating symptoms, loss of consciousness, loss of bowel or bladder function. We will order 30-day event monitor to assess for any concerning arrhythmias, echocardiogram to assess cardiac function and valvular function, stress test to assess for any significant perfusion defect or ischemia in light of known moderate coronary artery disease on heart cath in 2017. We will order carotid ultrasound in light of syncope and collapse to assess for any significant carotid stenosis. Return to clinic after testing is completed to review we will call patient for any acute concerns noted on any of these diagnostic tests (more content not included)... [facility] 11-20-2022 Note Patient here for fol low up ED visit for syncope. She says it just came on and she did not feel dizzy or lightheaded leading up to episodes. Says she was diaphoretic also. Denies chest pain, palpitations, and bleeding on Xarelto. Review of Systems Cardiovascular: Positive for dyspnea on exertion. Neurological: Positive for headaches and light-headedness. All other systems reviewed and are negative. [facility] 11-01-2022 Chief complaint Narrative - Reported Patient is being seen for an initial Neurosurgical evaluation and Hx of TIA with c/o of recent and sudden near syncope. Here for evaluation of possible Aneurysm. CTA 11/01/22 in PACs from [facility]. IZ[facility]Hybaqznww-Dimrj[facility] Work Phone: 11-01-2022 Chief complaint Narrative - Reported Patient is being seen for an initial Neurosurgical evaluation and Hx of TIA with c/o of recent and sudden near syncope. Here for evaluation of possible Aneurysm. CTA 11/01/22 in PACs from [facility]. NE-Uahaccwqsowh-BTIOC Work Phone: 08-18-2022 Note Patient here for 6 m o follow up PAF, CAD, and hyperlipidemia. She was admitted to [facility] in May 2022 for GI bleed. Xarelto and aspirin were put on hold. Mass was found in her colon on EGD/colonoscopy. She has since restarted Xarelto and aspirin. Feels much better now that her anemia has been treated. Denies chest pain and bleeding on AC. Review of Systems Cardiovascular: Positive for palpitations ( not often ). Neurological: Positive for headaches and light-headedness. All other systems reviewed and are negative. [facility] 08-18-2022 Note [facility] Cardiology Consul t Note Reason for Consultation: s/p PVI for Afib, 6-month follow HPI: Karolina is here for 6-month follow-up s/p PVI ablation. She been doing well since last seen with no complaints of chest pain, shortness of breath, VARELA, orthopnea, palpitations. She continues to take metoprolol tartrate 25 mg twice daily and Cardizem 180 mg daily and is tolerating them without concern. She continues to take Xarelto 20 mg aspirin 81 mg with no S/S of bleeding concerns she was seen at [facility] for diaphoresis and chest discomfort and she was found to have anemia hgb 5.7. she was stabilized and discharged. She later had colonoscopy done by [facility] found to have a large polyp. she is pending biopsy results. She was cleared to restart Xarelto. 02/03/[address] jay HPI: Karolina Bashir is a 77 y.o. year old with past medical history of moderate one-vessel CAD, COPD, proximal A. fib, COPD, dyspnea on exertion. She was recentlyt admitted to [facility] with AF and RVR. She wa smarkedl symptomatic. Patient reports that she notices chest pain typically at rest when she notices her atrial fib and her heartbeat is fast, denied chest pain with exertion, states this is her typical chest pain that she has had for years and is no different. Admits occasional palpitations. States her atrial fib occurs intermittently and only lasts a short amount of time and resolves. Pt underwent DCCV but did not convert. She wants to proxceed with more defintivive options. We discussed PPM+AVN abln vs PVI but she wants to try ablation before a PPM. Patient underwent A. fib ablation on 01/01/2021. She has been in SR and doing well. Limited echo done on 01/02/2021 revealed no change in echolucency compared to the ADDIE done on the same date. EP study 01/01/2021 A. fib ablation with PVI- [facility]. No CTI ablation was done due to concern of possible pericardial effusion without any hemodynamic changes. EKG 02/03/22 SR 05/20/2020 shows A. fib with ventricular rate ranging from 110 120 08/20/2019 shows again A. fib with RVR Event monitor that was placed from 01/15/2020 to 02/14/2020 shows evidence of A. fib with RVR as well as episode of nonsustained VT of 4 beats seen on 02/07/2020. Echocardiogram 05/29/2020 shows normal LV function, no significant valvular dysfunction, moderate biatrial enlargement and elevated right-sided pressures. 05/08/16 Echo Global left ventricular systolic function is normal (Visually estimated EF 60-65%). Normal right ventricular systolic function. Doppler studies suggest normal right sided pressures. There is a minimal pericardial effusion. No significant valvular abnormalities Cath 06/05/16 1. Moderate angiographic nonsignificant stenosis of the left anterior descending as assessed by fractional flow reserve. 2. Mild plaque disease of the left circumflex and right coronary artery. 3. Normal global left ventricular systolic function by noninvasive imaging. PMH: Past Medical History: Diagnosis Date Anemia Arthritis Atrial fibrillation (CMS/HCC) Chest pain H/O COPD (chronic obstructive pulmonary disease) ([facility]/HCC) Hypertension Mass of colon Shortness of breath Stroke ([facility]/HCC) PSH: Past Surgical History: Procedure Laterality Date ABLATION OF DYSRHYTHMIC FOCUS CARDIAC CATHETERIZATION CTA CHEST W AND/OR WO IV CONTRAST 10/15/2020 CT CHEST ANGIOGRAM W AND/OR WO IV CONTRAST BELLO CONVERSION IR ABLATION VEIN RFA heart ablation SH: Social Determinants of Health Tobacco Use: Medium Risk Smoking Tobacco Use: Former Smokeless Tobacco Use: Never Passive Exposure: Not on file Alcohol Use: Not on file Financial Resource Strain: Not on file Food Insecurity: Not on file Transportation Needs: Not on file Physical Activity: Not on file Stress: Not on file Social Connections: Not on file Intimate Partner Violence: Not on file Depression: Not on file Housing Stability: Not on file Meds: Current Outpatient Medications on File Prior to Visit Medication Sig Dispense Refill albuterol 2.5 mg /3 mL (0.083 %) nebulizer solution USE 1 VIAL IN NEBULIZER EVERY 6 HOURS NEEDED albuterol 90 mcg/actuation inhaler every 4 (four) hours. aspirin 81 mg EC tablet in the morning. ferrous sulfate 325 (65 Fe) MG tablet Take 1 tablet by mouth in the morning and at bedtime. hydrOXYzine pamoate (Vistaril) 25 mg capsule in the morning. metoprolol tartrate (Lopressor) 50 mg tablet TAKE 1 & 1/2 TABLETS BY MOUTH TWICE DAILY 270 tablet 3 omeprazole (PriLOSEC) [address] capsule Take by mouth in the morning. rOPINIRole (Requip) 0.5 mg tablet Take 1 tablet by mouth at bedtime. Tiadylt ER 180 mg 24 hr capsule TAKE 1 CAPSULE BY MOUTH ONCE DAILY. DO NOT OPEN,CHEW, OR CRUSH 90 capsule 3 Xarelto 20 mg tablet Take 1 tablet (20 mg) by mouth in the morning. (more content not included)... [facility] 07-31-2022 Note No concerns as per c all back guidelines [facility] 07-30-2022 Note Patient: Karolina Bashir Procedure Summary Date: 07/30/22 Room / Location: [facility] Endoscopy Anesthesia Start: 113 Anesthesia Stop: 1303 Procedure: DIAGNOSTIC COLONOSCOPY Diagnosis: Mass of hepatic flexure of colon Scheduled Providers: Abhilash Lockhart MD; LORETTA Savage; Paul Deal MD Responsible Provider: Abhilash Lockhart MD Anesthesia Type: MAC ASA Status: 3 Anesthesia Type: MAC Vitals Value Taken Time BP 140/69 07/30/22 1330 Temp 37 07/30/22 1345 Pulse 65 07/30/22 1330 Resp 20 07/30/22 1330 SpO2 93 % 07/30/22 1330 Anesthesia Post Evaluation Patient location during evaluation: PACU Level of consciousness: awake Pain score: 0 Pain management: adequate Airway patency: patent Cardiovascular status: stable Respiratory status: acceptable Hydration status: balanced No notable events documented. [facility] 07-30-2022 Note Patient: Karolina Bashir Procedure Summary Date: 07/30/22 Room / Location: [facility]oscopy Anesthesia Start: 113 Anesthesia Stop: Procedure: DIAGNOSTIC COLONOSCOPY Diagnosis: Mass of hepatic flexure of colon Scheduled Providers: Abhilash Lockhart MD; LORETTA Savage; Paul Deal MD Responsible Provider: Abhilash Lockhart MD Anesthesia Type: MAC ASA Status: 3 Anesthesia Post Transport Note Transport to: PACU O2 Route: room air Patient Monitor: direct observation Transport: uneventful Patient condition is: stable [facility] 07-30-2022 Note Airway Date/Time: 07/30/2022 11:42 AM Urgency: elective Airway not difficult General Information and Staff Patient location during procedure: OR Anesthesiologist: Abhilash Lockhart MD Resident/FIRST MATE/CAA: LORETTA Savage Performed: resident/FIRST MATE/CAA Indications and Patient Condition Indications for airway management: anesthesia Spontaneous Ventilation: absent Sedation level: deep Preoxygenated: yes Mask difficulty assessment: 1 - vent by mask Final Airway Details Final airway type: endotracheal airway Successful airway: ETT Cuffed: yes Successful intubation technique: video laryngoscopy Facilitating devices/methods: intubating stylet Endotracheal tube insertion site: oral Blade: Huynh Blade size: #3 ETT size (mm): 7.5 Cormack-Lehane Classification: grade I - full view of glottis Placement verified by: chest auscultation and capnometry Measured from: lips ETT to lips (cm): 20 Number of attempts at approach: 1 Number of other approaches attempted: 0 [facility] 07-30-2022 Note Patient: Karolina Bashir Procedure Information Date/Time: 07/30/22 1030 Scheduled providers: Abhilash Lockhart MD; LORETTA Savage; Paul Deal MD Procedure: DIAGNOSTIC COLONOSCOPY Location: [facility] Relevant Problems Cardio (+) Atrial fibrillation (CMS/HCC) (+) Benign essential hypertension (+) Migraine Neuro/Psych (+) Migraine (+) Transient ischemic attack Pulmonary (+) Chronic obstructive lung disease (CMS/HCC) Clinical information reviewed: Tobacco Allergies Meds Med Hx Surg Hx Fam Hx Soc Hx Physical Exam Airway Mallampati: II TM distance: >3 FB Neck ROM: full Cardiovascular Rhythm: regular Dental Pulmonary - normal exam Abdominal - normal exam Anesthesia Plan ASA 3 MAC The patient is not a current smoker. Patient was not previously instructed to abstain from smoking on day of procedure. Patient did not smoke on day of procedure. intravenous induction Anesthetic plan and risks discussed with patient. Use of blood products discussed with who consented to blood products. Plan discussed with CAA. Additional Equipment Requests [facility] 07-22-2022 Note Medications to take AM day of procedure with sips water only. ALBUTEROL HYDROXYZINE METOPROLOL TIADYLT Medication Hold instructions: NSAIDs (Motrin,Aleve): 5 days prior to procedure Vitamins/Supplements: 5 days prior to procedure Nothing to eat or drink after midnight, including Gum, Candy, Mints, Ice chips also. At least one person needs to accompany you, to be your patrol driver home and stay with you the first 24 hours after the procedure. Remove jewelry and leave at home day of procedure. Loose comfortable clothing is recommended. Bring insurance card and ID for registration purposes. [facility] 07-10-2022 Note Subjective Patient ID: Karolina Bashir is a 77 y.o. female who presents for Colon Cancer (Karolina is in to consult for Tubular adenoma;). HPIPatient was having a routine colonoscopy when they discovered a polyp around the hepatic flexure that was between 20 and 25% of the lumen. Otherwise there were no polyps that could not be removed during the scope. The pathology was all benign for these lesions but they were unable to completely resect this hepatic flexure lesion. All of her outside documentation was reviewed. I had a long discussion with the patient and the male in the room with her about attempting an EMR with GI before we proceed with right colectomy. Patient vocalized that she would like to proceed with an EMR and if it is unsuccessful or she needs surgery due to cancer diagnosis we will do the operation when I am back in October. Review of Systems Constitutional: Negative. HENT: Negative. Eyes: Negative. Respiratory: Negative. Cardiovascular: Negative. Gastrointestinal: Negative. Endocrine: Negative. Genitourinary: Negative. Musculoskeletal: Negative. Skin: Negative. Allergic/Immunologic: Negative. Neurological: Negative. Hematological: Negative. Psychiatric/Behavioral: Negative. Objective Visit Vitals BP 127/66 (BP Location: Right arm, Patient Position: Sitting) Pulse 66 Temp 36.6 ???C (97.9 ???F) Physical Exam Constitutional: Appearance: Normal appearance. HENT: Head: Normocephalic and atraumatic. Nose: Nose normal. Cardiovascular: Rate and Rhythm: Normal rate. Pulmonary: Effort: Pulmonary effort is normal. Abdominal: General: Abdomen is flat. Palpations: Abdomen is soft. Musculoskeletal: General: Normal range of motion. Cervical back: Normal range of motion. Skin: General: Skin is warm. Neurological: General: No focal deficit present. Mental Status: She is alert and oriented to person, place, and time. Psychiatric: Mood and Affect: Mood normal. Behavior: Behavior normal. Thought Content: Thought content normal. Judgment: Judgment normal. Assessment/Plan Diagnoses and all orders for this visit: Mass of hepatic flexure of colon - Ambulatory referral to Gastroenterology; Future Diagnosis Plan 1. Mass of hepatic flexure of colon Ambulatory referral to Gastroenterology Orders Placed This Encounter Procedures Ambulatory referral to Gastroenterology Standing Status: Future Standing Expiration Date: 01/09/2023 Referral Priority: Routine Referral Type: Consultation Referral Reason: Specialty Services Required Referred to Provider: Paul Deal MD Requested Specialty: Gastroenterology Number of Visits Requested: 1 Will refer for EMR and if unsuccessful or cancer diagnosis will do right colectomy in October. No results found for this or any previous visit (from the past 36 hour(s)). No follow-ups on file. [facility] 05-29-2022 Note OPERATIVE NOTE OPERATION DATE: 06/01/2022 PREOPERATIVE DIAGNOSIS: Iron deficiency anemia. POSTOPERATIVE DIAGNOSIS: Mild distal esophagitis, ascending colon mass, sigmoid polyps x2 and sigmoid diverticulosis. PROCEDURE: EGD and colonoscopy to cecum with biopsies of ascending colon mass, cold biopsy forceps polypectomy x1 with 3 mm proximal sigmoid colon polyp, and hot snare polypectomy x1 for distal sigmoid 5 mm colon polyp. SURGEON: Max Tatum M.D. ANESTHESIA: Monitored anesthesia care. ESTIMATED BLOOD LOSS: Less than 1 mL. INDICATIONS AND CONSENT: Patient is a 77-year-old female, presented with severe iron deficiency anemia and chest pain. Cardiac workup was negative. She did receive two units of packed red blood cells for hemoglobin of 5.7. It did come up appropriately. Has had no change in bowel habits or gross blood in the stool or melena. She has never had endoscopy. Indications, risks, benefits, alternatives of proceeding with EGD and colonoscopy were explained extensively to the patient, including risks of bleeding, aspiration, esophageal/gastric/duodenal or colonic perforation or anesthetic complications. All of her questions were answered. Informed consent was obtained. PROCEDURE: Patient brought to the operating room, placed in the left lateral decubitus position. Monitored anesthesia care was provided. Bite block was placed in the patient's mouth. Scope was inserted into the oropharynx under direct visualization. It was advanced into the esophagus, past the cricopharyngeus, down into the stomach. The stomach was insufflated with air. The pylorus was traversed down to the descending portion of the duodenum. There was no evidence of duodenitis or ulceration. There was no scarring within the pyloric channel. The scope was pulled back into the stomach and retroflexed. There was no significant hiatal hernia. The GE junction was noted at approximately 39 cm. There was mild distal esophagitis without Aguilar's changes. No narrowing. The remainder of the esophagus was unremarkable. The scope was then withdrawn. Patient was then positioned for colonoscopy. Rectal exam was performed which showed no masses or blood. The scope was then inserted into the anal canal. Under direct visualization, it was advanced. With the aid of abdominal compression, it was advanced to the cecum where cecal markings were clearly identified. There was noted to be a fair prep. Upon withdrawal of the scope, mucosal surfaces were carefully examined. Within the ascending colon, near the hepatic flexure, there was noted to be a polypoid mass that was sessile, encompassing approximately 20-25% of the circumference. Multiple biopsies were obtained with good hemostasis. Within the proximal sigmoid, there was noted to be a 3 mm sessile polyp that was removed with cold biopsy forceps. In the distal sigmoid, there was noted to be a 5 mm polyp mass with a broad base that was removed with hot snare with good hemostasis. There was moderate sigmoid diverticulosis as well, without inflammatory changes or scarring. In the rectum, there was no significant hemorrhoidal disease or other mass lesions. The scope was then withdrawn. Patient tolerated procedure well, was sent to recovery room in good condition. Follow up colonoscopy will likely be in one year, since she will likely require a colon resection. CC: Jeb Rosa M.D. Nick Melendez M.D. [facility] 05-29-2022 Note CONSULTATION CONSULTATION DATE: 05/30/2022 REASON FOR CONSULTATION: Iron deficiency anemia. HISTORY OF PRESENT ILLNESS: Patient is a 77-year-old female with history of COPD, atrial fibrillation, status post ablation one year ago, on Xarelto, who was admitted through the emergency room early yesterday morning with complaints of chest pain. She was found to have a hemoglobin of 5.7. Cardiac workup has been negative for acute ischemic changes. Patient denies any change in bowel habits. She has had no melena, hematochezia or bright red blood per rectum. She did have shortness of breath, which is not uncommon for her, due to her COPD. She denies any recent NSAID use. She does report some use of Excedrin. Her bowels have been unchanged. She denies any nausea or vomiting. No early satiety or weight loss. She has had no previous abdominal surgeries or previous endoscopies. No history of ulcer disease or gastroesophageal reflux disease. She is a former heavy smoker, quit two years ago. She denies alcohol use or illicit drug use. There is no family history of GI malignancy or irritable bowel disease. ALLERGIES: Only drug allergy is to codeine. MEDICATIONS: Home medications include DuoNeb, baby aspirin, diltiazem, hydroxyzine, metoprolol, Xarelto, Requip. PAST SURGICAL HISTORY: She denies any previous surgical operations. SOCIAL HISTORY: She is , a former smoker. Denies alcohol use or illicit drug use. FAMILY HISTORY: Noncontributory. REVIEW OF SYSTEMS: Ten system review of systems negative for recent weight loss or weight gain. She denies increased fatigue or light-headedness. She has had no earache or tinnitus. No sinus congestion. No sore throat or hoarseness. She did have chest pain that has resolved. She does have some intermittent shortness of breath and a chronic cough. No hemoptysis. No syncope. No abdominal pain, nausea or vomiting. No diarrhea, constipation, decreased caliber of the stool. No melena, hematochezia or bright red blood per rectum. No dysuria, frequency, urgency, or hematuria. No headaches, seizure or tremors. No easy bruising or bleeding. No heat or cold intolerance. No polydipsia, polyphagia, polyuria. PHYSICAL EXAM: VITAL SIGNS: Patient is afebrile. Blood pressure is 131/73. Heart rate is 71 and regular. Respiratory rate is 16. O2 saturation is 94% on room air. GENERAL: In general, she is a well developed, well nourished male, currently in acute distress. HEENT: Normocephalic, atraumatic. Sclerae anicteric. Conjunctiva not injected. Oral mucosa is moist, without lesions. NECK: Supple. There is no adenopathy, thyromegaly or JVD. LUNGS: Clear bilaterally. CARDIAC EXAM: Regular rhythm and rate without appreciable murmurs, rubs or gallops. ABDOMEN: Distended. There are positive bowel sounds. Soft, non-tender. There are no masses, hepatosplenomegaly or hernias appreciated. No CVA tenderness. SKIN: Warm and dry without lesions, rashes or ulcers. NEURO EXAM: Non-focal, non-lateralizing. Patient is awake, alert, oriented with appropriate affect. LABORATORY VALUES: Reveal normal electrolytes. CBC from this afternoon reveals an H AND H of 9.32 with a normal platelet count. The coagulation factors were normal. Patient did receive transfusion of two units of packed red blood cells yesterday. ASSESSMENT: That of a 77-year-old female with iron deficiency anemia, responding appropriately to transfusion. PLAN: The plan is to proceed with bowel prep tomorrow and EGD and colonoscopy on Wednesday morning for further evaluation. Patient does wish to have this performed while she is inpatient rather than being discharged and having this done as an outpatient. I believe this is reasonable, given her anticoagulation that is already on hold. CC: Nick Melendez M.D. [facility] History of Present illness Narrative Ms. Bashir is a 77-year-old lady recently diagnosed with TIA and syncope. Further work-up at [facility] showed a a reported 8 to 9 mm left carotid aneurysm.Quit smokingNo family history of ruptured brain aneurysmNo other symptoms [id number] Work Phone: Summary Purpose Family History No Family History Records FoundNo Family History Records FoundNo Family History Records FoundNo Family History Records FoundNo Family History Records FoundNo Family History Records FoundNo Family History Records Found Advance Directives No Advanced Directives Records FoundNo Advanced Directives Records FoundNo Advanced Directives Records FoundNo Advanced Directives Records FoundNo Advanced Directives Records FoundNo Advanced Directives Records FoundNo Advanced Directives Records Found Additional Source Comments INFORMATION SOURCE (unrecogn ized section and content) DATE CREATED AUTHOR 06/06/2021 [facility] DATE CREATED AUTHOR AUTHOR'S ORGANIZ ATION 06/21/2022 [facility] DATE CREATED AUTHOR AUTHOR'S ORGANIZ ATION [facility]/30/20[facility] DATE CREATED AUTHOR AUTHOR'S ORGANIZ ATION 11/15/2022 [employer] DATE CREATED AUTHOR AUTHOR'S ORGANIZ ATION 12/06/2022 [facility] DATE CREATED AUTHOR AUTHOR'S ORGANIZ ATION 06/02/2023 [facility] DATE CREATED AUTHOR AUTHOR'S ORGANIZ ATION 06/30/2023 [facility] FOR RECORDS PERTAINING TO PATIENTS WHO ARE OR HAVE BEEN ENROLLED IN A CHEMICAL DEPENDENCY/SUBSTANCEABUSE PROGRAM, SOME INFORMATION MAY BE OMITTED. This clinical summary was aggregated from multiple sources. Caution should be exercised in using it in the provision of clinical care. This summary normalizes information from multiple sources, and as a consequence, information in this document may materially change the coding, format and clinical context of patient data. In addition, data may be omitted in some cases. CLINICAL DECISIONS SHOULD BE BASED ON THE PRIMARY CLINICAL RECORDS. [employer] [facility] provides no warranty or guarantee of the accuracy or completeness of information in this document.
--- NOTE | 2023-09-17 21:30 | ED.ABDPAIN1 ---
HPI - Abdominal Pain General Chief Complaint: Abdominal Pain Stated Complaint: Abdominal Pain Time Seen by Provider: 09/17/23 21:27 Source: patient Mode of arrival: walk-in Limitations: no limitations History of Present Illness HPI narrative: patient presents complaining of RLQ pain that started around 3pm. No nausea, diarrhea or vomiting. No fever. Constant pain. No urinary complaints Related Data Home Medications ?Medication ?Instructions ?Recorded ?Confirmed diltiazem HCl 180 mg capsule,24 180 mg PO DAILY 11/01/22 02/07/23 hr,extended release (Tiadylt ER) ferrous sulfate 325 mg (65 mg 325 mg PO BID 11/01/22 09/17/23 iron) tablet metoprolol tartrate 50 mg tablet 25 mg PO BID 11/01/22 09/17/23 rivaroxaban 20 mg tablet (Xarelto) 20 mg PO BID 11/01/22 09/17/23 albuterol sulfate 2.5 mg/3 mL mg 09/17/23 (0.083 %) solution for nebulization diltiazem HCl 240 mg mg PO 09/17/23 capsule,extended release 24 hr hydroxyzine HCl 25 mg tablet mg 09/17/23 ropinirole 0.5 mg tablet mg 09/17/23 rosuvastatin 20 mg tablet mg 09/17/23 Allergies Allergy/AdvReac Type Severity Reaction Status Date / Time codeine AdvReac Intermediate Dizziness Verified 09/17/23 18:24 Review of Systems ROS Status of ROS 10 or more systems reviewed and unremarkable except as noted in history and below [facility] Medical History (Updated 09/18/23 @ 00:50 by Matt Delcid MD) COPD (chronic obstructive pulmonary disease) ?J44.9 - Chronic obstructive pulmonary disease, unspecified (ICD-10) Hypertension ?I10 - Essential (primary) hypertension (ICD-10) TIA (transient ischemic attack) ?G45.9 - Transient cerebral ischemic attack, unspecified (ICD-10) Afib ?I48.91 - Unspecified atrial fibrillation (ICD-10) Social History Smoking status: Former smoker Exam Constitutional Vital Signs, click to edit/add: Last Vital Signs Temp 97.7 F 09/17/23 18:17 Pulse 75 09/17/23 18:17 Resp 18 09/17/23 18:17 BP 187/99 H 09/17/23 18:17 Pulse Ox 94 L 09/17/23 18:17 O2 Del Method Room Air 09/17/23 18:17 Common normals: no apparent distress, average body habitus, oriented x3, no limitations, healthy appearing, alert and well nourished [facility] Common normals: normocephalic and head/scalp atraumatic Eye Common normals: EOMs intact bilaterally and conjunctivae normal Respiratory Common normals: normal respiratory effort, no retractions, no use of accessory muscles and clear to auscultation bilaterally Cardio Common normals: regular rate, regular rhythm, S1 normal heart sound and S2 normal heart sound GI Other: RLQ tenderness. no guarding Extremity Common normals: normal to inspection and full ROM Neuro Common normals: oriented x3, CN's II-XII intact bilaterally, moves all extremities, no focal motor deficits and no sensory deficits noted Psych Appearance: grossly normal Course Vital Signs Vital signs: Vital Signs Temperature 97.7 F 09/17/23 18:17 Pulse Rate 75 09/17/23 18:17 Respiratory Rate 18 09/17/23 18:17 Blood Pressure 187/99 H 09/17/23 18:17 Pulse Oximetry 94 L 09/17/23 18:17 Oxygen Delivery Method Room Air 09/17/23 18:17 Temperature 97.7 F 09/17/23 18:17 Pulse Rate 75 09/17/23 18:17 Respiratory Rate 18 09/17/23 18:17 Blood Pressure 187/99 H 09/17/23 18:17 Pulse Oximetry 94 L 09/17/23 18:17 Oxygen Delivery Method Room Air 09/17/23 18:17 MDM - Abdominal Pain MDM Narrative Medical decision making narrative: patient has past history of renal stones. Presents with RLQ pain. found to have RLQ and right CVA tenderness. UA without sign of infection. CT with findings of mild-mod right sided hydronephrosis most likely 2nd to right ureteropelvic junction obstruction. multiple right intrarenal calculi are present including Staghorn calculi. discussed findings with customer liaison Urologist Dr Alvarado. He feels this is more of a chronic finding on the scan and feels she can be seen in the office. Patient has not required pain medication while here but did ask to take some home incase she needed them. Discharged home and advised to follow up with Urology Imaging Data Abdominal x-ray: Radiologist's impression: ITS Impressions Abdomen/Pelvis CT 09/17/23 21:34 IMPRESSION: 1. There is mild to moderate right-sided hydronephrosis most likely secondary to a right ureteropelvic junction obstruction. 2. Multiple right intrarenal calculi are present including Staghorn calculi as discussed above. 3. Nonspecific right adrenal nodule possibly representing an adenoma. This could be further characterized with nonemergent adrenal protocol CT scan or MRI in the absence of any previous outside CT scans for direct correlation. Electronically authenticated by: DESMOND TIRADO Date: 09/17/2023 23:51 Discharge Plan Discharge Stand Alone Forms: Portal Instructions Chief Complaint: Abdominal Pain Clinical Impression: Hydronephrosis of right kidney, Acute right flank pain Patient Disposition: Home, Self-Care Prescriptions / Home Meds: No Action diltiazem HCl [Tiadylt ER] 180 mg capsule,extended release 24 hr 180 mg PO DAILY ferrous sulfate 325 mg (65 mg iron) tablet 325 mg PO BID metoprolol tartrate 50 mg tablet 25 mg PO BID Xarelto 20 mg tablet 20 mg PO BID albuterol sulfate 2.5 mg /3 mL (0.083 %) solution for nebulization diltiazem HCl 240 mg capsule,extended release 24hr PO ropinirole 0.5 mg tablet hydroxyzine HCl 25 mg tablet rosuvastatin 20 mg tablet Print Language: [place] Instructions: Abdominal Pain (ED), Flank Pain (ED), Hydronephrosis (ED) Additional Instructions: call Urology wednesday for an appointment next week. Return if worsening pain Referrals: WESLY ROSA [Primary Care Provider] - 1 week
--- NOTE | 2023-09-17 21:34 | CT_ITS ---
The [address] [address] Patient Name: JEANETTE ACEVEDO MRN: [id number] date: 1945 Sex: F Assigned Patient Location: ER Current Patient Location: ER Accession/Order Number: [id number] Exam Date: 09/17/2023 22:40 Report Date: 09/17/2023 23:51 At the request of: HERMELINDO STERN Procedure: CT abdomen pelvis w con CT ABDOMEN AND PELVIS WITH CONTRAST: INDICATION: abdominal pain. COMPARISON: Prior CT scans of the abdomen and pelvis for comparison.. TECHNIQUE:Multiple thin section transaxial slices were acquired through the abdomen and pelvis with intravenous contrast. Coronal and sagittal reconstructed images were reviewed. Oral contrastWas not administered. FINDINGS: LOWER CHEST: There is pleural-based thickening in the lingula. There are emphysematous changes in the lung bases. LIVER: Several tiny hypodensities are scattered throughout the liver favored to represent cysts. These are too small to optimally characterize. GALLBLADDER AND BILIARY SYSTEM: No obvious ductal dilation. No calcified stones. SPLEEN: The spleen is unremarkable. PANCREAS: The pancreas is unremarkable. ADRENAL GLANDS: There is a mixed attenuation nodule in the right adrenal gland measuring 3.0 x 2.2 cm. This is nonspecific and could represent an adenoma. There are no prior studies for direct correlation. KIDNEYS AND URETERS: There is mild right-sided hydronephrosis with an abrupt transition point at the right ureteral pelvic junction most likely due to ureteropelvic junction obstruction. Multiple nonobstructive right intrarenal calculi are present. There are staghorn calculi in the right renal collecting system measuring 1.9 x 0.8 cm.There is no left hydronephrosis. There is a calcification associated with the left kidney which is vascular in nature. No obstructing urologic history calcifications are present in either ureter. VASCULATURE: Atherosclerotic plaque is present in the abdominal aorta without aneurysm. PERITONEUM/RETROPERITONEUM: Peritoneum/retroperitoneum is unremarkable. LYMPH NODES: No suspicious lymphadenopathy. GASTROINTESTINAL TRACT: The bowel is normal in caliber.There is chronic colonic diverticulosis of the colon without acute inflammation.The appendix is visualized and is not inflamed. BLADDER: The urinary bladder is unremarkable. REPRODUCTIVE SYSTEM: Reproductive system is unremarkable. BODY WALL: There is a tiny fat-containing umbilical hernia. BONES: Osseous structures are unremarkable. CT/CT abdomen pelvis w con IMPRESSION: 1. There is mild to moderate right-sided hydronephrosis most likely secondary to a right ureteropelvic junction obstruction. 2. Multiple right intrarenal calculi are present including Staghorn calculi as discussed above. 3. Nonspecific right adrenal nodule possibly representing an adenoma. This could be further characterized with nonemergent adrenal protocol CT scan or MRI in the absence of any previous outside CT scans for direct correlation. Electronically authenticated by: DESMOND TIRADO Date: 09/17/2023 23:51
[2023-09-17 21:38] VITALS: BP 168/86; PULSE 73; O2SAT 94
[2023-09-17 21:41] LABS: Basophils Absolute Auto 0.1 10^3/uL (0.0-0.1); Basophils Percent Auto 0.6 % (0.2-2.0); Eosinophils Absolute Auto 0.4 10^3/uL (0.0-0.7); Eosinophils Percent Auto 2.6 % (0.9-7.0); Hematocrit 44.4 % (36.0-48.0); Hemoglobin 14.8 g/dL (12.0-16.0); Immature Granulocytes Abs Auto 0.04 10^3/uL (0.00-0.03); Immature Granulocytes Pct Auto 0.3 % (0.0-0.5); Lymphocytes Absolute Auto 2.4 10^3/uL (1.2-3.8); Lymphocytes Percent Auto 17.8 % (20.5-60.0); Mean Corpuscular HGB Conc 33.3 g/dL (29.9-35.2); Mean Corpuscular Hemoglobin 30.4 pg (26.7-34.0); Mean Corpuscular Volume 91.2 fL (81.0-99.0); Mean Platelet Volume 8.8 fL (9.5-13.5); Monocytes Absolute Auto 0.9 10^3/uL (0.3-0.8); Monocytes Percent Auto 6.9 % (1.7-12.0); Neutrophils Absolute Auto 9.5 10^3/uL (1.4-6.5); Neutrophils Percent Auto 71.8 % (43.0-75.0); Platelet Count 237 10^3/uL (150-450); Red Blood Count 4.87 10^6/uL (4.20-5.40); Red Cell Distribution Width 13.2 % (11.0-15.0); White Blood Count 13.3 10^3/uL (4.0-11.0)
[2023-09-17 22:00] LABS: Lactate/Lactic Acid 1.7 mmol/L (0.4-2.0)
[2023-09-17 22:20] LABS: Alanine Aminotransferase 19 U/L (14-59); Albumin Globulin Ratio 1.1; Alkaline Phosphatase 143 U/L (46-116); Anion Gap 15.9; Aspartate Amino Transferase 14 U/L (15-37); Bilirubin Total 0.5 mg/dL (0.2-1.0); Calcium 9.6 mg/dL (8.5-10.1); Carbon Dioxide 23.8 mmol/L (21.0-32.0); Chloride 104 mmol/L (98-107); Estimated GFR (African America >60 (>=60); Estimated GFR (Non-African Ame >60 (>=60); Globulin 3.6 g/dL; Glucose 115 mg/dL (74-106); Potassium 3.7 mmol/L (3.5-5.1); Sodium 140 mmol/L (136-145); Total Protein 7.6 g/dL (6.4-8.2); Troponin I High Sensitivity 5.2 pg/mL (4.0-51.3)
[2023-09-17 22:48] VITALS: BP 160/56; PULSE 76; O2SAT 94
[2023-09-18 00:05] VITALS: BP 154/80; PULSE 82; O2SAT 98
[2023-09-18 00:16] LABS: Bilirubin Urine NEGATIVE (NEGATIVE); Blood Urine MODERATE (NEGATIVE); Clarity Urine CLEAR (CLEAR); Color Urine YELLOW (YELLOW); Glucose Urine UA NEGATIVE (NEGATIVE); Ketones Urine NEGATIVE (NEGATIVE); Leukocyte Esterase Urine TRACE (NEGATIVE); Nitrite Urine NEGATIVE (NEGATIVE); Protein Urine NEGATIVE (NEG/TRACE); Urobilinogen Urine 0.2 EU/dL (0.2-1.0); pH Urine 5.5 (5.0-9.0)
[2023-09-18 00:17] LABS: Urine Microscopic Indicated YES
[2023-09-18 00:24] LABS: Amorphous Sediment Urine FEW; Bacteria Urine NONE SEEN #/HPF (NONE SEEN); Cast Seen? NONE SEEN #/LPF (NONE SEEN); Crystals Seen? None Seen #/HPF (None Seen); Mucus Urine SMALL (NONE SEEN); RBC Urine 0-2 #/HPF (0-2); Squamous Epithelial Cell Urine FEW #/LPF (NONE/RARE); Urine Culture Indicated NO
[2023-09-18] MEDS: HYDROCODONE/ACET 5-325 MG TABLET 2 TAB PO (00:59)
[2023-09-18 01:00] VITALS: BP 154/80; PULSE 82; TEMP 36.6; O2SAT 94
== END 2023-09-18 01:00 | disposition home or self-care (01) ==
PROVIDERS: Emergency Provider Internal Medicine; PCP Family Medicine
DX: N13.30 Unspecified hydronephrosis (principal); R10.9 Unspecified abdominal pain; Z87.891 Personal history of nicotine dependence; Z87.442 Personal history of urinary calculi
CPT/HCPCS: 36415; 74177; 80053; 81001; 83605; 83690; 84484; 85025; 99285; Q9967

== ENCOUNTER 2023-12-20 08:52 | Outpatient (OUT) | payer MEDICARE, SELFPAY ==
[2023-12-20 10:00] LABS: Alanine Aminotransferase 18 U/L (14-59); Albumin Globulin Ratio 1.2; Albumin Level 3.6 g/dL (3.4-5.0); Alkaline Phosphatase 122 U/L (46-116); Anion Gap 10.3; Aspartate Amino Transferase 16 U/L (15-37); BUN Creatinine Ratio 18.1; Bilirubin Total 0.6 mg/dL (0.2-1.0); Calcium 8.8 mg/dL (8.5-10.1); Carbon Dioxide 28.4 mmol/L (21.0-32.0); Chloride 104 mmol/L (98-107); Chol HDL Ratio 2.9; Cholesterol 136 mg/dL (<=200); Estimated GFR (African America >60 (>=60); Estimated GFR (Non-African Ame >60 (>=60); Glucose 130 mg/dL (74-106); HDL Cholesterol 47 mg/dL (40-60); Potassium 3.7 mmol/L (3.5-5.1); Sodium 139 mmol/L (136-145); Total Protein 6.6 g/dL (6.4-8.2); Triglycerides 105 mg/dL (<=150)
== END 2023-12-20 08:53 | disposition home or self-care (01) ==
LOC: LAB 08:54
PROVIDERS: PCP Family Medicine; Visit Provider Internal Medicine Cardiovascular Disease
DX: E78.5 Hyperlipidemia, unspecified (principal)
CPT/HCPCS: 36415; 80053; 80061

== ENCOUNTER 2024-05-17 21:05 | Emergency (ER) | payer MEDICARE, SELFPAY ==
[2024-05-17] VITALS (10 sets, daily range): BP systolic 129; BP diastolic 71; PULSE 69–74; TEMP 36.9; O2SAT 94–97; BMI 28.0
--- NOTE | 2024-05-17 21:14 | ECG_ITS ---
[facility] Test Date: 2024-05-17 Pat Name: JEANETTE ACEVEDO Department: Room: - Gender: Female [employer] Manager Architect: : 1945 Requested By: [id number] Order Number: [id number] Reading MD: TJ MCNEIL Measurements Intervals [place] Rate: 71 P: -30 IA: 150 QRS: 45 QRSD: 80 T: 65 QT: 390 QTc: 412 Interpretive Statements 1100 Sinus rhythm 4068 Nonspecific Twave abnormality 9130 borderline ECG Compared to ECG 11/01/2022 15:13:24 No significant changes Electronically Signed On 05-18-2024 6:54:57 EST by TJ MCNEIL
--- OUTSIDE RECORDS SUMMARY | 2024-05-17 21:14 | XMS_ITS | CCD ---
Author Organization [facility] Care Team Providers Care Produce Inspector Name Role Phone MOE, JEB Primary Care [...] Consulting Unavailable RIVAS II, PER Consulting Unavailable ANDRESSA, CLARE Consulting Unavailable MAURY VILLAREAL Consulting Unavailable HOUSE, DR JARRELL Admitting Unavailable HOUSE, DR JARRELL Attending Unavailable HOUSE, DR JARRELL Primary Care Unavailable HOUSE, DR JARRELL Consulting Unavailable NILL, Max Rahman Attending Unavailable NILL, Max Rahman Attending Unavailable Unknown, Referring Provider Unavailable Unav ailable Self, Referral Referring Unavailable UNKNOWN, PCP Primary Care Unavailable MD RANDALL HAWTHORNE Attending Unavailable JUNAID WALKER Admitting Unavailable JUNAID WALKER Attending Unavailable HOUSE, JEB Bauman Primary Care Unavailable BEN MIRELES Attending Unavailable HOUSE, JEB Bauman Primary Care Unavailable JUNAID WALKER Attending Unavailable JUNAID WALKER Referring Unavailable HOUSE, JEB Bauman Primary Care Unavailable AMANDA GEORGES Consulting Unavailable JUNAID WALKER Admitting Unavailable JUNAID WALKER Attending Unavailable HOUSE SRJEB Primary Care Unavailable JUNAID WALKER Attending Unavailable JUNAID WALKER Referring Unavailable HOUSE JEB GRAY Primary Care Unavailable VITO DEL TORO Attending Unavailable VITO DEL TORO Attending Unavailable HOUSE, DO JEB Bauman Attending Unavailable HOUSE, JEB P Primary Care Unavailable HOUSE, DO JEB P Attending Unavailable HOUSE, JEB P Primary Care Unavailable HOUSE, JEB P Primary Care Unavailable HOUSE, JEB P Primary Care Unavailable HOUSE, JEB P Primary Care Unavailable HOUSE, DO JEB P Attending Unavailable HOUSE, JEB P Primary Care Unavailable HOUSE, DO JEB P Attending Unavailable Unavailable Primary Care Provider Unavailabl e Allergies Allergy Classification Reported Allergen(s) Allergy Type Date of Onset Reaction(s) Facility (5 sources) Codeine; Translations: [CODEINE] Drug Allergy 3 [facility] Repository (3 sources) oxyCODONE; Translations: [OXYCODONE] Drug Allergy 4 Nausea And Vomiting [facility] Repository (1 source) Codeine Drug Allergy 4 Dizziness or Vertigo [facility] Medications Current Medications Medication Drug Class(es) Dates Sig (Normalized) Sig (Original) omeprazole 20 mg delayed release oral capsule (1 source) Proton Pump Inhibitor take 1 capsule by mouth once daily omeprazole (PRILOSEC) 20 MG delayed release capsule Take 1 capsule by mouth daily 0 Active rosuvastatin calcium 20 mg oral tablet (1 source) HMG-CoA Reductase Inhibitor take 1 tablet by mouth at bedtime rosuvastatin (CRESTOR) 20 MG tablet Take 1 tablet by mouth at bedtime 0 Active Completed/Discontinued Medications Medication Drug Class(es) Dates Sig (Normalized) Sig (Original) aspirin 325 mg oral tablet (3 sources) Platelet Aggregation Inhibitor, Nonsteroidal Anti-inflammatory Drug Start: 11-12-2022 take 1 tablet by mouth every four hours as needed [facility] Aspirin Reg [facility] 325 MG Oral Tablet TAKE 1 TABLET EVERY 4 HOURS NEEDED. Quantity: 0 Refills: 0 Ordered: 12-Nov-2022 DO Start : 12-Nov-2022 Active take 1 tablet by mouth once con y aspirin 81 MG EC tablet Take 1 tablet by mouth daily 0 Active 24 hr dilTIAZem hydrochloride 240 mg extended release oral tablet (3 sources) Calcium Channel Kylah Start: 11-12-2022 take 1 tablet by mouth every twenty-four hours dilTIAZem HCl ER 240 MG Oral Tablet Extended Release 24 Hour Quantity: 0 Refills: 0 Ordered: 12-Nov-2022 DO Start : 12-Nov-2022 Active take 1 capsule by mouth once lisandra ly dilTIAZem (DILACOR XR) 240 MG extended release capsule Take 1 capsule by mouth daily 0 Active ferrous sulfate 324 mg delay ed release oral tablet (3 sources) Start: 11-12-2022 Ferrous Sulfat e 324 (65 Fe) MG Oral Tablet Delayed Release Quantity: 0 Refills: 0 Ordered: 12-Nov-2022 DO Start : 12-Nov-2022 Active take 1 tablet by murphy th once daily in the evening ferrous sulfate (IRON 325) 325 (65 Fe) M G tablet Take 1 tablet by mouth every evening 0 Active hydrOXYzine hydrochloride 25 mg oral tablet (3 sources) Antihistamine Start: 11-12-2022 take 1 tablet by mouth three times daily as needed hydrOXYzine HCl - 25 MG Oral Tablet TAKE 1 TABLET 3 TIMES DAILY NEEDED. Quantity: 0 Refills: 0 Ordered: 12-Nov-2022 DO Start : 12-Nov-2022 Active take 1 capsule by mouth once lisandra ly hydrOXYzine pamoate (VISTARIL) 25 MG capsule Take 1 capsule by mouth daily 0 Active metoprolol tartrate 25 mg oral tablet (3 sources) beta-Adrenergic Kylah Start: 11-12-2022 take 0.5 tablet by mouth twice daily Metoprolol Tartrate 25 MG Oral Tablet TAKE ONE-HALF (1/2) TABLET TWICE A DAY Quantity: 90 Refills: 1 Ordered: 12-Nov-2022 DO Start : 12-Nov-2022 Active metoprolol tartr ate (LOPRESSOR) 50 MG tablet Take by mouth 2 times daily Takes 1.5 tablets BID Oral 0 Active rivaroxaban 20 mg oral tablet (3 sources) Factor Xa Inhibitor Start: 11-12-2022 take 1 tablet by mouth once daily Xarelto 20 MG Oral Tablet TAKE 1 TABLET BY MOUTH DAILY Quantity: 90 Refills: 0 Ordered: 12-Nov-2022 DO Start : 12-Nov-2022 Active rOPINIRole 5 mg oral tablet (3 sources) Nonergot Dopamine Agonist Start: 11-12-2022 take 1 tablet by mouth three times daily rOPINIRole HCl - 5 MG Oral Tablet TAKE 1 TABLET 3 TIMES DAILY. Quantity: 0 Refills: 0 Ordered: 12-Nov-2022 DO Start : 12-Nov-2022 Active Problems Problem Classification Problem Date Documented Da te Episodic/Chronic Acute posthemorrhagic anemia (1 source) Acute posthemorrhagic anemia; Translations: [ACUTE POSTHEMORRHAGIC ANEMIA] Onset: 3 Episodic Calculus of urinary tract (2 sources) Calculus of ureter; Translations: [Calculus of kidney] Onset: 4 Episodic Cardiac dysrhythmias (3 sources) Paroxysmal atrial fibrillation; Translations: [PAROXYSMAL ATRIAL FIBRILLATION] Onset: 2 Chronic Chronic obstructive pulmonary disease and bronchiectasis (1 source) Chronic obstructive pulmonary disease, unspecified; Translations: [COPD UNSPECIFIED] Onset: 3 Chronic Coronary atherosclerosis and other heart disease (1 source) Atherosclerotic heart disease of ramona coronary artery without angina pectoris; Translations: [ASHD [place]TOK CA W/O ANGINA PECTORIS] Onset: 3 Chronic Deficiency and other anemia (4 sources) Anemia, unspecified; Translations: [ANEMIA UNSPECIFIED] Onset: 3 Episodic Deficiency and other anemia (2 sources) Iron deficiency anemia, unspecified; Translations: [IRON DEFICIENCY ANEMIA UNSPECIFIED] Onset: 3 Episodic Disorders of lipid metabolism (2 sources) Hyperlipidemia, unspecified; Translations: [Hyperlipidemia, unspecified] Onset: 2 Chronic Essential hypertension (1 source) Essential (primary) hypertension; Translations: [ESSENTIAL PRIMARY HYPERTENSION] Onset: 3 Chronic Gastrointestinal hemorrhage (1 source) Gastrointestinal hemorrhage, unspecified; Translations: [GASTROINTESTINAL HEMORRHAGE UNS] Onset: 3 Episodic Nonspecific chest pain (1 source) Chest pain, unspecified; Translations: [CHEST PAIN UNSPECIFIED] Onset: 3 Episodic Other aftercare (1 source) buttermaker continuous churn (current) use of aspirin; Translations: [OVERLOCK HEMMER CURRENT USE OF ASPIRIN] Onset: 3 Episodic Other aftercare (1 source) [facility] (current) use of anticoagulants; Translations: [CUSTODIAL CURRNT USE ANTICOAGULANTS] Onset: 3 Episodic Other aftercare (1 source) Other fci (current) drug therapy; Translations: [OTH OVERLOCK HEMMER CURRENT DRUG THERAPY] Onset: 3 Episodic Other [...] NO RESID DEFICIT] Onset: 3 Episodic Other diseases of kidney and ureters (1 source) Hydronephrosis with renal and ureteral calculous obstruction; Translations: [Hydronephrosis with renal and ureteral calculous obstruction] Onset: 4 Episodic Other gastrointestinal disorders (1 source) Disease [...] [ESOPHAGITIS UNSPEC WITHOUT BLEEDING] Onset: 3 Unclassified (1 source) ureteral stone Onset: 4 Results Test Name Value Interpretation Reference Range Facility Office Visiton 12-20-2023 Follow-up visit [id number] Karolina Bashir 1945 F Date Provider Department Center 12/20/2023 3848-VITO DEL TORO [facility] Family History Problem Relation Age of Onset Diabetes Mother Heart failure Mother No Known Problems Father Family Status - Relation Status Age at Mother Father Level of Service:26184 [place] OFFICE/OUTPATIENT ESTABLISHED MOD MDM 30 MIN Normal [facility] Outside Recordson 11-23-2023 Outside Records [id number]#1.0 0OTGTIFF Normal [facility] Outside Recordson 10-25-2023 Outside Records [id number]#1.0 0OTGTIFF [facility] Outside Recordson 10-20-2023 Outside Records [id number]#1.00 OTGTIFF [facility] Stone Analysison 10-20-2023 Calculi description See Note [facility] Comment on above: Result Comment: (NOT E) Specimen consists of numerous brown and romo calculi fragments. The total weight is 136 mg. Performed By: #### A STONE #### [address] [address] [place] Encaser: Jm Cronin MD Composition See Note [facility] Comment on above: Result Comment: (NOT E) Calculi composed primarily of calcium oxalate monohydrate. INTERPRETIVE INFORMATION: Calculi (Stone) analysis Calculi are the products of physiological processes that yield crystalline compounds in a matrix of biological compounds and blood. Matrix components are not reported. The clinically significant crystalline components identified in calculi specimens are reported. Gross description may not be consistent with composition determined by FTIR analysis. Performed By: [facility] [address] [place] [address] Preservative Filler Machine Operator: Walter Gibson MD, PhD CLIA Number: [id number] Performed By: #### A STONE #### [address] [address] [place] Encaser: Jm Cronin MD Mass [address] [facility] Comment on above: Performed By: #### A STONE #### [address] [address] [place] Encaser: Jm Cronin MD HCG, ,Urineon 10-18 Beta HCG ( test) Ql (U) Negative Normal [facility] Comment on above: Result Comment: Spec imens with hCG levels near the threshold of the test (25 mIU/mL) may give a negative or indeterminate result. In such cases, another test should be performed with a new specimen in 48-72 hours. If early is suspected clinically in this setting, correlation with quantitative serum b-hCG level is suggested. Performed By: #### U HCG #### [facility] [address] [place] [address] Spring Encaser: Jose Blank MD Outside Recordson 10-19-2023 Outside Records [id number]#1.0 [facility] Outside Recordson 10-18-2023 Outside Records [id number]#1. [facility] [id number] 12 [id number]#1.0 [facility] Outside Recordson 10-11-2023 Outside Records [id number]#1.0 0[facility] Consultation/Specialist Note on 10-08-2023 Consultation/Specia list Note [id number]#1.00O [facility] 36on 10-07-2023 36 We received a paper request for this today via fax. I will email this to Dr. Del Toro. Normal [facility] URINE CULTUREon 09-21-2023 Bacteria identified Cx Nom (U) CULTURE RESULTS NO GROWTH AT <1000 CFU/mL [facility] Comment on above: Performed By: #### 6 30-4 #### [facility] ([id number]) [address], [address] [place] [address] Outside Recordson 09-20-2023 Outside Records [id number]#1. [facility] Office Visiton 06-29-2023 Follow-up visit [id number] Karolina Bashir 1945 F Date Provider Department Center 06/29/2023 3848-VITO DEL TORO Family History Problem Relation Age of Onset Diabetes Mother Heart failure Mother No Known Problems Father Family Status - Relation Status Age at Mother Father Level of Service:70645 [place] OFFICE/OUTPATIENT ESTABLISHED MOD MDM 30 MIN Reason for Visit and Comments: Follow-up [552862] - 6 month follow up Normal [facility] Initial Visit (Neurosurgery) on 11-12-2022 Initial Visit [...] your plan of care after leaving at [phone] M-F 8am-5pm. To clinicians, thank you very [...] / Skull Base Surgery Director of Neurosurgery, [facility] Fellowship Director, Endovascular Neurosurgery [address] [place] [address] (p) [phone] (f) [phone] Chief Complaint Patient is being seen for an initial Neurosurgical evaluation and Hx of TIA with c/o of recent and sudden near syncope. Here for evaluation of possible Aneurysm. CTA 11/01/22 in PACs from [facility]. History of Present Illness Ms. Bashir is a 77-year-old lady recently diagnosed with TIA and syncope. Further work-up at [facility] showed a a reported 8 to 9 [...] BY MOUTH DAILY Vitals Vital Signs Recorded: [id number] 11:20AM Heart Rate70 Eljjzfprhyw13 Ttjdwtus656 Wbpxqiuya55 Height5 ft 3 in Swvbgc865 lb BMI Qjgiywjjjw48.69 kg/m2 BSA Calculated1.69 Tobacco Useb) No PHQ-2 #1. Over the last 2 weeks have you felt down, depressed or hopeless? (If yes, answer PHQ-9 below)No PHQ-2 #2. Over the last 2 weeks have you felt little interest or pleasure in doing things? 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 Signatures Electronically signed by : Randall Hawthorne MD; Nov 13 2022 11:07PM EST (Author) Normal [facility] Tobacco Screening.on 023 Adult depression screening assessment No TF-Xvlywbjef-M [facility] Work Phone: Fall risk assessment a) No falls within the last year JU-Mytvgnojl-Q [facility] Work Phone: Tobacco use status CPHS b) No MQ-Ysogwtvvk-V [facility] Work Phone: Pathology Noteon 06-18-2022 Pathology Note [id number]#1.0 0CD:127 Normal [facility] CBC AUTO DIFFon 06-10-2022 BASO # 0.1 103/ul Normal 0.0-0.1 [facility] Comment on above: Performed By: #### S EDR #### [facility] [address] [place] [address] Dr. Bao Hsu Basophils/100 WBC (Bld) 1.0 % Normal 0.2-2.0 [facility] Comment on above: Performed By: #### S EDR #### [facility] [address] [place] [address] Dr. Bao Hsu EO # 0.3 103/ul Normal 0.0-0.7 [facility] Comment on above: Performed By: #### S EDR #### [facility] [address] [place] [address] Dr. Bao Hsu Eosinophils/100 WBC (Bld) 2.7 % Normal 0.9-7.0 [facility] Comment on above: Performed By: #### S EDR #### [facility] [address] [place] [address] Dr. Bao Hsu Erythrocyte distribution width (RBC) [Ratio] 29.4 % Critically high 11.0-15.0 [facility] Comment on above: Performed By: #### S EDR #### [facility] [address] [place] [address] Dr. Bao Hsu Hematocrit (Bld) [Volume fraction] 34.5 % Critically low 36.0-48.0 [facility] Comment on above: Performed By: #### S EDR #### [facility] [address] [place] [address] Dr. Bao Hsu Hemoglobin (Bld) [Mass/Vol] 9.6 g/dL Critically low 12.0-16.0 [facility] Comment on above: Performed By: #### S EDR #### [facility] [address] [place] [address] Dr. Bao Hsu IG # 0.03 10e3/ul Normal 0.00-0.03 [facility] Comment on above: Performed By: #### S EDR #### [facility] [address] [address] [address] Bao sHu IG % 0.3 % Normal 0.0-0.5 [facility] Comment on above: Performed By: #### S EDR #### [facility] [address] [address] [address] Bao Hsu LYMPH # 1.4 103/ul Normal 1.2-3.8 [facility] Comment on above: Performed By: #### S EDR #### [facility] [address] [address] [address] Bao Hsu Lymphocytes/100 WBC (Bld) 14.1 % Critically low 20.5-60.0 [facility] Comment on above: Performed By: #### S EDR #### [facility] [address] [place] [address] Dr. Bao Hsu MANUAL DIFF REQ NO Normal The [facility] Comment on above: Performed By: #### S EDR #### [facility] [address] [address] [address] Bao Hsu MCH (RBC) [Entitic mass] 20.8 pg Critically low 26.7-34.0 [facility] Comment on above: Performed By: #### S EDR #### [facility] [address] [address] [address] Bao Hsu MCHC (RBC) [Mass/Vol] 27.8 g/dL Critically low 29.9-35.2 [facility] Comment on above: Performed By: #### S EDR #### [facility] [address] [place] [address] Dr. Bao Hsu MCV (RBC) [Entitic vol] 74.8 fL Critically low 81.0-99.0 [facility] Comment on above: Performed By: #### S EDR #### [facility] [address] [place] [address] Dr. Bao Hsu MONO # 0.6 103/ul Normal 0.3-0.8 [facility] Comment on above: Performed By: #### S EDR #### [facility] [address] [address] [address] Bao Hsu Monocytes/100 WBC (Bld) 5.9 % Normal 1.7-12.0 [facility] Comment on above: Performed By: #### S EDR #### [facility] [address] [place] [address] Dr. Bao Hsu NEUT # 7.5 103/ul Critically high 1.4-6.5 The [facility] Comment on above: Performed By: #### S EDR #### [facility] [address] [place] [address] Dr. Bao Hsu Neutrophils/100 WBC (Bld) 76.0 % Critically high 43.0-75.0 [facility] Comment on above: Performed By: #### S EDR #### [facility] [address] [place] [address] Dr. Bao Hsu Platelet mean volume (Bld) [Entitic vol] 8.0 fL Critically low 9.5-13.5 [facility] Comment on above: Performed By: #### S EDR #### [facility] [address] [place] [address] Dr. Bao Hsu PLT 472 103/ul Critically high 150-450 The [facility] Comment on above: Performed By: #### S EDR #### [facility] [address] [place] [address] Dr. Bao Hsu RBC 4.61 106/ul Normal 4.20-5.40 [facility] Comment on above: Performed By: #### S EDR #### [facility] [address] [place] [address] Dr. Bao Hsu WBC 9.9 103/ul Normal 4.0-11.0 [facility] Comment on above: Performed By: #### S EDR #### [facility] [address] [place] [address] Dr. Bao Hsu PRBC LEUKOREDUCEDon 06-11-19 23 ABO and Rh group Nom (Bld) Cross Match Result Compatible Unit Blood Type A Pos Unit Number [id number] Status Information Transfused Product ID Red Blood Cells Product Code [id number] Cross Match Result Compatible Unit Blood Type A Pos Unit Number [id number] Status Information Transfused Product ID Red Blood Cells Product Code [id number] Normal [facility] Comment on above: Performed By: #### C WESLEY, BMP #### [facility] [address] [place] [address] Dr. Bao Hsu Consultation Noteon 06-05-19 Consultation Note [id number] 0CD:127 Normal [facility] Outside Colonoscopyon 2022 Outside Colonoscopy [id number]#1.00 CD:127 Normal [facility] CBC AUTO DIFFon 06-01-2022 BASO # 0.1 103/ul Normal 0.0-0.1 [facility] Comment on above: Performed By: #### C WESLEY, BMP #### [facility] [address] [place] [address] Dr. Bao Hsu Basophils/100 WBC (Bld) 0.3 % Normal 0.2-2.0 [facility] Comment on above: Performed By: #### C WESLEY, BMP #### [facility] [address] [place] [address] Dr. Bao Hsu EO # 0.1 103/ul Normal 0.0-0.7 [facility] Comment on above: Performed By: #### Jil OLSON, BMP #### [facility] [address] [place] [address] Dr. Bao Hsu Eosinophils/100 WBC (Bld) 0.6 % Critically low 0.9-7.0 [facility] Comment on above: Performed By: #### C WESLEY, BMP #### [facility] [address] [place] [address] Dr. Bao Hsu Erythrocyte distribution width (RBC) [Ratio] 26.8 % Critically high 11.0-15.0 [facility] Comment on above: Performed By: #### C WESLEY, BMP #### [facility] [address] [place] [address] Dr. Bao Hsu Hematocrit (Bld) [Volume fraction] 31.8 % Critically low 36.0-48.0 [facility] Comment on above: Performed By: #### C WESLEY, BMP #### [facility] [address] [address] [address] Bao Hsu Hemoglobin (Bld) [Mass/Vol] 8.8 g/dL Critically low 12.0-16.0 [facility] Comment on above: Performed By: #### C WESLEY, BMP #### [facility] [address] [address] [address] Bao Hsu IG # 0.07 10e3/ul Critically high 0.00-0.03 [facility] Comment on above: Performed By: #### C WESLEY, BMP #### [facility] [address] [place] [address] Dr. Bao Hsu IG % 0.4 % Normal 0.0-0.5 [facility] Comment on above: Performed By: #### C WESLEY, BMP #### [facility] [address] [place] [address] Dr. Bao Hsu LYMPH # 1.3 103/ul Normal 1.2-3.8 [facility] Comment on above: Performed By: #### C WESLEY, BMP #### [facility] [address] [address] [address] Bao Hsu Lymphocytes/100 WBC (Bld) 7.8 % Critically low 20.5-60.0 [facility] Comment on above: Performed By: #### C WESLEY, BMP #### [facility] [address] [place] [address] Dr. Bao Hsu MANUAL DIFF REQ NO Normal [facility] Comment on above: Performed By: #### C WESLEY, BMP #### [facility] [address] [address] [address] Bao Hsu MCH (RBC) [Entitic mass] 19.4 pg Critically low 26.7-34.0 [facility] Comment on above: Performed By: #### C WESLEY, BMP #### [facility] [address] [place] [address] Dr. Bao Hsu MCHC (RBC) [Mass/Vol] 27.7 g/dL Critically low 29.9-35.2 [facility] Comment on above: Result Comment: slig ht hypochromasia present Performed By: #### C DLM, BMP #### [facility] [address] [place] [address] Dr. Bao Hsu MCV (RBC) [Entitic vol] 70.0 fL Critically low 81.0-99.0 [facility] Comment on above: Result Comment: slig ht microcytosis present Performed By: #### C DLM, BMP #### [facility] [address] [place] [address] Dr. Bao Hsu MONO # 1.0 103/ul Critically high 0.3-0.8 [facility] Comment on above: Performed By: #### C WESLEY, BMP #### [facility] [address] [place] [address] Dr. Bao Hsu Monocytes/100 WBC (Bld) 5.6 % Normal 1.7-12.0 [facility] Comment on above: Performed By: #### C WESLEY, BMP #### [facility] [address] [place] [address] Dr. Bao Hsu NEUT # 14.4 103/ul Critically high 1.4-6.5 [facility] Comment on above: Performed By: #### C WESLEY, BMP #### [facility] [address] [place] [address] Dr. Bao Hsu Neutrophils/100 WBC (Bld) 85.3 % Critically high 43.0-75.0 [facility] [place] Comment on above: Performed By: #### C WESLEY, BMP #### [facility] [address] [place] [address] Dr. Bao Hsu Platelet mean volume (Bld) [Entitic vol] 8.2 fL Critically low 9.5-13.5 [facility] Comment on above: Performed By: #### C WESLEY, BMP #### [facility] [place] [facility] [address] [place] [address] Dr. Bao Hsu PLT 356 103/ul Normal 150-450 [facility] [place] Comment on above: Performed By: #### C WESLEY, BMP #### [facility] [place] [facility] [address] [place] [address] Dr. Bao Hsu RBC 4.54 106/ul Normal 4.20-5.40 [facility] Comment on above: Performed By: #### C WESLEY, BMP #### [facility] [place] [facility] [address] [place] [address] Dr. Bao Hsu WBC 16.9 103/ul Critically high 4.0-11.0 [facility] Comment on above: Performed By: #### C WESLEY, BMP #### [facility] [place] [facility] [address] [place] [address] Dr. Bao Hsu BASO # 0.1 103/ul Normal 0.0-0.1 [facility] Comment on above: Performed By: #### C WESLEY, BMP #### [facility] [place] [facility] [address] [place] [address] Dr. Bao Hsu Basophils/100 WBC (Bld) 0.5 % Normal 0.2-2.0 [facility] Comment on above: Performed By: #### C WESLEY, BMP #### [facility] [place] [facility] [address] [place] [address] Dr. Bao sHu EO # 0.2 103/ul Normal 0.0-0.7 [facility] Comment on above: Performed By: #### C WESLEY, BMP #### [facility] [place] [facility] [address] [place] [address] Dr. Bao Hsu Eosinophils/100 WBC (Bld) 1.2 % Normal 0.9-7.0 [facility] [place] Comment on above: Performed By: #### C WESLEY, BMP #### [facility] [place] [facility] [address] [place] [address] Dr. Bao Hsu Erythrocyte distribution width (RBC) [Ratio] 26.1 % Critically high 11.0-15.0 [facility] Comment on above: Performed By: #### C WESLEY, BMP #### [facility] [place] [facility] [address] [place], [place] [id number] Dr. Bao Hsu Hematocrit (Bld) [Volume fraction] 28.8 % Critically low 36.0-48.0 [facility] Comment on above: Performed By: #### C DLM, BMP #### [facility] [place] [facility] [address] [place] [address] Dr. Bao Hsu Hemoglobin (Bld) [Mass/Vol] 8.1 g/dL Critically low 12.0-16.0 [facility] Comment on above: Performed By: #### C MADM, BMP #### [facility] [place] [facility] [address] [place] [address] Dr. Bao Hsu IG # 0.05 10e3/ul Critically high 0.00-0.03 [facility] Comment on above: Performed By: #### C MADM, BMP #### [facility] [place] [facility] [address] [place] [address] Dr. Bao Hsu IG % 0.4 % Normal 0.0-0.5 [facility] Comment on above: Performed By: #### C DLM, BMP #### [facility] [place] [facility] [address] [place] [address] Dr. Bao Hsu LYMPH # 1.6 103/ul Normal 1.2-3.8 [facility] Comment on above: Performed By: #### C DLM, BMP #### [facility] [place] [facility] [address] [place] [address] Dr. Bao Hsu Lymphocytes/100 WBC (Bld) 12.0 % Critically low 20.5-60.0 [facility] Comment on above: Performed By: #### C MADM, BMP #### [facility] [place] [facility] [address] [place] [address] Dr. Bao Hsu MANUAL DIFF REQ NO Normal The [facility] Comment on above: Performed By: #### C MADM, BMP #### [facility] [place] [facility] [address] [place] [address] Dr. Bao Hsu MCH (RBC) [Entitic mass] 19.4 pg Critically low 26.7-34.0 [facility] Comment on above: Performed By: #### C MADM, BMP #### [facility] [place] [facility] [address] [address] [address] Bao Hsu MCHC (RBC) [Mass/Vol] 28.1 g/dL Critically low 29.9-35.2 [facility] Comment on above: Performed By: #### C MADM, BMP #### [facility] [place] [facility] [address] [address] [address] Bao Hsu MCV (RBC) [Entitic vol] 69.1 fL Critically low 81.0-99.0 [facility] Comment on above: Performed By: #### C MADM, BMP #### [facility] [place] [facility] [address] [address] [address] Bao Hsu MONO # 1.1 103/ul Critically high 0.3-0.8 The [facility] Comment on above: Performed By: #### C MADM, BMP #### [facility] [place] [facility] [address] [address] [address] Bao Hsu Monocytes/100 WBC (Bld) 8.2 % Normal 1.7-12.0 [facility] Comment on above: Performed By: #### C MADM, BMP #### [facility] [place] [facility] [address] [address] [address] Bao Hsu NEUT # 10.4 103/ul Critically high 1.4-6.5 [facility] Comment on above: Performed By: #### C MADM, BMP #### [facility] [place] [facility] [address] [address] [address] Bao Hsu Neutrophils/100 WBC (Bld) 77.7 % Critically high 43.0-75.0 [facility] Comment on above: Performed By: #### C MADM, BMP #### [facility] [address] [address] [address] Bao Hsu Platelet mean volume (Bld) [Entitic vol] 8.1 fL Critically low 9.5-13.5 [facility] Comment on above: Performed By: #### C MADM, BMP #### [facility] [place] [facility] [address] [address] [address] Bao Hsu PLT 344 103/ul Normal 150-450 [facility] Comment on above: Performed By: #### C WESLEY, BMP #### [facility] [place] [facility] [address] [address] [address] Bao Hsu RBC 4.17 106/ul Critically low 4.20-5.40 [facility] Comment on above: Performed By: #### C WESLEY, BMP #### [facility] [place] [facility] [address] [place] [address] Dr. Bao Hsu WBC 13.3 103/ul Critically high 4.0-11.0 [facility] Comment on above: Performed By: #### C WESLEY, BMP #### [facility] [place] [facility] [address] [place] [address] Dr. Bao Hsu MAGNESIUMon 06-01-2022 Magnesium [Mass/Vol] 1.8 mg/dL Normal 1.8-2.4 [facility] Comment on above: Performed By: #### C WESLEY, BMP #### [facility] [place] [facility] [address] [place] [address] Dr. Bao Hsu PROF 14(COMP METB)on 023 Albumin [Mass/Vol] 3.4 g/dL Normal 3.4-5.0 [facility] Comment on above: Performed By: #### C WESLEY, BMP #### [facility] [place] [facility] [address] [place] [address] Dr. Bao Hsu Albumin/Globulin [Mass ratio] 1.2 {ratio} Normal [facility] Comment on above: Performed By: #### C WESLEY, BMP #### [facility] [place] [facility] [address] [place] [address] Dr. Bao Hsu ALP [Catalytic activity/Vol] 123 U/L Critically high 46-116 [facility] Comment on above: Performed By: #### C WESLEY, BMP #### [facility] [place] [facility] [address] [place] [address] Dr. Bao Hsu ALT [Catalytic activity/Vol] 14 U/L Normal 14-59 [facility] Comment on above: Performed By: #### C WESLEY, BMP #### [facility] [place] [facility] [address] [address] [address] Bao Hsu Anion gap [Moles/Vol] 13.7 mmol/L Normal [facility] Comment on above: Performed By: #### C WESLEY, BMP #### [facility] [place] [facility] [address] [place] [address] Dr. Bao Hsu AST [Catalytic activity/Vol] 14 U/L Critically low 15-37 [facility] Comment on above: Performed By: #### C WESLEY, BMP #### [facility] [place] [facility] [address] [place] [address] Dr. Bao Hsu Bilirubin [Mass/Vol] 0.6 mg/dL Normal 0.2-1.0 [facility] Comment on above: Performed By: #### C WESLEY, BMP #### [facility] [place] [facility] [address] [place] [address] Dr. Bao Hsu Calcium [Mass/Vol] 8.4 mg/dL Critically low 8.5-10.1 [facility] Comment on above: Performed By: #### C WESLEY, BMP #### [facility] [place] [facility] [address] [place] [address] Dr. Bao Hsu Chloride [Moles/Vol] 101 mmol/L Normal 98-107 [facility] Comment on above: Performed By: #### C WESLEY, BMP #### [facility] [place] [facility] [address] [place] [address] Dr. Bao Hsu CO2 [Moles/Vol] 25.2 mmol/L Normal 21.0-32.0 [facility] Comment on above: Performed By: #### C WESLEY, BMP #### [facility] [place] [facility] [address] [place] [address] Dr. Bao Hsu Creatinine [Mass/Vol] 0.68 mg/dL Normal 0.55-1.02 [facility] [place] Comment on above: Performed By: #### C WESLEY, BMP #### [facility] [place] [facility] [address] [place] [address] Dr. Bao Hsu EGFR-AF CUBAN >60 Normal >=60 [facility] Comment on above: Performed By: #### C WESLEY, BMP #### [facility] [place] [facility] [address] [address] [address] Bao Hsu EGFR-NON AF CUBAN >60 Normal >=60 [facility] Comment on above: Performed By: #### C WESLEY, BMP #### [facility] [place] [facility] [address] [place] [address] Dr. Bao Hsu Globulin (S) [Mass/Vol] 2.9 g/dL Normal [facility] Comment on above: Performed By: #### C WESLEY, BMP #### [facility] [place] [facility] [address] [place] [address] Dr. Bao Hsu Glucose [Mass/Vol] 92 mg/dL Normal 74-106 [facility] Comment on above: Performed By: #### C WESLEY, BMP #### [facility] [place] [facility] [address] [place] [address] Dr. Bao Hsu Potassium [Moles/Vol] 3.9 mmol/L Normal 3.5-5.1 [facility] Comment on above: Performed By: #### C WESLEY, BMP #### [facility] [address] [place] [address] Dr. Bao Hsu Protein [Mass/Vol] 6.3 g/dL Critically low 6.4-8.2 [facility] Comment on above: Performed By: #### C WESLEY, BMP #### [facility] [place] [facility] [address] [place] [address] Dr. Bao Hsu Sodium [Moles/Vol] 136 mmol/L Normal 136-145 [facility] Comment on above: Performed By: #### C WESLEY, BMP #### [facility] [address] [place] [address] Dr. Bao Hsu Urea nitrogen [Mass/Vol] 12.0 mg/dL Normal 7.0-18.0 [facility] Comment on above: Performed By: #### C WESLEY, BMP #### [facility] [address] [place] [address] Dr. Bao Hsu Urea nitrogen/Creatinine [Mass ratio] 17.6 mg/mg Normal [facility] Comment on above: Performed By: #### C MADM, BMP #### [facility] [address] [place] [address] Dr. Bao Hsu PTTon 06-01-2022 aPTT Coag (Bld) [Time] 25.6 s Normal 22.3-36.2 [facility] Comment on above: Performed By: #### C ESTHER OLSON #### [facility] [address] [place] [address] Dr. Bao Hsu SED RATE WESTERGRENon 2022 SED RATE 20 mm/hr Normal <=30 [facility] Comment on above: Performed By: #### S EDR #### [facility] [address] [place] [address] Dr. Bao Hsu CBC AUTO DIFFon 05-31-2022 BASO # 0.1 103/ul Normal 0.0-0.1 [facility] Comment on above: Performed By: #### C BC #### [facility] [address] [place] [address] Dr. Bao Hsu Basophils/100 WBC (Bld) 0.7 % Normal 0.2-2.0 [facility] Comment on above: Performed By: #### C BC #### [facility] [address] [place] [address] Dr. Bao Hsu EO # 0.5 103/ul Normal 0.0-0.7 [facility] Comment on above: Performed By: #### C BC #### [facility] [address] [place] [address] Dr. Bao Hsu Eosinophils/100 WBC (Bld) 3.7 % Normal 0.9-7.0 [facility] Comment on above: Performed By: #### C BC #### [facility] [address] [place] [address] Dr. Bao Hsu Erythrocyte distribution width (RBC) [Ratio] 25.7 % Critically high 11.0-15.0 [facility] Comment on above: Result Comment: 2+ a niso Performed By: #### C BC #### [facility] [address] [place] [address] Dr. Bao Hsu Hematocrit (Bld) [Volume fraction] 34.1 % Critically low 36.0-48.0 [facility] Comment on above: Performed By: #### C BC #### [facility] [address] [place] [address] Dr. Bao Hsu Hemoglobin (Bld) [Mass/Vol] 9.6 g/dL Critically low 12.0-16.0 [facility] Comment on above: Performed By: #### C BC #### [facility] [address] [address] [address] Bao Hsu IG # 0.08 10e3/ul Critically high 0.00-0.03 [facility] Comment on above: Performed By: #### C BC #### [facility] [address] [place] [address] Dr. Bao Hsu IG % 0.6 % Critically high 0.0-0.5 [facility] Comment on above: Performed By: #### C BC #### [facility] [address] [place] [address] Dr. Bao Hsu LYMPH # 1.9 103/ul Normal 1.2-3.8 [facility] Comment on above: Performed By: #### C BC #### [facility] [address] [place] [address] Dr. Bao Hsu Lymphocytes/100 WBC (Bld) 13.3 % Critically low 20.5-60.0 [facility] Comment on above: Performed By: #### C BC #### [facility] [address] [place] [address] Dr. Bao Hsu MANUAL DIFF REQ NO Normal The [facility] Comment on above: Performed By: #### C BC #### [facility] [address] [place] [address] Dr. Bao Hsu MCH (RBC) [Entitic mass] 19.4 pg Critically low 26.7-34.0 [facility] Comment on above: Result Comment: 2+ h ypochromasia Performed By: #### C BC #### [facility] [address] [place] [address] Dr. Bao Hsu MCHC (RBC) [Mass/Vol] 28.2 g/dL Critically low 29.9-35.2 [facility] Comment on above: Performed By: #### C BC #### [facility] [address] [address] [address] Bao Hsu MCV (RBC) [Entitic vol] 68.9 fL Critically low 81.0-99.0 [facility] Comment on above: Performed By: #### C BC #### [facility] [address] [address] [address] Bao Hsu MONO # 0.9 103/ul Critically high 0.3-0.8 The [facility] Comment on above: Performed By: #### C BC #### [facility] [address] [place] [address] Dr. Bao Hsu Monocytes/100 WBC (Bld) 6.2 % Normal 1.7-12.0 [facility] Comment on above: Performed By: #### C BC #### [facility] [address] [place] [address] Dr. Bao Hsu NEUT # 10.9 103/ul Critically high 1.4-6.5 [facility] Comment on above: Performed By: #### C BC #### [facility] [address] [place] [address] Dr. Bao Hsu Neutrophils/100 WBC (Bld) 75.5 % Critically high 43.0-75.0 [facility] Comment on above: Performed By: #### C BC #### [facility] [address] [address] [address] Bao Hsu Platelet mean volume (Bld) [Entitic vol] 8.7 fL Critically low 9.5-13.5 [facility] Comment on above: Performed By: #### C BC #### [facility] [address] [place] [address] Dr. Bao Hsu PLT 375 103/ul Normal 150-450 [facility] Comment on above: Performed By: #### C BC #### [facility] [address] [place] [address] Dr. Bao Hsu RBC 4.95 106/ul Normal 4.20-5.40 [facility] Comment on above: Performed By: #### C BC #### [facility] [address] [place] [address] Dr. Bao Hsu WBC 14.4 103/ul Critically high 4.0-11.0 [facility] Comment on above: Performed By: #### C BC #### [facility] [address] [place] [address] Dr. Bao Hsu BASO # 0.1 103/ul Normal 0.0-0.1 [facility] Comment on above: Performed By: #### C MADM, BMP #### [facility] [address] [place] [address] Dr. Bao Hsu Basophils/100 WBC (Bld) 0.7 % Normal 0.2-2.0 [facility] Comment on above: Performed By: #### C MADM, BMP #### [facility] [address] [place] [address] Dr. Bao Hsu EO # 0.4 103/ul Normal 0.0-0.7 [facility] Comment on above: Performed By: #### C MADM, BMP #### [facility] [address] [place] [address] Dr. Bao Hsu Eosinophils/100 WBC (Bld) 3.7 % Normal 0.9-7.0 [facility] Comment on above: Performed By: #### C MADM, BMP #### [facility] [address] [place] [address] Dr. Bao Hsu Erythrocyte distribution width (RBC) [Ratio] 25.0 % Critically high 11.0-15.0 [facility] Comment on above: Performed By: #### C MADM, BMP #### [facility] [address] [place] [address] Dr. Bao Hsu Hematocrit (Bld) [Volume fraction] 29.9 % Critically low 36.0-48.0 [facility] Comment on above: Performed By: #### C MADM, BMP #### [facility] [address] [place] [address] Dr. Bao Hsu Hemoglobin (Bld) [Mass/Vol] 8.5 g/dL Critically low 12.0-16.0 [facility] Comment on above: Performed By: #### C WESLEY, BMP #### [facility] [address] [address] [address] Bao Hsu IG # 0.06 10e3/ul Critically high 0.00-0.03 [facility] Comment on above: Performed By: #### C WESLEY, BMP #### [facility] [address] [address] [address] Bao Hsu IG % 0.6 % Critically high 0.0-0.5 The [facility] Comment on above: Performed By: #### C WESLEY, BMP #### [facility] [address] [place] [address] Dr. Bao Hsu LYMPH # 1.6 103/ul Normal 1.2-3.8 [facility] Comment on above: Performed By: #### C WESLEY, BMP #### [facility] [address] [place] [address] Dr. Bao Hsu Lymphocytes/100 WBC (Bld) 15.0 % Critically low 20.5-60.0 [facility] Comment on above: Performed By: #### C WESLEY, BMP #### [facility] [address] [place] [address] Dr. Bao Hsu MANUAL DIFF REQ NO Normal The [facility] Comment on above: Performed By: #### C WESLEY, BMP #### [facility] [address] [address] [address] Bao Hsu MCH (RBC) [Entitic mass] 19.4 pg Critically low 26.7-34.0 [facility] Comment on above: Performed By: #### C WESLEY, BMP #### [facility] [address] [place] [address] Dr. Bao Hsu MCHC (RBC) [Mass/Vol] 28.4 g/dL Critically low 29.9-35.2 [facility] Comment on above: Performed By: #### C WESLEY, BMP #### [facility] [address] [address] [address] Bao Hsu MCV (RBC) [Entitic vol] 68.3 fL Critically low 81.0-99.0 [facility] Comment on above: Performed By: #### C MADM, BMP #### [facility] [address] [address] [address] Bao Hsu MONO # 0.8 103/ul Normal 0.3-0.8 [facility] Comment on above: Performed By: #### C MADM, BMP #### [facility] [address] [place] [address] Dr. Bao Hsu Monocytes/100 WBC (Bld) 7.8 % Normal 1.7-12.0 [facility] Comment on above: Performed By: #### C MADM, BMP #### [facility] [address] [place] [address] Dr. Bao Hsu NEUT # 7.7 103/ul Critically high 1.4-6.5 The [facility] Comment on above: Performed By: #### C MADM, BMP #### [facility] [address] [place] [address] Dr. Bao Hsu Neutrophils/100 WBC (Bld) 72.2 % Normal 43.0-75.0 [facility] Comment on above: Performed By: #### C MADM, BMP #### [facility] [address] [place] [address] Dr. Bao Hsu Platelet mean volume (Bld) [Entitic vol] 8.4 fL Critically low 9.5-13.5 [facility] Comment on above: Performed By: #### C MADM, BMP #### [facility] [address] [place] [address] Dr. Bao Hsu PLT 369 103/ul Normal 150-450 [facility] Comment on above: Performed By: #### C MADM, BMP #### [facility] [address] [place] [address] Dr. Bao Hsu RBC 4.38 106/ul Normal 4.20-5.40 [facility] Comment on above: Performed By: #### C MADM, BMP #### [facility] [address] [place] [address] Dr. Bao Hsu WBC 10.7 103/ul Normal 4.0-11.0 [facility] Comment on above: Performed By: #### C MADM, BMP #### [facility] [address] [place] [address] Dr. Bao Hsu MAGNESIUMon 05-31-2022 Magnesium [Mass/Vol] 1.9 mg/dL Normal 1.8-2.4 [facility] Comment on above: Performed By: #### C MP, MG #### [facility] [address] [place] [address] Dr. Bao Hsu OCC BLD IMMUNO SCREENon 05-20 OCCULT BLOOD Positive Abnormal NEGATIVE [facility] Comment on above: Performed By: #### C MADM, BMP #### [facility] [address] [place] [address] Dr. Bao Hsu PROF 14(COMP METB)on 023 Albumin [Mass/Vol] 3.3 g/dL Critically low 3.4-5.0 [facility] Comment on above: Performed By: #### C MP, MG #### [facility] [address] [place] [address] Dr. Bao Hsu Albumin/Globulin [Mass ratio] 1.1 {ratio} Normal [facility] Comment on above: Performed By: #### C MP, MG #### [facility] [address] [place] [address] Dr. Bao Hsu ALP [Catalytic activity/Vol] 123 U/L Critically high 46-116 [facility] Comment on above: Performed By: #### C MP, MG #### [facility] [address] [place] [address] Dr. Bao Hsu ALT [Catalytic activity/Vol] 15 U/L Normal 14-59 [facility] Comment on above: Performed By: #### C MP, MG #### [facility] [address] [place] [address] Dr. Bao Hsu Anion gap [Moles/Vol] 11.8 mmol/L Normal [facility] Comment on above: Performed By: #### C MP, MG #### [facility] [address] [place] [address] Dr. Bao Hsu AST [Catalytic activity/Vol] 14 U/L Critically low 15-37 [facility] Comment on above: Performed By: #### C MP, MG #### [facility] [address] [place] [address] Dr. Bao Hsu Bilirubin [Mass/Vol] 0.5 mg/dL Normal 0.2-1.0 [facility] Comment on above: Performed By: #### C MP, MG #### [facility] [address] [place] [address] Dr. Bao Hsu Calcium [Mass/Vol] 8.7 mg/dL Normal 8.5-10.1 [facility] Comment on above: Performed By: #### C MP, MG #### [facility] [address] [place] [address] Dr. Bao Hsu Chloride [Moles/Vol] 101 mmol/L Normal 98-107 [facility] Comment on above: Performed By: #### C MP, MG #### [facility] [address] [place] [address] Dr. Bao Hsu CO2 [Moles/Vol] 27.0 mmol/L Normal 21.0-32.0 [facility] Comment on above: Performed By: #### C MP, MG #### [facility] [address] [place] [address] Dr. Bao Hsu Creatinine [Mass/Vol] 0.64 mg/dL Normal 0.55-1.02 [facility] Comment on above: Performed By: #### C MP, MG #### [facility] [address] [place] [address] Dr. Bao Hsu EGFR-AF CUBAN >60 Normal >=60 [facility] Comment on above: Performed By: #### C MP, MG #### [facility] [facility] [address] [place] [address] Dr. Bao Hsu EGFR-NON AF CUBAN >60 Normal >=60 [facility] Comment on above: Performed By: #### C MP, MG #### [facility] [address] [place] [address] Dr. Bao Hsu Globulin (S) [Mass/Vol] 3.1 g/dL Normal [facility] Comment on above: Performed By: #### C MP, MG #### [facility] [address] [place] [address] Dr. Bao Hsu Glucose [Mass/Vol] 103 mg/dL Normal 74-106 [facility] Comment on above: Performed By: #### C MP, MG #### [facility] [address] [place] [address] Dr. Bao Hsu Potassium [Moles/Vol] 3.8 mmol/L Normal 3.5-5.1 [facility] Comment on above: Performed By: #### C MP, MG #### [facility] [address] [place] [address] Dr. Bao Hsu Protein [Mass/Vol] 6.4 g/dL Normal 6.4-8.2 [facility] Comment on above: Performed By: #### C MP, MG #### [facility] [address] [place] [address] Dr. Bao Hsu Sodium [Moles/Vol] 136 mmol/L Normal 136-145 [facility] Comment on above: Performed By: #### C MP, MG #### [facility] [address] [place] [address] Dr. Bao Hsu Urea nitrogen [Mass/Vol] 12.0 mg/dL Normal 7.0-18.0 [facility] Comment on above: Performed By: #### C MP, MG #### [facility] [address] [place] [address] Dr. Bao Hsu Urea nitrogen/Creatinine [Mass ratio] 18.8 mg/mg Normal [facility] Comment on above: Performed By: #### C MP, MG #### [facility] [address] [place] [address] Dr. Bao Hsu PTTon 05-31-2022 aPTT Coag (Bld) [Time] 24.8 s Normal 22.3-36.2 [facility] Comment on above: Performed By: #### C WESLEY, BMP #### [facility] [address] [place] [address] Dr. Bao Hsu SED RATE WESTERGRENon 2022 SED RATE 13 mm/hr Normal <=30 [facility] Comment on above: Performed By: #### C WESLEY, BMP #### [facility] [address] [place] [address] Dr. Bao Hsu CBC AUTO DIFFon 05-30-2022 BASO # 0.1 103/ul Normal 0.0-0.1 [facility] Comment on above: Performed By: #### C BC #### [facility] [address] [place] [address] Dr. Bao Hsu Performed By: #### S EDR #### [facility] [address] [place] [address] Dr. Bao Hsu Basophils/100 WBC (Bld) 0.5 % Normal 0.2-2.0 [facility] Comment on above: Performed By: #### C BC #### [facility] [address] [place] [address] Dr. Bao Hsu EO # 0.4 103/ul Normal 0.0-0.7 [facility] Comment on above: Performed By: #### C BC #### [facility] [address] [place] [address] Dr. Bao Hsu Eosinophils/100 WBC (Bld) 2.9 % Normal 0.9-7.0 [facility] Comment on above: Performed By: #### C BC #### [facility] [address] [place] [address] Dr. Boa Hsu Erythrocyte distribution width (RBC) [Ratio] 24.8 % Critically high 11.0-15.0 [facility] Comment on above: Result Comment: 2+ a nisocytosis Performed By: #### C BC #### [facility] [address] [place] [address] Dr. Bao Hsu Hematocrit (Bld) [Volume fraction] 32.0 % Critically low 36.0-48.0 [facility] Comment on above: Performed By: #### C BC #### [facility] [address] [place] [address] Dr. Bao Hsu Hemoglobin (Bld) [Mass/Vol] 9.0 g/dL Critically low 12.0-16.0 [facility] Comment on above: Performed By: #### C BC #### [facility] [address] [place] [address] Dr. Bao Hsu IG # 0.04 10e3/ul Critically high 0.00-0.03 [facility] Comment on above: Performed By: #### C BC #### [facility] [address] [place] [address] Dr. Bao Hsu Performed By: #### S EDR #### [facility] [address] [place] [address] Dr. Bao Hsu IG % 0.3 % Normal 0.0-0.5 [facility] Comment on above: Performed By: #### C BC #### [facility] [address] [place] [address] Dr. Bao Hsu Performed By: #### S EDR #### [facility] [address] [place] [address] Dr. Bao Hsu LYMPH # 1.8 103/ul Normal 1.2-3.8 [facility] Comment on above: Performed By: #### C BC #### [facility] [address] [place] [address] Dr. Bao Hsu Lymphocytes/100 WBC (Bld) 14.4 % Critically low 20.5-60.0 [facility] Comment on above: Performed By: #### C BC #### [facility] [address] [place] [address] Dr. Bao Hsu MANUAL DIFF REQ NO Normal [facility] Comment on above: Performed By: #### C BC #### [facility] [address] [place] [address] Dr. Bao Hsu Performed By: #### S EDR #### [facility] [address] [address] [address] Bao Hsu MCH (RBC) [Entitic mass] 19.2 pg Critically low 26.7-34.0 [facility] Comment on above: Result Comment: 2+ h ypochromasia Performed By: #### C BC #### [facility] [address] [place] [address] Dr. Bao Hsu MCHC (RBC) [Mass/Vol] 28.1 g/dL Critically low 29.9-35.2 [facility] Comment on above: Performed By: #### C BC #### [facility] [address] [place] [address] Dr. Bao Hsu MCV (RBC) [Entitic vol] 68.4 fL Critically low 81.0-99.0 [facility] Comment on above: Performed By: #### C BC #### [facility] [address] [place] [address] Dr. Bao Hsu MONO # 0.7 103/ul Normal 0.3-0.8 [facility] Comment on above: Performed By: #### C BC #### [facility] [address] [place] [address] Dr. Bao Hsu Monocytes/100 WBC (Bld) 5.5 % Normal 1.7-12.0 [facility] Comment on above: Performed By: #### C BC #### [facility] [address] [place] [address] Dr. Bao Hsu NEUT # 9.5 103/ul Critically high 1.4-6.5 [facility] Comment on above: Performed By: #### C BC #### [facility] [address] [place] [address] Dr. Bao Hsu Neutrophils/100 WBC (Bld) 76.4 % Critically high 43.0-75.0 [facility] Comment on above: Performed By: #### C BC #### [facility] [address] [place] [address] Dr. Bao Hsu Platelet mean volume (Bld) [Entitic vol] 8.4 fL Critically low 9.5-13.5 [facility] Comment on above: Performed By: #### C BC #### [facility] [address] [address] [address] Bao Hsu PLT 396 103/ul Normal 150-450 [facility] Comment on above: Performed By: #### C BC #### [facility] [address] [place] [address] Dr. Bao Hsu RBC 4.68 106/ul Normal 4.20-5.40 [facility] Comment on above: Performed By: #### C BC #### [facility] [address] [place] [address] Dr. Bao Hsu WBC 12.4 103/ul Critically high 4.0-11.0 [facility] Comment on above: Performed By: #### C BC #### [facility] [address] [place] [address] Dr. Bao Hsu Basophils/100 WBC (Bld) 0.7 % Normal 0.2-2.0 [facility] Comment on above: Performed By: #### S EDR #### [facility] [address] [place] [address] Dr. Bao Hsu EO # 0.3 103/ul Normal 0.0-0.7 [facility] Comment on above: Performed By: #### S EDR #### [facility] [address] [place] [address] Dr. Bao Hsu Eosinophils/100 WBC (Bld) 2.7 % Normal 0.9-7.0 [facility] Comment on above: Performed By: #### S EDR #### [facility] [address] [place] [address] Dr. Bao Hsu Erythrocyte distribution width (RBC) [Ratio] 23.8 % Critically high 11.0-15.0 [facility] Comment on above: Performed By: #### S EDR #### [facility] [address] [place] [address] Dr. Bao Hsu Hematocrit (Bld) [Volume fraction] 29.0 % Critically low 36.0-48.0 [facility] Comment on above: Performed By: #### S EDR #### [facility] [address] [address] [address] Bao Hsu Hemoglobin (Bld) [Mass/Vol] 8.3 g/dL Critically low 12.0-16.0 [facility] Comment on above: Performed By: #### S EDR #### [facility] [address] [place] [address] Dr. Bao Hsu LYMPH # 1.6 103/ul Normal 1.2-3.8 [facility] Comment on above: Performed By: #### S EDR #### [facility] [address] [place] [address] Dr. Bao Hsu Lymphocytes/100 WBC (Bld) 14.0 % Critically low 20.5-60.0 [facility] Comment on above: Performed By: #### S EDR #### [facility] [address] [place] [address] Dr. Bao Hsu MCH (RBC) [Entitic mass] 19.1 pg Critically low 26.7-34.0 [facility] Comment on above: Performed By: #### S EDR #### [facility] [address] [place] [address] Dr. Bao Hsu MCHC (RBC) [Mass/Vol] 28.6 g/dL Critically low 29.9-35.2 [facility] Comment on above: Performed By: #### S EDR #### [facility] [address] [place] [address] Dr. Bao Hsu MCV (RBC) [Entitic vol] 66.8 fL Critically low 81.0-99.0 [facility] Comment on above: Performed By: #### S EDR #### [facility] [address] [place] [address] Dr. Bao Hsu MONO # 0.8 103/ul Normal 0.3-0.8 [facility] Comment on above: Performed By: #### S EDR #### [facility] [address] [place] [address] Dr. Bao Hsu Monocytes/100 WBC (Bld) 6.9 % Normal 1.7-12.0 [facility] Comment on above: Performed By: #### S EDR #### [facility] [address] [place] [address] Dr. Bao Hsu NEUT # 8.7 103/ul Critically high 1.4-6.5 [facility] Comment on above: Performed By: #### S EDR #### [facility] [address] [place] [address] Dr. Bao Hsu Neutrophils/100 WBC (Bld) 75.4 % Critically high 43.0-75.0 [facility] Comment on above: Performed By: #### S EDR #### [facility] [address] [place] [address] Dr. Bao Hsu Platelet mean volume (Bld) [Entitic vol] 8.1 fL Critically low 9.5-13.5 [facility] Comment on above: Performed By: #### S EDR #### [facility] [address] [place] [address] Dr. Bao Hsu PLT 327 103/ul Normal 150-450 [facility] Comment on above: Performed By: #### S EDR #### [facility] [address] [place] [address] Dr. Bao Hsu RBC 4.34 106/ul Normal 4.20-5.40 [facility] Comment on above: Performed By: #### S EDR #### [facility] [address] [place] [address] Dr. Bao Hsu WBC 11.5 103/ul Critically high 4.0-11.0 [facility] Comment on above: Performed By: #### S EDR #### [facility] [address] [place] [address] Dr. Bao Hsu MAGNESIUMon 05-30-2022 Magnesium [Mass/Vol] 1.8 mg/dL Normal 1.8-2.4 [facility] Comment on above: Performed By: #### S EDR #### [facility] [address] [place] [address] Dr. Bao Hsu PROF 14(COMP METB)on 023 Albumin [Mass/Vol] 3.5 g/dL Normal 3.4-5.0 [facility] Comment on above: Performed By: #### S EDR #### [facility] [address] [place] [address] Dr. Bao Hsu Albumin/Globulin [Mass ratio] 1.2 {ratio} Normal [facility] Comment on above: Performed By: #### S EDR #### [facility] [address] [address] [address] Bao Hsu ALP [Catalytic activity/Vol] 135 U/L Critically high 46-116 [facility] Comment on above: Performed By: #### S EDR #### [facility] [address] [place] [address] Dr. Bao Hsu ALT [Catalytic activity/Vol] 12 U/L Critically low 14-59 [facility] Comment on above: Performed By: #### S EDR #### [facility] [address] [address] [address] Bao Hsu Anion gap [Moles/Vol] 9.3 mmol/L Normal [facility] Comment on above: Performed By: #### S EDR #### [facility] [address] [address] [address] Bao Hsu AST [Catalytic activity/Vol] 12 U/L Critically low 15-37 [facility] Comment on above: Performed By: #### S EDR #### [facility] [address] [address] [address] Bao Hsu Bilirubin [Mass/Vol] 0.7 mg/dL Normal 0.2-1.0 [facility] Comment on above: Performed By: #### S EDR #### [facility] [address] [place] [address] Dr. Bao Hsu Calcium [Mass/Vol] 8.6 mg/dL Normal 8.5-10.1 [facility] Comment on above: Performed By: #### S EDR #### [facility] [address] [place] [address] Dr. Bao Hsu Chloride [Moles/Vol] 102 mmol/L Normal 98-107 [facility] Comment on above: Performed By: #### S EDR #### [facility] [address] [address] [address] Bao Hsu CO2 [Moles/Vol] 26.6 mmol/L Normal 21.0-32.0 [facility] Comment on above: Performed By: #### S EDR #### [facility] [address] [address] [address] Bao Hsu Creatinine [Mass/Vol] 0.59 mg/dL Normal 0.55-1.02 [facility] Comment on above: Performed By: #### S EDR #### [facility] [address] [place] [address] Dr. Bao Hsu EGFR-AF CUBAN >60 Normal >=60 [facility] Comment on above: Performed By: #### S EDR #### [facility] [address] [address] [address] Bao Hsu EGFR-NON AF CUBAN >60 Normal >=60 [facility] Comment on above: Performed By: #### S EDR #### [facility] [address] [address] [address] Bao Hsu Globulin (S) [Mass/Vol] 2.9 g/dL Normal [facility] Comment on above: Performed By: #### S EDR #### [facility] [address] [address] [address] Bao Hsu Glucose [Mass/Vol] 115 mg/dL Critically high 74-106 [facility] Comment on above: Performed By: #### S EDR #### [facility] [address] [address] [address] Bao Hsu Potassium [Moles/Vol] 3.9 mmol/L Normal 3.5-5.1 [facility] Comment on above: Performed By: #### S EDR #### [facility] [address] [place] [address] Dr. Bao Hsu Protein [Mass/Vol] 6.4 g/dL Normal 6.4-8.2 [facility] Comment on above: Performed By: #### S EDR #### [facility] [address] [address] [address] Bao Hsu Sodium [Moles/Vol] 134 mmol/L Critically low 136-145 [facility] Comment on above: Performed By: #### S EDR #### [facility] [address] [address] [address] Bao Hsu Urea nitrogen [Mass/Vol] 9.0 mg/dL Normal 7.0-18.0 [facility] Comment on above: Performed By: #### S EDR #### [facility] [address] [place] [address] Dr. Bao Hsu Urea nitrogen/Creatinine [Mass ratio] 15.3 mg/mg Normal [facility] Comment on above: Performed By: #### S EDR #### [facility] [address] [place] [address] Dr. Bao Hsu PTTon 05-30-2022 aPTT Coag (Bld) [Time] 23.1 s Normal 22.3-36.2 [facility] Comment on above: Performed By: #### S EDR #### [facility] [address] [place] [address] Dr. Bao Hsu SED RATE MORROWERGRENon 2022 SED RATE 23 mm/hr Normal <=30 [facility] Comment on above: Performed By: #### S EDR #### [facility] [address] [place] [address] Dr. Bao Hsu ABO RH RETYPEon 05-29-2022 ABO and Rh group Nom (Bld) DONE Normal [facility] Comment on above: Performed By: #### C WESLEY BMP #### [facility] [address] [place] [address] Dr. Bao Hsu CARDIAC DARION 3-6on 3 CK [Catalytic activity/Vol] 30 U/L Normal 26-192 [facility] Comment on above: Performed By: #### C WESLEY BMP #### [facility] [address] [address] [address] Bao Hsu CK.MB [Mass/Vol] ng/mL Normal <=3.60 [facility] Comment on above: Performed By: #### C WESLEY, BMP #### [facility] [address] [address] [address] Bao Hsu HSTROP 7.0 pg/mL Normal 4.0-51.3 [facility] Comment on above: Result Comment: CUT- OFF POINTS HAVE BEEN ESTABLISHED BASED ON THE FOURTH UNIVERSAL DEFINITIONS OF MYOCARDIAL INFARCTION. THE UPPER REFERENCE LIMIT (URL) OF TROPONIN, DEFINED THE 99TH PERCENTILE OF cTnI DISTRIBUTION IN A REFERENCE POPULATION, HAS BEEN CONFIRMED THE DECISION THRESHOLD FOR PR DIAGNOSIS. Performed By: #### C WESLEY, BMP #### [facility] [address] [place] [address] Dr. Bao Hsu CK [Catalytic activity/Vol] 62 U/L Normal 26-192 [facility] Comment on above: Performed By: #### C WESLEY, BMP #### [facility] [address] [place] [address] Dr. Bao Hsu CK.MB [Mass/Vol] ng/mL Normal <=3.60 [facility] Comment on above: Performed By: #### C WESLEY, BMP #### [facility] [address] [place] [address] Dr. Bao Hsu HSTROP 6.2 pg/mL Normal 4.0-51.3 [facility] Comment on above: Result Comment: CUT- OFF POINTS HAVE BEEN ESTABLISHED BASED ON THE FOURTH UNIVERSAL DEFINITIONS OF MYOCARDIAL INFARCTION. THE UPPER REFERENCE LIMIT (URL) OF TROPONIN, DEFINED THE 99TH PERCENTILE OF cTnI DISTRIBUTION IN A REFERENCE POPULATION, HAS BEEN CONFIRMED THE DECISION THRESHOLD FOR PR DIAGNOSIS. Performed By: #### C WESLEY, BMP #### [facility] [address] [place] [address] Dr. Bao Hsu CARDIAC DARION ADMITon 023 CK [Catalytic activity/Vol] 29 U/L Normal 26-192 [facility] Comment on above: Performed By: #### C WESLEY, BMP #### [facility] [address] [place] [address] Dr. Bao Hsu CK.MB [Mass/Vol] ng/mL Normal <=3.60 [facility] Comment on above: Performed By: #### C ESTHER OLSON #### [facility] [address] [place] [address] Dr. Bao Hsu HSTROP 7.0 pg/mL Normal 4.0-51.3 [facility] Comment on above: Result Comment: CUT- OFF POINTS HAVE BEEN ESTABLISHED BASED ON THE FOURTH UNIVERSAL DEFINITIONS OF MYOCARDIAL INFARCTION. THE UPPER REFERENCE LIMIT (URL) OF TROPONIN, DEFINED THE 99TH PERCENTILE OF cTnI DISTRIBUTION IN A REFERENCE POPULATION, HAS BEEN CONFIRMED THE DECISION THRESHOLD FOR PR DIAGNOSIS. Performed By: #### C ESTHER OLSON #### [facility] [address] [place] [address] Dr. Bao Hsu DINAH 24 ng/mL Normal 9-82 [facility] Comment on above: Performed By: #### C ESTHER OLSON #### [facility] [address] [place] [address] Dr. Bao Hsu CBC AUTO DIFFon 05-29-2022 BASO # 0.1 103/ul Normal 0.0-0.1 [facility] Comment on above: Performed By: #### C BC #### [facility] [address] [place] [address] Dr. Bao Hsu Basophils/100 WBC (Bld) 0.5 % Normal 0.2-2.0 [facility] Comment on above: Performed By: #### C BC #### [facility] [address] [place] [address] Dr. Bao Hsu EO # 0.2 103/ul Normal 0.0-0.7 [facility] Comment on above: Performed By: #### C BC #### [facility] [address] [place] [address] Dr. Bao Hsu Eosinophils/100 WBC (Bld) 1.9 % Normal 0.9-7.0 [facility] Comment on above: Performed By: #### C BC #### [facility] [address] [place] [address] Dr. Bao Hsu Erythrocyte distribution width (RBC) [Ratio] 24.0 % Critically high 11.0-15.0 [facility] Comment on above: Performed By: #### C BC #### [facility] [address] [place] [address] Dr. Bao Hsu Hematocrit (Bld) [Volume fraction] 30.1 % Critically low 36.0-48.0 [facility] Comment on above: Performed By: #### C BC #### [facility] [address] [place] [address] Dr. Bao Hsu Hemoglobin (Bld) [Mass/Vol] 8.8 g/dL Critically low 12.0-16.0 [facility] Comment on above: Performed By: #### C BC #### [facility] [address] [place] [address] Dr. Bao Hsu IG # 0.07 10e3/ul Critically high 0.00-0.03 [facility] Comment on above: Performed By: #### C BC #### [facility] [address] [place] [address] Dr. Bao Hsu IG % 0.6 % Critically high 0.0-0.5 [facility] Comment on above: Performed By: #### C BC #### [facility] [address] [place] [address] Dr. Bao Hsu LYMPH # 1.2 103/ul Normal 1.2-3.8 [facility] Comment on above: Performed By: #### C BC #### [facility] [address] [place] [address] Dr. Bao Hsu Lymphocytes/100 WBC (Bld) 10.6 % Critically low 20.5-60.0 [facility] Comment on above: Performed By: #### C BC #### [facility] [address] [place] [address] Dr. Bao Hsu MANUAL DIFF REQ NO Normal The [facility] Comment on above: Performed By: #### C BC #### [facility] [address] [place] [address] Dr. Bao Hsu MCH (RBC) [Entitic mass] 19.4 pg Critically low 26.7-34.0 [facility] Comment on above: Performed By: #### C BC #### [facility] [address] [place] [address] Dr. Bao Hsu MCHC (RBC) [Mass/Vol] 29.2 g/dL Critically low 29.9-35.2 [facility] Comment on above: Performed By: #### C BC #### [facility] [address] [address] [address] Bao Hsu MCV (RBC) [Entitic vol] 66.3 fL Critically low 81.0-99.0 [facility] Comment on above: Performed By: #### C BC #### [facility] [address] [place] [address] Dr. Bao Hsu MONO # 0.7 103/ul Normal 0.3-0.8 [facility] Comment on above: Performed By: #### C BC #### [facility] [address] [place] [address] Dr. Bao Hsu Monocytes/100 WBC (Bld) 6.1 % Normal 1.7-12.0 [facility] Comment on above: Performed By: #### C BC #### [facility] [address] [place] [address] Dr. Bao Hsu NEUT # 9.2 103/ul Critically high 1.4-6.5 [facility] Comment on above: Performed By: #### C BC #### [facility] [address] [place] [address] Dr. Bao Hsu Neutrophils/100 WBC (Bld) 80.3 % Critically high 43.0-75.0 [facility] Comment on above: Performed By: #### C BC #### [facility] [address] [place] [address] Dr. Bao Hsu Platelet mean volume (Bld) [Entitic vol] 7.9 fL Critically low 9.5-13.5 [facility] Comment on above: Performed By: #### C BC #### [facility] [facility] [address] [place] [address] Dr. Bao Hsu PLT 322 103/ul Normal 150-450 [facility] Comment on above: Performed By: #### C BC #### [facility] [address] [place] [address] Dr. Bao Hsu RBC 4.54 106/ul Normal 4.20-5.40 [facility] Comment on above: Performed By: #### C BC #### [facility] [address] [place] [address] Dr. Bao Hsu WBC 11.4 103/ul Critically high 4.0-11.0 [facility] Comment on above: Performed By: #### C BC #### [facility] [address] [place] [address] Dr. Bao Hsu BASO # 0.1 103/ul Normal 0.0-0.1 [facility] Comment on above: Performed By: #### C BC #### [facility] [address] [place] [address] Dr. Bao Hsu Basophils/100 WBC (Bld) 0.4 % Normal 0.2-2.0 [facility] Comment on above: Performed By: #### C BC #### [facility] [address] [place] [address] Dr. Bao Hsu EO # 0.2 103/ul Normal 0.0-0.7 [facility] Comment on above: Performed By: #### C BC #### [facility] [address] [place] [address] Dr. Bao Hsu Eosinophils/100 WBC (Bld) 1.6 % Normal 0.9-7.0 [facility] Comment on above: Performed By: #### C BC #### [facility] [address] [place] [address] Dr. Bao Hsu Erythrocyte distribution width (RBC) [Ratio] 24.4 % Critically high 11.0-15.0 [facility] Comment on above: Performed By: #### C BC #### [facility] [address] [place] [address] Dr. Bao Hsu Hematocrit (Bld) [Volume fraction] 29.5 % Critically low 36.0-48.0 [facility] Comment on above: Performed By: #### C BC #### [facility] [address] [place] [address] Dr. Bao Hsu Hemoglobin (Bld) [Mass/Vol] 8.5 g/dL Critically low 12.0-16.0 [facility] Comment on above: Performed By: #### C BC #### [facility] [address] [place] [address] Dr. Bao Hsu IG # 0.06 10e3/ul Critically high 0.00-0.03 [facility] Comment on above: Performed By: #### C BC #### [facility] [address] [place] [address] Dr. Bao Hsu IG % 0.4 % Normal 0.0-0.5 [facility] Comment on above: Performed By: #### C BC #### [facility] [address] [place] [address] Dr. Bao Hsu LYMPH # 1.1 103/ul Critically low 1.2-3.8 [facility] Comment on above: Performed By: #### C BC #### [facility] [address] [place] [address] Dr. Bao Hsu Lymphocytes/100 WBC (Bld) 8.1 % Critically low 20.5-60.0 [facility] Comment on above: Performed By: #### C BC #### [facility] [address] [place] [address] Dr. Bao Hsu MANUAL DIFF REQ NO Normal [facility] Comment on above: Performed By: #### C BC #### [facility] [address] [place] [address] Dr. Bao Hsu MCH (RBC) [Entitic mass] 19.3 pg Critically low 26.7-34.0 [facility] Comment on above: Performed By: #### C BC #### [facility] [address] [place] [address] Dr. Bao Hsu MCHC (RBC) [Mass/Vol] 28.8 g/dL Critically low 29.9-35.2 [facility] Comment on above: Performed By: #### C BC #### [facility] [address] [address] [address] Bao Hsu MCV (RBC) [Entitic vol] 66.9 fL Critically low 81.0-99.0 [facility] Comment on above: Performed By: #### C BC #### [facility] [address] [address] [address] Bao Hsu MONO # 0.7 103/ul Normal 0.3-0.8 [facility] Comment on above: Performed By: #### C BC #### [facility] [address] [place] [address] Dr. Bao Hsu Monocytes/100 WBC (Bld) 5.3 % Normal 1.7-12.0 [facility] Comment on above: Performed By: #### C BC #### [facility] [address] [place] [address] Dr. Bao Hsu NEUT # 11.3 103/ul Critically high 1.4-6.5 [facility] Comment on above: Performed By: #### C BC #### [facility] [address] [place] [address] Dr. Bao Hsu Neutrophils/100 WBC (Bld) 84.2 % Critically high 43.0-75.0 [facility] Comment on above: Performed By: #### C BC #### [facility] [address] [address] [address] Bao Hsu Platelet mean volume (Bld) [Entitic vol] 8.2 fL Critically low 9.5-13.5 [facility] Comment on above: Performed By: #### C BC #### [facility] [address] [place] [address] Dr. Bao Hsu PLT 353 103/ul Normal 150-450 [facility] Comment on above: Performed By: #### C BC #### [facility] [address] [place] [address] Dr. Bao Hsu RBC 4.41 106/ul Normal 4.20-5.40 [facility] Comment on above: Performed By: #### C BC #### [facility] [address] [address] [address] Bao Hsu WBC 13.4 103/ul Critically high 4.0-11.0 [facility] Comment on above: Performed By: #### C BC #### [facility] [address] [address] [address] Bao Hsu BASO # 0.1 103/ul Normal 0.0-0.1 [facility] Comment on above: Performed By: #### C MADM, BMP #### [facility] [address] [address] [address] Bao Hsu Basophils/100 WBC (Bld) 0.4 % Normal 0.2-2.0 [facility] Comment on above: Performed By: #### C MADM, BMP #### [facility] [address] [place] [address] Dr. Bao Hsu EO # 0.2 103/ul Normal 0.0-0.7 [facility] Comment on above: Performed By: #### C MADM, BMP #### [facility] [address] [place] [address] Dr. Bao Hsu Eosinophils/100 WBC (Bld) 2.0 % Normal 0.9-7.0 [facility] Comment on above: Performed By: #### C MADM, BMP #### [facility] [address] [place] [address] Dr. Bao Hsu Erythrocyte distribution width (RBC) [Ratio] 20.8 % Critically high 11.0-15.0 [facility] Comment on above: Performed By: #### C MADM, BMP #### [facility] [address] [place] [address] Dr. Bao Hsu Hematocrit (Bld) [Volume fraction] 22.5 % Critically low 36.0-48.0 [facility] Comment on above: Performed By: #### C MADM, BMP #### [facility] [address] [address] [address] Bao Hsu Hemoglobin (Bld) [Mass/Vol] 5.7 g/dL Critically low 12.0-16.0 [facility] Comment on above: Performed By: #### C MADM, BMP #### [facility] [address] [address] [address] Bao Hsu IG # 0.07 10e3/ul Critically high 0.00-0.03 [facility] Comment on above: Performed By: #### C MADM, BMP #### [facility] [address] [address] [address] Bao Hsu IG % 0.6 % Critically high 0.0-0.5 [facility] Comment on above: Performed By: #### C MADM, BMP #### [facility] [address] [place] [address] Dr. Bao Hsu LYMPH # 1.7 103/ul Normal 1.2-3.8 [facility] Comment on above: Performed By: #### C DLM, BMP #### [facility] [address] [place] [address] Dr. Bao Hsu Lymphocytes/100 WBC (Bld) 15.0 % Critically low 20.5-60.0 [facility] Comment on above: Performed By: #### C DLM, BMP #### [facility] [address] [place] [address] Dr. Bao Hsu MANUAL DIFF REQ NO Normal [facility] Comment on above: Performed By: #### C MADM, BMP #### [facility] [address] [place] [address] Dr. Bao Hsu MCH (RBC) [Entitic mass] 15.8 pg Critically low 26.7-34.0 [facility] Comment on above: Performed By: #### C MADM, BMP #### [facility] [address] [place] [address] Dr. Bao Hsu MCHC (RBC) [Mass/Vol] 25.3 g/dL Critically low 29.9-35.2 [facility] Comment on above: Performed By: #### C MADM, BMP #### [facility] [address] [place] [address] Dr. Bao Hsu MCV (RBC) [Entitic vol] 62.3 fL Critically low 81.0-99.0 [facility] Comment on above: Performed By: #### C WESLEY, BMP #### [facility] [address] [place] [address] Dr. Bao Hsu MONO # 0.7 103/ul Normal 0.3-0.8 [facility] Comment on above: Performed By: #### C WESLEY, BMP #### [facility] [address] [place] [address] Dr. Bao Hsu Monocytes/100 WBC (Bld) 5.8 % Normal 1.7-12.0 [facility] Comment on above: Performed By: #### C WESLEY, BMP #### [facility] [address] [place] [address] Dr. Bao Hsu NEUT # 8.7 103/ul Critically high 1.4-6.5 The [facility] Comment on above: Performed By: #### C WESLEY, BMP #### [facility] [address] [place] [address] Dr. Bao Hsu Neutrophils/100 WBC (Bld) 76.2 % Critically high 43.0-75.0 [facility] Comment on above: Performed By: #### C WESLEY, BMP #### [facility] [address] [place] [address] Dr. Bao Hsu Platelet mean volume (Bld) [Entitic vol] 8.4 fL Critically low 9.5-13.5 [facility] Comment on above: Performed By: #### C WESLEY, BMP #### [facility] [address] [place] [address] Dr. Bao Hsu PLT 384 103/ul Normal 150-450 [facility] Comment on above: Performed By: #### C WESLEY, BMP #### [facility] [address] [place] [address] Dr. Bao Hsu RBC 3.61 106/ul Critically low 4.20-5.40 The [facility] Comment on above: Performed By: #### C WESLEY, BMP #### [facility] [address] [place] [address] Dr. Bao Hsu WBC 11.4 103/ul Critically high 4.0-11.0 [facility] Comment on above: Performed By: #### C WESLEY, ESTHER #### [facility] [address] [place] [address] Dr. Bao Hsu [facility] SARS-CoV-2 (COVID-19) RNA GREG+probe Ql (Unsp spec) Not detected Normal NOT DETECTED [facility] Comment on above: Result Comment: When diagnostic [...] for this test is supported by the Pull Out Operator of Health and Human Service's declaration that [...] used). Performed By: #### C VDTBH #### [facility] [address] [place] [address] Dr. Bao Hsu MAGNESIUMon 05-29-2022 Magnesium [Mass/Vol] 1.7 mg/dL Critically low 1.8-2.4 [facility] Comment on above: Performed By: #### C ESTHER OSLON #### [facility] [address] [place] [address] Dr. Bao Hsu PROF 14(COMP METB)on 023 Albumin [Mass/Vol] 3.7 g/dL Normal 3.4-5.0 [facility] Comment on above: Performed By: #### C WESLEY, BMP #### [facility] [address] [address] [address] Bao Hsu Albumin/Globulin [Mass ratio] 1.2 {ratio} Normal [facility] Comment on above: Performed By: #### C DLM, BMP #### [facility] [address] [address] [address] Bao Hsu ALP [Catalytic activity/Vol] 130 U/L Critically high 46-116 [facility] Comment on above: Performed By: #### C DLM, BMP #### [facility] [address] [address] [address] Bao Hsu ALT [Catalytic activity/Vol] 10 U/L Critically low 14-59 [facility] Comment on above: Performed By: #### C WESLEY, BMP #### [facility] [address] [address] [address] Bao Hsu Anion gap [Moles/Vol] 14.4 mmol/L Normal [facility] Comment on above: Performed By: #### C WESLEY, BMP #### [facility] [address] [address] [address] Bao Hsu AST [Catalytic activity/Vol] 14 U/L Critically low 15-37 [facility] Comment on above: Performed By: #### C WESLEY, BMP #### [facility] [address] [address] [address] Bao Hsu Bilirubin [Mass/Vol] 1.3 mg/dL Critically high 0.2-1.0 [facility] Comment on above: Performed By: #### C WESLEY, BMP #### [facility] [address] [address] [address] Bao Hsu Calcium [Mass/Vol] 8.9 mg/dL Normal 8.5-10.1 [facility] Comment on above: Performed By: #### C WESLEY, BMP #### [facility] [address] [address] [address] Bao Hsu Chloride [Moles/Vol] 104 mmol/L Normal 98-107 [facility] Comment on above: Performed By: #### C MADM, BMP #### [facility] [address] [address] [address] Bao Hsu CO2 [Moles/Vol] 25.6 mmol/L Normal 21.0-32.0 [facility] Comment on above: Performed By: #### C DLM, BMP #### [facility] [address] [address] [address] Bao Hsu Creatinine [Mass/Vol] 0.62 mg/dL Normal 0.55-1.02 [facility] Comment on above: Performed By: #### C DLM, BMP #### [facility] [address] [address] [address] Bao Hsu EGFR-AF CUBAN >60 Normal >=60 [facility] Comment on above: Performed By: #### C DLM, BMP #### [facility] [address] [address] [address] Bao Hsu EGFR-NON AF CUBAN >60 Normal >=60 [facility] Comment on above: Performed By: #### C WESLEY, BMP #### [facility] [address] [address] [address] Bao Hsu Globulin (S) [Mass/Vol] 3.1 g/dL Normal [facility] Comment on above: Performed By: #### C WESLEY, BMP #### [facility] [address] [address] [address] aBo Hsu Glucose [Mass/Vol] 125 mg/dL Critically high 74-106 [facility] Comment on above: Performed By: #### C DLM, BMP #### [facility] [address] [address] [address] Bao Hsu Potassium [Moles/Vol] 4.0 mmol/L Normal 3.5-5.1 [facility] Comment on above: Performed By: #### C DLM, BMP #### [facility] [address] [address] [address] Bao Hsu Protein [Mass/Vol] 6.8 g/dL Normal 6.4-8.2 [facility] Comment on above: Performed By: #### C MADM, BMP #### [facility] [address] [address] [address] Bao Hsu Sodium [Moles/Vol] 140 mmol/L Normal 136-145 [facility] Comment on above: Performed By: #### C MADM, BMP #### [facility] [address] [address] [address] Bao Hsu Urea nitrogen [Mass/Vol] 8.0 mg/dL Normal 7.0-18.0 [facility] Comment on above: Performed By: #### C MADM, BMP #### [facility] [address] [address] [address] Bao Hsu Urea nitrogen/Creatinine [Mass ratio] 12.9 mg/mg Normal [facility] Comment on above: Performed By: #### C DLM, BMP #### [facility] [address] [place] [address] Dr. Bao Hsu PROF CHEM 8 (BAS METB)on Anion gap [Moles/Vol] 10.3 mmol/L Normal [facility] Comment on above: Performed By: #### C WESLEY, BMP #### [facility] [address] [address] [address] Bao Hsu Calcium [Mass/Vol] 8.8 mg/dL Normal 8.5-10.1 [facility] Comment on above: Performed By: #### C DLM, BMP #### [facility] [address] [address] [address] Bao Hsu Chloride [Moles/Vol] 100 mmol/L Normal 98-107 [facility] Comment on above: Performed By: #### C DLM, BMP #### [facility] [address] [address] [address] Bao Hsu CO2 [Moles/Vol] 25.5 mmol/L Normal 21.0-32.0 [facility] Comment on above: Performed By: #### C DLM, BMP #### [facility] [address] [address] [address] Bao Hsu Creatinine [Mass/Vol] 0.67 mg/dL Normal 0.55-1.02 [facility] Comment on above: Performed By: #### C MADM, BMP #### [facility] [address] [address] [address] Bao Hsu EGFR-AF CUBAN >60 Normal >=60 [facility] Comment on above: Performed By: #### C MADM, BMP #### [facility] [address] [address] [address] Bao Hsu EGFR-NON AF CUBAN >60 Normal >=60 [facility] Comment on above: Performed By: #### C MADM, BMP #### [facility] [address] [address] [address] Bao Hsu Glucose [Mass/Vol] 118 mg/dL Critically high 74-106 [facility] Comment on above: Performed By: #### C MADM, BMP #### [facility] [address] [address] [address] Bao Hsu Potassium [Moles/Vol] 3.8 mmol/L Normal 3.5-5.1 [facility] Comment on above: Performed By: #### C MADM, BMP #### [facility] [address] [address] [address] Bao Hsu Sodium [Moles/Vol] 132 mmol/L Critically low 136-145 [facility] Comment on above: Performed By: #### C MADM, BMP #### [facility] [address] [address] [address] Bao Hsu Urea nitrogen [Mass/Vol] 12.0 mg/dL Normal 7.0-18.0 [facility] Comment on above: Performed By: #### C MADM, BMP #### [facility] [address] [address] [address] Bao Hsu Urea nitrogen/Creatinine [Mass ratio] 17.9 mg/mg Normal [facility] Comment on above: Performed By: #### C MADM, BMP #### [facility] [address] [address] [address] Bao Hsu PTTon 05-29-2022 aPTT Coag (Bld) [Time] 27.5 s Normal 22.3-36.2 [facility] Comment on above: Performed By: #### S EDR #### [facility] [address] [address] [address] Bao Hsu SED RATE WESTERGRENon 2022 SED RATE 15 mm/hr Normal <=30 [facility] Comment on above: Performed By: #### S EDR #### [facility] [address] [address] [address] Bao Hsu TYPE AND SCREENon 05-29-2022 TYPE AND SCREEN Negative Normal [facility] Comment on above: Performed By: #### C WESLEY, BMP #### [facility] [address] [place] [address] Dr. Bao Hsu XR CHEST 1 Von [...] by: EDDIE LACY Date: 2022-05-28 23:05 Normal [facility] FERRITINon 05-28-2022 Ferritin [Mass/Vol] 4.0 ng/mL Critically low 8.0-252.0 [facility] Comment on above: Performed By: #### S EDR #### [facility] [address] [place] [address] Dr. Bao Hsu IRON AND TIBCon 05-28-2022 % SATURATION 2.1 % Normal [facility] Comment on above: Performed By: #### S EDR #### [facility] [address] [place] [address] Dr. Bao Hsu Iron [Mass/Vol] 10.0 ug/dL Critically low 50.0-170.0 [facility] Comment on above: Performed By: #### S EDR #### [facility] [address] [place] [address] Dr. Bao Hsu TIBC DIRECT 483.0 ug/dL Critically high 250.0-450.0 [facility] Comment on above: Performed By: #### S EDR #### [facility] [address] [address] [address] Bao sHu VIT B12 AND FOLATEon 023 Cobalamin (Vitamin B12) [Mass/Vol] 438.0 pg/mL Normal 193.0-986.0 [facility] Comment on above: Performed By: #### S EDR #### [facility] [address] [address] [address] Bao Hsu FOLATE 8.80 ng/mL Normal 8.60-58.90 [facility] Comment on above: Performed By: #### S EDR #### [facility] [address] [address] [address] Bao Hsu CBC W/DIFFon 01-02-2021 ABS IMM GRANS 0.1 10*3/uL Normal 0.0-0.2 [facility] Comment on above: Order Comment: pre a blation? pacemaker? Performed By: #### 5 0103 ####[facility] ABS NEUTROPHILS 15.2 10*3/uL High 1.6-7.6 [facility] Comment on above: Order Comment: pre a blation? pacemaker? Performed By: #### 5 0103 ####[facility] Basophils (Bld) [#/Vol] 0.0 10*3/uL Normal 0.0-0.2 [facility] Comment on above: Order Comment: pre a blation? pacemaker? Performed By: #### 5 0103 ####[facility] Basophils/100 WBC (Bld) 0.2 % Normal 0.0-1.0 [facility] Comment on above: Order Comment: pre a blation? pacemaker? Performed By: #### 5 0103 ####[facility] Eosinophils (Bld) [#/Vol] 0.0 10*3/uL Normal 0.0-0.5 [facility] Comment on above: Order Comment: pre a blation? pacemaker? Performed By: #### 5 0103 ####[facility] Eosinophils/100 WBC (Bld) 0.0 % Normal 0.0-6.0 [facility] Comment on above: Order Comment: pre a blation? pacemaker? Performed By: #### 5 0103 ####[facility] Erythrocyte distribution width (RBC) [Ratio] 18.6 % High 11.5-15.0 [facility] Comment on above: Order Comment: pre a blation? pacemaker? Performed By: #### 5 0103 ####[facility] Hematocrit (Bld) [Volume fraction] 29.4 % Low 36.0-45.0 [facility] Comment on above: Order Comment: pre a blation? pacemaker? Performed By: #### 5 0103 ####[facility] Hemoglobin (Bld) [Mass/Vol] 8.1 g/dL Low 12.0-15.0 [facility] Comment on above: Order Comment: pre a blation? pacemaker? Performed By: #### 5 0103 ####[facility] IMMATURE GRANS 0.6 % Normal 0.0-1.0 [facility] Comment on above: Order Comment: pre a blation? pacemaker? Performed By: #### 5 0103 ####[facility] Lymphocytes (Bld) [#/Vol] 1.2 10*3/uL Normal 1.2-4.0 [facility] Comment on above: Order Comment: pre a blation? pacemaker? Performed By: #### 5 0103 ####[facility] Lymphocytes/100 WBC (Bld) 6.8 % Low 20.0-45.0 [facility] Comment on above: Order Comment: pre a blation? pacemaker? Performed By: #### 5 0103 ####[facility] MCH (RBC) [Entitic mass] 20.7 pg Low 27.0-33.0 [facility] Comment on above: Order Comment: pre a blation? pacemaker? Performed By: #### 5 0103 ####[facility] MCHC (RBC) [Mass/Vol] 27.6 g/dL Low 32.0-35.0 [facility] Comment on above: Order Comment: pre a blation? pacemaker? Performed By: #### 5 0103 ####[facility] [place] [address], [facility] MCV (RBC) [Entitic vol] 75.2 fL Low 82.0-98.0 [facility] Comment on above: Order Comment: pre a blation? pacemaker? Performed By: #### 5 0103 ####[facility] [place] [address], [facility] Monocytes (Bld) [#/Vol] 1.3 10*3/uL High 0.1-1.0 [facility] Comment on above: Order Comment: pre a blation? pacemaker? Performed By: #### 5 0103 ####[facility] [place] [address], [facility] MONOS 7.3 % Normal 5.0-12.0 [facility] Comment on above: Order Comment: pre a blation? pacemaker? Performed By: #### 5 0103 ####[facility] [place] [address], [place] Neutrophils/100 WBC (Bld) 85.1 % High 40.0-72.0 [facility] [facility] Comment on above: Order Comment: pre a blation? pacemaker? Performed By: #### 5 0103 ####[facility] [place] [address], [facility] Nucleated RBC/100 WBC (Bld) [Ratio] 0 % Normal 0-0 [facility] Comment on above: Order Comment: pre a blation? pacemaker? Performed By: #### 5 0103 ####[facility] [place] [address], [place] PLAT CNT 404 10*3/uL High 150-400 [facility] Comment on above: Order Comment: pre a blation? pacemaker? Performed By: #### 5 0103 ####[facility] [facility] [place] [address], [facility] RBC (Bld) [#/Vol] 3.91 10*6/uL Normal 3.80-5.00 The [facility] Comment on above: Order Comment: pre a blation? pacemaker? Performed By: #### 5 0103 ####[facility] [place] [address], [place] WBC (Bld) [#/Vol] 17.85 10*3/uL High 4.00-10.60 [facility] Comment on above: Order Comment: pre a blation? pacemaker? Performed By: #### 5 0103 ####[facility] [place] [address], [facility] ABS IMM GRANS 0.1 10*3/uL Normal 0.0-0.2 The [facility] Comment on above: Order Comment: No: D o not add to previous draw Performed By: #### 5 0103 #### [facility] [address] [place] [address], [facility] ABS NEUTROPHILS 10.0 10*3/uL High 1.6-7.6 The [facility] Comment on above: Order Comment: No: D o not add to previous draw Performed By: #### 5 0103 #### [facility] [address] [place] [address], [facility] ANISO Moderate Normal [facility] Comment on above: Order Comment: No: D o not add to previous draw Performed By: #### 5 0103 #### [facility] [address] [facility] [place] [address], [facility] Basophils (Bld) [#/Vol] 0.0 10*3/uL Normal 0.0-0.2 [facility] Comment on above: Order Comment: No: D o not add to previous draw Performed By: #### 5 0103 #### [facility] [address] [place] [address], [facility] Basophils/100 WBC (Bld) 0.2 % Normal 0.0-1.0 [facility] Comment on above: Order Comment: No: D o not add to previous draw Performed By: #### 5 0103 #### [facility] [address] [place] [address], [facility] Eosinophils (Bld) [#/Vol] 0.0 10*3/uL Normal 0.0-0.5 [facility] Comment on above: Order Comment: No: D o not add to previous draw Performed By: #### 5 0103 #### [facility] [address] [place] [address], [facility] Eosinophils/100 WBC (Bld) 0.0 % Normal 0.0-6.0 [facility] Comment on above: Order Comment: No: D o not add to previous draw Performed By: #### 5 0103 #### [facility] [address] [place] [id number], [facility] Erythrocyte distribution width (RBC) [Ratio] 18.6 % High 11.5-15.0 [facility] Comment on above: Order Comment: No: D o not add to previous draw Performed By: #### 5 0103 #### [facility] [address] [place] [address], [facility] Hematocrit (Bld) [Volume fraction] 29.4 % Low 36.0-45.0 [facility] Comment on above: Order Comment: No: D o not add to previous draw Performed By: #### 5 0103 #### [facility] [address] [place] [address], [facility] Hemoglobin (Bld) [Mass/Vol] 8.3 g/dL Low 12.0-15.0 [facility] Comment on above: Order Comment: No: D o not add to previous draw Performed By: #### 5 0103 #### [facility] [address] [place] [address], [facility] HYPO Slight Normal [facility] Comment on above: Order Comment: No: D o not add to previous draw Performed By: #### 5 0103 #### [facility] [address] [place] [address], [facility] IMMATURE GRANS 0.5 % Normal 0.0-1.0 The [facility] Comment on above: Order Comment: No: D o not add to previous draw Performed By: #### 5 0103 #### [facility] [address] [place] [address], [facility] Lymphocytes (Bld) [#/Vol] 0.6 10*3/uL Low 1.2-4.0 [facility] Comment on above: Order Comment: No: D o not add to previous draw Performed By: #### 5 0103 #### [facility] [address] [place] [address], [facility] Lymphocytes/100 WBC (Bld) 5.7 % Low 20.0-45.0 [facility] Comment on above: Order Comment: No: D o not add to previous draw Performed By: #### 5 0103 #### [facility] [address] [place] [address], [facility] MCH (RBC) [Entitic mass] 20.9 pg Low 27.0-33.0 [facility] Comment on above: Order Comment: No: D o not add to previous draw Performed By: #### 5 0103 #### [facility] [address] [facility]. [address] Performed By: #### 5 0608 ####[facility] [facility] [place] [address], [facility] MCHC (RBC) [Mass/Vol] 28.2 g/dL Low 32.0-35.0 [facility] Comment on above: Order Comment: No: D o not add to previous draw Performed By: #### 5 0103 #### [facility] [address] [place] [id number], [facility] MCV (RBC) [Entitic vol] 73.9 fL Low 82.0-98.0 [facility] Comment on above: Order Comment: No: D o not add to previous draw Performed By: #### 5 0103 #### [facility] [address] [facility]. [place] [id number], [facility] MICRO Slight Normal [facility] Comment on above: Order Comment: No: D o not add to previous draw Performed By: #### 5 3 #### [facility] [address] [place] [id number], [facility] Monocytes (Bld) [#/Vol] 0.4 10*3/uL Normal 0.1-1.0 [facility] Comment on above: Order Comment: No: D o not add to previous draw Performed By: #### 5 0103 #### [facility] [address] [place] [address], [facility] MONOS 3.6 % Low 5.0-12.0 [facility] Comment on above: Order Comment: No: D o not add to previous draw Performed By: #### 5 0103 #### [facility] [address] [place] [address], [facility] Neutrophils/100 WBC (Bld) 90.0 % High 40.0-72.0 [facility] Comment on above: Order Comment: No: D o not add to previous draw Performed By: #### 5 0103 #### [facility] [address] [place] [address], [facility] Nucleated RBC/100 WBC (Bld) [Ratio] 0 % Normal 0-0 [facility] Comment on above: Order Comment: No: D o not add to previous draw Performed By: #### 5 0103 #### [facility] [address] Performed By: #### 5 0608 ####[facility] [place] [address], [facility] PLAT CNT 385 10*3/uL Normal 150-400 [facility] Comment on above: Order Comment: No: D o not add to previous draw Performed By: #### 5 0103 #### [facility] [address] [place] [address], [facility] RBC (Bld) [#/Vol] 3.98 10*6/uL Normal 3.80-5.00 [facility] Comment on above: Order Comment: No: D o not add to previous draw Performed By: #### 5 0103 #### [facility] [address] [facility]. [address] WBC (Bld) [#/Vol] 11.14 10*3/uL High 4.00-10.60 [facility] Comment on above: Order Comment: No: D o not add to previous draw Performed By: #### 5 0103 #### [facility] [address] [facility]. [address] CBC COMPLETE BLOOD COUNTon Erythrocyte distribution width (RBC) [Ratio] 18.2 % High 11.5-15.0 [facility] Comment on above: Performed By: #### 5 0608 ####[facility] Hematocrit (Bld) [Volume fraction] 24.7 % Low 36.0-45.0 [facility] Comment on above: Performed By: #### 5 0608 ####[facility] Hemoglobin (Bld) [Mass/Vol] 6.9 g/dL Low 12.0-15.0 [facility] Comment on above: Performed By: #### 5 0608 ####[facility] MCHC (RBC) [Mass/Vol] 27.9 g/dL Low 32.0-35.0 [facility] Comment on above: Performed By: #### 5 0608 ####[facility] [place] [address], [facility] MCV (RBC) [Entitic vol] 74.8 fL Low 82.0-98.0 [facility] Comment on above: Performed By: #### 5 0608 ####[facility] [facility] [place] [address], [facility] PLAT CNT 269 10*3/uL Normal 150-400 [facility] Comment on above: Performed By: #### 5 0608 ####[facility] RBC (Bld) [#/Vol] 3.30 10*6/uL Low 3.80-5.00 [facility] Comment on above: Performed By: #### 5 0608 ####[facility] WBC (Bld) [#/Vol] 7.66 10*3/uL Normal 4.00-10.60 [facility] Comment on above: Performed By: #### 5 0608 ####[facility] Cardiovascular Lab Reporton 01-01-2021 Cardiovascular Lab Report [facility] #: [id number] Physician: Maury Jay MD Department of Service Date: 01/01/2021 Medicine Birthdate: 1945 Division of Room #: [id number] Cardiology Adult Cardiovascular Services [place] [address] Cardiovascular Laboratory Report ATRIAL FIBRILLATION ABLATION PROCEDURE [...] SANDRA clot. Esophagus was mapped using the [employer] 3D mapping software and noted to be [...] in (more content not included)... Normal [facility] POC GLUCOSE LABon 01-01-2021 Glucose [Mass/Vol] 124 mg/dL High 70-100 [facility] Comment on above: Performed By: #### 8 5499 #### [facility] [address] PROTHROMBIN TIMEon 1 INR Coag (PPP) [Relative time] 1.10 {INR} Normal 0.91-1.16 [facility] Comment on above: Result Comment: ACCC P RECOMMENDED INR FOR WARFARIN THERAPY ------ ------- CONDITION INR PROPHYLAXIS OF VENOUS THROMBOSIS 2-3 (HIGH-RISK SURGERY) TREATMENT OF VENOUS THROMBOSIS 2-3 TREATMENT OF PULMONARY EMBOLISM 2-3 PREVENTION OF SYSTEMIC EMBOLISM: 2-3 ACUTE MYOCARDIAL INFARCTION TISSUE HEART VALVES VALVULAR HEART DISEASE ATRIAL FIBRILLATION RECURRENT SYSTEMIC EMBOLISM MECHANICAL HEART VALVE 2.5-3.5 FROM: ORAL ANTICOAGULANTS. MECHANISM OF ACTION, CLINICAL EFFECTIVENESS, AND OPTIMAL THERAPEUTIC RANGE. CHEST 1995;108:231S-246S. Performed By: #### 5 6101 #### [facility] [address] [facility]. [address] PT Coag (PPP) [Time] 14.2 s Normal 12.3-14.8 [facility] Comment on above: Result Comment: ALL RESULTS MUST BE INTERPRETED WITH RESPECT TO BLOOD DRAWING ARTIFACT OR DILUTION ERROR OF ANTICOAGULANT AT THE TIME OF SAMPLING. Performed By: #### 5 6101 #### [facility] [address] [facility] *SARS-CoV-2 COVID-19on 12-28 SARS-CoV-2 (COVID-19) RNA GREG+probe Ql (Unsp spec) Not detected Normal Not Detected [facility] Comment on above: Order Comment: The A ptima SARS-CoV-2 assay is a nucleic acid amplification test intended for the qualitative detection of RNA from SARS-CoV-2 isolated and purified from nasopharyngeal (RECYCLE WORKER),oropharyngeal (OP), nasal swab, sputum, and bronchoalveolar lavage (BAL) specimens from patients with signs and symptoms of infection who are suspected of COVID-19. Results are for the identification of SARS-CoV-2 RNA. The SARS-CoV-2 RNA is generally detectable during the acute phase of infection. The Aptima SARS-CoV-2 Assay on the [place] [employer] [place] [employer] system is intended for use by laboratory personnel specifically instructed and trained in the operation of the [place] [employer] [place] [employer] system. The Aptima SARS-CoV-2 assay is [...] information. Performed By: #### 3 1792 #### [facility] [address] [place] [address], [facility] BASIC METABOLIC PANELon 10-0 Calcium [Mass/Vol] 9.2 mg/dL Normal 8.6-10.[address] [facility] Comment on above: Performed By: #### 0 0071 #### [facility] [address] [place] [address], [place] Chloride [Moles/Vol] 102 mmol/L Normal 98-107 [facility] Comment on above: Performed By: #### 0 0071 #### [facility] [address] [place] [address], [place] CO2 [Moles/Vol] 27 mmol/L Normal 21-31 [facility] Comment on above: Performed By: #### 0 0071 #### [facility] [address] [place] [address], [place] Creatinine [Mass/Vol] 0.84 mg/dL Normal 0.60-1.20 [facility] Comment on above: Performed By: #### 0 0071 #### [facility] [address] [place] [address], [place] GFR/1.73 sq M.predicted among blacks MDRD (S/P/Bld) [Vol rate/Area] mL/min/{1.73_m2} Normal >60 [facility] Comment on above: Result Comment: Calc ulation may not be valid for patients over 70 years Performed By: #### 0 0071 #### [facility] [address] [place] [address], [place] GFR/1.73 sq M.predicted among non-blacks MDRD (S/P/Bld) [Vol rate/Area] mL/min/{1.73_m2} Normal >60 [facility] Comment on above: Result Comment: Calc ulation may not be valid for patients over 70 years Performed By: #### 0 0071 #### [facility] [address] [place] [address], [facility] Glucose [Mass/Vol] 105 mg/dL High 70-100 [facility] Comment on above: Performed By: #### 0 0071 #### [facility] [address] [place] [address], [facility] Potassium [Moles/Vol] 4.7 mmol/L Normal 3.5-5.1 [facility] Comment on above: Performed By: #### 0 0071 #### [facility] [address] [facility] [place] [address], [facility] Sodium [Moles/Vol] 136 mmol/L Normal 136-145 [facility] Comment on above: Performed By: #### 0 0071 #### [facility] [address] [facility]. [address] Urea nitrogen [Mass/Vol] 17 mg/dL Normal 7-25 [facility] Comment on above: Performed By: #### 0 0071 #### [facility] [address] [facility] [place] [address], [facility] CBC W/DIFFon 12-28-2020 ABS IMM GRANS 0.0 10*3/uL Normal 0.0-0.2 [facility] Comment on above: Performed By: #### 5 3 #### [facility] [address] [facility] [place] [address], [facility] ABS NEUTROPHILS 8.7 10*3/uL High 1.6-7.6 The [facility] Comment on above: Performed By: #### 5 102 #### [facility] [address] [place] [address], [facility] ANISO Moderate Normal [facility] Comment on above: Performed By: #### 5 0103 #### [facility] [address] [place] [address], [facility] Basophils (Bld) [#/Vol] 0.1 10*3/uL Normal 0.0-0.2 [facility] Comment on above: Performed By: #### 5 102 #### [facility] [address] [place] [address], [facility] Basophils/100 WBC (Bld) 0.8 % Normal 0.0-1.0 [facility] Comment on above: Performed By: #### 3 #### [facility] [address] [facility] [place] [address], [facility] Eosinophils (Bld) [#/Vol] 0.3 10*3/uL Normal 0.0-0.5 [facility] Comment on above: Performed By: #### 102 #### [facility] [address] [place] [address], [facility] Eosinophils/100 WBC (Bld) 2.2 % Normal 0.0-6.0 [facility] Comment on above: Performed By: #### 3 #### [facility] [address] [facility]. [address] Erythrocyte distribution width (RBC) [Ratio] 18.5 % High 11.5-15.0 [facility] Comment on above: Performed By: #### 3 #### [facility] [address] [facility] [place] [address], [facility] Hematocrit (Bld) [Volume fraction] 33.7 % Low 36.0-45.0 [facility] Comment on above: Performed By: #### 102 #### [facility] [address] [place] [address], [facility] Hemoglobin (Bld) [Mass/Vol] 9.6 g/dL Low 12.0-15.0 [facility] Comment on above: Performed By: #### 5 0103 #### [facility] [address] [facility] [place] [address], [facility] HYPO Slight Normal [facility] Comment on above: Performed By: #### 5 0103 #### [facility] [address] [place] [address], [facility] IMMATURE GRANS 0.3 % Normal 0.0-1.0 [facility] Comment on above: Performed By: #### 5 0103 #### [facility] [address] [facility] [place] [address], [facility] Lymphocytes (Bld) [#/Vol] 1.7 10*3/uL Normal 1.2-4.0 [facility] Comment on above: Performed By: #### 3 #### [facility] [address] [facility] [place] [address], [facility] Lymphocytes/100 WBC (Bld) 14.7 % Low 20.0-45.0 [facility] Comment on above: Performed By: #### 5 0103 #### [facility] [address] [facility] [place] [address], [facility] MCH (RBC) [Entitic mass] 20.7 pg Low 27.0-33.0 [facility] Comment on above: Performed By: #### 5 0103 #### [facility] [address] [facility] [place] [address], [facility] MCHC (RBC) [Mass/Vol] 28.5 g/dL Low 32.0-35.0 [facility] Comment on above: Performed By: #### 5 0103 #### [facility] [address] [facility] [place] [address], [facility] MCV (RBC) [Entitic vol] 72.8 fL Low 82.0-98.0 [facility] Comment on above: Performed By: #### 5 3 #### [facility] [address] [place] [address], [facility] MICRO Slight Normal [facility] Comment on above: Performed By: #### 5 0103 #### [facility] [address] [facility] [place] [address], [facility] Monocytes (Bld) [#/Vol] 0.8 10*3/uL Normal 0.1-1.0 [facility] Comment on above: Performed By: #### 5 0103 #### [facility] [address] [facility] [place] [address], [facility] MONOS 6.6 % Normal 5.0-12.0 [facility] Comment on above: Performed By: #### 5 0103 #### [facility] [address] Neutrophils/100 WBC (Bld) 75.4 % High 40.0-72.0 [facility] Comment on above: Performed By: #### 5 3 #### [facility] [address] [facility]. [address] Nucleated RBC/100 WBC (Bld) [Ratio] 0 % Normal 0-0 [facility] Comment on above: Performed By: #### 5 010 #### [facility] [address] [facility] [place] [address], [facility] PLAT CNT 417 10*3/uL High 150-400 [facility] Comment on above: Performed By: #### 5 3 #### [facility] [address] [facility] [place] [address], [facility] POIK Slight Normal [facility] Comment on above: Performed By: #### 5 3 #### [facility] [address] [facility] [place] [address], [facility] RBC (Bld) [#/Vol] 4.63 10*6/uL Normal 3.80-5.00 [facility] Comment on above: Performed By: #### 5 3 #### [facility] [address] [place] [address], [facility] WBC (Bld) [#/Vol] 11.48 10*3/uL High 4.00-10.60 [facility] Comment on above: Performed By: #### 5 0103 #### [facility] [address] [place] [address], [facility] CREATININE BLOODon Creatinine [Mass/Vol] 0.91 mg/dL Normal 0.60-1.20 [facility] Comment on above: Performed By: #### 2 5656 #### [facility] [address] [place] [address], [facility] GFR/1.73 sq M.predicted among blacks MDRD (S/P/Bld) [Vol rate/Area] mL/min/{1.73_m2} Normal >60 [facility] Comment on above: Result Comment: Calc ulation may not be valid for patients over 70 years Performed By: #### 2 5656 #### [facility] [address] [facility] [place] [address], [facility] GFR/1.73 sq M.predicted among non-blacks MDRD (S/P/Bld) [Vol rate/Area] mL/min/{1.73_m2} Normal >60 [facility] Comment on above: Result Comment: Calc ulation may not be valid for patients over 70 years Performed By: #### 2 5656 #### [facility] [address] [facility] [place] [address], [facility] CTA CHESTon 10-11-2020 CTA CHEST [facility] Department of Radiology [address] [place] [id number] ======== Patient Name: KAROLINA BASHIR : 1945 Sex: F Age: Race: White Pt. Location: 30 Patient Status: D Ordered Date: 09/27/2020 9:50:00 AM Completed Date: 10/11/2020 01:50 PM Requesting Provider: MAURY JAY Attending Provider: MAURY JAY Report Copy To: JEB ROSA Signs & Symptoms: I48.0 Paroxysmal atrial fibrillation I10 History: Sophie patient will need labs NPO 4 hrs. medicare no pc required med nec passed 10/02/20 *kw [id number] Comments: pre ablation? pacemaker? Exam: CTA CHEST [...] thickening. Electronically signed: Don Dobson. Transcribed by: [email or web address], User Resident: Electronically Signed by: DON DOBSON @ 10/15/2020 09:26 AM Normal [facility] Comment on above: Order Comment: pre a blation? pacemaker? Cardiovascular Lab Reporton 10-07-2020 Cardiovascular Lab Report [facility] Patient Name: [facility] Karolina Pino MR #: [id number] Department of Physician: Maury Jay MD Medicine Service Date: 09/30/2020 Division of Birthdate: 1945 Cardiology Room #: Adult Cardiovascular Services [facility] [address] [place] [id number] Cardiovascular Laboratory Report DIRECT CARDIOVERSION PROCEDURE NOTE [...] MD Cardiac Electrophysiology Electronically Signed by: Maury Jay MD 10/16/2020 07:01 P Maury Jay MD Date Dict: 10/07/2020/08:03 P/Maury Jay MD Date Trans: 10/07/2020 09:00 P/alisa [id number] cc: [place] [address] [place] [facility] Vital Signs Date Time Vital Sign Value Performing Clinician Alma cox 10-04-2023 10:190400 Body height 160 cm Sta 3 [facility] 10-04-2023 10:19-0400 Body mass index (BMI) [Ratio] 27.46 kg/m2 Sta 3 [facility] 10-04-2023 10:19-0400 Body weight 70.31 kg Sta 3 [facility] 11-12-2022 11:20-0400 Body height 160.02 cm Referring Provider Unknown LJ-Dgrnfcnys-Buwsx Work Phone: 11-12-2022 11:20-0400 Body mass index (BMI) [Ratio] 25.69 kg/m2 Referring Provider Unknown TN-Evsongocv-Jdrlh Work Phone: 11-12-2022 11:20-0400 Body surface area Derived from formula 1.69 m2 Referring Provider Unknown LE-Dffegkgux-Vfvqf Work Phone: 11-12-2022 11:20-0400 Body weight 65.77 kg Referring Provider Unknown DV-Pgbhhqkmg-Kbyer Work Phone: 11-12-2022 11:20-0400 Diastolic blood pressure 66 mm[Hg] Referring Provider Unknown KQ-Idsgqqrry-Iflzq Work Phone: 11-12-2022 11:20-0400 Heart rate 70 /min Referring Provider Unknown QD-Tihcpkdin-Psngg Work Phone: 11-12-2022 11:20-0400 Respiratory rate 19 /min Referring Provider Unknown KP-Chympiaak-Kteei Work Phone: 11-12-2022 11:20-0400 SaO2% (BldA) [Mass fraction] 93 % Referring Provider Unknown XQ-Mciajweij-Teazi ll Work Phone: 11-12-2022 11:20-0400 Systolic blood pressure 104 mm[Hg] Referring Provider Unknown OA-Jxatqgwsq-Eehfc Work Phone: Encounters Encounter Date Encounter Type Care Provider Facility Start: 02-21-2024 End: 02-21-2024 ambulatory DO JEB ROSA Facility:[facility] Start: 01-17-2024 End: 01-17-2024 ambulatory DO JEB ROSA Facility:[facility] Start: 12-20-2023 End: 12-20-2023 ambulatory [facility] Start: 10-18-2023 End: 10-20-2023 ambulatory [facility] Start: 10-14-2023 End: 10-14-2023 ambulatory JEB Bauman BRIGHTON Facility:[facility] Start: 10-04-2023 End: 10-04-2023 Subsequent hospital visit by physician Elile Harrison 3 STATiff PRE-ADMIT TESTING Comment on above: No Show Start: 09-29-2023 End: 09-29-2023 ambulatory JEB Bauman BRIGHTON Facility:[facility] Start: 09-22-2023 End: 09-22-2023 Evaluation and management of inpatient [facility] Start: 09-21-2023 End: 09-22-2023 Evaluation and management of inpatient [facility] Start: 09-21-2023 Encounter for other preprocedural examination [facility] Start: 09-21-2023 End: 09-21-2023 Evaluation and management of inpatient [facility] Start: 09-21-2023 End: 09-21-2023 Emergency department patient visit [facility] Start: 09-20-2023 End: 09-20-2023 ambulatory JEB ROSA Facility:[facility] Start: 06-29-2023 End: 06-29-2023 ambulatory [facility] Start: 05-31-2023 End: 05-31-2023 ambulatory JEB ROSA Facility:[facility] Start: 11-12-2022 Office outpatient ne w 20 minutes Referring Provider Unknown UN-Cnmshsijudud-RINFS Work Phone: Start: 11-12-2022 Patient encounter procedure Referring Provider Unknown DT-Hubwoemmd-Tgwvdst 5th Work Phone: Start: 11-12-2022 ambulatory Referral Self Facility: [facility] Start: 06-10-2022 End: 06-11-[address] JEB ROSA Facility: Start: 06-01-2022 ambulatory Max TATUM Facility : [facility] Start: 05-30-2022 End: 06-02-2022 ambulatory Max TATUM Facility::[id number] Start: 05-29-2022 End: 06-01-2022 Evaluation and management of inpatient DR JEB ROSA Facility: Start: 01-01-2021 End: 01-02-2021 ambulatory JEB ROSA Facility:[facility] Start: 10-11-2020 End: 10-12-2020 ambulatory MAURY JAY Facility:[facility] Start: 09-30-2020 End: 10-01-2020 ambulatory MAURY JAY Facility:[facility] Procedures Date Procedure Procedure Detail Performing [...] Peripheral Vein, Percutaneous Approach DR JEB ROSA Plan of Treatment Date Care Activity Detail Author Start: 10-21-2023 Influenza vaccination Flu vaccine (# 1) [facility] Start: 10-18-2023 End: 10-18-2023 Admission to same day surgery center 10/18/2023 8:00 AM EDT - 10/18/2023 10:55 AM EDT Surgery [facility] [address] [place] [address] Junaid Walker MD [address] [place] [address] CYSTOSCOPY, RIGHT OCCLUSION BALLOON, URETERAL STENT PLACEMENT, RIGHT PERCUTANEOUS NEPHROLITHOTOMY [facility] Comment on above: CYSTOSCOPY, RIGHT OC CLUSION BALLOON, URETERAL STENT PLACEMENT, RIGHT PERCUTANEOUS NEPHROLITHOTOMY Start: 10-18-2023 End: 10-18-2023 Cysto w/tx ureteral stricture CYSTOSCOPY URETERAL BALLOON DILATATION Right kidney stone 10/18/2023 8:[address] [facility] Start: 10-18-2023 End: 10-18-2023 Patient encounter procedure 10/18/2023 8:00 AM EDT Appointment [facility] [address] [place] [address] Radiologist, Ellie Ir order in mediawire to bladder in syrup machine laborer, right, arrive 630am main reg, scheduled with nathan DX kidney stone [facility] Comment on above: order in media wire to bladder in syrup machine laborer, right, arrive 630am main reg, scheduled with nathan DX kidney stone Start: 10-18-2023 End: 10-18-2023 Prq nephrostolithotomy/pyelos tolithotomy 2 cm NEPHROLITHOTOMY PERCUTANEOUS Right kidney stone 10/18/2023 8:[address] [facility] Start: 10-18-2023 Subsequent hospital visit by physician 10/18/2023 8:00 AM EDT Hospital Encounter [facility] [address] [place] [address] Junaid Walker MD [address] [place] [address] [facility] Start: 09-28-2023 Annual Wellness Visi t (Medicare) Annual Wellness Visit (Medicare) [facility] Start: 2011 Pneumococcal 65+ yea rs Vaccine (1 of 1 - PCV) Pneumococcal 65+ years Vaccine (1 of 1 - PCV) [facility] Start: 2006 Respiratory Syncytia l Virus (RSV) or age 60 yrs+ (1 - 1-dose 60+ series) Respiratory Syncytial Virus (RSV) or age 60 yrs+ (1 - 1-dose 60+ series) [facility] Start: 2001 Screening for osteoporosis DEXA (modify frequency per FRAX score) [facility] Start: 1996 Shingles vaccine (1 of 2) Vickers gles vaccine (1 of 2) [facility] Start: 1965 DTaP/Tdap/Td vaccine (1 - Tdap) DTaP/Tdap/Td vaccine (1 - Tdap) [facility] Start: 1964 Hepatitis C screening Hepatitis C sc reen [facility] Start: 1958 Depression Screen Depression Screen [facility] Start: 1956 Lipid panel Lipids [facility] Start: 1945 COVID-19 Vaccine (#1) COVID-19 Vacci ne (#1) [facility] Payers Date Payer Category Payer Medicare [id number] 1945 Unknown [id number] 2.16.8 [id number] 1945 Unknown [id number] 2.16.8 40.1.934579.3.579.2.647 1945 Unknown [id number] 2.16.8 40.1.943118.3.579.2.647 1945 Unknown [id number] 2.16.84 0.1.280134.3.579.2.593 1945 Unknown [id number] 2.16.84 0.1.942099.3.579.2.593 1945 Unknown [id number] 2.16.8 40.1.697683.3.579.2.727 1945 Unknown [id number] 2.16.8 40.1.128091.3.579.2.727 1945 Unknown [id number] 2.16. 840.1.453959.3.579.2.356 1945 Unknown [id number] 2.16.8 40.1.075007.3.579.2.1286 1945 Unknown [id number] 2.16.8 40.1.145505.3.579.2.1286 1945 Unknown [id number] 2.16.8 40.1.825526.3.579.2.1286 1945 Unknown [id number] 2.16.8 40.1.570103.3.579.2.1286 1945 Unknown [id number] 2.16.8 40.1.459991.3.579.2.1286 1945 Unknown [id number] 2.16.8 40.1.406645.3.579.2.177 1945 Unknown [id number] 2.16.8 40.1.901608.3.579.2.177 1945 Unknown [id number] 2.16.8 40.1.488204.3.579.2.718 1945 Unknown [id number] 2.16.8 40.1.437277.3.579.2.718 1945 Unknown [id number] 2.16.8 40.1.757975.3.579.2.718 1945 Unknown [id number] 2.16.8 40.1.554865.3.579.2.718 Unknown MEDICARE Social History Date Type Detail Facility Start: 10-04-2023 Tobacco smoking stat [facility] Ex-smoker [facility] History of tobacco use Current smoker [facility] History of tobacco use Cigarette Smoker B ON [facility] Start: 10-04-2023 Tobacco use and exposure Smokeless tobacco non-user [facility] Start: 10-05-2023 Alcohol intake Lifetime non-d rosa (finding) [facility] Start: 10-04-2023 End: 10-05-2023 History of Social function [facility] Start: 10-04-2023 End: 10-05-2023 Tobacco use panel [facility] 1945 Sex Assigned At Not on file B ON [facility] Clinical Notes 05-29-2022 to 2024 Note Date & Type Note Facility 2024 Note Entered by PING ROSA DO on 2024 07:33:12 EST From: JEB ROSA DO To: [facility]/pharmacy #[id number] Sent: 2024 07:33:12 EST Subject: Medication Management Submitted: Complete:ferrous sulfate (ferrous sulfate 325 mg (65 mg elemental iron) oral tablet) Signed by JEB ROSA DO 2024 07:33:00 EST Approved with modifications: ferrous sulfate (FERROUS SULFATE 325 MG TABLET) TAKE 1 TABLET BY MOUTH TWICE A DAY Qty: 180 tab(s) Days Supply: 90 Refills: 1 Substitutions Allowed Route To Pharmacy - [facility]/pharmacy #[id number] -------- From: [id number] To: JEB ROSA DO Sent: March 21, 2024 11:45:09 PM CATTLE DIPPER Subject: Medication Management Due: March 22, 2024 12:06:23 AM CATTLE DIPPER On Hold Pending Signature Dispensed Drug: ferrous sulfate (ferrous sulfate 325 mg (65 mg elemental iron) oral tablet), TAKE 1 TABLET BY MOUTH TWICE A DAY Quantity: 180 tab(s) Days Supply: 90 Refills: 1 Substitutions Allowed Notes from Pharmacy: -------- [facility] 12-20-2023 Note [facility] CARDIOLOGY PROGR [facility] NOTE HPI: Karolina Bashir is a 78 y.o. female here for f/U HPI 78-year-old female with a past medical history including hypertension, atrial fibrillation, nonobstructive CAD, and syncope. Patient was referred to cardiology due to syncope, which was characterized by patient as not true syncope. She presents today for follow-up. She is doing well. Patient adamantly denies any cardiac complaints or concerns. Patient denies any chest pain or shortness of breath. Patient denies any lower extremity edema, orthopnea, or proximal nocturnal dyspnea. No near-syncope or syncope. No dizziness or lightheadedness. Bp is above target range. Review of Systems 10 point ROS is performed and is negative unless otherwise specified in HPI Visit Vitals BP (!) 136/94 Pulse 73 Ht 1.6 m (5' 3 ) Wt 69.9 kg (154 lb) SpO2 95% BMI 27.28 kg/m??? Smoking Status Former BSA 1.76 m??? Allergies Allergen Reactions Codeine Other DIAPHORETIC, [...] Take 1 tablet by mouth at bedtime. rosuvastatin (Crestor) 20 mg tablet Take 1 tablet (20 mg) by mouth at bedtime. 90 tablet 3 Tiadylt ER 180 mg 24 hr capsule TAKE 1 CAPSULE BY MOUTH ONCE DAILY. DO NOT OPEN,CHEW, OR CRUSH 90 capsule 3 Xarelto 20 mg tablet Take 1 tablet (20 mg) by mouth daily with evening meal. 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 She was started on crestor 20 mg daily during last visit. LDL is 68. Discussed uptitrating statin. Patient would like to wait at the present time. Continue Daily aspirin continue risk factor modifications- heart healthy diet, regular exercise as tolerated and continue all medications. Benign essential hypertension BP suboptimally controlled [facility] metoprolol to carvedilol 12.5 mg BID Patient instructed to check daily blood pressure at home 2 hours after taking medication. Patient is instructed to maintain daily blood pressure log. Patient is to contact cardiology if blood pressures above discuss target range. Patient voices understanding. Atrial fibrillation (CMS/HCC) Stable continue xarelto and carvedilol No issues with bleeding Syncope and collapse Reviewed Echocardiogram, stress test, event monitor and carotid US with pt and and n (more content not included)... [facility] 11-28-2023 Note Entered by PING ROSA DO on November 28, 2023 17:47:35 EDT From: JEB ROSA DO To: [facility]/pharmacy #[id number] Sent: 11/28/2023 17:47:35 EDT Subject: Medication Management Submitted: Complete:hydrOXYzine (hydrOXYzine hydrochloride 25 mg oral tablet) Signed by JEB ROSA DO 11/28/2023 17:47:00 EDT Submitted: Complete:rOPINIRole (rOPINIRole 0.5 mg oral tablet) Signed by JEB ROSA DO 11/28/2023 17:47:00 EDT Approved with modifications: hydrOXYzine (HYDROXYZINE HCL 25 MG TABLET) TAKE 1 TABLET BY MOUTH EVERY DAY Qty: 90 tab(s) Days Supply: 90 Refills: 1 [facility]stit[id number] Approved with modifications: rOPINIRole (ROPINIROLE HCL 0.5 MG TABLET) TAKE 1 TABLET BY MOUTH EVERY DAY Qty: 90 tab(s) Days Supply: 90 Refills: 1 Substitutions [id number] From: [id number] To: JBE ROSA DO Sent: November 27, 2023 1:06:34 AM CDT Subject: Medication Management Due: November 28, 2023 12:58:34 AM CDT On Hold Pending Signature Dispensed [...] 1 Substitutions Allowed Notes from Pharmacy: -------- [facility] 10-18-2023 Note PROCEDURE: IR WIRE TO BLADDER PRE PCNL GENERAL ANESTHESIA 10/18/2023 HISTORY: ORDERING SYSTEM PROVIDED HISTORY: Ureteral stone TECHNOLOGIST PROVIDED HISTORY: wire to bladder co-op with the OR CONTRAST: 10 mL SEDATION: General anesthesia provided by anesthesiology. FLUOROSCOPY DOSE AND TYPE: Fluoroscopy time-15.2 minutes D AP-radiation Exposure Index: Kerma mGy, 1366 DESCRIPTION OF PROCEDURE: Informed consent was obtained from the patient after thorough discussion of the alternatives, risks, expectations and implications, and a time-out/universal protocol was observed. The existing images were reviewed prior to the procedure. A retrograde ureteral stent was placed by urology in cystoscopy prior procedure. A table lever operator film was obtained. The patient was placed in prone position on the table and conscious sedation was administered. Using 1% lidocaine for local anesthesia and sterile technique under real-time ultrasonic guidance, a 21ga. gauge needle was placed into a posterior lower pole zander of the right kidney. Contrast material was injected gently under fluoroscopic control via the ureteral stent demonstrating satisfactory location lower pole puncture. A 3 in 1 transition set was inserted. With Seldinger technique, the tract was accessed and various 4 [place] angled catheters and a 0.035 inch glidewire were used access the ureter. Once in the urinary bladder, the Glidewire was removed and replaced with a 0.035 inch stiff Amplatz wire. The 3 in 1 transition set was removed, and the case was turned over to Dr. Walker. FINDINGS: As above. IMPRESSION: Successful wire to bladder access for PCNL. Interpreted by: Christian Ordonez MD Signed by: Christian Ordonez MD 10/18/23 Final result [facility] 09-29-2023 Note Entered by PING ROSA DO on September 29, 2023 20:48:42 EDT From: JEB ROSA DO To: [facility]/pharmacy #[id number] Sent: 09/29/2023 20:48:42 EDT Subject: Medication Management Documented Complete:ferrous sulfate (ferrous sulfate 325 mg (65 mg elemental iron) oral tablet) Signed by JEB ROSA DO 09/29/2023 20:48:00 EDT Approved with modifications: ferrous sulfate (FERROUS SULFATE 325 MG TABLET) TAKE 1 TABLET BY MOUTH TWICE A DAY Qty: 180 tab(s) Days Supply: 90 Refills: 1 Substitutions Allowed Route To Pharmacy - [facility] #[id number] Patient matched by JEB ROSA DO on 09/29/2023 20:48:04 EDT -------- From: [facility]ORE [id number] To: JEB ROSA DO Sent: September 29, 2023 7:44:30 PM CDT Subject: Medication Management Due: September 30, 2023 12:02:13 AM CDT On Hold Pending Signature Dispensed Drug: ferrous sulfate (ferrous sulfate 325 mg (65 mg elemental iron) oral tablet), TAKE 1 TABLET BY MOUTH TWICE A DAY Quantity: 180 tab(s) Days Supply: 90 Refills: 3 Substitutions Allowed Notes from Pharmacy: -------- [facility] 06-29-2023 Note Patient here for 6 m o follow up afib, hypertension, and syncope. Denies chest pain, and recurrent syncope. Palpitations are less often now. Still gets SOB due to COPD she says. 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 [facility] 05-31-2023 Note Entered by PING ROSA DO on May 31, 2023 07:57:20 EDT From: JEB ROSA DO [facility]: [id number] Sent: 05/31/2023 07:57:20 EDT Subject: Medication Management [...] 1 Substitutions Allowed Route To Pharmacy - [facility] #[id number] Approved rOPINIRole (ROPINIROLE HCL 0.5 MG TABLET) TAKE 1 TABLET BY MOUTH EVERY DAY Qty: 90 tab(s) Days Supply: 90 Refills: 1 Substitutions Allowed Route To Pharmacy - [facility]/pharmacy #[id number] Patient matched by JEB ROSA DO on 05/31/2023 07:56:26 EDT -------- From: [facility] [id number] To: JEB ROSA DO Sent: May 30, [...] 1 Substitutions Allowed Notes from Pharmacy: -------- [facility] 11-01-2022 Chief complaint Narrative - Reported Patient is being seen for an initial Neurosurgical evaluation and Hx of TIA with c/o of recent and sudden near syncope. Here for evaluation of possible Aneurysm. CTA 11/01/22 in PACs from [facility]. IB-Frblygand-Ondryla 5th Work Phone: 11-01-2022 Chief complaint Narrative - Reported Patient is being seen for an initial Neurosurgical evaluation and Hx of TIA with c/o of recent and sudden near syncope. Here for evaluation of possible Aneurysm. CTA 11/01/22 in PACs from [facility]. HS-Chkdaxqiogrc-LBGVN Work Phone: 05-29-2022 Note OPERATIVE NOTE OPERATION DATE: 06/01/2022 [...] Jeb Rosa M.D. Nick Melendez M.D. [facility] 05-29-2022 Note CONSULTATION CONSULTATION DATE: 05/30/2022 REASON [...] on hold. CC: Nick Melendez M.D. [facility] History of Present illness Narrative Ms. Bashir is a 77-year-old lady recently diagnosed with TIA and syncope. Further work-up at [facility] showed a a reported 8 to 9 mm left carotid aneurysm.Quit smokingNo family history of ruptured brain aneurysmNo other symptoms NC-Qczkazsakrts-YUBXT Work Phone: Summary Purpose Family History No [...] DATE CREATED AUTHOR 06/06/2021 [facility] DATE CREATED AUTHOR AUTHOR'S ORGANIZ ATION 06/21/2022 [facility] DATE CREATED AUTHOR AUTHOR'S ORGANIZ ATION 06/30/2022 [facility] DATE CREATED AUTHOR AUTHOR'S ORGANIZ ATION 11/15/2022 [facility] DATE CREATED AUTHOR AUTHOR'S ORGANIZ ATION 12/06/2022 [facility] DATE CREATED AUTHOR AUTHOR'S ORGANIZ ATION 09/22/2023 [facility] DATE CREATED AUTHOR AUTHOR'S ORGANIZ ATION 10/23/2023 [facility] DATE CREATED AUTHOR AUTHOR'S ORGANIZ ATION 02/07/2024 [facility] DATE CREATED AUTHOR AUTHOR'S ORGANMATT ATION 03/24/[address] [facility] FOR RECORDS PERTAINING TO PATIENTS WHO ARE [...] BE BASED ON THE PRIMARY CLINICAL RECORDS. [employer] [facility]. provides no warranty or guarantee of the accuracy or completeness of information in this document.
--- NOTE | 2024-05-17 21:17 | ED_ITS ---
Documented by User: CATALINO Coffman 05/17/24 21:45 HPI - SOB/Dyspnea General Chief Complaint: Shortness of Breath/Dyspnea Stated Complaint: short of breath Time Seen by Provider: 05/17/24 21:10 Source: patient Mode of arrival: ambulance History of Present Illness HPI Narrative: Patient is a 79-year-old female who presents to the emergency department by ambulance for shortness of breath and increased this evening. She has a history of COPD. She wears oxygen at 2.5 L nasal cannula chronically. She states 3 days ago she developed cough and congestion, diarrhea and dry heaving. Her is ill with the same. No objective fevers. She denies chest pain. She states today she felt more short of breath and this evening, her breathing treatments were not helping so she called 911. She felt very winded on exertion. EMS gave a DuoNeb prior to arrival without significant improvement. She has not had any peripheral edema. Related Data Home Medications ?Medication ?Instructions ?Recorded ?Confirmed diltiazem HCl 180 mg capsule,24 180 mg PO DAILY 11/01/22 05/17/24 hr,extended release (Tiadylt ER) ferrous sulfate 325 mg (65 mg 325 mg PO BID 11/01/22 05/17/24 iron) tablet rivaroxaban 20 mg tablet (Xarelto) 20 mg PO DAILY 11/01/22 05/17/24 albuterol sulfate 2.5 mg/3 mL 2.5 mg inhalation Q6H PRN 09/17/23 05/17/24 (0.083 %) solution for nebulization shortness of breath or wheezing hydroxyzine HCl 25 mg tablet 25 mg PO Q6H PRN anxiety 09/17/23 05/17/24 ropinirole 0.5 mg tablet 0.5 mg PO DAILY 09/17/23 05/17/24 rosuvastatin 20 mg tablet 20 mg PO DAILY 09/17/23 05/17/24 carvedilol 12.5 mg tablet 18.75 mg PO BID 05/17/24 05/17/24 Previous Rx's ?Medication ?Instructions ?Recorded prednisone 20 mg tablet 60 mg (3 x 20 mg) PO DAILY 5 days 05/17/24 #15 tabs Allergies Allergy/AdvReac Type Severity Reaction Status Date / Time codeine AdvReac Intermediate Dizziness Verified 09/17/23 18:24 Review of Systems ROS Constitutional Denies: fever or chills Ears, nose, mouth, and throat Denies: throat pain or nasal congestion Cardiovascular Denies: chest pain Respiratory Reports: shortness of breath and cough Gastrointestinal Denies: nausea or vomiting Musculoskeletal Denies: back pain or neck pain Integumentary/Breast Denies: rash Neurological Denies: numbness in extremities or weakness in extremities Hematologic/Lymphatic Denies: easy bruising or easy bleeding PFSH [facility] Medical History (Updated 05/17/24 @ 23:52 by Richie Malloy MD) COPD (chronic obstructive pulmonary disease) ?J44.9 - Chronic obstructive pulmonary disease, unspecified (ICD-10) Hypertension ?I10 - Essential (primary) hypertension (ICD-10) TIA (transient ischemic attack) ?G45.9 - Transient cerebral ischemic attack, unspecified (ICD-10) Afib ?I48.91 - Unspecified atrial fibrillation (ICD-10) Social History Smoking status: Former smoker Little interest or pleasure in doing things: not at all Feeling down, depressed, or hopeless: not at all Exam Narrative Exam Narrative: Gen.: Awake, alert, in no distress Head: Normocephalic, atraumatic ENT: Moist mucous membranes Respiratory: No respiratory distress, lungs clear bilaterally Cardio: Regular rate and rhythm Gastrointestinal: Abdomen is soft, nondistended and nontender to palpation Extremities: Moves extremities equally, no pedal edema Psych: Normal mood and affect Neuro: No focal neuro deficit Skin: Warm, dry, intact Constitutional Vital Signs, click to edit/add: Last Vital Signs Temp 98.4 F 05/17/24 21:08 Pulse 69 05/17/24 22:30 Resp 22 H 05/17/24 22:30 BP 129/71 05/17/24 21:08 Pulse Ox 95 05/17/24 22:30 O2 Del Method Nasal Cannula 05/17/24 21:08 O2 Flow Rate 4 05/17/24 21:08 Course Vital Signs Vital signs: Vital Signs Temperature 98.4 F 05/17/24 21:08 Pulse Rate 74 05/17/24 21:08 Respiratory Rate 24 H 05/17/24 21:08 Blood Pressure 129/71 05/17/24 21:08 Pulse Oximetry 97 05/17/24 21:08 Oxygen Delivery Method Nasal Cannula 05/17/24 21:08 Oxygen Delivery Flow Rate 4 05/17/24 21:08 Temperature 98.4 F 05/17/24 21:08 Pulse Rate 69 05/17/24 22:30 Respiratory Rate 22 H 05/17/24 22:30 Blood Pressure 129/71 05/17/24 21:08 Pulse Oximetry 95 05/17/24 22:30 Oxygen Delivery Method Nasal Cannula 05/17/24 21:08 Oxygen Delivery Flow Rate 4 05/17/24 21:08 MDM - SOB/Dyspnea MDM Narrative Medical decision making narrative: 2139: Workup initiated. Patient is hemodynamically stable at this time. Case is turned over to attending physician at this time. SHARED APC VISIT, PHYSICIAN ATTESTATION: [id number] I performed a substantive part of the MDM during the patient?s E/M visit. I personally evaluated and examined the patient. I personally made or approved the documented management plan and acknowledge its risk of complications. Medical Records Attestation: I reviewed the patient's medical records. Lab Data Attestation: I reviewed the patient's lab results. Labs: Lab Results 05/17/24 05/17/24 Range/Units 21:10 21:15 WBC 7.9 (4.0-11.0) 10^3/uL RBC 4.67 (4.20-5.40) 10^6/uL Hgb 14.2 (12.0-16.0) g/dL Hct 43.2 (36.0-48.0) % MCV 92.5 (81.0-99.0) fL MCH 30.4 (26.7-34.0) pg MCHC 32.9 (29.9-35.2) g/dL RDW 13.6 (11.0-15.0) % Plt Count 179 (150-450) 10^3/uL MPV 8.7 L (9.5-13.5) fL Neut % (Auto) 76.1 H (43.0-75.0) % Lymph % (Auto) 12.8 L (20.5-60.0) % Childress % (Auto) 9.6 (1.7-12.0) % Eos % (Auto) 0.9 (0.9-7.0) % Baso % (Auto) 0.5 (0.2-2.0) % Neut # (Auto) 6.0 (1.4-6.5) 10^3/uL Lymph # (Auto) 1.0 L (1.2-3.8) 10^3/uL Childress # (Auto) 0.8 (0.3-0.8) 10^3/uL Eos # (Auto) 0.1 (0.0-0.7) 10^3/uL Baso # (Auto) 0.0 (0.0-0.1) 10^3/uL Abs Immat Gran (auto) 0.01 (0.00-0.03) 10^3/uL Imm/Tot Granulo (auto) 0.1 (0.0-0.5) % PT 12.8 H (9.0-11.6) sec INR 1.23 VBG pH 7.373 (7.330-7.430) VBG pCO2 47.1 (40.0-52.0) mmHg Sodium 139 (136-145) mmol/L Potassium 3.7 (3.5-5.1) mmol/L Chloride 101 (98-107) mmol/L Carbon Dioxide 27.7 (21.0-32.0) mmol/L Anion Gap 14.0 BUN 14.0 (7.0-18.0) mg/dL Creatinine 0.89 (0.55-1.02) mg/dL Est GFR ( Amer) >60 (>=60 mL/min/1.73m^2) Est GFR (Non-Af Amer) >60 (>=60 mL/min/1.73m^2) BUN/Creatinine Ratio 15.7 Glucose 144 H (74-106) mg/dL Lactate 0.8 (0.4-2.0) mmol/L Calcium 8.8 (8.5-10.1) mg/dL Magnesium 1.7 L (1.8-2.4) mg/dL Total Bilirubin 0.5 (0.2-1.0) mg/dL AST 13 L (15-37) U/L ALT 15 (14-59) U/L Alkaline Phosphatase 110 (46-116) U/L Troponin I High Sens 6.3 (4.0-51.3) pg/mL NT-Pro-B Natriuret Pep 483.0 (<=1800.0) pg/mL Total Protein 7.0 (6.4-8.2) g/dL Albumin 3.7 (3.4-5.0) g/dL Globulin 3.3 g/dL Albumin/Globulin Ratio 1.1 Influenza Type A Ag Negative Influenza Type B Ag Negative RSV Antigen Not detected (NOT DETECTE) SARS-CoV-2 Ag (CV2AG) Negative (NEGATIVE) ECG Data Attestation: I personally reviewed and interpreted this ECG as follows: (normal sinus rhythm at a rate of 71, no acute ST elevation or ectopy. EKG reviewed by attending physician) Discharge Plan Discharge Chief Complaint: Shortness of Breath/Dyspnea Clinical Impression: Shortness of breath, Acute exacerbation of chronic obstructive pulmonary disease Patient Disposition: Home, Self-Care Time of Disposition Decision: 23:48 Condition: Good Mode of Transportation: Private Vehicle Prescriptions / Home Meds: New prednisone 20 mg tablet 60 mg PO DAILY 5 Days Qty: 15 0RF No Action diltiazem HCl [Tiadylt ER] 180 mg capsule,extended release 24 hr 180 mg PO DAILY ferrous sulfate 325 mg (65 mg iron) tablet 325 mg PO BID Xarelto 20 mg tablet 20 mg PO DAILY albuterol sulfate 2.5 mg /3 mL (0.083 %) solution for nebulization 2.5 mg inhalation Q6H PRN (Reason: shortness of breath or wheezing) ropinirole 0.5 mg tablet 0.5 mg PO DAILY hydroxyzine HCl 25 mg tablet 25 mg PO Q6H PRN (Reason: anxiety) rosuvastatin 20 mg tablet 20 mg PO DAILY carvedilol 12.5 mg tablet 18.75 mg PO BID Print Language: Kyrgyz Instructions: COPD (Chronic Obstructive Pulmonary Disease) (ED), How to Use a Nebulizer (ED) Additional Instructions: Call the office of your primary care doctor to arrange for follow-up within the above-stated timeframe. Your ED visit was focused on your acute issue and does not replace primary care. You should review your labs, imaging, and diagnoses from this ED visit with your primary care physician. There may be non-emergent/ incidental findings that need further evaluation. You should review your vital signs including blood pressure with your PCP. If you were prescribed medications you should discuss possible side-effects and drug interactions with your pharmacist. Call 911 or go to the nearest Emergency Department if you develop any new or worsening symptoms. Seek immediate medical attention if you develop: worsening shortness of breath, difficulty breathing, chest pain, nausea, vomiting, weakness, numbness, tingling, excessive sweating, loss of motion in your arms or legs, or any new or worsening symptoms. Begin taking prednisone tomorrow. You may use your albuterol nebulizer treatments up to 2 treatments every 4 hours as needed for shortness of breath. If you are requiring more than that or more frequently than that you should return to the ER for repeat evaluation. Referrals: WESLY ROSA [Primary Care Provider] - 1 week Documented by User: Richie Malloy MD 05/17/24 23:52 HPI - SOB/Dyspnea General Chief Complaint: Shortness of Breath/Dyspnea Stated Complaint: short of breath Time Seen by Provider: 05/17/24 21:10 Related Data Home Medications ?Medication ?Instructions ?Recorded ?Confirmed diltiazem HCl 180 mg capsule,24 180 mg PO DAILY 11/01/22 05/17/24 hr,extended release (Tiadylt ER) ferrous sulfate 325 mg (65 mg 325 mg PO BID 11/01/22 05/17/24 iron) tablet rivaroxaban 20 mg tablet (Xarelto) 20 mg PO DAILY 11/01/22 05/17/24 albuterol sulfate 2.5 mg/3 mL 2.5 mg inhalation Q6H PRN 09/17/23 05/17/24 (0.083 %) solution for nebulization shortness of breath or wheezing hydroxyzine HCl 25 mg tablet 25 mg PO Q6H PRN anxiety 09/17/23 05/17/24 ropinirole 0.5 mg tablet 0.5 mg PO DAILY 09/17/23 05/17/24 rosuvastatin 20 mg tablet 20 mg PO DAILY 09/17/23 05/17/24 carvedilol 12.5 mg tablet 18.75 mg PO BID 05/17/24 05/17/24 Previous Rx's ?Medication ?Instructions ?Recorded prednisone 20 mg tablet 60 mg (3 x 20 mg) PO DAILY 5 days 05/17/24 #15 tabs Allergies Allergy/AdvReac Type Severity Reaction Status Date / Time codeine AdvReac Intermediate Dizziness Verified 09/17/23 18:24 [facility] Medical History (Updated 05/17/24 @ 23:52 by Richie Malloy MD) COPD (chronic obstructive pulmonary disease) ?J44.9 - Chronic obstructive pulmonary disease, unspecified (ICD-10) Hypertension ?I10 - Essential (primary) hypertension (ICD-10) TIA (transient ischemic attack) ?G45.9 - Transient cerebral ischemic attack, unspecified (ICD-10) Afib ?I48.91 - Unspecified atrial fibrillation (ICD-10) Social History Smoking status: Former smoker Little interest or pleasure in doing things: not at all Feeling down, depressed, or hopeless: not at all Exam Constitutional Vital Signs, click to edit/add: Last Vital Signs Temp 98.4 F 05/17/24 21:08 Pulse 69 05/17/24 22:30 Resp 22 H 05/17/24 22:30 BP 129/71 05/17/24 21:08 Pulse Ox 95 05/17/24 22:30 O2 Del Method Nasal Cannula 05/17/24 21:08 O2 Flow Rate 4 05/17/24 21:08 Course Vital Signs Vital signs: Vital Signs Temperature 98.4 F 05/17/24 21:08 Pulse Rate 74 05/17/24 21:08 Respiratory Rate 24 H 05/17/24 21:08 Blood Pressure 129/71 05/17/24 21:08 Pulse Oximetry 97 05/17/24 21:08 Oxygen Delivery Method Nasal Cannula 05/17/24 21:08 Oxygen Delivery Flow Rate 4 05/17/24 21:08 Temperature 98.4 F 05/17/24 21:08 Pulse Rate 69 05/17/24 22:30 Respiratory Rate 22 H 05/17/24 22:30 Blood Pressure 129/71 05/17/24 21:08 Pulse Oximetry 95 05/17/24 22:30 Oxygen Delivery Method Nasal Cannula 05/17/24 21:08 Oxygen Delivery Flow Rate 4 05/17/24 21:08 MDM - SOB/Dyspnea MDM Narrative Medical decision making narrative: 2139: Workup initiated. Patient is hemodynamically stable at this time. Case is turned over to attending physician at this time. Signout note: Lab work reviewed. No major abnormalities. Her troponin and BNP are normal. Chest x-ray without acute findings. 2329: Patient reevaluated at the bedside. She feels much improved. She passed an ambulatory pulse ox without her oxygen on. I offered the patient admission and she declined. She would like to be discharged home. I believe this is a reasonable plan given how well she appears now. Prednisone is prescribed. She will continue albuterol nebulizer treatments at home of which she reports that she has plenty. Return precautions were discussed. All questions were answered. The patient was discharged home. SHARED APC VISIT, PHYSICIAN ATTESTATION: [id number] I performed a substantive part of the MDM during the patient?s E/M visit. I personally evaluated and examined the patient. I personally made or approved the documented management plan and acknowledge its risk of complications. Lab Data Labs: Lab Results 05/17/24 05/17/24 Range/Units 21:10 21:15 WBC 7.9 (4.0-11.0) 10^3/uL RBC 4.67 (4.20-5.40) 10^6/uL Hgb 14.2 (12.0-16.0) g/dL Hct 43.2 (36.0-48.0) % MCV 92.5 (81.0-99.0) fL MCH 30.4 (26.7-34.0) pg MCHC 32.9 (29.9-35.2) g/dL RDW 13.6 (11.0-15.0) % Plt Count 179 (150-450) 10^3/uL MPV 8.7 L (9.5-13.5) fL Neut % (Auto) 76.1 H (43.0-75.0) % Lymph % (Auto) 12.8 L (20.5-60.0) % Childress % (Auto) 9.6 (1.7-12.0) % Eos % (Auto) 0.9 (0.9-7.0) % Baso % (Auto) 0.5 (0.2-2.0) % Neut # (Auto) 6.0 (1.4-6.5) 10^3/uL Lymph # (Auto) 1.0 L (1.2-3.8) 10^3/uL Childress # (Auto) 0.8 (0.3-0.8) 10^3/uL Eos # (Auto) 0.1 (0.0-0.7) 10^3/uL Baso # (Auto) 0.0 (0.0-0.1) 10^3/uL Abs Immat Gran (auto) 0.01 (0.00-0.03) 10^3/uL Imm/Tot Granulo (auto) 0.1 (0.0-0.5) % PT 12.8 H (9.0-11.6) sec INR 1.23 VBG pH 7.373 (7.330-7.430) VBG pCO2 47.1 (40.0-52.0) mmHg Sodium 139 (136-145) mmol/L Potassium 3.7 (3.5-5.1) mmol/L Chloride 101 (98-107) mmol/L Carbon Dioxide 27.7 (21.0-32.0) mmol/L Anion Gap 14.0 BUN 14.0 (7.0-18.0) mg/dL Creatinine 0.89 (0.55-1.02) mg/dL Est GFR ( Amer) >60 (>=60 mL/min/1.73m^2) Est GFR (Non-Af Amer) >60 (>=60 mL/min/1.73m^2) BUN/Creatinine Ratio 15.7 Glucose 144 H (74-106) mg/dL Lactate 0.8 (0.4-2.0) mmol/L Calcium 8.8 (8.5-10.1) mg/dL Magnesium 1.7 L (1.8-2.4) mg/dL Total Bilirubin 0.5 (0.2-1.0) mg/dL AST 13 L (15-37) U/L ALT 15 (14-59) U/L Alkaline Phosphatase 110 (46-116) U/L Troponin I High Sens 6.3 (4.0-51.3) pg/mL NT-Pro-B Natriuret Pep 483.0 (<=1800.0) pg/mL Total Protein 7.0 (6.4-8.2) g/dL Albumin 3.7 (3.4-5.0) g/dL Globulin 3.3 g/dL Albumin/Globulin Ratio 1.1 Influenza Type A Ag Negative Influenza Type B Ag Negative RSV Antigen Not detected (NOT DETECTE) SARS-CoV-2 Ag (CV2AG) Negative (NEGATIVE) Imaging Data Chest x-ray: Attestation: I have reviewed the pertinent imaging results. Radiologist's impression: See PACS document Discharge Plan Discharge Chief Complaint: Shortness of Breath/Dyspnea Clinical Impression: Shortness of breath, Acute exacerbation of chronic obstructive pulmonary disease Patient Disposition: Home, Self-Care Time of Disposition Decision: 23:48 Condition: Good Mode of Transportation: Private Vehicle Prescriptions / Home Meds: New prednisone 20 mg tablet 60 mg PO DAILY 5 Days Qty: 15 0RF No Action diltiazem HCl [Tiadylt ER] 180 mg capsule,extended release 24 hr 180 mg PO DAILY ferrous sulfate 325 mg (65 mg iron) tablet 325 mg PO BID Xarelto 20 mg tablet 20 mg PO DAILY albuterol sulfate 2.5 mg /3 mL (0.083 %) solution for nebulization 2.5 mg inhalation Q6H PRN (Reason: shortness of breath or wheezing) ropinirole 0.5 mg tablet 0.5 mg PO DAILY hydroxyzine HCl 25 mg tablet 25 mg PO Q6H PRN (Reason: anxiety) rosuvastatin 20 mg tablet 20 mg PO DAILY carvedilol 12.5 mg tablet 18.75 mg PO BID Print Language: Kyrgyz Instructions: COPD (Chronic Obstructive Pulmonary Disease) (ED), How to Use a Nebulizer (ED) Additional Instructions: Call the office of your primary care doctor to arrange for follow-up within the above-stated timeframe. Your ED visit was focused on your acute issue and does not replace primary care. You should review your labs, imaging, and diagnoses from this ED visit with your primary care physician. There may be non-emergent/ incidental findings that need further evaluation. You should review your vital signs including blood pressure with your PCP. If you were prescribed medications you should discuss possible side-effects and drug interactions with your pharmacist. Call 911 or go to the nearest Emergency Department if you develop any new or worsening symptoms. Seek immediate medical attention if you develop: worsening shortness of breath, difficulty breathing, chest pain, nausea, vomiting, weakness, numbness, tingling, excessive sweating, loss of motion in your arms or legs, or any new or worsening symptoms. Begin taking prednisone tomorrow. You may use your albuterol nebulizer treatments up to 2 treatments every 4 hours as needed for shortness of breath. If you are requiring more than that or more frequently than that you should return to the ER for repeat evaluation. Referrals: WESLY ROSA [Primary Care Provider] - 1 week
[2024-05-17] MEDS: METHYLPREDNISOLONE SOD SUCC PF 125 MG/2 ML VIAL IVP (21:27)
[2024-05-17 21:28] LABS: Basophils Percent Auto 0.5 % (0.2-2.0); Eosinophils Absolute Auto 0.1 10^3/uL (0.0-0.7); Eosinophils Percent Auto 0.9 % (0.9-7.0); Hematocrit 43.2 % (36.0-48.0); Hemoglobin 14.2 g/dL (12.0-16.0); Immature Granulocytes Abs Auto 0.01 10^3/uL (0.00-0.03); Immature Granulocytes Pct Auto 0.1 % (0.0-0.5); Lymphocytes Percent Auto 12.8 % (20.5-60.0); Mean Corpuscular HGB Conc 32.9 g/dL (29.9-35.2); Mean Corpuscular Hemoglobin 30.4 pg (26.7-34.0); Mean Corpuscular Volume 92.5 fL (81.0-99.0); Mean Platelet Volume 8.7 fL (9.5-13.5); Monocytes Absolute Auto 0.8 10^3/uL (0.3-0.8); Monocytes Percent Auto 9.6 % (1.7-12.0); Neutrophils Percent Auto 76.1 % (43.0-75.0); Platelet Count 179 10^3/uL (150-450); Red Blood Count 4.67 10^6/uL (4.20-5.40); Red Cell Distribution Width 13.6 % (11.0-15.0); White Blood Count 7.9 10^3/uL (4.0-11.0)
[2024-05-17 21:29] LABS: PCO2 VBG 47.1 mmHg (40.0-52.0); pH VBG 7.373 (7.330-7.430)
[2024-05-17 21:39] LABS: INR 1.23; Prothrombin Time 12.8 sec (9.0-11.6)
[2024-05-17 21:42] LABS: Lactate/Lactic Acid 0.8 mmol/L (0.4-2.0)
[2024-05-17 21:47] LABS: Influenza Virus A Antigen Negative; Influenza Virus B Antigen Negative; Internal Control Within Normal Limits; Respiratory Syncytial Virus Not Detected (NOT DETECTE); SARS-CoV-2 Ag NEGATIVE (NEGATIVE)
[2024-05-17 21:51] LABS: Alanine Aminotransferase 15 U/L (14-59); Albumin Globulin Ratio 1.1; Albumin Level 3.7 g/dL (3.4-5.0); Alkaline Phosphatase 110 U/L (46-116); Aspartate Amino Transferase 13 U/L (15-37); BUN Creatinine Ratio 15.7; Bilirubin Total 0.5 mg/dL (0.2-1.0); Calcium 8.8 mg/dL (8.5-10.1); Carbon Dioxide 27.7 mmol/L (21.0-32.0); Chloride 101 mmol/L (98-107); Estimated GFR (African America >60 (>=60 mL/min/1.73m^2); Estimated GFR (Non-African Ame >60 (>=60 mL/min/1.73m^2); Globulin 3.3 g/dL; Glucose 144 mg/dL (74-106); Magnesium 1.7 mg/dL (1.8-2.4); Potassium 3.7 mmol/L (3.5-5.1); Sodium 139 mmol/L (136-145); Troponin I High Sensitivity 6.3 pg/mL (4.0-51.3)
--- NOTE | 2024-05-17 22:50 | PC.NURSE ---
pt states feeling better at this time. Oxygen continues at the pt's norm 2.5L and pt's pulse ox levels remain stable.
== END 2024-05-18 00:14 | disposition home or self-care (01) ==
PROVIDERS: Physician Assistant; Emergency Provider Student in an Organized Health Care Education/Training Program; PCP Family Medicine
DX: J44.1 Chronic obstructive pulmonary disease with (acute) exacerbation (principal); R06.02 Shortness of breath; Z87.891 Personal history of nicotine dependence
CPT/HCPCS: 36415; 71045; 80053; 82800; 83605; 83735; 83880; 84484; 85025; 85610; 87420; 87804; 87811; 93005; 96374; 99285; J2919

== ENCOUNTER 2024-12-29 17:56 | Emergency (ER) | payer MEDICARE, SELFPAY ==
[2024-12-29] VITALS (8 sets, daily range): BP systolic 130–153; BP diastolic 82–103; PULSE 102–131; TEMP 37.2; O2SAT 92–97; BMI 27.3
--- OUTSIDE RECORDS SUMMARY | 2024-12-29 18:19 | XMS_ITS | CCD ---
Author Organization [facility] [place] Care Team Providers Care Tub Mender Name Role Phone HOUSE, JEB Primary Care Unavailable SELF, REFERRED Referring Unavailable MAURY JAY Admitting Unavailable KAYLA, MAURY Attending Unavailable KAYLA, MAURY Admitting Unavailable HOUSE, JEB Referring Unavailable HOUSE, JBE Primary Care Unavailable KAYLA, MAURY Attending Unavailable KAYLA, MAURY Admitting Unavailable HOUSE, JEB Referring Unavailable HOUSE, JEB Primary Care Unavailable KAYLA, MAURY Attending Unavailable HOUSE, DR JARRELL Primary Care Unavailable MOSES ., DR KETAN Olivas Consulting Unavailable DIMITRIEREJosiah, DR NICK Baptiste Admitting Unavailable AL, DR NICK Baptiste Attending Unavailable JARRED, HERMELINDO Procedure Practitioner Unavailab katie MELENDEZ, DR NICK Baptiste Consulting Unavailable NILL ., DR JEFFERSON Consulting Unavailable JARRED, HERMELINDO Consulting Unavailable NILL ., DR JEFFERSON Procedure Practitioner Unagilbert LACY, EDDIE Consulting Unavailable RIVAS II, PER Consulting Unavailable CLARE CRISOSTOMO Consulting Unavailable MAURY VILLAREAL Consulting Unavailable HOUSE, DR JARRELL Admitting Unavailable HOUSE, DR JARRELL Attending Unavailable HOUSE, DR JARRELL Primary Care Unavailable HOUSE, DR JARRELL Consulting Unavailable NILL, Max Rahman Attending Unavailable NILL, Max Rahman Attending Unavailable Unknown, Referring Provider Unavailable Unav ailable Self, Referral Referring Unavailable UNKNOWN, PCP Primary Care Unavailable MD RANDALL HAWTHORNE Attending Unavailable TULIO WALKER Admitting Unavailable TULIO WALKER Attending Unavailable MOE, JEB Bauman Primary Care Unavailable BEN MIRELES Attending Unavailable MOE, JEB Bauman Primary Care Unavailable TULIO WALKER Attending Unavailable TULIO WALKER Referring Unavailable MOE, JEB Bauman Primary Care Unavailable AMANDA GEORGES Consulting Unavailable TULIO WALKER Admitting Unavailable TULIO WALKER Attending Unavailable HOUSE JEB GRAY Primary Care Unavailable TULIO WALKER Attending Unavailable TULIO WALKER Referring Unavailable HOUSE JEB GRAY Primary Care Unavailable Unavailable Primary Care Provider Unavailabl e HOUSE, DO JEB Bauman Attending Unavailable HOUSE, JEB P Primary Care Unavailable HOUSE, JEB P Primary Care Unavailable HOUSE, DO JEB P Attending Unavailable HOUSE, DO JEB P Attending Unavailable HOUSE, JEB P Primary Care Unavailable HOUSE, JEB P Primary Care Unavailable HOUSE, DO JEB P Attending Unavailable HOUSE, JEB P Primary Care Unavailable HOUSE, DO JEB Bauman Attending Unavailable KAL RUSH Attending Unavailable KAL RUSH Attending Unavailable MAURY JAY Attending Unavailable Allergies Allergy Classification Reported Allergen(s) Allergy Type Date of Onset Reaction(s) Facility (5 sources) Codeine; Translations: [CODEINE] Drug Allergy 3 [facility] Repository (3 sources) oxyCODONE; Translations: [OXYCODONE] Drug Allergy 4 Nausea And Vomiting [facility] Repository (1 source) Codeine Drug Allergy 4 Dizziness or Vertigo [facility] Medications Current Medications Medication Drug Class(es) Dates [...] Onset: 3 Episodic Calculus of urinary tract (3 sources) Calculus of ureter; Translations: [Calculus of kidney] Onset: 4 Episodic Cardiac dysrhythmias (4 sources) Paroxysmal atrial fibrillation; Translations: [Unspecified atrial fibrillation] Onset: 2 Chronic Chronic obstructive pulmonary disease and bronchiectasis (2 sources) Chronic obstructive pulmonary disease, unspecified; Translations: [COPD UNSPECIFIED] Onset: 3 Chronic Coronary atherosclerosis and other heart disease (1 source) Atherosclerotic heart disease of douglas coronary artery without angina pectoris; Translations: [ASHD [place] W/O ANGINA PECTORIS] Onset: 3 Chronic Deficiency and other anemia (4 sources) Anemia, unspecified; Translations: [ANEMIA UNSPECIFIED] Onset: 3 Episodic Deficiency and other anemia (2 sources) Iron deficiency anemia, unspecified; Translations: [IRON DEFICIENCY ANEMIA UNSPECIFIED] Onset: 3 Episodic Essential hypertension (2 sources) Essential (primary) hypertension; Translations: [ESSENTIAL PRIMARY HYPERTENSION] Onset: 3 Chronic Gastrointestinal hemorrhage (1 source) Gastrointestinal hemorrhage, unspecified; Translations: [GASTROINTESTINAL HEMORRHAGE UNS] Onset: 3 Episodic Nonspecific chest pain (1 source) Chest pain, unspecified; Translations: [CHEST PAIN UNSPECIFIED] Onset: 3 Episodic Other aftercare (1 source) longterm (current) use of aspirin; Translations: [AGENT SPA DESK CURRENT USE OF ASPIRIN] Onset: 3 Episodic Other aftercare (1 source) manager terminal (current) use of anticoagulants; Translations: [CUSTODIAL CURRNT USE ANTICOAGULANTS] Onset: 3 Episodic Other aftercare (1 source) Other manager terminal (current) drug therapy; Translations: [OTH CUSTODIAL CURRENT DRUG THERAPY] Onset: 3 Episodic Other and ill-defined cerebrovascular disease (2 sources) Cerebral aneurysm, nonruptured; Translations: [Cerebral aneurysm, nonruptured] Onset: 3 Chronic Other and unspecified benign neoplasm (1 source) Polyp of colon; Translations: [POLYP OF COLON] Onset: 3 Episodic Other circulatory disease (2 sources) Personal history of transient ischemic attack (TIA), [...] Translations: [OTHER FECAL ABNORMALITIES] Onset: 3 Episodic Other hereditary and degenerative nervous system conditions (1 source) Restless legs syndrome; Translations: [Restless legs syndrome] Onset: 5 Chronic Screening and history of mental health and substance abuse codes (1 source) Personal history of nicotine dependence; Translations: [PERSONAL HISTORY OF NICOTINE DEPEND] Onset: 3 Episodic Unclassified (1 source) ESOPHAGITIS UNSPEC WITHOUT BLEEDING; Translations: [ESOPHAGITIS UNSPEC WITHOUT BLEEDING] Onset: 3 Unclassified (1 source) ureteral stone Onset: 4 Unclassified (2 sources) Other persistent atrial fibrillation; Translations: [Other persistent atrial fibrillation] Onset: 2 Results Test Name Value Interpretation Reference Range Facility Orders Onlyon 12-21-2024 Orders Only [id number] Karolina Bashir 1945 F Date Provider Department Center 12/21/2024 GAUTAM BRINK FRANK Lagunas Family History Problem Relation Age of Onset Diabetes Mother Heart failure Mother No Known Problems Father Family Status - Relation Status Age at Mother Father [facility] Office Visiton 12-12-2024 Follow-up visit [id number] Karolina Bashir 1945 Date Provider Department Center 12/12/2024 MAURY MORRISON FRANK Lagunas Family History Problem Relation Age of Onset Diabetes Mother Heart failure Mother No Known Problems Father Family Status - Relation Status Age at Mother Father Level of Service:80087 MS OFFICE/OUTPATIENT ESTABLISHED LOW MDM 20 MIN [facility] Office Visiton 09-06-2024 Follow-up visit [id number] Karolina Bashir Odette 1945 Date Provider Department Center 09/06/2024 KAL HAMILTON Family History Problem Relation Age of Onset Diabetes Mother Heart failure Mother No Known Problems Father Family Status - Relation Status Age at Mother Father Level of Service:30265 MS OFFICE/OUTPATIENT ESTABLISHED MOD MDM 30 MIN Reason for Visit and Comments: Atrial Fibrillation [80] Hypertension [943606] [facility] Progress Note - Nurseon Progress Note - Nurse Gave 40mg of Kenalog into patients right deltoid IM. Patient tolerated well. No adverse reactions. Medication provided by office. [Electronically Signed on: 08/22/2024 11:48 EDT] Kerline Partida MA [Verified on: 08/22/2024 11:48 EDT] Kerline Partida MA [facility] Provider [place] 07-13-2024 Provider Orders [id number] [facility] Provider [place] 07-04-2024 Provider Orders [id number] 0OTGTIFF [facility] Office Visiton 05-24-2024 Follow-up visit [id number] Aracelis Bashirkatie Pino 1945 Date Provider Department Center 05/24/2024 KAL HAMILTON Family History Problem Relation Age of Onset Diabetes Mother Heart failure Mother No Known Problems Father Family Status - Relation Status Age at Mother Father Level of Service:20774 MS OFFICE/OUTPATIENT ESTABLISHED LOW MDM 20 MIN Reason for Visit and Comments: Hypertension [713950] Atrial Fibrillation [80] Normal [facility] Stone Analysison 10-20-2023 Calculi description See Note Normal [facility] Comment on above: Result Comment: (NOT E) Specimen consists of numerous brown and romo calculi fragments. The total weight is 136 mg. Performed By: #### A STONE #### [facility] [address] [address] Wheel Buffer: Jm Cronin MD Composition See Note Normal [facility] Comment on above: Result Comment: (NOT E) [...] composition determined by FTIR analysis. Performed By: [facility] [address] [place] [id number] Locomotive Crane Engineer: Walter Gibson MD, PhD CLIA Number: [id number] Performed By: #### A STONE #### [address] [address] Wheel Buffer: Jm Cronin MD Mass [address] [facility] Comment on above: Performed By: #### A STONE #### [address] [address] Wheel Buffer: Jm Cronin MD HCG, ,Urineon 10-18 Beta HCG ( test) Ql (U) Negative Normal [facility]G [facility] Comment on above: Result Comment: Spec imens with hCG levels near the threshold of the test (25 mIU/mL) may give a negative or indeterminate result. In such cases, another test should be performed with a new specimen in 48-72 hours. If early is suspected clinically in this setting, correlation with quantitative serum b-hCG level is suggested. Performed By: #### U HCG #### [facility] [address] [place] [address] Wheel Buffer: Jose Blank MD URINE CULTUREon 09-21-2023 Bacteria identified Cx Nom (U) CULTURE RESULTS NO GROWTH AT <1000 CFU/mL Normal [facility] Comment on above: Performed By: #### 6 30-4 #### [facility] ([id number]) [address], [address] [place] [address] Initial Visit (Neurosurgery) on 11-12-2022 Initial Visit [...] your plan of care after leaving at [phone] M-F 8am-5pm. To clinicians, thank you very [...] / Skull Base Surgery Director of Neurosurgery, [facility] Fellowship Director, Endovascular Neurosurgery [address], [address] [place] [address] (p) [phone] (f) [phone] Chief Complaint Patient is being seen for an initial Neurosurgical evaluation and Hx of TIA with c/o of recent and sudden near syncope. Here for evaluation of possible Aneurysm. CTA 11/01/22 in PACs from [facility]. History of Present Illness Ms. Bashir is a 77-year-old lady recently diagnosed with TIA and syncope. Further work-up at [facility] showed a a reported 8 to 9 [...] BY MOUTH DAILY Vitals Vital Signs Recorded: [id number] 11:20AM Heart Rate70 Wtknfnlwjyt96 Dkstsmed628 Vuiwwzdip37 Height5 ft 3 in Nqptad045 lb BMI Bdytgktbun81.69 kg/m2 BSA Calculated1.69 Tobacco Useb) No PHQ-2 #1. Over the last 2 weeks have you felt down, depressed or hopeless? (If yes, answer PHQ-9 below)No PHQ-2 #2. Over the last 2 weeks have you felt little interest or pleasure in doing things? 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 CBC AUTO DIFFon 06-10-2022 BASO # 0.1 103/ul Normal 0.0-0.1 [facility] Comment on above: Performed By: #### S EDR #### [facility] [address] [address] [address] Bao Hsu Basophils/100 WBC (Bld) 1.0 % Normal 0.2-2.0 [facility] Comment on above: Performed By: #### S EDR #### [facility] [address] [place] [address] Dr. Bao Hsu EO # 0.3 103/ul Normal 0.0-0.7 [facility] Comment on above: Performed By: #### S EDR #### [facility] [address] [address] [address] Bao Hsu Eosinophils/100 WBC (Bld) 2.7 % Normal 0.9-7.0 [facility] Comment on above: Performed By: #### S EDR #### [facility] [address] [place] [address] Dr. Bao Hsu Erythrocyte distribution width (RBC) [Ratio] 29.4 % Critically high 11.0-15.0 [facility] Comment on above: Performed By: #### S EDR #### [facility] [address] [place] [address] Dr. Bao Hsu Hematocrit (Bld) [Volume fraction] 34.5 % Critically low 36.0-48.0 [facility] Comment on above: Performed By: #### S EDR #### [facility] [address] [place] [address] Dr. Bao Hsu Hemoglobin (Bld) [Mass/Vol] 9.6 g/dL Critically low 12.0-16.0 [facility] Comment on above: Performed By: #### S EDR #### [facility] [address] [address] [address] Bao Hsu IG # 0.03 10e3/ul Normal 0.00-0.03 [facility] Comment on above: Performed By: #### S EDR #### [facility] [address] [place] [address] Dr. Bao Hsu IG % 0.3 % Normal 0.0-0.5 [facility] Comment on above: Performed By: #### S EDR #### [facility] [address] [place] [address] Dr. Bao Hsu LYMPH # 1.4 103/ul Normal 1.2-3.8 [facility] Comment on above: Performed By: #### S EDR #### [facility] [address] [place] [address] Dr. Bao Hsu Lymphocytes/100 WBC (Bld) 14.1 % Critically low 20.5-60.0 [facility] Comment on above: Performed By: #### S EDR #### [facility] [address] [place] [address] Dr. Bao Hsu MANUAL DIFF REQ NO Normal [facility] Comment on above: Performed By: #### S EDR #### [facility] [address] [place] [address] Dr. Bao Hsu MCH (RBC) [Entitic mass] 20.8 pg Critically low 26.7-34.0 [facility] Comment on above: Performed By: #### S EDR #### [facility] [address] [place] [address] Dr. Bao Hsu MCHC (RBC) [Mass/Vol] 27.8 g/dL Critically low 29.9-35.2 [facility] Comment on above: Performed By: #### S EDR #### [facility] [address] [place] [address] Dr. Bao Hsu MCV (RBC) [Entitic vol] 74.8 fL Critically low 81.0-99.0 [facility] Comment on above: Performed By: #### S EDR #### [facility] [address] [address] [address] Bao Hsu MONO # 0.6 103/ul Normal 0.3-0.8 [facility] Comment on above: Performed By: #### S EDR #### [facility] [address] [address] [address] Bao Hsu Monocytes/100 WBC (Bld) 5.9 % Normal 1.7-12.0 [facility] Comment on above: Performed By: #### S EDR #### [facility] [address] [place] [address] Dr. Bao Hsu NEUT # 7.5 103/ul Critically high 1.4-6.5 [facility] Comment on above: Performed By: #### S EDR #### [facility] [address] [place] [address] Dr. Bao Hsu Neutrophils/100 WBC (Bld) 76.0 % Critically high 43.0-75.0 [facility] Comment on above: Performed By: #### S EDR #### [facility] [address] [place] [address] Dr. Bao Hsu Platelet mean volume (Bld) [Entitic vol] 8.0 fL Critically low 9.5-13.5 [facility] Comment on above: Performed By: #### S EDR #### [facility] [address] [place] [address] Dr. Bao Hsu PLT 472 103/ul Critically high 150-450 [facility] Comment on above: Performed By: #### S EDR #### [facility] [address] [place] [address] Dr. Bao Hsu RBC 4.61 106/ul Normal 4.20-5.40 [facility] Comment on above: Performed By: #### S EDR #### [facility] [address] [address] [address] Bao Hsu WBC 9.9 103/ul Normal 4.0-11.0 [facility] Comment on above: Performed By: #### S EDR #### [facility] [address] [place] [address] Dr. Bao Hsu PRBC LEUKOREDUCEDon 06-11-19 ABO and Rh group Nom (Bld) Cross Match Result Compatible Unit Blood Type A Pos Unit Number [id number] Status Information Transfused Product ID Red Blood Cells Product Code [id number] Cross Match Result Compatible Unit Blood Type A Pos Unit Number [id number] Status Information Transfused Product ID Red Blood Cells Product Code [id number] Normal [facility] Comment on above: Performed By: #### C WESLEY, BMP #### [facility] [address] [place] [address] Dr. Bao Hsu Consultation Noteon 06-05-19 Consultation Note [id number] 0CD:[address] [facility] Outside Colonoscopyon 2022 Outside Colonoscopy [id number] CD:[address] [facility] CBC AUTO DIFFon 06-01-2022 BASO # 0.1 103/ul Normal 0.0-0.1 [facility] Comment on above: Performed By: #### C WESLEY, BMP #### [facility] [address] [place] [address] Dr. Bao Hsu Basophils/100 WBC (Bld) 0.3 % Normal 0.2-2.0 [facility] Comment on above: Performed By: #### C WESLEY, BMP #### [facility] [address] [place] [address] Dr. Bao Hsu EO # 0.1 103/ul Normal 0.0-0.7 [facility] Comment on above: Performed By: #### C WESLEY, BMP #### [facility] [address] [place] [address] Dr. Bao Hsu Eosinophils/100 WBC (Bld) 0.6 % Critically low 0.9-7.0 [facility] Comment on above: Performed By: #### C WESLEY, BMP #### [facility] [address] [address] [address] Bao Hsu Erythrocyte distribution width (RBC) [Ratio] 26.8 % Critically high 11.0-15.0 [facility] Comment on above: Performed By: #### C DLM, BMP #### [facility] [address] [place] [address] Dr. Bao Hsu Hematocrit (Bld) [Volume fraction] 31.8 % Critically low 36.0-48.0 [facility] Comment on above: Performed By: #### C MADM, BMP #### [facility] [address] [place] [address] Dr. Bao Hsu Hemoglobin (Bld) [Mass/Vol] 8.8 g/dL Critically low 12.0-16.0 [facility] Comment on above: Performed By: #### C WESLEY, BMP #### [facility] [address] [place] [address] Dr. Bao Hsu IG # 0.07 10e3/ul Critically high 0.00-0.03 [facility] Comment on above: Performed By: #### C WESLEY, BMP #### [facility] [address] [place] [address] Dr. Bao Hsu IG % 0.4 % Normal 0.0-0.5 [facility] Comment on above: Performed By: #### C WESLEY, BMP #### [facility] [address] [place] [address] Dr. Bao Hsu LYMPH # 1.3 103/ul Normal 1.2-3.8 [facility] Comment on above: Performed By: #### C MADM, BMP #### [facility] [address] [place] [address] Dr. Bao Hsu Lymphocytes/100 WBC (Bld) 7.8 % Critically low 20.5-60.0 [facility] Comment on above: Performed By: #### C MADM, BMP #### [facility] [address] [place] [address] Dr. Bao Hsu MANUAL DIFF REQ NO Normal [facility] Comment on above: Performed By: #### C MADM, BMP #### [facility] [address] [place] [address] Dr. Bao Hsu MCH (RBC) [Entitic mass] 19.4 pg Critically low 26.7-34.0 [facility] Comment on above: Performed By: #### C WESLEY, BMP #### [facility] [address] [place] [address] Dr. Bao Hsu MCHC (RBC) [Mass/Vol] 27.7 g/dL Critically low 29.9-35.2 [facility] Comment on above: Result Comment: slig ht hypochromasia present Performed By: #### C WESLEY, BMP #### [facility] [address] [place] [address] Dr. Bao Hsu MCV (RBC) [Entitic vol] 70.0 fL Critically low 81.0-99.0 [facility] Comment on above: Result Comment: slig ht microcytosis present Performed By: #### C WESLEY, BMP #### [facility] [address] [place] [address] Dr. Bao Hsu MONO # 1.0 103/ul Critically high 0.3-0.8 [facility] Comment on above: Performed By: #### C WESLEY, BMP #### [facility] [address] [place] [address] Dr. Bao Hsu Monocytes/100 WBC (Bld) 5.6 % Normal 1.7-12.0 [facility] Comment on above: Performed By: #### C WESLEY, BMP #### [facility] [address] [place] [address] Dr. Bao Hsu NEUT # 14.4 103/ul Critically high 1.4-6.5 [facility] Comment on above: Performed By: #### C WESLEY, BMP #### [facility] [address] [place] [address] Dr. Bao Hsu Neutrophils/100 WBC (Bld) 85.3 % Critically high 43.0-75.0 [facility] Comment on above: Performed By: #### C WESLEY, BMP #### [facility] [address] [address] [address] Bao Hsu Platelet mean volume (Bld) [Entitic vol] 8.2 fL Critically low 9.5-13.5 [facility] Comment on above: Performed By: #### C WESLEY, BMP #### [facility] [address] [address] [address] Bao Hsu PLT 356 103/ul Normal 150-450 [facility] Comment on above: Performed By: #### C WESLEY, BMP #### [facility] [address] [address] [address] Bao Hsu RBC 4.54 106/ul Normal 4.20-5.40 [facility] Comment on above: Performed By: #### C WESLEY, BMP #### [facility] [address] [place] [address] Dr. Bao Hsu WBC 16.9 103/ul Critically high 4.0-11.0 [facility] Comment on above: Performed By: #### C WESLEY, BMP #### [facility] [address] [place] [address] Dr. Bao Hsu BASO # 0.1 103/ul Normal 0.0-0.1 [facility] Comment on above: Performed By: #### C WESLEY, BMP #### [facility] [address] [address] [address] Bao Hsu Basophils/100 WBC (Bld) 0.5 % Normal 0.2-2.0 [facility] Comment on above: Performed By: #### C WESLEY, BMP #### [facility] [address] [address] [address] Bao Hsu EO # 0.2 103/ul Normal 0.0-0.7 [facility] Comment on above: Performed By: #### C WESLEY, BMP #### [facility] [address] [place] [address] Dr. Bao Hsu Eosinophils/100 WBC (Bld) 1.2 % Normal 0.9-7.0 [facility] Comment on above: Performed By: #### C WESLEY, BMP #### [facility] [address] [place] [address] Dr. Bao Hsu Erythrocyte distribution width (RBC) [Ratio] 26.1 % Critically high 11.0-15.0 [facility] Comment on above: Performed By: #### C MADM, BMP #### [facility] [address] [place] [address] Dr. Bao Hsu Hematocrit (Bld) [Volume fraction] 28.8 % Critically low 36.0-48.0 [facility] Comment on above: Performed By: #### C MADM, BMP #### [facility] [address] [place] [address] Dr. Bao Hsu Hemoglobin (Bld) [Mass/Vol] 8.1 g/dL Critically low 12.0-16.0 [facility] Comment on above: Performed By: #### C WESLEY, BMP #### [facility] [address] [place] [address] Dr. aBo Hsu IG # 0.05 10e3/ul Critically high 0.00-0.03 [facility] Comment on above: Performed By: #### C DLM, BMP #### [facility] [address] [place] [address] Dr. Bao Hsu IG % 0.4 % Normal 0.0-0.5 [facility] Comment on above: Performed By: #### C WESLEY, BMP #### [facility] [address] [place] [address] Dr. Bao Hsu LYMPH # 1.6 103/ul Normal 1.2-3.8 [facility] Comment on above: Performed By: #### C MADM, BMP #### [facility] [address] [place] [address] Dr. Bao Hsu Lymphocytes/100 WBC (Bld) 12.0 % Critically low 20.5-60.0 [facility] Comment on above: Performed By: #### C MADM, BMP #### [facility] [address] [place] [address] Dr. Bao Hsu MANUAL DIFF REQ NO Normal [facility] Comment on above: Performed By: #### C MADM, BMP #### [facility] [address] [place] [address] Dr. Bao Hsu MCH (RBC) [Entitic mass] 19.4 pg Critically low 26.7-34.0 [facility] Comment on above: Performed By: #### C MADM, BMP #### [facility] [address] [place] [address] Dr. Bao Hsu MCHC (RBC) [Mass/Vol] 28.1 g/dL Critically low 29.9-35.2 [facility] Comment on above: Performed By: #### C MADM, BMP #### [facility] [address] [place] [address] Dr. Bao Hsu MCV (RBC) [Entitic vol] 69.1 fL Critically low 81.0-99.0 [facility] Comment on above: Performed By: #### C MADM, BMP #### [facility] [address] [place] [address] Dr. Bao Hsu MONO # 1.1 103/ul Critically high 0.3-0.8 [facility] Comment on above: Performed By: #### C MADM, BMP #### [facility] [address] [place] [address] Dr. Bao Hsu Monocytes/100 WBC (Bld) 8.2 % Normal 1.7-12.0 [facility] Comment on above: Performed By: #### C MADM, BMP #### [facility] [address] [place] [address] Dr. Bao Hsu NEUT # 10.4 103/ul Critically high 1.4-6.5 [facility] Comment on above: Performed By: #### C MADM, BMP #### [facility] [address] [place] [address] Dr. Bao Hsu Neutrophils/100 WBC (Bld) 77.7 % Critically high 43.0-75.0 [facility] Comment on above: Performed By: #### C MADM, BMP #### [facility] [address] [place] [address] Dr. Bao Hsu Platelet mean volume (Bld) [Entitic vol] 8.1 fL Critically low 9.5-13.5 [facility] Comment on above: Performed By: #### C WESLEY, BMP #### [facility] [address] [place] [address] Dr. Bao Hsu PLT 344 103/ul Normal 150-450 [facility] Comment on above: Performed By: #### C WESLEY, BMP #### [facility] [address] [place] [address] Dr. Bao Hsu RBC 4.17 106/ul Critically low 4.20-5.40 [facility] Comment on above: Performed By: #### C WESLEY, BMP #### [facility] [address] [place] [address] Dr. Bao Hsu WBC 13.3 103/ul Critically high 4.0-11.0 [facility] Comment on above: Performed By: #### C WESLEY, BMP #### [facility] [address] [place] [address] Dr. Bao Hsu MAGNESIUMon 06-01-2022 Magnesium [Mass/Vol] 1.8 mg/dL Normal 1.8-2.4 [facility] Comment on above: Performed By: #### C WESLEY, BMP #### [facility] [address] [place] [address] Dr. Bao Hsu PROF 14(COMP METB)on 023 Albumin [Mass/Vol] 3.4 g/dL Normal 3.4-5.0 [facility] Comment on above: Performed By: #### C WESLEY, BMP #### [facility] [address] [place] [address] Dr. Bao Hsu Albumin/Globulin [Mass ratio] 1.2 {ratio} Normal [facility] Comment on above: Performed By: #### C WESLEY, BMP #### [facility] [address] [place] [address] Dr. Bao Hsu ALP [Catalytic activity/Vol] 123 U/L Critically high 46-116 [facility] Comment on above: Performed By: #### C WESLEY, BMP #### [facility] [address] [address] [address] Bao Hsu ALT [Catalytic activity/Vol] 14 U/L Normal 14-59 [facility] Comment on above: Performed By: #### C MADM, BMP #### [facility] [address] [address] [address] Bao Hsu Anion gap [Moles/Vol] 13.7 mmol/L Normal [facility] Comment on above: Performed By: #### C MADM, BMP #### [facility] [address] [address] [address] Bao Hsu AST [Catalytic activity/Vol] 14 U/L Critically low 15-37 [facility] Comment on above: Performed By: #### C MADM, BMP #### [facility] [address] [place] [address] Dr. Bao Hsu Bilirubin [Mass/Vol] 0.6 mg/dL Normal 0.2-1.0 [facility] Comment on above: Performed By: #### C MADM, BMP #### [facility] [address] [place] [address] Dr. Bao Hsu Calcium [Mass/Vol] 8.4 mg/dL Critically low 8.5-10.1 [facility] Comment on above: Performed By: #### C MADM, BMP #### [facility] [address] [address] [address] Bao Hsu Chloride [Moles/Vol] 101 mmol/L Normal 98-107 [facility] Comment on above: Performed By: #### C MADM, BMP #### [facility] [address] [address] [address] Bao Hsu CO2 [Moles/Vol] 25.2 mmol/L Normal 21.0-32.0 [facility] Comment on above: Performed By: #### C MADM, BMP #### [facility] [address] [address] [address] Bao Hsu Creatinine [Mass/Vol] 0.68 mg/dL Normal 0.55-1.02 [facility] Comment on above: Performed By: #### C MADM, BMP #### [facility] [address] [address] [address] Bao Hsu EGFR-AF [facility] >60 Normal >=60 [facility] Comment on above: Performed By: #### C MADM, BMP #### [facility] [address] [address] [address] Bao Hsu EGFR-NON AF [facility] >60 Normal >=60 [facility] Comment on above: Performed By: #### C MADM, BMP #### [facility] [address] [address] [address] Bao Hsu Globulin (S) [Mass/Vol] 2.9 g/dL Normal [facility] Comment on above: Performed By: #### C MADM, BMP #### [facility] [address] [address] [address] Bao Hsu Glucose [Mass/Vol] 92 mg/dL Normal 74-106 [facility] Comment on above: Performed By: #### C MADM, BMP #### [facility] [address] [address] [address] Bao Hsu Potassium [Moles/Vol] 3.9 mmol/L Normal 3.5-5.1 [facility] Comment on above: Performed By: #### C MADM, BMP #### [facility] [address] [address] [address] Bao Hsu Protein [Mass/Vol] 6.3 g/dL Critically low 6.4-8.2 [facility] Comment on above: Performed By: #### C MADM, BMP #### [facility] [address] [address] [address] Bao Hsu Sodium [Moles/Vol] 136 mmol/L Normal 136-145 [facility] Comment on above: Performed By: #### C MADM, BMP #### [facility] [address] [address] [address] Bao Hsu Urea nitrogen [Mass/Vol] 12.0 mg/dL Normal 7.0-18.0 [facility] Comment on above: Performed By: #### C WESLEY, BMP #### [facility] [address] [place] [address] Dr. Bao Hsu Urea nitrogen/Creatinine [Mass ratio] 17.6 mg/mg Normal [facility] Comment on above: Performed By: #### C WESLEY, BMP #### [facility] [address] [place] [address] Dr. Bao Hsu PTTon 06-01-2022 aPTT Coag (Bld) [Time] 25.6 s Normal 22.3-36.2 [facility] Comment on above: Performed By: #### C WESLEY BMP #### [facility] [address] [place] [address] Dr. Bao Hsu SED RATE WESTERGRENon 2022 SED RATE 20 mm/hr Normal <=30 [facility] Comment on above: Performed By: #### S EDR #### [facility] [address] [place] [address] Dr. Bao Hsu CBC AUTO DIFFon 05-31-2022 BASO # 0.1 103/ul Normal 0.0-0.1 [facility] Comment on above: Performed By: #### C BC #### [facility] [address] [place] [address] Dr. Bao Hsu Basophils/100 WBC (Bld) 0.7 % Normal 0.2-2.0 [facility] Comment on above: Performed By: #### C BC #### [facility] [address] [place] [address] Dr. Bao Hsu EO # 0.5 103/ul Normal 0.0-0.7 [facility] Comment on above: Performed By: #### C BC #### [facility] [address] [place] [address] Dr. Bao Hsu Eosinophils/100 WBC (Bld) 3.7 % Normal 0.9-7.0 [facility] Comment on above: Performed By: #### C BC #### [facility] [address] [place] [address] Dr. Bao Hsu Erythrocyte distribution width (RBC) [Ratio] 25.7 % Critically high 11.0-15.0 [facility] Comment on above: Result Comment: 2+ a niso Performed By: #### C BC #### [facility] [address] [place] [address] Dr. Bao Hsu Hematocrit (Bld) [Volume fraction] 34.1 % Critically low 36.0-48.0 [facility] Comment on above: Performed By: #### C BC #### [facility] [address] [place] [address] Dr. Bao Hsu Hemoglobin (Bld) [Mass/Vol] 9.6 g/dL Critically low 12.0-16.0 [facility] Comment on above: Performed By: #### C BC #### [facility] [address] [place] [address] Dr. Bao Hsu IG # 0.08 10e3/ul Critically high 0.00-0.03 [facility] Comment on above: Performed By: #### C BC #### [facility] [address] [place] [address] Dr. Bao Hsu IG % 0.6 % Critically high 0.0-0.5 [facility] Comment on above: Performed By: #### C BC #### [facility] [address] [place] [address] Dr. Bao Hsu LYMPH # 1.9 103/ul Normal 1.2-3.8 [facility] Comment on above: Performed By: #### C BC #### [facility] [address] [place] [address] Dr. Bao Hsu Lymphocytes/100 WBC (Bld) 13.3 % Critically low 20.5-60.0 [facility] Comment on above: Performed By: #### C BC #### [facility] [address] [place] [address] Dr. Bao Hsu MANUAL DIFF REQ NO Normal [facility] Comment on above: Performed By: #### C BC #### [facility] [address] [place] [address] Dr. Bao Hsu MCH (RBC) [Entitic mass] 19.4 pg Critically low 26.7-34.0 [facility] Comment on above: Result Comment: 2+ h ypochromasia Performed By: #### C BC #### [facility] [address] [place] [address] Dr. Bao Hsu MCHC (RBC) [Mass/Vol] 28.2 g/dL Critically low 29.9-35.2 [facility] Comment on above: Performed By: #### C BC #### [facility] [address] [place] [address] Dr. Bao Hsu MCV (RBC) [Entitic vol] 68.9 fL Critically low 81.0-99.0 [facility] Comment on above: Performed By: #### C BC #### [facility] [address] [place] [address] Dr. Bao Hsu MONO # 0.9 103/ul Critically high 0.3-0.8 [facility] Comment on above: Performed By: #### C BC #### [facility] [address] [place] [address] Dr. Bao Hsu Monocytes/100 WBC (Bld) 6.2 % Normal 1.7-12.0 [facility] Comment on above: Performed By: #### C BC #### [facility] [address] [place] [address] Dr. Bao Hsu NEUT # 10.9 103/ul Critically high 1.4-6.5 [facility] Comment on above: Performed By: #### C BC #### [facility] [address] [place] [address] Dr. Bao Hsu Neutrophils/100 WBC (Bld) 75.5 % Critically high 43.0-75.0 [facility] Comment on above: Performed By: #### C BC #### [facility] [address] [place] [address] Dr. Bao Hsu Platelet mean volume (Bld) [Entitic vol] 8.7 fL Critically low 9.5-13.5 [facility] Comment on above: Performed By: #### C BC #### [facility] [address] [address] [address] Bao Hsu PLT 375 103/ul Normal 150-450 [facility] Comment on above: Performed By: #### C BC #### [facility] [address] [place] [address] Dr. Bao Hsu RBC 4.95 106/ul Normal 4.20-5.40 [facility] Comment on above: Performed By: #### C BC #### [facility] [address] [address] [address] Bao Hsu WBC 14.4 103/ul Critically high 4.0-11.0 [facility] Comment on above: Performed By: #### C BC #### [facility] [address] [place] [address] Dr. Bao Hsu BASO # 0.1 103/ul Normal 0.0-0.1 [facility] Comment on above: Performed By: #### C WESLEY, BMP #### [facility] [address] [place] [address] Dr. Bao Hsu Basophils/100 WBC (Bld) 0.7 % Normal 0.2-2.0 [facility] Comment on above: Performed By: #### C WESLEY, BMP #### [facility] [address] [place] [address] Dr. Bao Hsu EO # 0.4 103/ul Normal 0.0-0.7 [facility] Comment on above: Performed By: #### C WESLEY, BMP #### [facility] [address] [place] [address] Dr. Bao Hsu Eosinophils/100 WBC (Bld) 3.7 % Normal 0.9-7.0 [facility] Comment on above: Performed By: #### C WESLEY, BMP #### [facility] [address] [place] [address] Dr. Bao Hsu Erythrocyte distribution width (RBC) [Ratio] 25.0 % Critically high 11.0-15.0 [facility] Comment on above: Performed By: #### C WESLEY, BMP #### [facility] [address] [address] [address] Bao Hsu Hematocrit (Bld) [Volume fraction] 29.9 % Critically low 36.0-48.0 [facility] Comment on above: Performed By: #### C MADM, BMP #### [facility] [address] [place] [address] Dr. Bao Hsu Hemoglobin (Bld) [Mass/Vol] 8.5 g/dL Critically low 12.0-16.0 [facility] Comment on above: Performed By: #### C MADM, BMP #### [facility] [address] [place] [address] Dr. Bao Hsu IG # 0.06 10e3/ul Critically high 0.00-0.03 [facility] Comment on above: Performed By: #### C MADM, BMP #### [facility] [address] [place] [address] Dr. Bao Hsu IG % 0.6 % Critically high 0.0-0.5 [facility] Comment on above: Performed By: #### C MADM, BMP #### [facility] [address] [place] [address] Dr. Bao Hsu LYMPH # 1.6 103/ul Normal 1.2-3.8 [facility] Comment on above: Performed By: #### C MADM, BMP #### [facility] [address] [place] [address] Dr. Bao Hsu Lymphocytes/100 WBC (Bld) 15.0 % Critically low 20.5-60.0 [facility] Comment on above: Performed By: #### C MADM, BMP #### [facility] [address] [place] [address] Dr. Bao Hsu MANUAL DIFF REQ NO Normal [facility] Comment on above: Performed By: #### C MADM, BMP #### [facility] [address] [place] [address] Dr. Bao Hsu MCH (RBC) [Entitic mass] 19.4 pg Critically low 26.7-34.0 [facility] Comment on above: Performed By: #### C MADM, BMP #### [facility] [address] [place] [address] Dr. Bao Hsu MCHC (RBC) [Mass/Vol] 28.4 g/dL Critically low 29.9-35.2 [facility] Comment on above: Performed By: #### C MADM, BMP #### [facility] [address] [place] [address] Dr. Bao Hsu MCV (RBC) [Entitic vol] 68.3 fL Critically low 81.0-99.0 [facility] Comment on above: Performed By: #### C MADM, BMP #### [facility] [address] [place] [address] Dr. Bao Hsu MONO # 0.8 103/ul Normal 0.3-0.8 [facility] Comment on above: Performed By: #### C MADM, BMP #### [facility] [address] [place] [address] Dr. Bao Hsu Monocytes/100 WBC (Bld) 7.8 % Normal 1.7-12.0 [facility] Comment on above: Performed By: #### C MADM, BMP #### [facility] [address] [place] [address] Dr. Bao Hsu NEUT # 7.7 103/ul Critically high 1.4-6.5 [facility] Comment on above: Performed By: #### C MADM, BMP #### [facility] [address] [place] [address] Dr. Bao Hsu Neutrophils/100 WBC (Bld) 72.2 % Normal 43.0-75.0 [facility] Comment on above: Performed By: #### C MADM, BMP #### [facility] [address] [place] [address] Dr. Bao Hsu Platelet mean volume (Bld) [Entitic vol] 8.4 fL Critically low 9.5-13.5 [facility] Comment on above: Performed By: #### C MADM, BMP #### [facility] [address] [place] [address] Dr. Bao Hsu PLT 369 103/ul Normal 150-450 [facility] Comment on above: Performed By: #### C MADM, BMP #### [facility] [address] [place] [address] Dr. Bao Hsu RBC 4.38 106/ul Normal 4.20-5.40 [facility] Comment on above: Performed By: #### C MADM, BMP #### [facility] [address] [place] [address] Dr. Bao Hsu WBC 10.7 103/ul Normal 4.0-11.0 [facility] Comment on above: Performed By: #### C MADM, BMP #### [facility] [address] [place] [address] Dr. Bao Hsu MAGNESIUMon 05-31-2022 Magnesium [Mass/Vol] 1.9 mg/dL Normal 1.8-2.4 [facility] Comment on above: Performed By: #### C MP, MG #### [facility] [address] [place] [address] Dr. Bao Hsu OCC BLD IMMUNO SCREENon 05-20 OCCULT BLOOD Positive Abnormal NEGATIVE [facility] Comment on above: Performed By: #### C MADM, BMP #### [facility] [address] [place] [address] Dr. Bao Hsu PROF 14(COMP METB)on 023 Albumin [Mass/Vol] 3.3 g/dL Critically low 3.4-5.0 [facility] Comment on above: Performed By: #### C MP, MG #### [facility] [address] [place] [address] Dr. Bao Hsu Albumin/Globulin [Mass ratio] 1.1 {ratio} Normal [facility] Comment on above: Performed By: #### C MP, MG #### [facility] [address] [place] [address] Dr. Bao Hsu ALP [Catalytic activity/Vol] 123 U/L Critically high 46-116 [facility] Comment on above: Performed By: #### C MP, MG #### [facility] [address] [address] [address] Bao Hsu ALT [Catalytic activity/Vol] 15 U/L Normal 14-59 [facility] Comment on above: Performed By: #### C MP, MG #### [facility] [address] [place] [address] Dr. Bao Hsu Anion gap [Moles/Vol] 11.8 mmol/L Normal [facility] Comment on above: Performed By: #### C MP, MG #### [facility] [address] [address] [address] Bao Hsu AST [Catalytic activity/Vol] 14 U/L Critically low 15-37 [facility] Comment on above: Performed By: #### C MP, MG #### [facility] [address] [place] [address] Dr. Bao Hsu Bilirubin [Mass/Vol] 0.5 mg/dL Normal 0.2-1.0 [facility] Comment on above: Performed By: #### C MP, MG #### [facility] [address] [place] [address] Dr. Bao Hsu Calcium [Mass/Vol] 8.7 mg/dL Normal 8.5-10.1 [facility] Comment on above: Performed By: #### C MP, MG #### [facility] [address] [address] [address] Bao Hsu Chloride [Moles/Vol] 101 mmol/L Normal 98-107 [facility] Comment on above: Performed By: #### C MP, MG #### [facility] [address] [place] [address] Dr. Bao Hsu CO2 [Moles/Vol] 27.0 mmol/L Normal 21.0-32.0 [facility] Comment on above: Performed By: #### C MP, MG #### [facility] [address] [place] [address] Dr. Bao Hsu Creatinine [Mass/Vol] 0.64 mg/dL Normal 0.55-1.02 [facility] Comment on above: Performed By: #### C MP, MG #### [facility] [address] [place] [address] Dr. Bao Hsu EGFR-AF [facility] >60 Normal >=60 [facility] Comment on above: Performed By: #### C MP, MG #### [facility] [address] [place] [address] Dr. Bao Hsu EGFR-NON AF [facility] >60 Normal >=60 [facility] Comment on above: Performed By: #### C MP, MG #### [facility] [address] [address] [address] Bao Hsu Globulin (S) [Mass/Vol] 3.1 g/dL Normal [facility] Comment on above: Performed By: #### C MP, MG #### [facility] [address] [place] [address] Dr. Bao Hsu Glucose [Mass/Vol] 103 mg/dL Normal 74-106 [facility] Comment on above: Performed By: #### C MP, MG #### [facility] [address] [place] [address] Dr. Bao Hsu Potassium [Moles/Vol] 3.8 mmol/L Normal 3.5-5.1 [facility] Comment on above: Performed By: #### C MP, MG #### [facility] [address] [place] [address] Dr. Bao Hsu Protein [Mass/Vol] 6.4 g/dL Normal 6.4-8.2 [facility] Comment on above: Performed By: #### C MP, MG #### [facility] [address] [place] [address] Dr. Bao Hsu Sodium [Moles/Vol] 136 mmol/L Normal 136-145 [facility] Comment on above: Performed By: #### C MP, MG #### [facility] [address] [place] [address] Dr. Bao Hsu Urea nitrogen [Mass/Vol] 12.0 mg/dL Normal 7.0-18.0 [facility] Comment on above: Performed By: #### C MP, MG #### [facility] [address] [place] [address] Dr. Bao Hsu Urea nitrogen/Creatinine [Mass ratio] 18.8 mg/mg Normal [facility] Comment on above: Performed By: #### C MP, MG #### [facility] [address] [place] [address] Dr. Bao Hsu PTTon 05-31-2022 aPTT Coag (Bld) [Time] 24.8 s Normal 22.3-36.2 [facility] Comment on above: Performed By: #### C MADM, BMP #### [facility] [address] [place] [address] Dr. Bao Hsu SED [facility] SED RATE 13 mm/hr Normal <=30 [facility] Comment on above: Performed By: #### C MADM, BMP #### [facility] [address] [place] [address] Dr. Bao Hsu CBC AUTO DIFFon 05-30-2022 BASO # 0.1 103/ul Normal 0.0-0.1 [facility] Comment on above: Performed By: #### C BC #### [facility] [address] [place] [address] Dr. Bao Hsu Performed By: #### S EDR #### [facility] [address] [place] [address] Dr. Bao Hsu Basophils/100 WBC (Bld) 0.5 % Normal 0.2-2.0 [facility] Comment on above: Performed By: #### C BC #### [facility] [address] [place] [address] Dr. Bao Hsu EO # 0.4 103/ul Normal 0.0-0.7 [facility] Comment on above: Performed By: #### C BC #### [facility] [address] [place] [address] Dr. Bao Hsu Eosinophils/100 WBC (Bld) 2.9 % Normal 0.9-7.0 [facility] Comment on above: Performed By: #### C BC #### [facility] [address] [place] [address] Dr. aBo Hsu Erythrocyte distribution width (RBC) [Ratio] 24.8 % Critically high 11.0-15.0 [facility] Comment on above: Result Comment: 2+ a nisocytosis Performed By: #### C BC #### [facility] [address] [place] [address] Dr. Bao Hsu Hematocrit (Bld) [Volume fraction] 32.0 % Critically low 36.0-48.0 [facility] Comment on above: Performed By: #### C BC #### [facility] [address] [place] [address] Dr. Bao Hsu Hemoglobin (Bld) [Mass/Vol] 9.0 g/dL Critically low 12.0-16.0 [facility] Comment on above: Performed By: #### C BC #### [facility] [address] [place] [address] Dr. Bao Hsu IG # 0.04 10e3/ul Critically high 0.00-0.03 [facility] Comment on above: Performed By: #### C BC #### [facility] [address] [place] [address] Dr. Bao Hsu Performed By: #### S EDR #### [facility] [address] [place] [address] Dr. Bao Hsu IG % 0.3 % Normal 0.0-0.5 [facility] Comment on above: Performed By: #### C BC #### [facility] [address] [place] [address] Dr. Bao Hsu Performed By: #### S EDR #### [facility] [address] [place] [address] Dr. Bao Hsu LYMPH # 1.8 103/ul Normal 1.2-3.8 [facility] Comment on above: Performed By: #### C BC #### [facility] [address] [place] [address] Dr. Bao Hsu Lymphocytes/100 WBC (Bld) 14.4 % Critically low 20.5-60.0 [facility] Comment on above: Performed By: #### C BC #### [facility] [address] [place] [address] Dr. Bao Hsu MANUAL DIFF REQ NO Normal [facility] Comment on above: Performed By: #### C BC #### [facility] [address] [place] [address] Dr. Bao Hsu Performed By: #### S EDR #### [facility] [address] [place] [address] Dr. Bao Hsu MCH (RBC) [Entitic mass] 19.2 pg Critically low 26.7-34.0 [facility] Comment on above: Result Comment: 2+ h ypochromasia Performed By: #### C BC #### [facility] [address] [place] [address] Dr. Bao Hsu MCHC (RBC) [Mass/Vol] 28.1 g/dL Critically low 29.9-35.2 [facility] Comment on above: Performed By: #### C BC #### [facility] [address] [place] [address] Dr. Bao Hsu MCV (RBC) [Entitic vol] 68.4 fL Critically low 81.0-99.0 [facility] Comment on above: Performed By: #### C BC #### [facility] [address] [place] [address] Dr. Bao Hsu MONO # 0.7 103/ul Normal 0.3-0.8 [facility] Comment on above: Performed By: #### C BC #### [facility] [address] [place] [address] Dr. Bao Hsu Monocytes/100 WBC (Bld) 5.5 % Normal 1.7-12.0 [facility] Comment on above: Performed By: #### C BC #### [facility] [address] [place] [address] Dr. Bao Hsu NEUT # 9.5 103/ul Critically high 1.4-6.5 [facility] Comment on above: Performed By: #### C BC #### [facility] [address] [place] [address] Dr. Bao Hsu Neutrophils/100 WBC (Bld) 76.4 % Critically high 43.0-75.0 [facility] Comment on above: Performed By: #### C BC #### [facility] [address] [place] [address] Dr. Bao Hsu Platelet mean volume (Bld) [Entitic vol] 8.4 fL Critically low 9.5-13.5 [facility] Comment on above: Performed By: #### C BC #### [facility] [address] [place] [address] Dr. Bao Hsu PLT 396 103/ul Normal 150-450 [facility] Comment on above: Performed By: #### C BC #### [facility] [address] [place] [address] Dr. Bao Hsu RBC 4.68 106/ul Normal 4.20-5.40 [facility] Comment on above: Performed By: #### C BC #### [facility] [address] [place] [address] Dr. Bao Hsu WBC 12.4 103/ul Critically high 4.0-11.0 [facility] Comment on above: Performed By: #### C BC #### [facility] [address] [place] [address] Dr. Bao Hsu Basophils/100 WBC (Bld) 0.7 % Normal 0.2-2.0 [facility] Comment on above: Performed By: #### S EDR #### [facility] [address] [place] [address] Dr. Bao Hsu EO # 0.3 103/ul Normal 0.0-0.7 [facility] Comment on above: Performed By: #### S EDR #### [facility] [address] [place] [address] Dr. Bao Hsu Eosinophils/100 WBC (Bld) 2.7 % Normal 0.9-7.0 [facility] Comment on above: Performed By: #### S EDR #### [facility] [address] [place] [address] Dr. Bao Hsu Erythrocyte distribution width (RBC) [Ratio] 23.8 % Critically high 11.0-15.0 [facility] Comment on above: Performed By: #### S EDR #### [facility] [address] [place] [address] Dr. Bao Hsu Hematocrit (Bld) [Volume fraction] 29.0 % Critically low 36.0-48.0 [facility] Comment on above: Performed By: #### S EDR #### [facility] [address] [place] [address] Dr. Bao Hsu Hemoglobin (Bld) [Mass/Vol] 8.3 g/dL Critically low 12.0-16.0 [facility] Comment on above: Performed By: #### S EDR #### [facility] [address] [place] [address] Dr. Bao Hsu LYMPH # 1.6 103/ul Normal 1.2-3.8 [facility] Comment on above: Performed By: #### S EDR #### [facility] [address] [place] [address] Dr. Bao Hsu Lymphocytes/100 WBC (Bld) 14.0 % Critically low 20.5-60.0 [facility] Comment on above: Performed By: #### S EDR #### [facility] [address] [place] [address] Dr. Bao Hsu MCH (RBC) [Entitic mass] 19.1 pg Critically low 26.7-34.0 [facility] Comment on above: Performed By: #### S EDR #### [facility] [address] [place] [address] Dr. Bao Hsu MCHC (RBC) [Mass/Vol] 28.6 g/dL Critically low 29.9-35.2 [facility] Comment on above: Performed By: #### S EDR #### [facility] [address] [place] [address] Dr. Bao Hsu MCV (RBC) [Entitic vol] 66.8 fL Critically low 81.0-99.0 [facility] Comment on above: Performed By: #### S EDR #### [facility] [address] [address] [address] Bao Hsu MONO # 0.8 103/ul Normal 0.3-0.8 [facility] Comment on above: Performed By: #### S EDR #### [facility] [address] [place] [address] Dr. Bao Hsu Monocytes/100 WBC (Bld) 6.9 % Normal 1.7-12.0 [facility] Comment on above: Performed By: #### S EDR #### [facility] [address] [place] [address] Dr. Bao Hsu NEUT # 8.7 103/ul Critically high 1.4-6.5 [facility] Comment on above: Performed By: #### S EDR #### [facility] [address] [place] [address] Dr. Bao Hsu Neutrophils/100 WBC (Bld) 75.4 % Critically high 43.0-75.0 [facility] Comment on above: Performed By: #### S EDR #### [facility] [address] [place] [address] Dr. Bao Hsu Platelet mean volume (Bld) [Entitic vol] 8.1 fL Critically low 9.5-13.5 [facility] Comment on above: Performed By: #### S EDR #### [facility] [address] [place] [address] Dr. Bao Hsu PLT 327 103/ul Normal 150-450 [facility] Comment on above: Performed By: #### S EDR #### [facility] [address] [place] [address] Dr. Bao Hsu RBC 4.34 106/ul Normal 4.20-5.40 [facility] Comment on above: Performed By: #### S EDR #### [facility] [address] [place] [address] Dr. Bao Hsu WBC 11.5 103/ul Critically high 4.0-11.0 [facility] Comment on above: Performed By: #### S EDR #### [facility] [address] [place] [address] Dr. Bao Hsu MAGNESIUMon 05-30-2022 Magnesium [Mass/Vol] 1.8 mg/dL Normal 1.8-2.4 [facility] Comment on above: Performed By: #### S EDR #### [facility] [address] [address] [address] Bao Hsu PROF 14(COMP METB)on 023 Albumin [Mass/Vol] 3.5 g/dL Normal 3.4-5.0 [facility] Comment on above: Performed By: #### S EDR #### [facility] [address] [address] [address] Bao Hsu Albumin/Globulin [Mass ratio] 1.2 {ratio} Normal [facility] Comment on above: Performed By: #### S EDR #### [facility] [address] [place] [address] Dr. Bao Hsu ALP [Catalytic activity/Vol] 135 U/L Critically high 46-116 [facility] Comment on above: Performed By: #### S EDR #### [facility] [address] [address] [address] Bao Hsu ALT [Catalytic activity/Vol] 12 U/L Critically low 14-59 [facility] Comment on above: Performed By: #### S EDR #### [facility] [address] [address] [address] Bao Hsu Anion gap [Moles/Vol] 9.3 mmol/L Normal [facility] Comment on above: Performed By: #### S EDR #### [facility] [address] [address] [address] Bao Hsu AST [Catalytic activity/Vol] 12 U/L Critically low 15-37 [facility] Comment on above: Performed By: #### S EDR #### [facility] [address] [place] [address] Dr. Bao Hsu Bilirubin [Mass/Vol] 0.7 mg/dL Normal 0.2-1.0 [facility] Comment on above: Performed By: #### S EDR #### [facility] [address] [address] [address] Bao Hsu Calcium [Mass/Vol] 8.6 mg/dL Normal 8.5-10.1 [facility] Comment on above: Performed By: #### S EDR #### [facility] [address] [address] [address] Bao Hsu Chloride [Moles/Vol] 102 mmol/L Normal 98-107 [facility] Comment on above: Performed By: #### S EDR #### [facility] [address] [address] [address] Bao Hsu CO2 [Moles/Vol] 26.6 mmol/L Normal 21.0-32.0 [facility] Comment on above: Performed By: #### S EDR #### [facility] [address] [place] [address] Dr. Bao Hsu Creatinine [Mass/Vol] 0.59 mg/dL Normal 0.55-1.02 [facility] Comment on above: Performed By: #### S EDR #### [facility] [address] [address] [address] Bao Hsu EGFR-AF [facility] >60 Normal >=60 [facility] Comment on above: Performed By: #### S EDR #### [facility] [address] [place] [address] Dr. Bao Hsu EGFR-NON AF [facility] >60 Normal >=60 [facility] Comment on above: Performed By: #### S EDR #### [facility] [address] [address] [address] Bao Hsu Globulin (S) [Mass/Vol] 2.9 g/dL Normal [facility] Comment on above: Performed By: #### S EDR #### [facility] [address] [place] [address] Dr. Bao Hsu Glucose [Mass/Vol] 115 mg/dL Critically high 74-106 [facility] Comment on above: Performed By: #### S EDR #### [facility] [address] [place] [address] Dr. Bao Hsu Potassium [Moles/Vol] 3.9 mmol/L Normal 3.5-5.1 [facility] Comment on above: Performed By: #### S EDR #### [facility] [address] [place] [address] Dr. Bao Hsu Protein [Mass/Vol] 6.4 g/dL Normal 6.4-8.2 [facility] Comment on above: Performed By: #### S EDR #### [facility] [address] [address] [address] Bao Hsu Sodium [Moles/Vol] 134 mmol/L Critically low 136-145 [facility] Comment on above: Performed By: #### S EDR #### [facility] [address] [place] [address] Dr. Bao Hsu Urea nitrogen [Mass/Vol] 9.0 mg/dL Normal 7.0-18.0 [facility] Comment on above: Performed By: #### S EDR #### [facility] [address] [place] [address] Dr. Bao Hsu Urea nitrogen/Creatinine [Mass ratio] 15.3 mg/mg Normal [facility] Comment on above: Performed By: #### S EDR #### [facility] [address] [place] [address] Dr. Bao Hsu PTTon 05-30-2022 aPTT Coag (Bld) [Time] 23.1 s Normal 22.3-36.2 [facility] Comment on above: Performed By: #### S EDR #### [facility] [address] [place] [address] Dr. Bao sHu SED RATE WESTERGRENon 2022 SED RATE 23 mm/hr Normal <=30 [facility] Comment on above: Performed By: #### S EDR #### [facility] [address] [place] [address] Dr. Bao Hsu ABO RH RETYPEon 05-29-2022 ABO and Rh group Nom (Bld) DONE Normal [facility] Comment on above: Performed By: #### C MADM, BMP #### [facility] [address] [address] [address] Bao Hsu CARDIAC DARION 3-6on 3 CK [Catalytic activity/Vol] 30 U/L Normal 26-192 [facility] Comment on above: Performed By: #### C MADM, BMP #### [facility] [address] [address] [address] Bao Hsu CK.MB [Mass/Vol] ng/mL Normal <=3.60 [facility] Comment on above: Performed By: #### C MADM, BMP #### [facility] [address] [address] [address] Bao Hsu HSTROP 7.0 pg/mL Normal 4.0-51.3 [facility] Comment on above: Result Comment: CUT- OFF POINTS HAVE BEEN ESTABLISHED BASED ON THE FOURTH UNIVERSAL DEFINITIONS OF MYOCARDIAL INFARCTION. THE UPPER REFERENCE LIMIT (URL) OF TROPONIN, DEFINED THE 99TH PERCENTILE OF cTnI DISTRIBUTION IN A REFERENCE POPULATION, HAS BEEN CONFIRMED THE DECISION THRESHOLD FOR SD DIAGNOSIS. Performed By: #### C MADM, BMP #### [facility] [address] [address] [address] Bao Hsu CK [Catalytic activity/Vol] 62 U/L Normal 26-192 [facility] Comment on above: Performed By: #### C MADM, BMP #### [facility] [address] [address] [address] Bao Hsu CK.MB [Mass/Vol] ng/mL Normal <=3.60 [facility] Comment on above: Performed By: #### C MADM, BMP #### [facility] [address] [address] [address] Bao Hsu HSTROP 6.2 pg/mL Normal 4.0-51.3 [facility] Comment on above: Result Comment: CUT- OFF POINTS HAVE BEEN ESTABLISHED BASED ON THE FOURTH UNIVERSAL DEFINITIONS OF MYOCARDIAL INFARCTION. THE UPPER REFERENCE LIMIT (URL) OF TROPONIN, DEFINED THE 99TH PERCENTILE OF cTnI DISTRIBUTION IN A REFERENCE POPULATION, HAS BEEN CONFIRMED THE DECISION THRESHOLD FOR SD DIAGNOSIS. Performed By: #### C MADM, BMP #### [facility] [address] [place] [address] Dr. Bao Hsu CARDIAC DARION ADMITon 023 CK [Catalytic activity/Vol] 29 U/L Normal 26-192 [facility] Comment on above: Performed By: #### C DLM, BMP #### [facility] [address] [place] [address] Dr. Bao Hsu CK.MB [Mass/Vol] ng/mL Normal <=3.60 [facility] Comment on above: Performed By: #### C WESLEY, BMP #### [facility] [address] [place] [address] Dr. Bao Hsu HSTROP 7.0 pg/mL Normal 4.0-51.3 [facility] Comment on above: Result Comment: CUT- OFF POINTS HAVE BEEN ESTABLISHED BASED ON THE FOURTH UNIVERSAL DEFINITIONS OF MYOCARDIAL INFARCTION. THE UPPER REFERENCE LIMIT (URL) OF TROPONIN, DEFINED THE 99TH PERCENTILE OF cTnI DISTRIBUTION IN A REFERENCE POPULATION, HAS BEEN CONFIRMED THE DECISION THRESHOLD FOR SD DIAGNOSIS. Performed By: #### C WESLEY, BMP #### [facility] [address] [place] [address] Dr. Bao Hsu DINAH 24 ng/mL Normal 9-82 [facility] Comment on above: Performed By: #### C WESLEY, BMP #### [facility] [address] [place] [address] Dr. Bao Hsu CBC AUTO DIFFon 05-29-2022 BASO # 0.1 103/ul Normal 0.0-0.1 [facility] Comment on above: Performed By: #### C BC #### [facility] [address] [place] [address] Dr. Bao Hsu Basophils/100 WBC (Bld) 0.5 % Normal 0.2-2.0 [facility] Comment on above: Performed By: #### C BC #### [facility] [address] [place] [address] Dr. Bao Hsu EO # 0.2 103/ul Normal 0.0-0.7 [facility] Comment on above: Performed By: #### C BC #### [facility] [address] [address] [address] Bao Hsu Eosinophils/100 WBC (Bld) 1.9 % Normal 0.9-7.0 [facility] Comment on above: Performed By: #### C BC #### [facility] [address] [place] [address] Dr. Bao Hsu Erythrocyte distribution width (RBC) [Ratio] 24.0 % Critically high 11.0-15.0 [facility] Comment on above: Performed By: #### C BC #### [facility] [address] [place] [address] Dr. Bao Hsu Hematocrit (Bld) [Volume fraction] 30.1 % Critically low 36.0-48.0 [facility] Comment on above: Performed By: #### C BC #### [facility] [address] [place] [address] Dr. Bao Hsu Hemoglobin (Bld) [Mass/Vol] 8.8 g/dL Critically low 12.0-16.0 [facility] Comment on above: Performed By: #### C BC #### [facility] [address] [place] [address] Dr. Bao Hsu IG # 0.07 10e3/ul Critically high 0.00-0.03 [facility] Comment on above: Performed By: #### C BC #### [facility] [address] [place] [address] Dr. Bao Hsu IG % 0.6 % Critically high 0.0-0.5 [facility] Comment on above: Performed By: #### C BC #### [facility] [address] [place] [address] Dr. Bao Hsu LYMPH # 1.2 103/ul Normal 1.2-3.8 [facility] Comment on above: Performed By: #### C BC #### [facility] [address] [place] [address] Dr. Bao Hsu Lymphocytes/100 WBC (Bld) 10.6 % Critically low 20.5-60.0 [facility] Comment on above: Performed By: #### C BC #### [facility] [address] [place] [address] Dr. Bao Hsu MANUAL DIFF REQ NO Normal [facility] Comment on above: Performed By: #### C BC #### [facility] [address] [place] [address] Dr. Bao Hsu MCH (RBC) [Entitic mass] 19.4 pg Critically low 26.7-34.0 [facility] Comment on above: Performed By: #### C BC #### [facility] [address] [place] [address] Dr. Bao Hsu MCHC (RBC) [Mass/Vol] 29.2 g/dL Critically low 29.9-35.2 [facility] Comment on above: Performed By: #### C BC #### [facility] [address] [place] [address] Dr. Bao Hsu MCV (RBC) [Entitic vol] 66.3 fL Critically low 81.0-99.0 [facility] Comment on above: Performed By: #### C BC #### [facility] [address] [place] [address] Dr. Bao Hsu MONO # 0.7 103/ul Normal 0.3-0.8 [facility] Comment on above: Performed By: #### C BC #### [facility] [address] [place] [address] Dr. Bao Hsu Monocytes/100 WBC (Bld) 6.1 % Normal 1.7-12.0 [facility] Comment on above: Performed By: #### C BC #### [facility] [address] [place] [address] Dr. Bao Hsu NEUT # 9.2 103/ul Critically high 1.4-6.5 [facility] Comment on above: Performed By: #### C BC #### [facility] [address] [place] [address] Dr. Bao Hsu Neutrophils/100 WBC (Bld) 80.3 % Critically high 43.0-75.0 [facility] Comment on above: Performed By: #### C BC #### [facility] [address] [place] [address] Dr. Bao Hsu Platelet mean volume (Bld) [Entitic vol] 7.9 fL Critically low 9.5-13.5 [facility] Comment on above: Performed By: #### C BC #### [facility] [address] [place] [address] Dr. Bao Hsu PLT 322 103/ul Normal 150-450 [facility] Comment on above: Performed By: #### C BC #### [facility] [address] [place] [address] Dr. Bao Hsu RBC 4.54 106/ul Normal 4.20-5.40 [facility] Comment on above: Performed By: #### C BC #### [facility] [address] [place] [address] Dr. Bao Hsu WBC 11.4 103/ul Critically high 4.0-11.0 [facility] Comment on above: Performed By: #### C BC #### [facility] [address] [place] [address] Dr. Bao Hsu BASO # 0.1 103/ul Normal 0.0-0.1 [facility] Comment on above: Performed By: #### C BC #### [facility] [address] [place] [address] Dr. Bao Hsu Basophils/100 WBC (Bld) 0.4 % Normal 0.2-2.0 [facility] Comment on above: Performed By: #### C BC #### [facility] [address] [place] [address] Dr. Bao Hsu EO # 0.2 103/ul Normal 0.0-0.7 [facility] Comment on above: Performed By: #### C BC #### [facility] [address] [place] [address] Dr. Bao Hsu Eosinophils/100 WBC (Bld) 1.6 % Normal 0.9-7.0 [facility] Comment on above: Performed By: #### C BC #### [facility] [address] [place] [address] Dr. Bao Hsu Erythrocyte distribution width (RBC) [Ratio] 24.4 % Critically high 11.0-15.0 [facility] Comment on above: Performed By: #### C BC #### [facility] [address] [place] [address] Dr. Bao Hsu Hematocrit (Bld) [Volume fraction] 29.5 % Critically low 36.0-48.0 [facility] Comment on above: Performed By: #### C BC #### [facility] [address] [place] [address] Dr. Bao Hsu Hemoglobin (Bld) [Mass/Vol] 8.5 g/dL Critically low 12.0-16.0 [facility] Comment on above: Performed By: #### C BC #### [facility] [address] [place] [address] Dr. Bao Hsu IG # 0.06 10e3/ul Critically high 0.00-0.03 [facility] Comment on above: Performed By: #### C BC #### [facility] [address] [place] [address] Dr. Bao Hsu IG % 0.4 % Normal 0.0-0.5 [facility] Comment on above: Performed By: #### C BC #### [facility] [address] [place] [address] Dr. Bao Hsu LYMPH # 1.1 103/ul Critically low 1.2-3.8 [facility] Comment on above: Performed By: #### C BC #### [facility] [facility] [address] [place] [address] Dr. Bao Hsu Lymphocytes/100 WBC (Bld) 8.1 % Critically low 20.5-60.0 [facility] Comment on above: Performed By: #### C BC #### [facility] [address] [place] [address] Dr. Bao Hsu MANUAL DIFF REQ NO Normal [facility] Comment on above: Performed By: #### C BC #### [facility] [address] [place] [address] Dr. Bao Hsu MCH (RBC) [Entitic mass] 19.3 pg Critically low 26.7-34.0 [facility] Comment on above: Performed By: #### C BC #### [facility] [address] [place] [address] Dr. Bao Hsu MCHC (RBC) [Mass/Vol] 28.8 g/dL Critically low 29.9-35.2 [facility] Comment on above: Performed By: #### C BC #### [facility] [address] [place] [address] Dr. Bao Hsu MCV (RBC) [Entitic vol] 66.9 fL Critically low 81.0-99.0 [facility] Comment on above: Performed By: #### C BC #### [facility] [address] [place] [address] Dr. Bao Hsu MONO # 0.7 103/ul Normal 0.3-0.8 [facility] Comment on above: Performed By: #### C BC #### [facility] [address] [place] [address] Dr. Bao Hsu Monocytes/100 WBC (Bld) 5.3 % Normal 1.7-12.0 [facility] Comment on above: Performed By: #### C BC #### [facility] [address] [place] [address] Dr. Bao Hsu NEUT # 11.3 103/ul Critically high 1.4-6.5 [facility] Comment on above: Performed By: #### C BC #### [facility] [address] [place] [address] Dr. Bao Hsu Neutrophils/100 WBC (Bld) 84.2 % Critically high 43.0-75.0 [facility] Comment on above: Performed By: #### C BC #### [facility] [address] [place] [address] Dr. Bao Hsu Platelet mean volume (Bld) [Entitic vol] 8.2 fL Critically low 9.5-13.5 [facility] Comment on above: Performed By: #### C BC #### [facility] [address] [place] [address] Dr. Bao Hsu PLT 353 103/ul Normal 150-450 [facility] Comment on above: Performed By: #### C BC #### [facility] [address] [place] [address] Dr. Bao Hsu RBC 4.41 106/ul Normal 4.20-5.40 [facility] Comment on above: Performed By: #### C BC #### [facility] [address] [place] [address] Dr. Bao Hsu WBC 13.4 103/ul Critically high 4.0-11.0 [facility] Comment on above: Performed By: #### C BC #### [facility] [address] [place] [address] Dr. Bao Hsu BASO # 0.1 103/ul Normal 0.0-0.1 [facility] Comment on above: Performed By: #### C MADM, BMP #### [facility] [address] [place] [address] Dr. Bao Hsu Basophils/100 WBC (Bld) 0.4 % Normal 0.2-2.0 [facility] Comment on above: Performed By: #### C MADM, BMP #### [facility] [address] [place] [address] Dr. Bao Hsu EO # 0.2 103/ul Normal 0.0-0.7 [facility] Comment on above: Performed By: #### C MADM, BMP #### [facility] [address] [place] [address] Dr. Bao Hsu Eosinophils/100 WBC (Bld) 2.0 % Normal 0.9-7.0 [facility] Comment on above: Performed By: #### C DLM, BMP #### [facility] [address] [place] [address] Dr. Bao Hsu Erythrocyte distribution width (RBC) [Ratio] 20.8 % Critically high 11.0-15.0 [facility] Comment on above: Performed By: #### C DLM, BMP #### [facility] [address] [place] [address] Dr. Bao Hsu Hematocrit (Bld) [Volume fraction] 22.5 % Critically low 36.0-48.0 [facility] Comment on above: Performed By: #### C WESLEY, BMP #### [facility] [address] [address] [address] Bao Hsu Hemoglobin (Bld) [Mass/Vol] 5.7 g/dL Critically low 12.0-16.0 [facility] Comment on above: Performed By: #### C WESLEY, BMP #### [facility] [address] [place] [address] Dr. Bao Hsu IG # 0.07 10e3/ul Critically high 0.00-0.03 [facility] Comment on above: Performed By: #### C WESLEY, BMP #### [facility] [address] [place] [address] Dr. Bao Hsu IG % 0.6 % Critically high 0.0-0.5 [facility] Comment on above: Performed By: #### C WESLEY, BMP #### [facility] [address] [place] [address] Dr. Bao Hsu LYMPH # 1.7 103/ul Normal 1.2-3.8 [facility] Comment on above: Performed By: #### C WESLEY, BMP #### [facility] [address] [place] [address] Dr. Bao Hsu Lymphocytes/100 WBC (Bld) 15.0 % Critically low 20.5-60.0 [facility] Comment on above: Performed By: #### C WESLEY, BMP #### [facility] [address] [place] [address] Dr. Bao Hsu MANUAL DIFF REQ NO Normal [facility] Comment on above: Performed By: #### C WESLEY, BMP #### [facility] [address] [place] [address] Dr. Bao Hsu MCH (RBC) [Entitic mass] 15.8 pg Critically low 26.7-34.0 [facility] Comment on above: Performed By: #### C WESLEY, BMP #### [facility] [address] [address] [address] Bao Hsu MCHC (RBC) [Mass/Vol] 25.3 g/dL Critically low 29.9-35.2 [facility] Comment on above: Performed By: #### C MADM, BMP #### [facility] [address] [place] [address] Dr. Bao Hsu MCV (RBC) [Entitic vol] 62.3 fL Critically low 81.0-99.0 [facility] Comment on above: Performed By: #### C MADM, BMP #### [facility] [address] [place] [address] Dr. Bao Hsu MONO # 0.7 103/ul Normal 0.3-0.8 [facility] Comment on above: Performed By: #### C MADM, BMP #### [facility] [address] [place] [address] Dr. Bao Hsu Monocytes/100 WBC (Bld) 5.8 % Normal 1.7-12.0 [facility] Comment on above: Performed By: #### C MADM, BMP #### [facility] [address] [place] [address] Dr. Bao Hsu NEUT # 8.7 103/ul Critically high 1.4-6.5 [facility] Comment on above: Performed By: #### C MADM, BMP #### [facility] [address] [place] [address] Dr. Bao Hsu Neutrophils/100 WBC (Bld) 76.2 % Critically high 43.0-75.0 [facility] Comment on above: Performed By: #### C MADM, BMP #### [facility] [address] [place] [address] Dr. Bao Hsu Platelet mean volume (Bld) [Entitic vol] 8.4 fL Critically low 9.5-13.5 [facility] Comment on above: Performed By: #### C MADM, BMP #### [facility] [address] [place] [address] Dr. Bao Hsu PLT 384 103/ul Normal 150-450 [facility] Comment on above: Performed By: #### C DLM, BMP #### [facility] [address] [address] [address] Bao Hsu RBC 3.61 106/ul Critically low 4.20-5.40 [facility] Comment on above: Performed By: #### C MADM, BMP #### [facility] [address] [place], [place] [address] Dr. Bao Hsu WBC 11.4 103/ul Critically high 4.0-11.0 [facility] Comment on above: Performed By: #### C WESLEY, BMP #### [facility] [address] [address] [address] Bao Hsu Covid-19 PCR (CVDTB)on 05-20 SARS-CoV-2 (COVID-19) RNA GREG+probe Ql (Unsp spec) Not detected Normal NOT DETECTED [facility] Comment on above: Result Comment: When diagnostic [...] for this test is supported by the [place] of Health and Human Service's declaration that [...] used). Performed By: #### C VDTBH #### [facility] [address] [address] [address] Bao Hsu MAGNESIUMon 05-29-2022 Magnesium [Mass/Vol] 1.7 mg/dL Critically low 1.8-2.4 [facility] Comment on above: Performed By: #### C WESLEY, BMP #### [facility] [address] [address] [address] Bao Hsu PROF 14(COMP METB)on 023 Albumin [Mass/Vol] 3.7 g/dL Normal 3.4-5.0 [facility] Comment on above: Performed By: #### C MADM, BMP #### [facility] [address] [address] [address] Bao Hsu Albumin/Globulin [Mass ratio] 1.2 {ratio} Normal [facility] Comment on above: Performed By: #### C MADM, BMP #### [facility] [address] [address] [address] Bao Hsu ALP [Catalytic activity/Vol] 130 U/L Critically high 46-116 [facility] Comment on above: Performed By: #### C DLM, BMP #### [facility] [address] [place] [address] Dr. Bao Hsu ALT [Catalytic activity/Vol] 10 U/L Critically low 14-59 [facility] Comment on above: Performed By: #### C MADM, BMP #### [facility] [address] [address] [address] Bao Hsu Anion gap [Moles/Vol] 14.4 mmol/L Normal [facility] Comment on above: Performed By: #### C MADM, BMP #### [facility] [address] [address] [address] Bao Hsu AST [Catalytic activity/Vol] 14 U/L Critically low 15-37 [facility] Comment on above: Performed By: #### C MADM, BMP #### [facility] [address] [address] [address] Bao Hsu Bilirubin [Mass/Vol] 1.3 mg/dL Critically high 0.2-1.0 [facility] Comment on above: Performed By: #### C MADM, BMP #### [facility] [address] [address] [address] Bao Hsu Calcium [Mass/Vol] 8.9 mg/dL Normal 8.5-10.1 [facility] Comment on above: Performed By: #### C MADM, BMP #### [facility] [address] [address] [address] Bao Hsu Chloride [Moles/Vol] 104 mmol/L Normal 98-107 [facility] Comment on above: Performed By: #### C MADM, BMP #### [facility] [address] [address] [address] Bao Hsu CO2 [Moles/Vol] 25.6 mmol/L Normal 21.0-32.0 [facility] Comment on above: Performed By: #### C MADM, BMP #### [facility] [address] [address] [address] Bao Hsu Creatinine [Mass/Vol] 0.62 mg/dL Normal 0.55-1.02 [facility] Comment on above: Performed By: #### C MADM, BMP #### [facility] [address] [address] [address] Bao Hsu EGFR-AF [facility] >60 Normal >=60 [facility] Comment on above: Performed By: #### C MADM, BMP #### [facility] [address] [address] [address] Bao Hsu EGFR-NON AF [facility] >60 Normal >=60 [facility] Comment on above: Performed By: #### C MADM, BMP #### [facility] [address] [address] [address] Bao Hsu Globulin (S) [Mass/Vol] 3.1 g/dL Normal [facility] Comment on above: Performed By: #### C MADM, BMP #### [facility] [address] [address] [address] Bao Hsu Glucose [Mass/Vol] 125 mg/dL Critically high 74-106 [facility] Comment on above: Performed By: #### C MADM, BMP #### [facility] [address] [address] [address] Bao Hsu Potassium [Moles/Vol] 4.0 mmol/L Normal 3.5-5.1 [facility] Comment on above: Performed By: #### C MADM, BMP #### [facility] [address] [place] [address] Dr. Bao Hsu Protein [Mass/Vol] 6.8 g/dL Normal 6.4-8.2 [facility] Comment on above: Performed By: #### C MADM, BMP #### [facility] [address] [place] [address] Dr. Bao Hsu Sodium [Moles/Vol] 140 mmol/L Normal 136-145 [facility] Comment on above: Performed By: #### C MADM, BMP #### [facility] [address] [place] [address] Dr. Bao Hsu Urea nitrogen [Mass/Vol] 8.0 mg/dL Normal 7.0-18.0 [facility] Comment on above: Performed By: #### C MADM, BMP #### [facility] [address] [place] [address] Dr. Bao Hsu Urea nitrogen/Creatinine [Mass ratio] 12.9 mg/mg Normal [facility] Comment on above: Performed By: #### C DLM, BMP #### [facility] [address] [place] [address] Dr. Bao Hsu PROF CHEM 8 (BAS METB)on Anion gap [Moles/Vol] 10.3 mmol/L Normal [facility] Comment on above: Performed By: #### C MADM, BMP #### [facility] [address] [place] [address] Dr. Bao Hsu Calcium [Mass/Vol] 8.8 mg/dL Normal 8.5-10.1 [facility] Comment on above: Performed By: #### C MADM, BMP #### [facility] [address] [place] [address] Dr. Bao Hsu Chloride [Moles/Vol] 100 mmol/L Normal 98-107 [facility] Comment on above: Performed By: #### C MADM, BMP #### [facility] [address] [place] [address] Dr. Bao Hsu CO2 [Moles/Vol] 25.5 mmol/L Normal 21.0-32.0 [facility] Comment on above: Performed By: #### C WESLEY, BMP #### [facility] [address] [address] [address] Bao Hsu Creatinine [Mass/Vol] 0.67 mg/dL Normal 0.55-1.02 [facility] Comment on above: Performed By: #### C WESLEY, BMP #### [facility] [address] [address] [address] Bao Hsu EGFR-AF [facility] >60 Normal >=60 [facility] Comment on above: Performed By: #### C WESLEY, BMP #### [facility] [address] [address] [address] Bao Hsu EGFR-NON AF [facility] >60 Normal >=60 [facility] Comment on above: Performed By: #### C WESLEY, BMP #### [facility] [address] [address] [address] Bao Hsu Glucose [Mass/Vol] 118 mg/dL Critically high 74-106 [facility] Comment on above: Performed By: #### C WESLEY, BMP #### [facility] [address] [place] [address] Dr. Bao Hsu Potassium [Moles/Vol] 3.8 mmol/L Normal 3.5-5.1 [facility] Comment on above: Performed By: #### C WESLEY, BMP #### [facility] [address] [address] [address] Bao Hsu Sodium [Moles/Vol] 132 mmol/L Critically low 136-145 [facility] Comment on above: Performed By: #### C WESLEY, BMP #### [facility] [address] [address] [address] Bao Hsu Urea nitrogen [Mass/Vol] 12.0 mg/dL Normal 7.0-18.0 [facility] Comment on above: Performed By: #### C WESLEY, BMP #### [facility] [address] [place] [address] Dr. Bao Hsu Urea nitrogen/Creatinine [Mass ratio] 17.9 mg/mg Normal [facility] Comment on above: Performed By: #### C WESLEY, BMP #### [facility] [address] [address] [address] Bao Hsu PTTon 05-29-2022 aPTT Coag (Bld) [Time] 27.5 s Normal 22.3-36.2 [facility] Comment on above: Performed By: #### S EDR #### [facility] [address] [place] [address] Dr. Bao Hsu SED RATE WESTERGRENon 2022 SED RATE 15 mm/hr Normal <=30 [facility] Comment on above: Performed By: #### S EDR #### [facility] [address] [place] [address] Dr. Bao Hsu TYPE AND SCREENon 05-29-2022 TYPE AND SCREEN Negative Normal [facility] Comment on above: Performed By: #### C WESLEY BMP #### [facility] [address] [place] [address] Dr. Bao Hsu XR CHEST 1 Von [...] EDDIE LACY Date: 2022-05-28 23:05 Normal [facility] FERRITINon 05-28-2022 Ferritin [Mass/Vol] 4.0 ng/mL Critically low 8.0-252.0 [facility] Comment on above: Performed By: #### S EDR #### [facility] [address] [place] [address] Dr. Bao Hsu IRON AND TIBCon 05-28-2022 % SATURATION 2.1 % Normal [facility] Comment on above: Performed By: #### S EDR #### [facility] [address] [place], [place] [address] Dr. Bao Hsu Iron [Mass/Vol] 10.0 ug/dL Critically low 50.0-170.[address] [facility] Comment on above: Performed By: #### S EDR #### [facility] [address] [place], [place] [address] Dr. Bao Hsu TIBC DIRECT 483.0 ug/dL Critically high 250.0-450.0 [facility] Comment on above: Performed By: #### S EDR #### [facility] [address] [address] [address] Bao Hsu VIT B12 AND FOLATEon 023 Cobalamin (Vitamin B12) [Mass/Vol] 438.0 pg/mL Normal 193.0-986.0 [facility] Comment on above: Performed By: #### S EDR #### [facility] [address] [address] [address] Bao Hsu FOLATE 8.80 ng/mL Normal 8.60-58.90 [facility] Comment on above: Performed By: #### S EDR #### [facility] [address] [place], [place] [address] Dr. Bao Hsu CBC W/DIFFon 01-02-2021 ABS IMM GRANS 0.1 10*3/uL Normal 0.0-0.2 [facility] [place] [facility] Comment on above: Order Comment: pre a blation? pacemaker? Performed By: #### 5 0103 ####[facility] ABS NEUTROPHILS 15.2 10*3/uL High 1.6-7.6 [facility] [place] [facility] Comment on above: Order Comment: pre a blation? pacemaker? Performed By: #### 5 0103 ####[facility] Basophils (Bld) [#/Vol] 0.0 10*3/uL Normal 0.0-0.2 [facility] Comment on above: Order Comment: pre a blation? pacemaker? Performed By: #### 5 0103 ####[facility] [place] [address], [facility] Basophils/100 WBC (Bld) 0.2 % Normal 0.0-1.0 [facility] Comment on above: Order Comment: pre a blation? pacemaker? Performed By: #### 5 0103 ####[facility] [place] [address], [facility] Eosinophils (Bld) [#/Vol] 0.0 10*3/uL Normal 0.0-0.5 [facility] Comment on above: Order Comment: pre a blation? pacemaker? Performed By: #### 5 0103 ####[facility] [place] [address], [facility] Eosinophils/100 WBC (Bld) 0.0 % Normal 0.0-6.0 [facility] Comment on above: Order Comment: pre a blation? pacemaker? Performed By: #### 5 3 ####[facility] Erythrocyte distribution width (RBC) [Ratio] 18.6 % High 11.5-15.0 [facility] Comment on above: Order Comment: pre a blation? pacemaker? Performed By: #### 5 3 ####[facility] Hematocrit (Bld) [Volume fraction] 29.4 % Low 36.0-45.0 [facility] Comment on above: Order Comment: pre a blation? pacemaker? Performed By: #### 5 3 ####[facility] Hemoglobin (Bld) [Mass/Vol] 8.1 g/dL Low 12.0-15.0 [facility] Comment on above: Order Comment: pre a blation? pacemaker? Performed By: #### 5 0103 ####[facility] [facility].[address] IMMATURE GRANS 0.6 % Normal 0.0-1.0 [facility] Comment on above: Order Comment: pre a blation? pacemaker? Performed By: #### 5 0103 ####[facility] Lymphocytes (Bld) [#/Vol] 1.2 10*3/uL Normal 1.2-4.0 [facility] Comment on above: Order Comment: pre a blation? pacemaker? Performed By: #### 5 0103 ####[facility] Lymphocytes/100 WBC (Bld) 6.8 % Low 20.0-45.0 [facility] Comment on above: Order Comment: pre a blation? pacemaker? Performed By: #### 5 0103 ####[facility] [place] [address], [facility] MCH (RBC) [Entitic mass] 20.7 pg Low 27.0-33.0 [facility] Comment on above: Order Comment: pre a blation? pacemaker? Performed By: #### 5 0103 ####[facility] MCHC (RBC) [Mass/Vol] 27.6 g/dL Low 32.0-35.0 [facility] Comment on above: Order Comment: pre a blation? pacemaker? Performed By: #### 5 0103 ####[facility] [place] [address], [facility] MCV (RBC) [Entitic vol] 75.2 fL Low 82.0-98.0 [facility] Comment on above: Order Comment: pre a blation? pacemaker? Performed By: #### 5 0103 ####[facility] [place] [address], [facility] Monocytes (Bld) [#/Vol] 1.3 10*3/uL High 0.1-1.0 [facility] Comment on above: Order Comment: pre a blation? pacemaker? Performed By: #### 5 0103 ####[facility] [place] [address], [facility] MONOS 7.3 % Normal 5.0-12.0 [facility] Comment on above: Order Comment: pre a blation? pacemaker? Performed By: #### 5 0103 ####[facility] [place] [address], [facility] Neutrophils/100 WBC (Bld) 85.1 % High 40.0-72.0 [facility] Comment on above: Order Comment: pre a blation? pacemaker? Performed By: #### 5 0103 ####[facility] [place] [address], [facility] Nucleated RBC/100 WBC (Bld) [Ratio] 0 % Normal 0-0 [facility] Comment on above: Order Comment: pre a blation? pacemaker? Performed By: #### 5 0103 ####[facility] [facility] [address], [facility] PLAT CNT 404 10*3/uL High 150-400 [facility] Comment on above: Order Comment: pre a blation? pacemaker? Performed By: #### 5 0103 ####[facility] [place] [address], [facility] RBC (Bld) [#/Vol] 3.91 10*6/uL Normal 3.80-5.00 [facility] Comment on above: Order Comment: pre a blation? pacemaker? Performed By: #### 5 0103 ####[facility] [place] [address], [facility] WBC (Bld) [#/Vol] 17.85 10*3/uL High 4.00-10.60 [facility] Comment on above: Order Comment: pre a blation? pacemaker? Performed By: #### 5 0103 ####[facility] [place] [address], [facility] ABS IMM GRANS 0.1 10*3/uL Normal 0.0-0.2 [facility] [place] [facility] Comment on above: Order Comment: No: D o not add to previous draw Performed By: #### 5 0103 #### [facility] [address] [place] [address], [facility] ABS NEUTROPHILS 10.0 10*3/uL High 1.6-7.6 [facility] Comment on above: Order Comment: No: D o not add to previous draw Performed By: #### 5 0103 #### [facility] [address] [facility] [place] [address], [facility] ANISO Moderate Normal [facility] Comment on above: Order Comment: No: D o not add to previous draw Performed By: #### 5 0103 #### [facility] [address] [facility] [place] [address], [facility] Basophils (Bld) [#/Vol] 0.0 10*3/uL Normal 0.0-0.2 [facility] Comment on above: Order Comment: No: D o not add to previous draw Performed By: #### 5 0103 #### [facility] [address] [facility] [place] [address], [facility] Basophils/100 WBC (Bld) 0.2 % Normal 0.0-1.0 [facility] Comment on above: Order Comment: No: D o not add to previous draw Performed By: #### 5 0103 #### [facility] [address] [place] [address], [facility] Eosinophils (Bld) [#/Vol] 0.0 10*3/uL Normal 0.0-0.5 [facility] Comment on above: Order Comment: No: D o not add to previous draw Performed By: #### 5 0103 #### [facility] [address] [place] [address], [facility] Eosinophils/100 WBC (Bld) 0.0 % Normal 0.0-6.0 [facility] Comment on above: Order Comment: No: D o not add to previous draw Performed By: #### 5 0103 #### [facility] [address] [place] [address], [facility] Erythrocyte distribution width (RBC) [Ratio] 18.6 % High 11.5-15.0 [facility] Comment on above: Order Comment: No: D o not add to previous draw Performed By: #### 5 0103 #### [facility] [address] [place] [address], [facility] Hematocrit (Bld) [Volume fraction] 29.4 % Low 36.0-45.0 [facility] Comment on above: Order Comment: No: D o not add to previous draw Performed By: #### 5 0103 #### [facility] [address] [place] [address], [facility] Hemoglobin (Bld) [Mass/Vol] 8.3 g/dL Low 12.0-15.0 [facility] Comment on above: Order Comment: No: D o not add to previous draw Performed By: #### 5 0103 #### [facility] [address] [place] [address], [place] HYPO Slight Normal [facility] Comment on above: Order Comment: No: D o not add to previous draw Performed By: #### 5 0103 #### [facility] [address] [place] [address], [place] IMMATURE GRANS 0.5 % Normal 0.0-1.0 [facility] Comment on above: Order Comment: No: D o not add to previous draw Performed By: #### 5 0103 #### [facility] [address] [place] [address], [facility] Lymphocytes (Bld) [#/Vol] 0.6 10*3/uL Low 1.2-4.0 [facility] Comment on above: Order Comment: No: D o not add to previous draw Performed By: #### 5 0103 #### [facility] [address] [place] [address], [facility] Lymphocytes/100 WBC (Bld) 5.7 % Low 20.0-45.0 [facility] Comment on above: Order Comment: No: D o not add to previous draw Performed By: #### 5 0103 #### [facility] [address] [place] [address], [facility] MCH (RBC) [Entitic mass] 20.9 pg Low 27.0-33.0 [facility] Comment on above: Order Comment: No: D o not add to previous draw Performed By: #### 5 0103 #### [facility] [address] [facility] Performed By: #### 5 0608 ####[facility] [facility] MCHC (RBC) [Mass/Vol] 28.2 g/dL Low 32.0-35.0 [facility] Comment on above: Order Comment: No: D o not add to previous draw Performed By: #### 5 0103 #### [facility] [address] [place] [address], [facility] MCV (RBC) [Entitic vol] 73.9 fL Low 82.0-98.0 [facility] Comment on above: Order Comment: No: D o not add to previous draw Performed By: #### 5 0103 #### [facility] [address] [place] [address], [facility] MICRO Slight Normal [facility] Comment on above: Order Comment: No: D o not add to previous draw Performed By: #### 5 0103 #### [facility] [address] [facility] [place] [address], [facility] Monocytes (Bld) [#/Vol] 0.4 10*3/uL Normal 0.1-1.0 [facility] Comment on above: Order Comment: No: D o not add to previous draw Performed By: #### 5 0103 #### [facility] [address] [place] [address], [facility] MONOS 3.6 % Low 5.0-12.0 [facility] Comment on above: Order Comment: No: D o not add to previous draw Performed By: #### 5 3 #### [facility] [address] [facility] [place] [address], [facility] Neutrophils/100 WBC (Bld) 90.0 % High 40.0-72.0 [facility] Comment on above: Order Comment: No: D o not add to previous draw Performed By: #### 5 0103 #### [facility] [address] [place] [address], [facility] Nucleated RBC/100 WBC (Bld) [Ratio] 0 % Normal 0-0 [facility] Comment on above: Order Comment: No: D o not add to previous draw Performed By: #### 5 0103 #### [facility] [address] [facility] [place] [address], [facility] Performed By: #### 5 0608 ####[facility] [place] [address], [facility] PLAT CNT 385 10*3/uL Normal 150-400 [facility] Comment on above: Order Comment: No: D o not add to previous draw Performed By: #### 5 3 #### [facility] [address] [place] [address], [facility] RBC (Bld) [#/Vol] 3.98 10*6/uL Normal 3.80-5.00 [facility] Comment on above: Order Comment: No: D o not add to previous draw Performed By: #### 5 0103 #### [facility] [address] [place] [address], [facility] WBC (Bld) [#/Vol] 11.14 10*3/uL High 4.00-10.60 [facility] Comment on above: Order Comment: No: D o not add to previous draw Performed By: #### 5 0103 #### [facility] [address] [place] [address], [facility] CBC COMPLETE BLOOD COUNTon Erythrocyte distribution width (RBC) [Ratio] 18.2 % High 11.5-15.0 [facility] Comment on above: Performed By: #### 5 0608 ####[facility] [place] [address], [facility] Hematocrit (Bld) [Volume fraction] 24.7 % Low 36.0-45.0 [facility] Comment on above: Performed By: #### 5 0608 ####[facility] [place] [address], [facility] Hemoglobin (Bld) [Mass/Vol] 6.9 g/dL Low 12.0-15.0 [facility] Comment on above: Performed By: #### 5 0608 ####[facility] [facility] [place] [address], [facility] MCHC (RBC) [Mass/Vol] 27.9 g/dL Low 32.0-35.0 [facility] Comment on above: Performed By: #### 5 0608 ####[facility] [facility] [place] [address], [facility] MCV (RBC) [Entitic vol] 74.8 fL Low 82.0-98.0 [facility] Comment on above: Performed By: #### 5 0608 ####[facility] PLAT CNT 269 10*3/uL Normal 150-400 [facility] Comment on above: Performed By: #### 5 0608 ####[facility] RBC (Bld) [#/Vol] 3.30 10*6/uL Low 3.80-5.00 [facility] Comment on above: Performed By: #### 5 0608 ####[facility] WBC (Bld) [#/Vol] 7.66 10*3/uL Normal 4.00-10.60 [facility] Comment on above: Performed By: #### 5 0608 ####[facility] Cardiovascular Lab Reporton 01-01-2021 Cardiovascular Lab Report [facility] Patient Name: Karolina Bashir [facility] MR #: [id number] Physician: Maury Jay MD Department of Service Date: 01/01/2021 Medicine Birthdate: 1945 Division of Room #: 4CD 190763 Cardiology Adult Cardiovascular Services [place] [address] Cardiovascular Laboratory Report ATRIAL FIBRILLATION ABLATION PROCEDURE [...] SANDRA clot. Esophagus was mapped using the Glider.ioUND 3D mapping software and noted to be [...] in (more content not included)... Normal [facility] POC GLUCOSE LABon 01-01-2021 Glucose [Mass/Vol] 124 mg/dL High 70-100 [facility] Comment on above: Performed By: #### 8 5499 #### [address] PROTHROMBIN TIMEon 1 INR Coag (PPP) [Relative time] 1.10 {INR} Normal 0.91-1.16 [facility] Comment on above: Result Comment: ACCC [...] 1995;108:[id number]-246S. Performed By: #### 5 6101 #### [facility] [address] [facility] PT Coag (PPP) [Time] 14.2 s Normal 12.3-14.8 [facility] Comment on above: Result Comment: ALL RESULTS MUST BE INTERPRETED WITH RESPECT TO BLOOD DRAWING ARTIFACT OR DILUTION ERROR OF ANTICOAGULANT AT THE TIME OF SAMPLING. Performed By: #### 5 6101 #### [facility] [address] *SARS-CoV-2 COVID-19on 12-28 SARS-CoV-2 (COVID-19) RNA GREG+probe Ql (Unsp spec) Not detected Normal Not Detected [facility] Comment on above: Order Comment: The A ptima SARS-CoV-2 assay is a nucleic acid amplification test intended for the qualitative detection of RNA from SARS-CoV-2 isolated and purified from nasopharyngeal (PARKING ENF[employer]CEMENT OFFICER),oropharyngeal (OP), nasal swab, sputum, and bronchoalveolar lavage (BAL) specimens from patients with signs and symptoms of infection who are suspected of COVID-19. Results are for the identification of SARS-CoV-2 RNA. The SARS-CoV-2 RNA is generally detectable during the acute phase of infection. The Aptima SARS-CoV-2 Assay on the Vokle [employer] Fusion system is intended for use by laboratory personnel specifically instructed and trained in the operation of the [place] and [employer]okle Fusion system. The Aptima SARS-CoV-2 assay is [...] information. Performed By: #### 3 1792 #### [facility] [address] [place] [address], [facility] BASIC METABOLIC PANELon 10-0 -2020 Calcium [Mass/Vol] 9.2 mg/dL Normal 8.6-10.3 [facility] Comment on above: Performed By: #### 0 0071 #### [facility] [address] [place] [address], [facility] Chloride [Moles/Vol] 102 mmol/L Normal 98-107 [facility] Comment on above: Performed By: #### 0 0071 #### [facility] [address] [place] [address], [facility] CO2 [Moles/Vol] 27 mmol/L Normal 21-[address] [facility] Comment on above: Performed By: #### 0 0071 #### [facility] [address] [place] [address], [facility] Creatinine [Mass/Vol] 0.84 mg/dL Normal 0.60-1.20 [facility] Comment on above: Performed By: #### 0 0071 #### [facility] [address] [place] [address], [facility] GFR/1.73 sq M.predicted among blacks MDRD (S/P/Bld) [Vol rate/Area] mL/min/{1.73_m2} Normal >60 [facility] Comment on above: Result Comment: Calc ulation may not be valid for patients over 70 years Performed By: #### 0 0071 #### [facility] [address] [place] [address], [facility] GFR/1.73 sq M.predicted among non-blacks MDRD (S/P/Bld) [Vol rate/Area] mL/min/{1.73_m2} Normal >60 [facility] Comment on above: Result Comment: Calc ulation may not be valid for patients over 70 years Performed By: #### 0 0071 #### [facility] [address] [place] [address], [facility] Glucose [Mass/Vol] 105 mg/dL High 70-100 [facility] Comment on above: Performed By: #### 0 0071 #### [facility] [address] [facility] [place] [address], [facility] Potassium [Moles/Vol] 4.7 mmol/L Normal 3.5-5.1 [facility] Comment on above: Performed By: #### 0 0071 #### [facility] [address] [place] [address], [facility] Sodium [Moles/Vol] 136 mmol/L Normal 136-145 [facility] Comment on above: Performed By: #### 0 0071 #### [facility] [address] [place] [address], [facility] Urea nitrogen [Mass/Vol] 17 mg/dL Normal 7-25 [facility] Comment on above: Performed By: #### 0 0071 #### [facility] [address] [place] [address], [facility] CBC W/DIFFon 12-28-2020 ABS IMM GRANS 0.0 10*3/uL Normal 0.0-0.2 [facility] Comment on above: Performed By: #### 5 0103 #### [facility] [address] [place] [address], [facility] ABS NEUTROPHILS 8.7 10*3/uL High 1.6-7.6 The [facility] Comment on above: Performed By: #### 5 3 #### [facility] [address] [place] [address], [facility] ANISO Moderate Normal [facility] Comment on above: Performed By: #### 5 3 #### [facility] [address] [place] [address], [facility] Basophils (Bld) [#/Vol] 0.1 10*3/uL Normal 0.0-0.2 [facility] Comment on above: Performed By: #### 3 #### [facility] [address] [facility] [place] [address], [facility] Basophils/100 WBC (Bld) 0.8 % Normal 0.0-1.0 [facility] Comment on above: Performed By: #### 102 #### [facility] [address] [facility] [place] [address], [facility] Eosinophils (Bld) [#/Vol] 0.3 10*3/uL Normal 0.0-0.5 [facility] Comment on above: Performed By: #### 102 #### [facility] [address] [facility] [place] [address], [facility] Eosinophils/100 WBC (Bld) 2.2 % Normal 0.0-6.0 [facility] Comment on above: Performed By: #### 5 3 #### [facility] [address] Erythrocyte distribution width (RBC) [Ratio] 18.5 % High 11.5-15.0 [facility] Comment on above: Performed By: #### 3 #### [facility] [address] [place] [address], [facility] Hematocrit (Bld) [Volume fraction] 33.7 % Low 36.0-45.0 [facility] Comment on above: Performed By: #### 5 3 #### [facility] [address] [place] [address], [facility] Hemoglobin (Bld) [Mass/Vol] 9.6 g/dL Low 12.0-15.0 [facility] Comment on above: Performed By: #### 5 0103 #### [facility] [address] [facility] [place] [address], [facility] HYPO Slight Normal [facility] Comment on above: Performed By: #### 5 0103 #### [facility] [address] [place] [address], [facility] IMMATURE GRANS 0.3 % Normal 0.0-1.0 [facility] Comment on above: Performed By: #### 3 #### [facility] [address] [place] [address], [facility] Lymphocytes (Bld) [#/Vol] 1.7 10*3/uL Normal 1.2-4.0 [facility] Comment on above: Performed By: #### 5 3 #### [facility] [address] [place] [address], [facility] Lymphocytes/100 WBC (Bld) 14.7 % Low 20.0-45.0 [facility] Comment on above: Performed By: #### 5 0103 #### [facility] [address] [facility] [place] [address], [facility] MCH (RBC) [Entitic mass] 20.7 pg Low 27.0-33.0 [facility] Comment on above: Performed By: #### 5 0103 #### [facility] [address] [place] [address], [facility] MCHC (RBC) [Mass/Vol] 28.5 g/dL Low 32.0-35.0 [facility] Comment on above: Performed By: #### 5 3 #### [facility] [address] [place] [address], [facility] MCV (RBC) [Entitic vol] 72.8 fL Low 82.0-98.0 [facility] Comment on above: Performed By: #### 5 0103 #### [facility] [address] [place] [address], [facility] MICRO Slight Normal [facility] Comment on above: Performed By: #### 5 0103 #### [facility] [address] [place] [address], [facility] Monocytes (Bld) [#/Vol] 0.8 10*3/uL Normal 0.1-1.0 [facility] Comment on above: Performed By: #### 5 3 #### [facility] [address] [place] [address], [facility] MONOS 6.6 % Normal 5.0-12.0 [facility] Comment on above: Performed By: #### 5 0103 #### [facility] [address] [place] [address], [facility] Neutrophils/100 WBC (Bld) 75.4 % High 40.0-72.0 [facility] Comment on above: Performed By: #### 5 3 #### [facility] [address] [place] [id number], [facility] Nucleated RBC/100 WBC (Bld) [Ratio] 0 % Normal 0-0 [facility] Comment on above: Performed By: #### 5 3 #### [facility] [address] [facility] [place] [address], [facility] PLAT CNT 417 10*3/uL High 150-400 [facility] Comment on above: Performed By: #### 5 3 #### [facility] [address] [place] [address], [facility] POIK Slight Normal [facility] Comment on above: Performed By: #### 5 3 #### [facility] [address] [place] [address], [facility] RBC (Bld) [#/Vol] 4.63 10*6/uL Normal 3.80-5.00 [facility] Comment on above: Performed By: #### 5 0103 #### [facility] [address] [place] [address], [facility] WBC (Bld) [#/Vol] 11.48 10*3/uL High 4.00-10.60 [facility] Comment on above: Performed By: #### 5 0103 #### [facility] [address] [place] [address], [facility] CREATININE BLOODon Creatinine [Mass/Vol] 0.91 mg/dL Normal 0.60-1.20 [facility] Comment on above: Performed By: #### 2 5656 #### [facility] [address] [place] [address], [facility] GFR/1.73 sq M.predicted among blacks MDRD (S/P/Bld) [Vol rate/Area] mL/min/{1.73_m2} Normal >60 [facility] Comment on above: Result Comment: Calc ulation may not be valid for patients over 70 years Performed By: #### 2 5656 #### [facility] [address] [place] [address], [facility] GFR/1.73 sq M.predicted among non-blacks MDRD (S/P/Bld) [Vol rate/Area] mL/min/{1.73_m2} Normal >60 [facility] Comment on above: Result Comment: Calc ulation may not be valid for patients over 70 years Performed By: #### 2 5656 #### [facility] [address] [place] [address], [facility] CTA CHESTon 10-11-2020 CTA CHEST [facility] Department of Radiology [address] [place] [id number] ======== Patient Name: KAROLINA BASHIR : [...] no pc required med nec passed 10/02/20 * [id number] Comments: pre ablation? pacemaker? Exam: CTA CHEST [...] thickening. Electronically signed: Don Dobson. Transcribed by: [email or web address], User Resident: Electronically Signed by: DON DOBSON @ 10/15/2020 09:26 AM Normal [facility] Comment on above: Order Comment: pre a blation? pacemaker? Cardiovascular Lab Reporton 10-07-2020 Cardiovascular Lab Report [facility] Patient Name: [facility] Rufus Pino MR #: [id number] Department of Physician: Maury Jay MD Medicine Service Date: 09/30/2020 Division of Birthdate: 1945 Cardiology Room #: Adult Cardiovascular Services [facility] [address] [facility]. [place] [address] Cardiovascular Laboratory Report DIRECT CARDIOVERSION PROCEDURE NOTE [...] Jay MD Date Trans: 10/07/2020 09:00 P/alisa [id number] cc: Jeb Rosa D.O. [facility] [place] [address] [facility] Vital Signs Date Time Vital Sign Value Performing Clinician Faci lity 10-04-2023 10:040 Body height 160 cm Sta 3 [facility] 10-04-2023 10:040 Body mass index (BMI) [Ratio] 27.46 kg/m2 Sta 3 [facility] 10-04-2023 10:040 Body weight 70.31 [address] [facility] 11-12-2022 11:20-0400 Body height 160.02 cm Referring Provider Unknown OF-Exsjaswtj-Pqqwu Work Phone: 11-12-2022 11:20-0400 Body mass index (BMI) [Ratio] 25.69 kg/m2 Referring Provider Unknown OH-Rafypghbb-Wafqm Work Phone: 11-12-2022 11:20-0400 Body surface area Derived from formula 1.69 m2 Referring Provider Unknown UB-Fpnfhjuyh-Gnhjd Work Phone: 11-12-2022 11:20-0400 Body weight 65.77 kg Referring Provider Unknown VE-Yyqiyixxh-Fidwi Work Phone: 11-12-2022 11:20-0400 Diastolic blood pressure 66 mm[Hg] Referring Provider Unknown YH-Xsxaqtaez-Gyouc Work Phone: 11-12-2022 11:20-0400 Heart rate 70 /min Referring Provider Unknown IS-Wzembppde-Rkhtg Work Phone: 11-12-2022 11:20-0400 Respiratory rate 19 /min Referring Provider Unknown ZG-Jhjiojxmt-Cldnf Work Phone: 11-12-2022 11:20-0400 SaO2% (BldA) [Mass fraction] 93 % Referring Provider Unknown AZ-Gnnpfbpkv-Omoro ll 5th Work Phone: 11-12-2022 11:20-0400 Systolic blood pressure 104 mm[Hg] Referring Provider Unknown ST-Afzcsmbsp-Leqml 5th Work Phone: Encounters Encounter Date Encounter Type Care Provider Facility Start: 12-12-2024 End: 12-12-2024 ambulatory [facility] Start: 11-23-2024 End: 11-23-2024 ambulatory JEB P MOE Facility:[facility] Start: 09-06-2024 End: 09-06-2024 ambulatory [facility] Start: 08-22-2024 ambulatory JEB P MOE Facilit y:[facility] Start: 05-24-2024 End: 05-24-2024 ambulatory [facility] Start: 05-22-2024 ambulatory DO JEB P HOUSE Faci lity:[facility] Start: 02-21-2024 End: 02-21-2024 ambulatory DO JEB P HOUSE Facility:[facility] Start: 01-17-2024 End: 01-17-2024 ambulatory JEB P HOUSE Facility:[facility] Start: 10-18-2023 End: 10-20-[address] [facility] Start: 10-04-2023 End: 10-04-2023 Subsequent hospital visit by physician Ellie Alves Rm 3 STAZ PRE-ADMIT TESTING Comment on above: No Show Start: 09-22-2023 End: 09-22-2023 Evaluation and management of inpatient SORAJWINDERZi G JEREMYJAMES [facility] Start: 09-21-2023 End: 09-22-2023 Evaluation and management of inpatient [facility] Start: 09-21-2023 Encounter for other preprocedural examination [facility] Start: 09-21-2023 End: 09-21-2023 Evaluation and management of inpatient [facility] Start: 09-21-2023 End: 09-21-2023 Emergency department patient visit [facility] Start: 11-12-2022 Office outpatient ne w 20 minutes Referring Provider Unknown NZ-Phelqrlvjomn-YXZQV Work Phone: Start: 11-12-2022 Patient encounter procedure Referring Provider Unknown TQ-Prfnbfwmy-Gjaksna 5th Work Phone: Start: 11-12-2022 ambulatory Referral Self Facility: [facility] Start: 06-10-2022 End: 06-11-[address] JEB ROSA Facility: Start: 06-01-2022 ambulatory Max TATUM Facility : [place] Start: 05-30-2022 End: 06-02-2022 ambulatory Max TATUM Facility::[id number] Start: 05-29-2022 End: 06-01-2022 Evaluation and management of inpatient DR JEB ROSA Facility: Start: 01-01-2021 End: 01-02-2021 ambulatory JEB ROSA Facility:[facility] Start: 10-11-2020 End: 10-12-2020 ambulatory MAURY JAY Facility:[facility] Start: 09-30-2020 End: 10-01-2020 ambulatory MAURY JAY Facility:[facility] Procedures Date Procedure Procedure Detail [...] 10-21-2023 Influenza vaccination Flu vaccine (# 1) [facility] Start: 10-18-2023 End: 10-18-2023 Admission to same day surgery center 10/18/2023 8:00 AM EDT - 10/18/2023 10:55 AM EDT Surgery [facility] [place] [address] Tulio Walker MD [address] [place] [address] CYSTOSCOPY, RIGHT OCCLUSION BALLOON, URETERAL STENT PLACEMENT, RIGHT PERCUTANEOUS NEPHROLITHOTOMY STAZ OR Comment on above: CYSTOSCOPY, RIGHT OC CLUSION BALLOON, URETERAL STENT PLACEMENT, RIGHT PERCUTANEOUS NEPHROLITHOTOMY Start: 10-18-2023 End: 10-18-2023 Cysto w/tx ureteral stricture CYSTOSCOPY URETERAL BALLOON DILATATION Right kidney stone 10/18/2023 8:00 AM EDT [facility] Start: 10-18-2023 End: 10-18-2023 Patient encounter procedure 10/18/2023 8:00 AM EDT Appointment [facility] [address] [place], [place] [id number] Radiologist, Ellie Ir order in mediawire to bladder in clinical laboratory technologist, right, arrive 630am main reg, scheduled with nathan DX kidney stone [facility] Comment on above: order in media wire to bladder in clinical laboratory technologist, right, arrive 630am main reg, scheduled with nathan DX kidney stone Start: 10-18-2023 End: 10-18-2023 Prq nephrostolithotomy/pyelos tolithotomy 2 cm NEPHROLITHOTOMY PERCUTANEOUS Right kidney stone 10/18/2023 8:00 AM EDT [facility] Start: 10-18-2023 Subsequent hospital visit by physician 10/18/2023 8:00 AM EDT Hospital Encounter [facility] [address] [place] [address] Tulio Walker MD [address] [place] [address] [facility] Start: 09-28-2023 Annual Wellness Visi t (Medicare) Annual Wellness Visit (Medicare) [facility] Start: 2011 Pneumococcal 65+ yea rs Vaccine (1 of 1 - PCV) Pneumococcal 65+ years Vaccine (1 of 1 - PCV) [facility] Start: 2006 Respiratory Syncytia l Virus (RSV) or age 60 yrs+ (1 - 1-dose 60+ series) Respiratory Syncytial Virus (RSV) or age 60 yrs+ (1 - 1-dose 60+ series) [facility] Start: 2001 Screening for osteoporosis DEXA (modify frequency per FRAX score) [facility] Start: 1996 Shingles vaccine (1 of 2) Vickers gles vaccine (1 of 2) [facility] Start: 1965 DTaP/Tdap/Td vaccine (1 - Tdap) DTaP/Tdap/Td vaccine (1 - Tdap) [facility] Start: 1964 Hepatitis C screening Hepatitis C sc reen [facility] Start: 1958 Depression Screen Depression Screen [facility] Start: 1956 Lipid panel Lipids [facility] Start: 1946 COVID-19 Vaccine (#1) COVID-19 Vacci ne (#1) [facility] Payers Date Payer Category Payer Medicare [id number] 1945 Unknown [id number] 2.16.8 [id number] 1946 Unknown [id number] 2.16.8 40.1.468902.3.579.2.647 1946 Unknown [id number] 2.16.8 40.1.197714.3.579.2.647 1946 Unknown [id number] 2.16.84 0.1.424789.3.579.2.593 1946 Unknown [id number] 2.16.84 0.1.698015.3.579.2.593 1946 Unknown [id number] 2.16.8 40.1.606702.3.579.2.727 1946 Unknown [id number] 2.16.8 40.1.433217.3.579.2.727 1946 Unknown [id number] 2.16. 840.1.563984.3.579.2.356 1946 Unknown [id number] 2.16.8 40.1.293174.3.579.2.1286 1946 Unknown [id number] 2.16.8 40.1.722533.3.579.2.1286 1946 Unknown [id number] 2.16.8 40.1.181369.3.579.2.1286 1946 Unknown [id number] 2.16.8 40.1.740448.3.579.2.1286 1946 Unknown [id number] 2.16.8 40.1.201675.3.579.2.1286 1946 Unknown [id number] 2.16.8 40.1.839663.3.579.2.177 1946 Unknown [id number] 2.16.8 40.1.516848.3.579.2.177 1946 Unknown [id number] 2.16.8 40.1.925678.3.579.2.718 1946 Unknown [id number] 2.16.8 40.1.660931.3.579.2.718 1946 Unknown [id number] 2.16.8 40.1.441149.3.579.2.718 1946 Unknown [id number] 2.16.8 40.1.459190.3.579.2.718 1946 Unknown [id number] 2.16.8 40.1.716987.3.579.2.718 Unknown MEDICARE Social History Date Type Detail Facility Start: 10-04-2023 Tobacco smoking stat [facility] Ex-smoker [employer] History of tobacco use Current smoker [employer] History of tobacco use Cigarette Smoker [facility] Start: 10-04-2023 Tobacco use and exposure Smokeless tobacco non-user [employer] Start: 10-05-2023 Alcohol intake Lifetime non-d rosa (finding) [facility] Start: 10-04-2023 End: 10-05-2023 History of Social function [facility] [employer] [facility] Start: 10-04-2023 End: 10-05-2023 [facility] Physical abuse Denies VAHID JONES GRZEGORZ [facility] Start: 1945 Sex Assigned At Not on file [facility] Clinical Notes 05-29-2022 to 12-12-2024 Note Date & Type Note Facility 12-12-2024 Note [facility] Consul t Note Reason for Consultation: s/p PVI for Afib, 6-month follow 12/12/24 Patient is here today for a 3 month follow up per Zuleika Rush CNP. Patient states she feels ok. Patient states she is feeling lots of racing heart/palpitations, chest pain, SOB, VARELA, fatigue and dizziness/lightheaded/balance issues with positional changes. Patient had a recent episode of near syncope.Patient denies leg swelling, bruising/bleeding. Of late patient has been noted to revert back into atrial fibrillation. Review of Systems Constitutional: Positive for malaise/fatigue. Cardiovascular: Positive for chest pain, irregular heartbeat and palpitations. Neurological: Positive for dizziness, light-headedness and loss of balance. 08/18/22 Vargas Turcios is here for 6-month follow-up s/p PVI ablation.She been doing well since last seen with no complaints of chest pain, shortness of breath, VARELA, orthopnea, palpitations.She continues to take metoprolol tartrate 25 mg twice daily and Cardizem 180 mg daily and is tolerating them without concern. She continues to take Xarelto 20 mg aspirin 81 mg with no S/S of bleeding concern. she was seen at [facility] for diaphoresis and chest discomfort and she was found to have anemia hgb 5.7. she was stabilized and discharged. She later had colonoscopy done by [facility] found to have a large polyp. she is pending biopsy results. She was cleared to restart Xarelto. 02/03/[address] jay HPI: Karolina Bashir is a 79 y.o. year old with past medical history of moderate one-vessel CAD, COPD, proximal A. fib, COPD, dyspnea on exertion. She was recentlyt admitted to [facility] with AF and RVR. She wa smarkedl [...] pain H/O COPD (chronic obstructive pulmonary disease) ([facility]/HCC) Hypertension Mass of colon Shortness of breath Stroke ([facility]/HCC) PSH: Past Surgical History: Procedure Laterality Date ABLATION OF DYSRHYTHMIC FOCUS CARDIAC CATHETERIZATION CTA CHEST W IV CONTRAST 10/15/2020 CT CHEST ANGIOGRAM W AND/OR WO IV CONTRAST BELLO CONVERSION IR ABLATION VEIN RFA heart ablation SH: [employer] Tobacco Use: Medium Risk (12/12/2024) Patient History Smoking Tobacco Use: Former Smokeless Tobacco Use: Never Passive Exposure: Not on file Alcohol Use: Not on file Financial Resource Strain: Not on file Food Insecurity: Not on file Transportation Needs: Not on file Physical Activity: Not on file Stress: Not on file Social Connections: Not on file Intimate Partner Violence: Unknown (05/13/2023) [place] [facility] Fear of Current or Ex-Partner: Not on file Emotionally Abused: Not on file Physically Abused: Not on file Sexually Abused: Not on file Physically or Sexually Abused: Not on file Depression: Not on file Housi (more content not included)... [facility] 12-04-2024 Note Entered by PING ROSA DO on December 04, 2024 07:32:45 EDT From: JEB ROSA DO To: [facility]/pharmacy #[id number] Sent: 12/04/2024 07:32:45 EDT Subject: Medication Management Submitted: Complete:hydrOXYzine (hydrOXYzine hydrochloride 25 mg oral tablet) Signed by JEB ROSA DO 12/04/2024 07:32:00 EDT Approved with modifications: hydrOXYzine (HYDROXYZINE HCL 25 MG TABLET) TAKE 1 TABLET BY MOUTH EVERY DAY Qty: 30 tab(s) Days Supply: 30 Refills: 5 Substitutions Allowed Route To Pharmacy - [facility]/pharmacy #[id number] -------- From: [employer] To: JEB ROSA DO Sent: December 03, 2024 11:25:32 PM CDT Subject: Medication Management Due: December 04, 2024 12:15:04 AM CDT On Hold Pending Signature Dispensed Drug: hydrOXYzine (hydrOXYzine hydrochloride 25 mg oral tablet), TAKE 1 TABLET BY MOUTH EVERY DAY Quantity: 30 tab(s) Days Supply: 30 Refills: 5 Substitutions Allowed Notes from Pharmacy: -------- [facility] 11-19-2024 Note Entered by PING ROSA DO on November 19, 2024 23:47:56 EDT From: JEB ROSA DO To: [facility]/pharmacy #[id number] Sent: 11/19/2024 23:47:56 EDT Subject: Medication Management Submitted: Complete:rOPINIRole (rOPINIRole 0.5 mg oral tablet) Signed by JEB ROSA DO 11/19/2024 23:47:00 EDT Approved with modifications: rOPINIRole (ROPINIROLE HCL 0.5 MG TABLET) TAKE 1 TABLET BY MOUTH EVERY DAY Qty: 90 tab(s) Days Supply: 90 Refills: 1 Substitutions Allowed Route To Pharmacy - [facility]/pharmacy #[id number] -------- From: [employer] To: JEB ROSA DO Sent: November 18, 2024 11:27:34 PM CDT Subject: Medication Management Due: November 19, 2024 12:20:15 AM CDT On Hold Pending Signature Dispensed Drug: rOPINIRole (rOPINIRole 0.5 mg oral tablet), TAKE 1 TABLET BY MOUTH EVERY DAY Quantity: 90 tab(s) Days Supply: 90 Refills: 1 Substitutions Allowed Notes from Pharmacy: -------- [facility] 09-07-2024 Note Entered by PING ROSA DO on September 07, 2024 07:25:41 EDT From: JEB ROSA DO To: [facility]/pharmacy #[id number] Sent: 09/07/2024 07:25:41 EDT Subject: Medication Management Submitted: Complete:dilTIAZem (Cardizem CD 240 mg/24 hours oral capsule, extended release) Signed by JEB ROSA DO 09/07/2024 07:25:00 EDT Approved with modifications: dilTIAZem (DILTIAZEM 24H ER(CD) 240 MG CP) TAKE 1 CAPSULE BY MOUTH EVERY DAY Qty: 90 cap(s) Days Supply: 90 Refills: 1 Substitutions [id number] -------- From: [id number] To: JEB ROSA DO Sent: September 07, 2024 12:21:28 AM CDT Subject: Medication Management Due: September 08, 2024 12:07:56 AM CDT On Hold Pending Signature Dispensed Drug: dilTIAZem (DilTIAZem (Eqv-Cardizem CD) 240 mg/24 hours oral capsule, extended release), TAKE 1 CAPSULE BY MOUTH EVERY DAY Quantity: 90 cap(s) Days Supply: 90 Refills: 1 Substitutions Allowed Notes from Pharmacy: -------- [facility] 09-06-2024 Note Cardiovascular Medic [facility] SUBJECTIVE Chief Complaint Patient presents with Atrial Fibrillation Hypertension Karolina Bashir is a 79 y.o. female here for follow-up. HPI PMHx: HTN, a.fib s/p PVI ablation 12/2020, non-obstructive CAD, syncope. Patient was referred to cardiology due to syncope, which was characterized by patient as not true syncope. 09/06/2024 Patient here for 3 mo follow up CAD, afib, and claudication. Says she hasn't had much chest tightness like she was having before, but she's felt her HR go fast at times. Says this morning her HR was 118, but only for a few seconds and then it came back down. She's been breathing much better and hasn't used her O2 in over a week now. Patient states she hasn't felt this good since last summer. Denies bleeding on Xarelto. She notes one episode of chest tightness yesterday, none today. Denies c/o dyspnea, palpitations, dizziness/LH, syncope. 05/24/2024 Patient here for 6 mo follow up CAD, PAF, and hypertension. At last apt in Nov 2023, metoprolol was switched to carvedilol. Palpitations resolved with this change. She presented to [facility] last week for SOB. She's been out of Xarelto for about 5 days now. She's been having chest tightness and SOB for awhile now . She's now using O2 all the time. She doesn't see a tape transferrer for her COPD. She feels like she has to work harder to breath with any ADLs/activities and describes this is caused by the chest tightness she feels. Has worsened the past few weeks. She is currently being treated for COPD exacerbation with steriods and an antibiotic. Her VARELA is worsened. C/o hand and feet pain. She has nocturnal feet pain. Sometimes her feet Denies any edema, orthopnea, PND, palpitations, syncope. 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 Chronic fatigue Syncope and collapse Kidney stone Past Medical History: Diagnosis Date Anemia Arthritis Atrial fibrillation (CMS/HCC) Chest pain H/O COPD (chronic obstructive pulmonary disease) (CMS/HCC) Hypertension Mass of colon Shortness of breath Stroke (CMS/HCC) Family History Problem Relation Name Age of Onset Diabetes Mother Heart failure Mother No Known Problems Father Social History Tobacco Use Smoking status: Former Current packs/day: 0.00 Types: Cigarettes Quit date: 2020 Years since quittin.4 Smokeless tobacco: Never Tobacco comments: Quit 2 years ago 2020 Vaping Use Vaping status: Never Used Substance Use Topics Alcohol use: Never Drug use: Never Allergies Allergen Reactions Codeine Other DIAPHORETIC, OBJECTIVE Visit Vitals BP 132/88 (BP Location: Left arm, Patient Position: Sitting) Pulse 86 Ht 1.6 m (5' 3 ) Wt 71.7 kg (158 lb) SpO2 96% BMI 27.99 kg/m??? Smoking Status Former BSA 1.79 m??? Medications: Current Outpatient Medications: albuterol 2.5 mg /3 mL (0.083 %) nebulizer solution, USE 1 VIAL IN NEBULIZER EVERY 6 HOURS NEEDED, Disp: , Rfl: albuterol 90 mcg/actuation inhaler, every 4 (four) hours., Disp: , Rfl: aspirin 81 mg EC tablet, in the morning., Disp: , Rfl: carvedilol (Coreg) 12.5 mg tablet, TAKE 1.5 TABLETS TWICE A DAY *STOP METOPROLOL* (Patient taking differently: TAKE 1.5 TABLETS TWICE A DAY), Disp: 135 tablet, Rfl: 4 ferrous sulfate 325 (65 Fe) MG tablet, Take 1 tablet by mouth in the morning and at bedtime., Disp: , Rfl: hydrOXYzine HCL (Atarax) 25 mg tablet, Take 1 tablet by mouth in the morning., Disp: , Rfl: rivaroxaban (Xarelto) 20 mg tablet, Take 1 tablet (20 mg) by mouth daily with evening meal., Disp: 120 tablet, Rfl: 3 rOPINIRole (Requip) 0.5 mg tablet, Take 1 tablet by mouth at bedtime., Disp: , Rfl: rosuvastatin (Crestor) 20 mg tablet, TAKE 1 TABLET BY MOUTH AT BEDTIME, Disp: 90 tablet, Rfl: 3 Tiadylt ER 180 mg 24 hr capsule, TAKE 1 CAPSULE BY MOUTH ONCE DAILY. DO NOT OPEN,CHEW, OR CRUSH, Disp: 90 capsule, Rfl: 3 Physical Exam Vitals reviewed. Constitutional: Appearance: Normal appearance. She is normal weight. HENT: Head: Normocephalic and atraumatic. Right Ear: External ear normal. Left Ear: External ear normal. Eyes: Extraocular Movements: Extraocular movements intact. Conjunctiva/sclera: Conjunctivae normal. Pupils: Pupils are equal, round, and reactive to light. Neck: Vascular: No carotid bruit. Cardiovascular: Rate and Rhythm: Normal rate. Rhythm irregular. Pulses: Normal pulses. Heart sounds: Normal heart sounds. Pulmonary: Effort: Pulmonary effort is normal. Breath sounds: Normal breath sounds. Abdominal: General: Bowel sounds are normal. Palpations: Abdomen is soft. Musculoskeletal: Cer (more content not included)... [facility] 09-06-2024 Note Patient here for 3 m o follow up CAD, afib, and claudication. Says she hasn't had much chest tightness like she was having before, but she's felt her HR go fast at times. Says this morning her HR was 118, but only for a few seconds and then it came back down. She's been breathing much and hasn't used her O2 in over a week now. Patient states she hasn't felt this good since last summer. Denies bleeding on Xarelto. Review of Systems Cardiovascular: Positive for palpitations. Respiratory: Positive for cough. Neurological: Positive for loss of balance. All other systems reviewed and are negative. [facility] 09-06-2024 Note Entered by PING ROSA DO on September 06, 2024 07:29:18 EDT From: JEB ROSA DO [id number] Sent: 09/06/2024 07:29:18 EDT Subject: Medication Management Submitted: Complete:ferrous sulfate (ferrous sulfate 325 mg (65 mg elemental iron) oral tablet) Signed by JEB ROSA DO 09/06/2024 07:29:00 EDT Approved with modifications: ferrous sulfate (FERROUS SULFATE 325 MG TABLET) TAKE 1 TABLET BY MOUTH TWICE A DAY Qty: 180 tab(s) Days Supply: 90 Refills: 1 Substitutions Allowed Route To Pharmacy - [facility]/pharmacy #[id number] -------- From: [id number] To: JEB ROSA DO Sent: September 05, 2024 11:29:14 PM CDT Subject: Medication Management Due: September 06, 2024 12:17:11 AM CDT On Hold Pending Signature Dispensed Drug: ferrous sulfate (ferrous sulfate 325 mg (65 mg elemental iron) oral tablet), TAKE 1 TABLET BY MOUTH TWICE A DAY Quantity: 180 tab(s) Days Supply: 90 Refills: 1 Substitutions Allowed Notes from Pharmacy: -------- [facility] 05-26-2024 Note Entered by PING ROSA DO on May 26, 2024 14:26:26 EST From: JEB ROSA DO To: [facility]/pharmacy #[id number] Sent: 05/26/2024 14:26:25 EST Subject: Medication Management Submitted: Complete:hydrOXYzine (hydrOXYzine hydrochloride 25 mg oral tablet) Signed by JEB ORSA DO 05/26/2024 14:26:00 EST Submitted: Complete:rOPINIRole (rOPINIRole 0.5 mg oral tablet) Signed by JEB ROSA DO 05/26/2024 14:26:00 EST Approved with modifications: rOPINIRole (ROPINIROLE HCL 0.5 MG TABLET) TAKE 1 TABLET BY MOUTH EVERY DAY Qty: 90 tab(s) Days Supply: 90 Refills: 1 Substitutions Allowed Route To Pharmacy - [facility]/pharmacy #[id number] Approved with modifications: hydrOXYzine (HYDROXYZINE HCL 25 MG TABLET) TAKE 1 TABLET BY MOUTH EVERY DAY Qty: 90 tab(s) Days Supply: 90 Refills: 1 Substitutions Allowed Route To Pharmacy - [facility]/pharmacy #[id number] -------- From: [facility] [id number] To: JEB ROSA DO Sent: May 25, 2024 11:28:03 PM [employer] Subject: Medication Management Due: May 26, 2024 12:02:42 AM [employer] On Hold Pending Signature Dispensed Drug: rOPINIRole (rOPINIRole 0.5 mg oral tablet), TAKE 1 TABLET BY MOUTH EVERY DAY Quantity: 90 tab(s) Days Supply: 90 Refills: 1 Substitutions Allowed Notes from Pharmacy: On Hold Pending Signature Dispensed Drug: hydrOXYzine (hydrOXYzine hydrochloride 25 mg oral tablet), TAKE 1 TABLET BY MOUTH EVERY DAY Quantity: 90 tab(s) Days Supply: 90 Refills: 1 Substitutions Allowed Notes from Pharmacy: -------- [facility] 05-24-2024 Note Cardiovascular Medic [facility] SUBJECTIVE Chief Complaint Patient presents with Hypertension Atrial Fibrillation Karolina Bashir is a 79 y.o. female here for follow-up. HPI PMHx: HTN, a.fib, non-obstructive CAD, syncope. Patient was referred to cardiology due to syncope, which was characterized by patient as not true syncope. Patient here for 6 mo follow up CAD, PAF, and hypertension. At last apt in Nov 2023, metoprolol was switched to carvedilol. Palpitations resolved with this change. She presented to [facility] last week for SOB. She's been out of Xarelto for about 5 days now. She's been having chest tightness and SOB for awhile now . She's now using O2 all the time. She doesn't see a tape transferrer for her COPD. She feels like she has to work harder to breath with any ADLs/activities and describes this is caused by the chest tightness she feels. Has worsened the past few weeks. She is currently being treated for COPD exacerbation with steriods and an antibiotic. Her VARELA is worsened. C/o hand and feet pain. She has nocturnal feet pain. Sometimes her feet Denies any edema, orthopnea, PND, palpitations, syncope. 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 Chronic fatigue Syncope and collapse Kidney stone Past Medical History: Diagnosis Date Anemia Arthritis Atrial fibrillation (CMS/HCC) Chest pain H/O COPD (chronic obstructive pulmonary disease) (CMS/HCC) Hypertension Mass of colon Shortness of breath Stroke ([facility]) Family History Problem Relation Name Age of Onset Diabetes Mother Heart failure Mother No Known Problems Father Social History Tobacco Use Smoking status: Former Current packs/day: 0.00 Types: Cigarettes Quit date: 2020 Years since quittin.1 Smokeless tobacco: Never Tobacco comments: Quit 2 years ago 2020 Vaping Use Vaping status: Never Used Substance Use Topics Alcohol use: Never Drug use: Never Allergies Allergen Reactions Codeine Other DIAPHORETIC, ROS Cardiovascular: Positive for chest pain ( tightness ) and dyspnea on exertion. +Nocturnal claudication Respiratory: Positive for cough, shortness of breath and sputum production. All other systems reviewed and are negative. OBJECTIVE Visit Vitals BP 130/84 (BP Location: Left arm, Patient Position: Sitting) Pulse 66 Ht 1.6 m (5' 3 ) Wt 69.9 kg (154 lb) SpO2 95% Comment: on #L O2 BMI 27.28 kg/m??? Smoking Status Former BSA 1.76 m??? Medications: Current Outpatient Medications: albuterol 2.5 mg /3 mL (0.083 %) nebulizer solution, USE 1 VIAL IN NEBULIZER EVERY 6 HOURS NEEDED, Disp: , Rfl: albuterol 90 mcg/actuation inhaler, every 4 (four) hours., Disp: , Rfl: aspirin 81 mg EC tablet, in the morning., Disp: , Rfl: carvedilol (Coreg) 12.5 mg tablet, Take 1.5 tablets twice a day. STOP METOPROLOL, Disp: 135 tablet, Rfl: 3 ferrous sulfate 325 (65 Fe) MG tablet, Take 1 tablet by mouth in the morning and at bedtime., Disp: , Rfl: hydrOXYzine HCL (Atarax) 25 mg tablet, Take 1 tablet by mouth in the morning., Disp: , Rfl: rOPINIRole (Requip) 0.5 mg tablet, Take 1 tablet by mouth at bedtime., Disp: , Rfl: rosuvastatin (Crestor) 20 mg tablet, Take 1 tablet (20 mg) by mouth at bedtime., Disp: 90 tablet, Rfl: 3 Tiadylt ER 180 mg 24 hr capsule, TAKE 1 CAPSULE BY MOUTH ONCE DAILY. DO NOT OPEN,CHEW, OR CRUSH, Disp: 90 capsule, Rfl: 3 rivaroxaban (Xarelto) 20 mg tablet, Take 1 tablet (20 mg) by mouth daily with evening meal., Disp: 120 tablet, Rfl: 3 Physical Exam Vitals reviewed. Constitutional: Appearance: Normal appearance. She is normal weight. HENT: Head: Normocephalic and atraumatic. Right Ear: External ear normal. Left Ear: External ear normal. Eyes: Extraocular Movements: Extraocular movements intact. Conjunctiva/sclera: Conjunctivae normal. Pupils: Pupils are equal, round, and reactive to light. Neck: Vascular: No carotid bruit. Cardiovascular: Rate and Rhythm: Normal rate and regular rhythm. Pulses: Normal pulses. Heart sounds: Normal heart sounds. Pulmonary: Effort: Pulmonary effort is normal. Breath sounds: Normal breath sounds. Abdominal: General: Bowel sounds are normal. Palpations: Abdomen is soft. Musculoskeletal: Cervical back: Neck supple. Right lower leg: No edema. Left lower leg: No edema. Skin: General: Skin is warm and dry. Neurological: General: No focal deficit present. Mental Status: She is alert and oriented to person, place, and time. Psychiatric: Mood and Affect: Mood normal. Behavior: Behavior normal. Thought Content: Thought content normal. Judgment: Judgment normal. Labs: Hos (more content not included)... [facility] 05-24-2024 Note Patient here for 6 m o follow up CAD, PAF, and hypertension. At last apt in Nov 2023, metoprolol was switched to carvedilol. Palpitations resolved with this change. She presented to [facility] last week for SOB. She's been out of Xarelto for about 5 days now. She's been having chest tightness and SOB for awhile now . She's now using O2 all the time. She doesn't see a tape transferrer for her COPD. Review of Systems Cardiovascular: Positive for chest pain ( tightness ) and dyspnea on exertion. Respiratory: Positive for cough, shortness of breath and sputum production. All other systems reviewed and are negative. [facility] 2024 Note Entered by PING ROSA DO on 2024 07:33:12 EST From: JEB ROSA DO To: [facility]/pharmacy #[id number] Sent: 2024 07:33:12 EST Subject: Medication Management Submitted: Complete:ferrous sulfate (ferrous sulfate 325 mg (65 mg elemental iron) oral tablet) Signed by JEB ROSA DO 2024 07:33:00 EST Approved with modifications: ferrous sulfate (FERROUS SULFATE 325 MG TABLET) TAKE 1 TABLET BY MOUTH TWICE A DAY Qty: 180 tab(s) Days Supply: 90 Refills: 1 Substitutions Allowed Route To Pharmacy - [facility]/pharmacy #[id number] -------- From: [id number] To: JEB ROSA DO Sent: March 21, 2024 11:45:09 PM [employer] Subject: Medication Management Due: March 22, 2024 12:06:23 AM [employer] On Hold Pending Signature Dispensed Drug: ferrous sulfate (ferrous sulfate 325 mg (65 mg elemental iron) oral tablet), TAKE 1 TABLET BY MOUTH TWICE A DAY Quantity: 180 tab(s) Days Supply: 90 Refills: 1 Substitutions Allowed Notes from Pharmacy: -------- [facility] 10-18-2023 Note PROCEDURE: IR WIRE TO [...] by urology in cystoscopy prior procedure. A meat inspector film was obtained. The patient was placed [...] the tract was accessed and various 4 [place]ak angled catheters and a 0.035 inch glidewire [...] by: Christian Ordonez MD 10/18/[address] [facility] 11-01-2022 Chief complaint Narrative - Reported Patient is being seen for an initial Neurosurgical evaluation and Hx of TIA with c/o of recent and sudden near syncope. Here for evaluation of possible Aneurysm. CTA 11/01/22 in PACs from [facility]. XF-Xfsqstbjn-Nyuxnvr 5th Work Phone: 11-01-2022 Chief complaint Narrative - Reported Patient is being seen for an initial Neurosurgical evaluation and Hx of TIA with c/o of recent and sudden near syncope. Here for evaluation of possible Aneurysm. CTA 11/01/22 in PACs from [facility]. XW-Dujaqsnojjxq-WPVKO Work Phone: 05-29-2022 Note OPERATIVE NOTE OPERATION [...] Jeb Rosa M.D. Nick Melendez M.D. [facility] 05-29-2022 Note CONSULTATION CONSULTATION DATE: 05/30/2022 REASON [...] on hold. CC: Nick Melendez M.D. [facility] History of Present illness Narrative Ms. Bashir is a 77-year-old lady recently diagnosed with TIA and syncope. 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.Quit smokingNo family history of ruptured brain aneurysmNo other symptoms GY-Pstauwdtviri-KJZWF Work Phone: Summary Purpose Family History No [...] and content) DATE CREATED AUTHOR 06/06/2021 [facility] DATE CREATED AUTHOR AUTHOR'S ORGANIZ ATION 06/21/2022 [facility] DATE CREATED AUTHOR AUTHOR'S ORGANIZ ATION [facility]/30/2022 [facility] DATE CREATED AUTHOR AUTHOR'S ORGANIZ ATION 11/15/2022 [employer] DATE CREATED AUTHOR AUTHOR'S ORGANIZ ATION 12/06/2022 [facility] DATE CREATED AUTHOR AUTHOR'S ORGANIZ ATION 09/22/2023 [facility] DATE CREATED AUTHOR AUTHOR'S ORGANIZ ATION 10/23/2023 [facility] DATE CREATED AUTHOR AUTHOR'S ORGANIZ ATION 12/04/2024 [facility] DATE CREATED AUTHOR AUTHOR'S ORGANIZ ATION 12/27/2024 [facility] FOR RECORDS PERTAINING TO PATIENTS WHO [...] BE BASED ON THE PRIMARY CLINICAL RECORDS. [facility] [employer] [facility]. provides no warranty or guarantee of the accuracy or completeness of information in this document.
--- NOTE | 2024-12-29 18:28 | XR_ITS ---
The [place] [id number] Patient Name: JEANETTE ACEVEDO MRN: [id number] date: 1945 Sex: F Assigned Patient Location: ED.MAIN Current Patient Location: ED.MAIN Accession/Order Number: [id number] Exam Date: 12/29/2024 18:38 Report Date: 12/29/2024 19:03 At the request of: ERICK DE LA CRUZ MD Procedure: XR chest 1V PA CHEST: CLINICAL HISTORY: SOB COMPARISON: 05/17/2024 Mildly enlarged cardiomediastinal silhouette. Lungs are clear. No effusion or pneumothorax. XR/XR chest 1V IMPRESSION: Negative acute pleural-parenchymal disease. Impression dictated by: Gilmer Aguirre M.D. 12/29/2024 7:03 PM Dictation Location: [place] [address] Electronically authenticated by: [id number] Y Date: 12/29/2024 19:03
--- NOTE | 2024-12-29 18:28 | ECG_ITS ---
[facility] Test Date: 2024-12-29 Pat Name: JEANETTE ACEVEDO Department: Room: - Gender: Female Denial Resolution Specialist: : 1945 Requested By: [id number] Order Number: [id number] Reading MD: ARAMIS LEIGH M.D. Measurements Intervals [place] Rate: 123 P: -[id number] TN: -[id number] QRS: -9 QRSD: 88 T: 108 QT: 326 QTc: 399 Interpretive Statements 11704 Atrial fibrillation with rapid ventricular response [address] depression, probably digitalis effect [address] & Twave abnormality, probably digitalis effect 9150 abnormal ECG Compared to ECG 05/17/2024 21:13:24 ST (T wave) deviation now present Sinus rhythm no longer present Electronically Signed On 12-29-2024 20:08:16 EDT by ARAMIS LEIGH M.D.
--- NOTE | 2024-12-29 18:29 | ED.GENADUL1 ---
HPI HPI - General Adult General Stated complaint: SOB Time Seen by Provider: 12/29/24 18:23 Source: patient Mode of arrival: Wheelchair Limitations: no limitations History of Present Illness HPI narrative: 79-year-old female presented to the emergency department for difficulty breathing. She has been coughing up some yellow to green-colored phlegm. She has been sick for few days but it got worse today. No known fever and no hemoptysis. Related Data Home Medications ?Medication ?Instructions ?Recorded ?Confirmed diltiazem HCl 180 mg capsule,24 180 mg PO DAILY 11/01/22 05/17/24 hr,extended release (Tiadylt ER) ferrous sulfate 325 mg (65 mg 325 mg PO BID 11/01/22 05/17/24 iron) tablet rivaroxaban 20 mg tablet (Xarelto) 20 mg PO DAILY 11/01/22 05/17/24 albuterol sulfate 2.5 mg/3 mL 2.5 mg inhalation Q6H PRN 09/17/23 05/17/24 (0.083 %) solution for nebulization shortness of breath or wheezing hydroxyzine HCl 25 mg tablet 25 mg PO Q6H PRN anxiety 09/17/23 05/17/24 ropinirole 0.5 mg tablet 0.5 mg PO DAILY 09/17/23 05/17/24 rosuvastatin 20 mg tablet 20 mg PO DAILY 09/17/23 05/17/24 carvedilol 12.5 mg tablet 18.75 mg PO BID 05/17/24 05/17/24 Previous Rx's ?Medication ?Instructions ?Recorded prednisone 20 mg tablet 60 mg (3 x 20 mg) PO DAILY 5 days 05/17/24 #15 tabs Allergies Allergy/AdvReac Type Severity Reaction Status Date / Time codeine AdvReac Intermediate Dizziness Verified 12/29/24 18:08 Opioid HPI Opioid Management Most Recent Opioid Data: Last Pain Scale 4 09/17/23, 21:38 Review of Systems ROS Narrative A ten point review of systems is negative except as noted above. [facility] Medical History (Updated 12/29/24 @ 18:31 by Sameer Lazar MD) COPD (chronic obstructive pulmonary disease) ?J44.9 - Chronic obstructive pulmonary disease, unspecified (ICD-10) Hypertension ?I10 - Essential (primary) hypertension (ICD-10) TIA (transient ischemic attack) ?G45.9 - Transient cerebral ischemic attack, unspecified (ICD-10) Afib ?I48.91 - Unspecified atrial fibrillation (ICD-10) Social History Smoking status: Former smoker Little interest or pleasure in doing things: not at all Feeling down, depressed, or hopeless: not at all Exam Narrative Exam Narrative: Nurses note and vital signs reviewed and patient is not hypoxic. General:The patient appears in no acute distress. She coughs occasionally Skin:Warm, dry, no pallor noted.There is no rash noted. Head:Normocephalic, atraumatic Eye: Normal conjunctiva, no drainage Ears, Nose, Mouth, and Throat: oral mucosa is moist. Nares patent. Cardiovascular: Irregular irregular and tachycardic Respiratory: Bilateral rhonchi throughout with diminished air movement Back:non-tender GI: Soft and nontender Musculoskeletal: The patient has no evidence of calf tenderness, no pitting edema, symmetrical pulses noted bilaterally Neurological: Awake and alert Psychiatric:Cooperative Constitutional Vital Signs, click to edit/add: Last Vital Signs Temp 98.9 F 12/29/24 18:08 Pulse 131 H 12/29/24 18:08 Resp 29 H 12/29/24 18:08 BP 151/103 H 12/29/24 18:08 Pulse Ox 92 L 12/29/24 18:08 O2 Del Method Room Air 12/29/24 18:08 Course Vital Signs Vital signs: Vital Signs Temperature 98.9 F 12/29/24 18:08 Pulse Rate 131 H 12/29/24 18:08 Respiratory Rate 29 H 12/29/24 18:08 Blood Pressure 151/103 H 12/29/24 18:08 Pulse Oximetry 92 L 12/29/24 18:08 Oxygen Delivery Method Room Air 12/29/24 18:08 Temperature 98.9 F 12/29/24 18:08 Pulse Rate 131 H 12/29/24 18:08 Respiratory Rate 29 H 12/29/24 18:08 Blood Pressure 151/103 H 12/29/24 18:08 Pulse Oximetry 92 L 12/29/24 18:08 Oxygen Delivery Method Room Air 12/29/24 18:08 Medical Decision Making MDM Narrative Medical decision making narrative: Tests are ordered and the patient is signed out to Dr. Rae at change of shift. Differential Diagnosis Differential Diagnosis: COPD exacerbation, pneumonia, COVID, influenza ECG Data Attestation: I personally reviewed and interpreted this ECG as follows: (EKG on my interpretation shows atrial fibrillation with a rate of 123) Discharge Plan Discharge Patient Disposition: Still a Patient
[2024-12-29 18:40] LABS: Hematocrit 41.1 % (36.0-48.0); Hemoglobin 13.7 g/dL (12.0-16.0); Immature Granulocytes Abs Auto 0.04 10^3/uL (0.00-0.03); Immature Granulocytes Pct Auto 0.3 % (0.0-0.5); Lymphocytes Absolute Auto 1.5 10^3/uL (1.2-3.8); Mean Corpuscular HGB Conc 33.3 g/dL (29.9-35.2); Mean Corpuscular Hemoglobin 31.1 pg (26.7-34.0); Mean Corpuscular Volume 93.2 fL (81.0-99.0); Platelet Count 279 10^3/uL (150-450); Red Blood Count 4.41 10^6/uL (4.20-5.40); White Blood Count 12.2 10^3/uL (4.0-11.0)
[2024-12-29] MEDS: METHYLPREDNISOLONE SOD SUCC PF 125 MG/2 ML VIAL IVP (18:48)
[2024-12-29 18:54] LABS: Anion Gap 14.0; Blood Urea Nitrogen 15.0 mg/dL (7.0-18.0); Calcium 8.9 mg/dL (8.5-10.1); Carbon Dioxide 25.8 mmol/L (21.0-32.0); Chloride 102 mmol/L (98-107); Estimated GFR (African America >60 (>=60 mL/min/1.73m^2); Estimated GFR (Non-African Ame >60 (>=60 mL/min/1.73m^2); Glucose 147 mg/dL (74-106); Potassium 3.8 mmol/L (3.5-5.1); Sodium 138 mmol/L (136-145)
[2024-12-29] MEDS: ALBUTEROL SULFATE 2.5 MG/3 ML VIAL NEB IH (19:06)
[2024-12-29 19:24] LABS: SARS-CoV-2 Ag NEGATIVE (NEGATIVE)
--- NOTE | 2024-12-29 19:31 | PC.NURSE ---
Tight with exp wheeze in bases
== END 2024-12-29 19:56 | disposition home or self-care (01) ==
PROVIDERS: Emergency Provider Emergency Medicine; PCP Family Medicine
DX: J44.1 Chronic obstructive pulmonary disease with (acute) exacerbation (principal); R06.02 Shortness of breath; Z87.891 Personal history of nicotine dependence
CPT/HCPCS: 36415; 71045; 80048; 84484; 85025; 87804; 87811; 93005; 94640; 96374; 99285; J2919

== ENCOUNTER 2025-01-10 12:40 | Emergency (ER) | payer MEDICARE, SELFPAY ==
[2025-01-10 12:44] VITALS: BP 160/87; PULSE 79; TEMP 36.4; O2SAT 97; BMI 27.8
--- OUTSIDE RECORDS SUMMARY | 2025-01-10 12:47 | XMS_ITS | CCD ---
Author Organization [facility] Care Team Providers Care Pairer Substandard Name Role Phone HOUSE, JEB Primary Care Unavailable SELF, REFERRED Referring Unavailable MAURY GARZA Admitting Unavailable KAYLA, MAURY Attending Unavailable KAYLA, [...] Unavailable NILL ., DR JEFFERSON Consulting Unavailable AJRRED, HERMELINDO Consulting Unavailable NILL ., DR JEFFERSON [...] Unavailable MD RANDALL HAWTHORNE Attending Unavailable TULIO CHAVEZ Admitting Unavailable TULIO CHAVEZ Attending Unavailable MOE, JEB Bauman Primary Care Unavailable BEN MIRELES Attending Unavailable MOE, JEB Bauman Primary Care Unavailable TULIO CHAVEZ Attending Unavailable TULIO CHAVEZ Referring Unavailable MOE, JEB Bauman Primary Care Unavailable AMANDA GEORGES Consulting Unavailable TULIO CHAVEZ Admitting Unavailable TULIO CHAVEZ Attending Unavailable HOUSE JEB GRAY Primary Care Unavailable TULIO CHAVEZ Attending Unavailable TULIO CHAVEZ Referring Unavailable HOUSE JEB GRAY Primary Care Unavailable Unavailable Primary Care Provider Unavailabl e HOUSE, JEB Bauman Primary Care Unavailable HOUSE, DO JEB P [...] Unavailable HOUSE, DO JEB P Attending Unavailable MAURY GARZA Attending Unavailable DARLING, KAL Attending Unavailable DARLING, KAL Attending Unavailable Allergies Allergy ClassificationReported Allergen(s)Allergy TypeDate of OnsetReaction(s) Facility (5 sources)Codeine; Translations: [CODEINE]Drug Fiyakyv06-33-3458Xfg [facility] Repository (3 sources)oxyCODONE; Translations: [OXYCODONE]Drug Ctflivd02-72-0521Syupbt And VomitingProMedica Repository (1 source)CodeineDrug Rqgahty98-80-2450Ibwvsjagj or VertigoB[facility] Medications Current Medications MedicationDrug Class(es)DatesSig (Normalized)Sig (Original)omeprazole 20 mg delayed release oral capsule (1 source)Proton Pump Inhibitortake 1 capsule by mouth once dailyomeprazole (PRILOSEC) 20 MG delayed release capsule Take 1 capsule by mouth daily 0 Active rosuvastatin calcium 20 mg oral tablet (1 source)HMG-CoA Reductase Inhibitortake 1 tablet by mouth at bedtime rosuvastatin (CRESTOR) 20 MG tablet Take 1 tablet by mouth at bedtime 0 Active Completed/Discontinued Medications MedicationDrug Class(es)DatesSig (Normalized)Sig (Original)aspirin 325 mg oral tablet (3 sources)Platelet Aggregation Inhibitor, Nonsteroidal Anti-inflammatory Drug Start: 13-45-5631gzeo 1 tablet by mouth every four hours as neededBayer Advanced Aspirin Reg St 325 MG Oral Tablet TAKE 1 TABLET EVERY 4 HOURS NEEDED. Quantity: 0Refills: 0 Ordered: 12-Nov-2022 DO Start : 12-Nov-2022 Activetake 1 tablet by mouth once dailyaspirin 81 MG EC tablet Take 1 tablet by mouth daily 0 Pyjjzd38 hr dilTIAZem hydrochloride 240 mg extended release oral tablet (3 sources)Calcium Channel BlockerStart: 93-57-6446rtxr 1 tablet by mouth every twenty-four hoursdilTIAZem HCl ER 240 MG Oral Tablet Extended Release 24 Hour Quantity: 0 Refills: 0 Ordered: 12-Nov-2022 DO Start : 12-Nov-2022 Activetake 1 capsule by mouth once dailydilTIAZem (DILACOR XR) 240 MG extended release capsule Take 1 capsule by mouth daily 0 Activeferrous sulfate 324 mg delayed release oral tablet (3 sources)Start: 44-13-2268Rbxcnso Sulfate 324 (65 Fe) MG Oral Tablet Delayed Release Quantity: 0 Refills: 0 Ordered: 12-Nov-2022 DO Start : 12-Nov-2022 Activetake 1 tablet by mouth once daily in the eveningferrous sulfate (IRON 325) 325 (65 Fe) MG tablet Take 1 tablet by mouth every evening 0 ActivehydrOXYzine hydrochloride 25 mg oral tablet (3 sources)AntihistamineStart: 58-38-2112cpdx 1 tablet by mouth three times daily as neededhydrOXYzine HCl - 25 MG Oral Tablet TAKE 1 TABLET 3 TIMES DAILY NEEDED. Quantity: 0 Refills: 0 Ordered: 12-Nov-2022 DO Start : 12-Nov-2022 Activetake 1 capsule by mouth once dailyhydrOXYzine pamoate (VISTARIL) 25 MG capsule Take 1 capsule by mouth daily 0 Activemetoprolol tartrate 25 mg oral tablet (3 sources)beta-Adrenergic BlockerStart: 84-20-5500rsnv 0.5 tablet by mouth twice dailyMetoprolol Tartrate 25 MG Oral Tablet TAKE ONE-HALF (1/2) TABLET TWICE A DAY Quantity: 90 Refills: 1 Ordered: 12-Nov-2022 DO Start : 12-Nov-2022 Activemetoprolol tartrate (LOPRESSOR) 50 MG tablet Take by mouth 2 times daily Takes 1.5 tablets BID Oral0 Activerivaroxaban 20 mg oral tablet (3 sources)Factor Xa InhibitorStart: 08-12-0500cxdu 1 tablet by mouth once daily Xarelto 20 MG Oral Tablet TAKE 1 TABLET BY MOUTH DAILY Quantity: 90 Refills: 0 Ordered: 95-Smq-4698HA Start : 12-Nov-2022 ActiverOPINIRole 5 mg oral tablet (3 sources)Nonergot Dopamine AgonistStart: 76-85-6533jaxy 1 tablet by mouth three times dailyrOPINIRole HCl - 5 MG Oral Tablet TAKE 1 TABLET 3 TIMES DAILY. Quantity: 0 Refills: 0 Ordered: 12-Nov-2022 DO Start : 12-Nov-2022 Active Problems Problem ClassificationProblemDateDocumented DateEpisodic/ChronicAcute posthemorrhagic anemia (1 source)Acute posthemorrhagic anemia; Translations: [ACUTE POSTHEMORRHAGIC ANEMIA]Onset: 40-22-8546GcsxgydfUgzsobge of urinary tract (3 sources)Calculus of ureter; Translations: [Calculus of kidney]Onset: 72-50-7239BzgpfdtoGzygcjb dysrhythmias (4 sources)Paroxysmal atrial fibrillation; Translations: [Unspecified atrial fibrillation]Onset: 46-64-4645ZiagsluZkodwxv obstructive pulmonary disease and bronchiectasis (3 sources)Chronic obstructive pulmonary disease, unspecified; Translations: [Chronic obstructive pulmonary disease with (acute) exacerbation]Onset: 91-66-7535TtidimmKehdijgo atherosclerosis and other heart disease (1 source)Atherosclerotic heart disease of [place] coronary artery without angina pectoris; Translations: [ASHD [place] W/O ANGINA PECTORIS]Onset: 06-17-2022 ChronicDeficiency and other anemia (4 sources)Anemia, unspecified; Translations: [ANEMIA UNSPECIFIED]Onset: 55-97-9859UpbghxzlWfwfrqdwwz and other anemia (2 sources)Iron deficiency anemia, unspecified; Translations: [IRON DEFICIENCY ANEMIA UNSPECIFIED]Onset: 52-76-5859LwlbqmqhGmsftossp hypertension (2 sources)Essential (primary) hypertension; Translations: [ESSENTIAL PRIMARY HYPERTENSION]Onset: 02-66-6169DmrfghlGpxiqkkkknhrjoyo hemorrhage (1 source)Gastrointestinal hemorrhage, unspecified; Translations: [GASTROINTESTINAL HEMORRHAGE UNS]Onset: 19-71-7955MyumhchnRpguiaqskbn chest pain (1 source)Chest pain, unspecified; Translations: [CHEST PAIN UNSPECIFIED]Onset: 54-29-4163MeeltjkvEpkwc aftercare (1 source)ad terminal makeup operator (current) use of aspirin; Translations: [CANDY SUPERVISOR CURRENT USE OF ASPIRIN]Onset: 75-79-3970HujpqoahCzheg aftercare (1 source)ad terminal makeup operator (current) use of anticoagulants; Translations: [GROUP HOME CURRNT USE ANTICOAGULANTS]Onset: 24-54-3267FmlkyexrCwznr aftercare (1 source)Other long-term (current) drug therapy; Translations: [OTH GROUP HOME CURRENT DRUG THERAPY]Onset: 99-04-7816YgzupsxfUccxu and ill-defined cerebrovascular disease (2 sources)Cerebral aneurysm, nonruptured; Translations: [Cerebral aneurysm, nonruptured]Onset: 16-43-6092SoodahgZumlt and unspecified benign neoplasm (1 source)Polyp of colon; Translations: [POLYP OF COLON]Onset: 06-17-2022 EpisodicOther circulatory disease (2 sources)Personal history of transient ischemic attack (TIA), and cerebral infarction without residual deficits; Translations: [PERS HX TIA AND CI NO RESID DEFICIT]Onset: 00-28-2554SgsibwgbKhdyg diseases of kidney and ureters (1 source)Hydronephrosis with renal and ureteral calculous obstruction; Translations: [Hydronephrosis with renal and ureteral calculous obstruction] Onset: 47-33-2936TjxusrapDwsii gastrointestinal disorders (1 source)Disease of intestine, unspecified; Translations: [DISEASE OF INTESTINE UNSPECIFIED]Onset: 88-48-6702VzhawzgkMgefz gastrointestinal disorders (1 source)Other fecal abnormalities; Translations: [OTHER FECAL ABNORMALITIES] Onset: 83-22-0199TupkmfmsKojhu hereditary and degenerative nervous system conditions (1 source)Restless legs syndrome; Translations: [Restless legs syndrome]Onset: 29-38-1644CehdpbsPbfvufygk and history of mental health and substance abuse codes (1 source)Personal history of nicotine dependence; Translations: [PERSONAL HISTORY OF NICOTINE DEPEND]Onset: 05-29-1431XcmtseguHykhbgarwvmf (1 source)ESOPHAGITIS UNSPEC WITHOUT BLEEDING; Translations: [ESOPHAGITIS UNSPEC WITHOUT BLEEDING]Onset: 91-03-5052Xaqdpjhuqafv (1 source)ureteral stoneOnset: 73-35-7714Ujauwakhwerb (2 sources)Other persistent atrial fibrillation; Translations: [Other persistent atrial fibrillation]Onset: 02-03-2022 Results Test NameValueInterpretationReference ItgboLmuqftuh43or 31-03-560386Xnywamw stopped into the office today for ECG. She said Dr. Garza asked her to come for one s/p starting amiodarone at last visit on 12/12/2024. She is now on amiodarone 200mg daily. Patient states since she started it she's been very dizzy. HR has been all over the place, from 40's-120 . ECG emailed to Dr. Garza. 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 Vitals in the office today were 127/84 R sitting, HR: 75, SpO2: 92%. Patient has been sick with COPD exacerbation she says.[facility] HospitalOutside Recordson 01-01-2025 Outside [id number]#1.00[facility] CenterRad - Other Radiology Reporton 55-42-0262Xga - Other Radiology [id number]#1.00[facility] HospitalOrders Onlyon 52-09-2118Ciquev [id number] Karolina Acevedo 1945 F Date Provider Department Center 12/21/2024 GAUTAM BRINK [facility]ANK [facility] Family History Problem Relation Age of Onset Diabetes Mother Heart failure Mother No Known Problems Father Family Status - Relation Status Age at Mother FatherNormalUniCommunity Memorial HospitalOffice Visiton 55-14-6710Aemgoj- up [id number] Karolina Acevedo 1945 F Provider Department Center 12/12/2024 MAURY MORRISON [facility] Family History Problem Relation Age of Onset Diabetes Mother Heart failure Mother No Known Problems Father Family Status - Relation Status Age at Mother Father Level of Service:75575 [place] OFFICE/OUTPATIENT ESTABLISHED LOW MDM 20 [facility] HospitalOffice Visiton 84-30-8033Smwqxf-up visit [id number] Karolina Acevedo 1945 F Date Provider Department Center 09/06/2024 KAL HAMILTON [facility] Family History Problem Relation Age of Onset Diabetes Mother Heart failure Mother No Known Problems Father Family Status - Relation Status Age at Mother Father Level of Service:86443 [place] OFFICE/OUTPATIENT ESTABLISHED MOD MDM 30 MIN Reason for Visit and Comments: Atrial Fibrillation [80] Hypertension [684270][facility] HospitalProgress Note - Nurseon 96-62-7272Qkwlymku Note - NurseGave 40mg of Kenalog into patients right deltoid IM. Patient tolerated well. No adverse reactions. Medication provided by office. [Electronically Signed on: 08/22/2024 11:48 EDT] Kerline Partida MA [Verified on: 08/22/2024 11:48 EDT] Kerline Partida [facility] HospitalProvider Orderson 40-47-7352Pturcqjp Orders [id number]#1.00[facility] Provider Orderson 11-82-4626Sdmoakrc Orders [id number]#1.00[facility] Office Visiton 22-70-0895Inwtiq-up [id number] Karolina Acevedo 1945 F Date Provider Department Center 05/24/2024 KAL HAMILTON CARD [facility] Family History Problem Relation Age of Onset Diabetes Mother Heart failure Mother No Known Problems Father Family Status - Relation Status Age at Mother Father Level of Service:98623 [place] OFFICE/OUTPATIENT ESTABLISHED LOW MDM 20 MIN Reason for Visit and Comments: Hypertension [896887] Atrial Fibrillation [80][facility] Clinict[facility] Analysis on 95-18-7117Mqinuiv descriptionSee NoteNormalMerGarfield County Public HospitalComment on above:Result Comment: (NOTE) Specimen consists of numerous brown and romo calculi fragments. The total weight is 136 mg.Performed By: #### ASTONE #### [facility] [address] [place] [address] [employer] Member: Jm Cronin [facility] CamarilloitionRiverview [facility] Institute Comment on above:Result Comment: (NOTE) Calculi composed primarily of calcium oxalate monohydrate. INTERPRETIVE INFORMATION: Calculi (Stone) analysis Calculi are the products of physiological processes that yield crystalline compounds in a matrix of biological compounds and blood. Matrix components are not reported. The clinically significant crystalline components identified in calculi specimens are reported. Gross description may not be consistent with composition determined by FTIR analysis. Performed By: [facility] [address] [place] [address] Lan Support Specialist: Walter Gibson MD, PhD CLIA Number: [id number] By: #### ASTONE #### [address] [address] [employer] Member: Jm Cronin FSAtui578 [facility] Medical CenterComment on above:Performed By: #### ASTONE #### [address] [address] [employer] Member: Jm Cronin MDG, ,Urineon 29-85-7716Ohae HCG ( test) Ql (U)NegativeNoalNEGMetrohealth Parma Medical CenterComment on above: Result Comment: Specimens with hCG levels near the threshold of the test (25 mIU/mL) may give a negative or indeterminate result. In such cases, another test should be performed with a new specimen in 48-72 hours. If early is suspected clinically in this setting, correlation with quantitative serum b-hCG level is suggested.Performed By: #### UHCG #### [facility] [address] [place], [place] [address] [employer] Member: Jose Blank MDURINE CULTUREon 53-24-8975Haudjhxp identified Cx Nom (U)CULTURE RESULTS NO GROWTH AT <1000 CFU/mLNormalProMedica Trinity Health SystemComment on above: Performed By: #### 630-4 #### [facility] ([id number]) [address], [address] [place], [place] [address]Kaxlhgi Visit (Neurosurgery)on 33-36-6790Lbhjruy Visit (Neurosurgery)Provider Impressions I had the pleasure of seeing Ms. Acevedo and her and had a thorough discussion [...] your plan of care after leaving at [phone] M-F 8am-5pm. To clinicians, thank you very much for this kind referral. It is a privilege to partner with you inthe care of your patients. My office would be delighted to assist you with any further consultations or with questions regarding the plan of care outlined. Do not hesitate to call the office or contact me directly. Warmest Regards, Randall Hawthorne MD Cerebrovascular / Endovascular / Skull Base Surgery Director of Neurosurgery, [facility] Fellowship Director, Endovascular Neurosurgery [address], [address] [place] [address] (p) [phone] (f) [phone] Chief Complaint Patient is being seen for an initial Neurosurgical evaluation and Hx of TIA with c/o of recent and sudden near syncope. Here for evaluation of possible Aneurysm. CTA 11/01/22 in PACs from [facility]. History of Present Illness Ms. Acevedo is a 77-year-old lady recently diagnosed with TIA and syncope. Further work-up at [facility] showed a a reported 8 to 9 [...] BY MOUTH DAILY Vitals Vital Signs Recorded: 12Nov2022 11:20AM Heart Rate70 Ckclfjpgubn41 Mtacmsng043 Smtnagzpt26 Height5 ft 3 in Kwjrbi376 lb BMI Vhhwshrdsd89.69 kg/m2 BSA Calculated1.69 Tobacco Useb) No PHQ-2 #1. Over the last 2 weeks have you felt down, depressed or hopeless? (If yes, answer PHQ-9 below)No PHQ-2 #2. Over the last 2 weeks have you felt little interest or pleasure in doing things? 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 Work Phone: Fall risk assessmenta) No falls within the last year [facility] 5[facility] Work Phone: Tobacco use status CPHSb) GuUD-Tksthrxxr-Awxdpvh 5th Work Phone: Pathology Noteon 50-11-9816Ytguaawid Note [id number]#1.00CD:127NoUniversity [facility]als [facility] AUTO DIFFon 82-67-3405CLSP #0.1 103/ulNormal0.0-0.1The [facility] ShawComment on above:Performed By: #### SEDR #### [facility] [address] [place] [address] Dr. Bao HsuBasophils/100 WBC (Bld)1.0 %Normal0.2-2.0The [facility] Comment on above:Performed By: #### SEDR #### [facility] [address] [place] [address] Dr. Bao Peng #0.3 103/ulNormal0.0-0.7The [facility] ShawComment on above: Performed By: #### SEDR #### [facility] [address] [place] [address] Dr. Bao Turpinosinophils/100 WBC (Bld)2.7 %Normal0.9-7.0The [facility] Comment on above:Performed By: #### SEDR #### [facility] [address] [place] [address] Dr. Bao Turpinrythrocyte distribution width (RBC) [Ratio]29.4 %Critically high 11.0-15.0The [facility] ShawComment on above:Performed By: #### SEDR #### [facility] [address] [place] [address] Dr. Bao HsuHematocrit (Bld) [Volume fraction]34.5 %Critically low36.0-48.0 The [facility] ShawComment on above:Performed By: #### SEDR #### [facility] [address] [place] [address] Dr. Bao HsuHemoglobin (Bld) [Mass/Vol]9.6 g/dLCritically low12.0-16.0The [facility] ShawComment on above:Performed By: #### SEDR #### [facility] [address] [place] [address] Dr. Bao Oliver #0.03 10e3/ulNormal0.00-0.03The [facility] ShawComment on above:Performed By: #### SEDR #### [facility] [address] [address] [address] Bao Oliver %0.3 %Normal0.0-0.5The [facility], [facility] ShawComment on above: Performed By: #### SEDR #### [facility] [address] [address] [address] Bao Alexandra #1.4 103/ulNormal1.2-3.8The [facility] ShawComment on above:Performed By: #### SEDR #### [facility] [address] [place] [address] Dr. Bao Hillhocytes/100 WBC (Bld)14.1 %Critically low20.5-60.0The [facility] ShawComment on above:Performed By: #### SEDR #### [facility] [address] [place] [address] Dr. Bao GutierrezUAL DIFF REQNONormalThe [facility] ShawComment on above: Performed By: #### SEDR #### [facility] [address] [place] [address] Dr. Bao Middleton (RBC) [Entitic mass]20.8 pgCritically low26.7-34.0The [facility] ShawComascension providence hospital on above:Performed By: #### SEDR #### [facility] [address] [place] [address] Dr. Bao Echols (RBC) [Mass/Vol]27.8 g/dLCritically low29.9-35.2The [facility] ShawComment on above:Performed By: #### SEDR #### [facility] [address] [place] [address] Dr. Bao Echols (RBC) [Entitic vol]74.8 fLCritically low81.0-99.0The [facility] ShawComment on above:Performed By: #### SEDR #### [facility] [address] [place] [address] Dr. Bao Wallace #0.6 103/ulNormal0.3-0.8The [facility] ShawComment on above:Performed By: #### SEDR #### [facility] [address] [address] [address] Bao Keaneocytes/100 WBC (Bld)5.9 %Normal1.7-12.0The [facility] Comment on above:Performed By: #### SEDR #### [facility] [address] [place] [address] Dr. Bao Mchugh #7.5 103/ulCritically high1.4-6.5The [facility] Comment on above:Performed By: #### SEDR #### [facility] [address] [place] [address] Dr. Bao Dennisutrophils/100 WBC (Bld)76.0 %Critically high43.0-75.0The [facility] ShawComment on above:Performed By: #### SEDR #### [facility] [address] [place] [address] Dr. Bao HsuPlatelet mean volume (Bld) [Entitic vol]8.0 fLCritically low 9.5-13.5ThKindred Hospital DaytonComment on above:Performed By: #### SEDR #### [facility] [address] [place] [address] Dr. Bao HsuPLT472 103/ulCritically nand031-169Prn [facility] ShawComment on above:Performed By: #### SEDR #### [facility] [address] [place] [address] Dr. Bao HsuRBC4.61 106/ulNormal4.20-5.40The [facility] ShawComment on above:Performed By: #### SEDR #### [facility] [address] [place] [address] Dr. Bao FritzBC9.9 103/ulNormal4.0-11.0The [facility] ShawComment on above: Performed By: #### SEDR #### [facility] [address] [place] [address] Dr. Bao Byrd LEUKOREDUCEDon 24-65-4020CGK and Rh group Nom (Bld)Cross Match Result Compatible Unit Blood Type A Pos Unit Number [id number] Status Information Transfused Product ID Red Blood Cells Product Code [id number] Cross Match Result Compatible Unit Blood Type A Pos Unit Number [id number] Status Information Transfused Product ID Red Blood Cells Product Code [id number] Medical Specialty Hospital - TrumbullComment on above:Performed By: #### JOSEPH, BMP #### [facility] [address] [place] [address] Dr. Bao HsuConsultation Noteon 36-00-3712Efmzrgadrxgq Note [id number]:[address] [place], [place] [address]Outside Colonoscopyon 00-88-0739Gypsrtw Colonoscopy [id number]#1.00CD:[address] [place], [place] [address]CBC AUTO DIFFon 75-70-6585ARHU #0.1 103/ulNormal0.0-0.1The [facility] ShawComment on above:Performed By: #### JOSEPH, BMP #### [facility] [address] [place] [address] Dr. Bao Finleysophils/100 WBC (Bld)0.3 %Normal0.2-2.0The [facility] Comment on above:Performed By: #### JOSEPH, BMP #### [facility] [address] [place] [address] Dr. Bao Peng #0.1 103/ulNormal0.0-0.7The [facility] ShawComment on above: Performed By: #### JOSEPH, BMP #### [facility] [address] [place] [address] Dr. Bao Turpinosinophils/100 WBC (Bld)0.6 %Critically low0.9-7.0The [facility] ShawComment on above:Performed By: #### JOSEPH, BMP #### [facility] [address] [place] [address] Dr. Yilan ChangErythrocyte distribution width (RBC) [Ratio]26.8 %Critically high 11.0-15.0The [facility] ShawComment on above:Performed By: #### CMADM, BMP #### [facility] [address] [place] [address] Dr. Bao HsuHematocrit (Bld) [Volume fraction]31.8 %Critically low36.0-48.0 The [facility] ShawComment on above:Performed By: #### CMADM, BMP #### [facility] [address] [place] [address] Dr. Bao HsuHemoglobin (Bld) [Mass/Vol]8.8 g/dLCritically low12.0-16.0The [facility] Centerment on above:Performed By: #### CMADM, BMP #### [facility] [address] [place] [address] Dr. Bao Oliver #0.07 10e3/ulCritically high0.00-0.03The [facility] Comment on above:Performed By: #### CMADM, BMP #### [facility] [address] [place] [address] Dr. Bao Oliver %0.4 %Normal0.0-0.5The [facility] ShawComment on above: Performed By: #### CMADM, BMP #### [facility] [address] [place] [address] Dr. Bao Alexandra #1.3 103/ulNormal1.2-3.8The [facility] Centerment on above:Performed By: #### CMADM, BMP #### [facility] [address] [place] [address] Dr. Bao Hillhocytes/100 WBC (Bld)7.8 %Critically low20.5-60.0The [facility] ShawComment on above:Performed By: #### CMADM, BMP #### [facility] [address] [place] [address] Dr. Bao GutierrezUAL DIFF REQNONormalThe [facility] ShawComment on above: Performed By: #### CMADM, BMP #### [facility] [address] [place] [address] Dr. Bao Echols (RBC) [Entitic mass]19.4 pgCritically low26.7-34.0The [facility] ShawComment on above:Performed By: #### CMADM, BMP #### [facility] [address] [place] [address] Dr. Bao Echols (RBC) [Mass/Vol]27.7 g/dLCritically low29.9-35.2The [facility] ShawComment on above:Result Comment: slight hypochromasia presentPerformed By: #### JOSEPH, BMP #### [facility] [address] [place] [address] Dr. Bao Echols (RBC) [Entitic vol]70.0 fLCritically low81.0-99.0The [facility] ShawComment on above:Result Comment: slight microcytosis presentPerformed By: #### JOSEPH, BMP #### [facility] [address] [place] [address] Dr. Bao Wallace #1.0 103/ulCritically high0.3-0.8ThKind[facility] Comment on above:Performed By: #### JOSEPH, BMP #### [facility] [address] [place] [address] Dr. Bao Keaneocytes/100 WBC (Bld)5.6 %Normal1.7-12.0[facility] Comment on above:Performed By: #### CMADM, BMP #### [facility] [address] [place] [address] Dr. Bao Mchugh #14.4 103/ulCritically high1.4-6.5The [facility] Comment on above:Performed By: #### CMADM, BMP #### [facility] [address] [place] [address] Dr. Bao Pughophils/100 WBC (Bld)85.3 %Critically high43.0-75.0The [facility] ShawComment on above:Performed By: #### CMADM, BMP #### [facility] [address] [address] [address] Bao Garcialet mean volume (Bld) [Entitic vol]8.2 fLCritically low 9.5-13.5The [facility] ShawComment on above:Performed By: #### CMADM, BMP #### [facility] [address] [address] [address] Bao HsuPLT356 103/osSgezvg252-714Anw [facility] ShawComment on above: Performed By: #### CMADM, BMP #### [facility] [address] [address] [address] Bao HsuRBC4.54 106/ulNormal4.20-5.40The [facility] ShawComment on above:Performed By: #### CMADM, BMP #### [facility] [address] [place] [address] Dr. Bao HsuWBC16.9 103/ulCritically high4.0-11.0The [facility] ShawComment on above:Performed By: #### CMADM, BMP #### [facility] [address] [place] [address] Dr. Bao Mcmahon #0.1 103/ulNormal0.0-0.1The [facility], [facility] ShawComment on above:Performed By: #### CMADM, BMP #### [facility] [address] [place] [address] Dr. Bao Finleysophils/100 WBC (Bld)0.5 %Normal0.2-2.0The [facility] Comment on above:Performed By: #### CMADM, BMP #### [facility] [address] [place] [address] Dr. Bao Peng #0.2 103/ulNormal0.0-0.7The [facility] ShawComment on above: Performed By: #### CMADM, BMP #### [facility] [address] [place] [address] Dr. Bao Turpinosinophils/100 WBC (Bld)1.2 %Normal0.9-7.0The [facility] Comment on above:Performed By: #### CMALISA, BMP #### [facility] [address] [place] [address] Dr. Bao Turpinrythrocyte distribution width (RBC) [Ratio]26.1 %Critically high 11.0-15.0The [facility] ShawComment on above:Performed By: #### CMALISA, BMP #### [facility] [address] [place] [address] Dr. Bao HsuHematocrit (Bld) [Volume fraction]28.8 %Critically low36.0-48.0 The [facility] ShawComment on above:Performed By: #### JOSEPH, BMP #### [facility] [address] [place] [address] Dr. Bao HsuHemoglobin (Bld) [Mass/Vol]8.1 g/dLCritically low12.0-16.0The [facility] ShawComment on above:Performed By: #### JOSEPH, BMP #### [facility] [address] [place] [address] Dr. Bao Oliver #0.05 10e3/ulCritically high0.00-0.03The [facility] Comment on above:Performed By: #### JOSEPH, BMP #### [facility] [address] [place] [address] Dr. Bao Oliver %0.4 %Normal0.0-0.5The [facility] ShawComment on above: Performed By: #### CMALISA, BMP #### [facility] [address] [place] [address] Dr. Bao Alexandra #1.6 103/ulNormal1.2-3.8The [facility] ShawComment on above:Performed By: #### CMADM, BMP #### [facility] [address] [place] [address] Dr. Bao Pryormphocytes/100 WBC (Bld)12.0 %Critically low20.5-60.0The [facility], [facility] ShawComment on above:Performed By: #### CMALISA, BMP #### [facility] [address] [address] [address] Bao Pineda DIFF REQNONormalThe [facility] ShawComment on above: Performed By: #### CMADM, BMP #### [facility] [address] [address] [address] Bao Echols (RBC) [Entitic mass]19.4 pgCritically low26.7-34.0The [facility] ShawComment on above:Performed By: #### CMADM, BMP #### [facility] [address] [address] [address] Bao Echols (RBC) [Mass/Vol]28.1 g/dLCritically low29.9-35.2The [facility] ShawComment on above:Performed By: #### CMADM, BMP #### [facility] [address] [place] [address] Dr. Bao Echols (RBC) [Entitic vol]69.1 fLCritically low81.0-99.0The [facility] ShawComment on above:Performed By: #### CMADM, BMP #### [facility] [address] [address] [address] Bao Wallace #1.1 103/ulCritically high0.3-0.8ThKind[facility] Comment on above:Performed By: #### CMADM, BMP #### [facility] [address] [address] [address] Bao Keaneocytes/100 WBC (Bld)8.2 %Normal1.7-12.0[facility] Comment on above:Performed By: #### CMADM, BMP #### [facility] [address] [place] [address] Dr. Bao Mchugh #10.4 103/ulCritically high1.4-6.5ThKind[facility] Comment on above:Performed By: #### CMADM, BMP #### [facility] [address] [address] [address] Bao Dennisutrophils/100 WBC (Bld)77.7 %Critically high43.0-75.0The [facility] ShawComment on above:Performed By: #### CMADM, BMP #### [facility] [address] [place] [address] Dr. Bao Garcialet mean volume (Bld) [Entitic vol]8.1 fLCritically low 9.5-13.5The [facility] ShawComment on above:Performed By: #### HIRALDM, BMP #### [facility] [address] [place] [address] Dr. Bao HsuPLT344 103/uwRhtowe195-611Ohs [facility] ShawComment on above: Performed By: #### JOSEPH, BMP #### [facility] [address] [place] [address] Dr. Bao HsuRBC4.17 106/ulCritically low4.20-5.40The [facility] ShawComment on above:Performed By: #### JOSEPH, BMP #### [facility] [address] [place] [address] Dr. Bao HsuWBC13.3 103/ulCritically high4.0-11.0The [facility] ShawComment on above:Performed By: #### HIRALDM, BMP #### [facility] [address] [place] [address] Dr. Bao HsuMAGNESIUMon [id number] [Mass/Vol]1.8 mg/dLNormal1.8-2.4 The [facility] ShawComment on above:Performed By: #### CMADM, BMP #### [facility] [address] [place] [address] Dr. Bao HsuPROF 14(COMP METB)on [id number] [Mass/Vol]3.4 g/dLNormal 3.4-5.0The [facility] ShawComment on above:Performed By: #### CMADM, BMP #### [facility] [address] [place] [address] Dr. Bao HsuAlbumin/Globulin [Mass ratio]1.2 {ratio}NormalThe [facility] ShawComment on above:Performed By: #### CMADM, BMP #### [facility] [address] [address] [address] Bao AlmanzarP [Catalytic activity/Vol]123 U/LCritically hucb37-049Arq [facility] ShawComment on above:Performed By: #### CMADM, BMP #### [facility] [address] [address] [address] Bao Crystal [Catalytic activity/Vol]14 U/GZkgpwr78-58Nbq [facility] ShawComment on above:Performed By: #### CMADM, BMP #### [facility] [address] [address] [address] Bao Chandler gap [Moles/Vol]13.7 mmol/LNormalThe [facility] Comment on above:Performed By: #### CMADM, BMP #### [facility] [address] [address] [address] Bao HsuAST [Catalytic activity/Vol]14 U/LCritically yga27-30Zcg [facility] ShawComment on above:Performed By: #### CMADM, BMP #### [facility] [address] [address] [address] Bao HsuBilirubin [Mass/Vol]0.6 mg/dLNormal0.2-1.0The [facility] Comment on above:Performed By: #### CMADM, BMP #### [facility] [address] [address] [address] Bao HsuCalcium [Mass/Vol]8.4 mg/dLCritically low8.5-10.1The [facility] ShawComment on above:Performed By: #### CMADM, BMP #### [facility] [address] [address] [address] Bao HsuChloride [Moles/Vol]101 mmol/PVmyrjj24-223Ytr [facility] Comment on above:Performed By: #### CMADM, BMP #### [facility] [address] [address] [address] Bao HsuCO2 [Moles/Vol]25.2 mmol/OVxxpdl18.0-32.0The [facility] Comment on above:Performed By: #### CMADM, BMP #### [facility] [address] [address] [address] Bao HsuCreatinine [Mass/Vol]0.68 mg/dLNormal0.55-1.02[facility] HospitalComment on above:Performed By: #### CMADM, BMP #### [facility] [address] [address] [address] Bao TurpinGFR-AF CHILEAN>60Normal>=60The [facility] ShawComment on above:Performed By: #### CMADM, BMP #### [facility] [address] [address] [address] Bao Blevins-NON AF CHILEAN>60Normal>=60The [facility] ShawComment on above:Performed By: #### CMADM, BMP #### [facility] [address] [address] [address] Bao HsuGlobulin (S) [Mass/Vol]2.9 g/dLNormalThe [facility] ShawComment on above:Performed By: #### CMADM, BMP #### [facility] [address] [address] [address] Bao HsuGlucose [Mass/Vol]92 mg/gBGnroxb01-478AtgHarrison Community Hospital Comment on above:Performed By: #### CMADM, BMP #### [facility] [address] [address] [address] Bao HsuPotassium [Moles/Vol]3.9 mmol/LNormal3.5-5.1The [facility] Comment on above:Performed By: #### CMADM, BMP #### [facility] [address] [address] [address] Bao HsuProtein [Mass/Vol]6.3 g/dLCritically low6.4-8.2[facility] Jacksonment on above:Performed By: #### CMADM, BMP #### [facility] [address] [address] [address] Bao HsuSodium [Moles/Vol]136 mmol/BXhzmuj195-808Woc [facility] Comment on above:Performed By: #### CMADM, BMP #### [facility] [address] [place] [address] Dr. Bao Vasquez nitrogen [Mass/Vol]12.0 mg/dLNormal7.0-18.0The [facility] ShawComment on above:Performed By: #### CMADM, BMP #### [facility] [address] [place] [address] Dr. Bao Vasquez nitrogen/Creatinine [Mass ratio]17.6 mg/mgNormalThe [facility] ShawComment on above:Performed By: #### JOSEPH, BMP #### [facility] [address] [place] [address] Dr. Bao Jimenez [id number] Coag (Bld) [Time]25.6 yIwwsln90.3-36.2The [facility] ShawComment on above:Performed By: #### JOSEPH, BMP #### [facility] [address] [place] [address] Dr. Bao Davalos RATE WESTERGRENon [id number] RATE20 mm/hrNormal<=30The [facility] ShawComment on above:Performed By: #### SEDR #### [facility] [address] [place] [address] Dr. Bao Mckeon AUTO DIFFon [id number] #0.1 103/ulNormal0.0-0.1The [facility] ShawComment on above:Performed By: #### CBC #### [facility] [address] [place] [address] Dr. Bao Finleysophils/100 WBC (Bld)0.7 %Normal0.2-2.0The [facility] Comment on above:Performed By: #### CBC #### [facility] [address] [place] [address] Dr. Bao Peng #0.5 103/ulNormal0.0-0.7The [facility] ShawComment on above: Performed By: #### CBC #### [facility] [address] [place] [address] Dr. Bao Turpinosinophils/100 WBC (Bld)3.7 %Normal0.9-7.0[facility] Comment on above:Performed By: #### CBC #### [facility] [address] [place] [address] Dr. Bao Turpinrythrocyte distribution width (RBC) [Ratio]25.7 %Critically high 11.0-15.0The [facility] ShawComment on above:Result Comment: 2+ anisoPerformed By: #### CBC #### [facility] [address] [place] [address] Dr. Bao HsuHematocrit (Bld) [Volume fraction]34.1 %Critically low36.0-48.0 The [facility] ShawComment on above:Performed By: #### CBC #### [facility] [address] [place] [address] Dr. Bao HsuHemoglobin (Bld) [Mass/Vol]9.6 g/dLCritically low12.0-16.0[facility] HospitalComment on above:Performed By: #### CBC #### [facility] [address] [place] [address] Dr. Bao Oliver #0.08 10e3/ulCritically high0.00-0.03[facility] Comment on above:Performed By: #### CBC #### [facility] [address] [place] [address] Dr. Bao Oliver %0.6 %Critically high0.0-0.5ThKindred Hospital DaytonComment on above:Performed By: #### CBC #### [facility] [address] [place] [address] Dr. Bao Alexandra #1.9 103/ulNormal1.2-3.8The [facility] ShawComment on above:Performed By: #### CBC #### [facility] [address] [place] [address] Dr. Bao Pryormphocytes/100 WBC (Bld)13.3 %Critically low20.5-60.0The [facility] ShawComment on above:Performed By: #### CBC #### [facility] [address] [place] [address] Dr. Bao Pineda DIFF REQNONormalThe [facility] ShawComment on above: Performed By: #### CBC #### [facility] [address] [place] [address] Dr. Bao Echols (RBC) [Entitic mass]19.4 pgCritically low26.7-34.0[facility] HospitalComment on above:Result Comment: 2+ hypochromasiaPerformed By: #### CBC #### [facility] [address] [place] [address] Dr. Bao Echols (RBC) [Mass/Vol]28.2 g/dLCritically low29.9-35.2The [facility] ShawComment on above:Performed By: #### CBC #### [facility] [address] [place] [address] Dr. Bao Alicia (RBC) [Entitic vol]68.9 fLCritically low81.0-99.0The [facility] ShawComment on above:Performed By: #### CBC #### [facility] [address] [place] [address] Dr. Bao Wallace #0.9 103/ulCritically high0.3-0.8ThKindred Hospital [facility] Comment on above:Performed By: #### CBC #### [facility] [address] [place] [address] Dr. Bao Keaneocytes/100 WBC (Bld)6.2 %Normal1.7-12.0[facility] Comment on above:Performed By: #### CBC #### [facility] [address] [place] [address] Dr. Bao Mchugh #10.9 103/ulCritically high1.4-6.5The [facility] Comment on above:Performed By: #### CBC #### [facility] [address] [place] [address] Dr. Bao Dennisutrophils/100 WBC (Bld)75.5 %Critically high43.0-75.0The [facility] ShawComment on above:Performed By: #### CBC #### [facility] [address] [address] [address] Bao Garcialet mean volume (Bld) [Entitic vol]8.7 fLCritically low 9.5-13.5The [facility] ShawComment on above:Performed By: #### CBC #### [facility] [address] [address] [address] Bao GiraldoT375 103/hoHgyweu688-317Beg [facility] ShawComment on above: Performed By: #### CBC #### [facility] [address] [place] [address] Dr. Bao HsuRBC4.95 106/ulNormal4.20-5.40The [facility] ShawComment on above:Performed By: #### CBC #### [facility] [address] [address] [address] Bao HsuWBC14.4 103/ulCritically high4.0-11.0The [facility] ShawComment on above:Performed By: #### CBC #### [facility] [address] [address] [address] Bao FinleySO #0.1 103/ulNormal0.0-0.1The [facility] ShawComment on above:Performed By: #### CMADM, BMP #### [facility] [address] [address] [address] Bao Finleysophils/100 WBC (Bld)0.7 %Normal0.2-2.0The [facility] Comment on above:Performed By: #### CMADM, BMP #### [facility] [address] [address] [address] Bao Peng #0.4 103/ulNormal0.0-0.7The [facility] ShawComment on above: Performed By: #### CMADM, BMP #### [facility] [address] [place] [address] Dr. Bao Turpinosinophils/100 WBC (Bld)3.7 %Normal0.9-7.0The [facility] Comment on above:Performed By: #### CMADM, BMP #### [facility] [address] [place] [address] Dr. Bao Turpinrythrocyte distribution width (RBC) [Ratio]25.0 %Critically high 11.0-15.0The [facility] ShawComment on above:Performed By: #### CMADM, BMP #### [facility] [address] [place] [address] Dr. Boa HsuHematocrit (Bld) [Volume fraction]29.9 %Critically low36.0-48.0 The [facility] ShawComment on above:Performed By: #### CMADM, BMP #### [facility] [address] [place] [address] Dr. Bao HsuHemoglobin (Bld) [Mass/Vol]8.5 g/dLCritically low12.0-16.0The [facility] ShawComment on above:Performed By: #### CMADM, BMP #### [facility] [address] [place] [address] Dr. Bao Oliver #0.06 10e3/ulCritically high0.00-0.03The [facility] Comment on above:Performed By: #### CMADM, BMP #### [facility] [address] [place] [address] Dr. Bao Oliver %0.6 %Critically high0.0-0.5The [facility] ShawComment on above:Performed By: #### CMADM, BMP #### [facility] [address] [place] [address] Dr. Bao Alexandra #1.6 103/ulNormal1.2-3.8The [facility] ShawComment on above:Performed By: #### CMADM, BMP #### [facility] [address] [place] [address] Dr. Bao Pryormphocytes/100 WBC (Bld)15.0 %Critically low20.5-60.0The [facility] ShawComment on above:Performed By: #### CMALISA, BMP #### [facility] [address] [place] [address] Dr. Bao Pineda DIFF REQNONormalThe [facility] ShawComment on above: Performed By: #### CMADM, BMP #### [facility] [address] [place] [address] Dr. Bao Echols (RBC) [Entitic mass]19.4 pgCritically low26.7-34.0The [facility] ShawComment on above:Performed By: #### CMALISA, BMP #### [facility] [address] [place] [address] Dr. Bao Echols (RBC) [Mass/Vol]28.4 g/dLCritically low29.9-35.2The [facility] ShawComment on above:Performed By: #### CMALISA, BMP #### [facility] [address] [place] [address] Dr. aBo Alicia (RBC) [Entitic vol]68.3 fLCritically low81.0-99.0The [facility] ShawComment on above:Performed By: #### CMADM, BMP #### [facility] [address] [place] [address] Dr. Bao Wallace #0.8 103/ulNormal0.3-0.8The [facility] ShawComment on above:Performed By: #### CMADM, BMP #### [facility] [address] [place] [address] Dr. Bao Keaneocytes/100 WBC (Bld)7.8 %Normal1.7-12.0[facility] Comment on above:Performed By: #### CMADM, BMP #### [facility] [address] [place] [address] Dr. Bao Mchugh #7.7 103/ulCritically high1.4-6.5The [facility] Comment on above:Performed By: #### CMADM, BMP #### [facility] [address] [place] [address] Dr. Bao Dennisutrophils/100 WBC (Bld)72.2 %Qugutu46.0-75.0The [facility] on above:Performed By: #### CMADM, BMP #### [facility] [address] [place] [address] Dr. Bao Garcialet mean volume (Bld) [Entitic vol]8.4 fLCritically low 9.5-13.5The [facility] ShawComment on above:Performed By: #### CMADM, BMP #### [facility] [address] [place] [address] Dr. Bao HsuPLT369 103/umFzfgfv921-250Qrs [facility] on above: Performed By: #### CMADM, BMP #### [facility] [address] [place] [address] Dr. Bao HsuRBC4.38 106/ulNormal4.20-5.40The [facility] on above:Performed By: #### CMADM, BMP #### [facility] [address] [place] [address] Dr. Bao HsuWBC10.7 103/ulNormal4.0-11.0The [facility] on above:Performed By: #### CMADM, BMP #### [facility] [address] [place] [address] Dr. Bao HsuMAGNESIUMon [id number] [Mass/Vol]1.9 mg/dLNormal1.8-2.4 The [facility] on above:Performed By: #### CMP, MG #### [facility] [address] [place] [address] Dr. Bao HsuOCC BLD IMMUNO SCREENon [id number] BLOODPositiveAbnormal NEGATIVEThe [facility] on above:Performed By: #### CMADM, BMP #### [facility] [address] [place] [address] Dr. Bao HsuPROF 14(COMP METB)on [id number] [Mass/Vol]3.3 g/dL Critically low3.4-5.0The [facility] ShawComment on above:Performed By: #### CMP, MG #### [facility] [address] [place] [address] Dr. Bao HsuAlbumin/Globulin [Mass ratio]1.1 {ratio}NormalThe [facility] ShawComment on above:Performed By: #### CMP, MG #### [facility] [address] [address] [address] Bao AlmanzarP [Catalytic activity/Vol]123 U/LCritically vyar93-187Caq [facility] ShawComment on above:Performed By: #### CMP, MG #### [facility] [address] [place] [address] Dr. Bao Crystal [Catalytic activity/Vol]15 U/TBfpfxn04-60Sju [facility] ShawComment on above:Performed By: #### CMP, MG #### [facility] [address] [place] [address] Dr. Bao Chandler gap [Moles/Vol]11.8 mmol/LNormalThe [facility] Comment on above:Performed By: #### CMP, MG #### [facility] [address] [place] [address] Dr. Bao HsuAST [Catalytic activity/Vol]14 U/LCritically pas11-35Fud [facility] ShawComment on above:Performed By: #### CMP, MG #### [facility] [address] [place] [address] Dr. Bao HsuBilirubin [Mass/Vol]0.5 mg/dLNormal0.2-1.0The [facility] Comment on above:Performed By: #### CMP, MG #### [facility] [address] [place] [address] Dr. Bao HsuCalcium [Mass/Vol]8.7 mg/dLNormal8.5-10.1[facility] Comment on above:Performed By: #### CMP, MG #### [facility] [address] [address] [address] Bao HsuChloride [Moles/Vol]101 mmol/WNqtmbb37-136Acl [facility] Comment on above:Performed By: #### CMP, MG #### [facility] [address] [place] [address] Dr. Bao HsuCO2 [Moles/Vol]27.0 mmol/GQdsmsi59.0-32.0The [facility] Comment on above:Performed By: #### CMP, MG #### [facility] [address] [place] [address] Dr. Bao HsuCreatinine [Mass/Vol]0.64 mg/dLNormal0.55-1.02The [facility] ShawComment on above:Performed By: #### CMP, MG #### [facility] [address] [place] [address] Dr. Bao TurpinGFR-AF CHILEAN>60Normal>=60The [facility] ShawComment on above:Performed By: #### CMP, MG #### [facility] [address] [place] [address] Dr. Bao TurpinGFR-NON AF CHILEAN>60Normal>=60The [facility] ShawComment on above:Performed By: #### CMP, MG #### [facility] [address] [place] [address] Dr. Bao HsuGlobulin (S) [Mass/Vol]3.1 g/dLNormalThe [facility] ShawComment on above:Performed By: #### CMP, MG #### [facility] [address] [place] [address] Dr. Bao HsuGlucose [Mass/Vol]103 mg/eZNbaitg86-023Jzj [facility] Comment on above:Performed By: #### CMP, MG #### [facility] [address] [place] [address] Dr. Bao HsuPotassium [Moles/Vol]3.8 mmol/LNormal3.5-5.1The [facility] Comment on above:Performed By: #### CMP, MG #### [facility] [address] [place], [place] [address] Dr. Bao HsuProtein [Mass/Vol]6.4 g/dLNormal6.4-8.2The [facility] Comment on above:Performed By: #### CMP, MG #### [facility] [address] [place] [address] Dr. Bao HsuSodium [Moles/Vol]136 mmol/AEnxwhz170-631Btd [facility] Comment on above:Performed By: #### CMP, MG #### [facility] [address] [place] [address] Dr. Bao HsuUrea nitrogen [Mass/Vol]12.0 mg/dLNormal7.0-18.0The [facility] ShawComment on above:Performed By: #### CMP, MG #### [facility] [address] [place] [address] Dr. Bao Vasquez nitrogen/Creatinine [Mass ratio]18.8 mg/mgNormalThe [facility] ShawComment on above:Performed By: #### CMP, MG #### [facility] [address] [place] [address] Dr. Bao HsuPTTip [id number] Coag (Bld) [Time]24.8 bGkjvwp08.3-36.2The [facility] ShawComment on above:Performed By: #### CMADM, BMP #### [facility] [address] [place] [address] Dr. Bao Davalos RATE WESTERGRENon [id number] RATE13 mm/hrNormal<=30The [facility] ShawComment on above:Performed By: #### CMADM, BMP #### [facility] [address] [place] [address] Dr. Bao Mckeon AUTO DIFFon [id number] #0.1 103/ulNormal0.0-0.1The [facility] ShawComment on above:Performed By: #### CBC #### [facility] [address] [place] [address] Dr. Bao HsuPerformed By: #### SEDR #### [facility] [address] [address] [address] Bao Finleysophils/100 WBC (Bld)0.5 %Normal0.2-2.0The [facility] Comment on above:Performed By: #### CBC #### [facility] [address] [address] [address] Bao Peng #0.4 103/ulNormal0.0-0.7The [facility] ShawComment on above: Performed By: #### CBC #### [facility] [address] [place] [address] Dr. Bao Turpinosinophils/100 WBC (Bld)2.9 %Normal0.9-7.0[facility] Comment on above:Performed By: #### CBC #### [facility] [address] [place] [address] Dr. Bao Turpinrythrocyte distribution width (RBC) [Ratio]24.8 %Critically high 11.0-15.0The [facility] ShawComment on above:Result Comment: 2+ anisocytosis Performed By: #### CBC #### [facility] [address] [place] [address] Dr. Bao HsuHematocrit (Bld) [Volume fraction]32.0 %Critically low36.0-48.0 The [facility] ShawComment on above:Performed By: #### CBC #### [facility] [address] [place] [address] Dr. Bao HsuHemoglobin (Bld) [Mass/Vol]9.0 g/dLCritically low12.0-16.0[facility] HospitalComment on above:Performed By: #### CBC #### [facility] [address] [place] [address] Dr. Bao Oliver #0.04 10e3/ulCritically high0.00-0.03The [facility] Comment on above:Performed By: #### CBC #### [facility] [address] [place] [address] Dr. Bao HsuPerformed By: #### SEDR #### [facility] [address] [place] [address] Dr. Bao HsuIG %0.3 %Normal0.0-0.5The [facility] ShawComment on above: Performed By: #### CBC #### [facility] [address] [place] [address] Dr. Bao HsuPerformed By: #### SEDR #### [facility] [address] [place] [address] Dr. Bao Alexandra #1.8 103/ulNormal1.2-3.8The [facility] ShawComment on above:Performed By: #### CBC #### [facility] [address] [place] [address] Dr. Bao Hillhocytes/100 WBC (Bld)14.4 %Critically low20.5-60.0The [facility] ShawComment on above:Performed By: #### CBC #### [facility] [address] [place] [address] Dr. Bao GutierrezUAL DIFF REQNONormalThe [facility] ShawComment on above: Performed By: #### CBC #### [facility] [address] [place] [address] Dr. Bao HsuPerformed By: #### SEDR #### [facility] [address] [place] [address] Dr. Bao Echols (RBC) [Entitic mass]19.2 pgCritically low26.7-34.0The [facility] ShawComment on above:Result Comment: 2+ hypochromasiaPerformed By: #### CBC #### [facility] [address] [place] [address] Dr. Bao Echols (RBC) [Mass/Vol]28.1 g/dLCritically low29.9-35.2The [facility] ShawComment on above:Performed By: #### CBC #### [facility] [address] [place] [address] Dr. Bao Echols (RBC) [Entitic vol]68.4 fLCritically low81.0-99.0The [facility] ShawComment on above:Performed By: #### CBC #### [facility] [address] [address] [address] Bao Wallace #0.7 103/ulNormal0.3-0.8The [facility] ShawComment on above:Performed By: #### CBC #### [facility] [address] [address] [address] Bao Keaneocytes/100 WBC (Bld)5.5 %Normal1.7-12.0The [facility] Comment on above:Performed By: #### CBC #### [facility] [address] [address] [address] Bao Mchugh #9.5 103/ulCritically high1.4-6.5The [facility] Comment on above:Performed By: #### CBC #### [facility] [address] [place] [address] Dr. Bao Dennisutrophils/100 WBC (Bld)76.4 %Critically high43.0-75.0The [facility] ShawComment on above:Performed By: #### CBC #### [facility] [address] [place] [address] Dr. Bao Nuñez mean volume (Bld) [Entitic vol]8.4 fLCritically low 9.5-13.5The [facility] ShawComment on above:Performed By: #### CBC #### [facility] [address] [place] [address] Dr. Bao HsuPLT396 103/iaHpcnpd924-368Vxb [facility] ShawComment on above: Performed By: #### CBC #### [facility] [address] [place] [address] Dr. Bao HsuRBC4.68 106/ulNormal4.20-5.40The [facility] ShawComment on above:Performed By: #### CBC #### [facility] [address] [place] [address] Dr. Bao HsuWBC12.4 103/ulCritically high4.0-11.0The [facility] HospitalComment on above:Performed By: #### CBC #### [facility] [address] [place] [address] Dr. Bao HsuBasophils/100 WBC (Bld)0.7 %Normal0.2-2.0The [facility] Comment on above:Performed By: #### SEDR #### [facility] [address] [place] [address] Dr. Bao Peng #0.3 103/ulNormal0.0-0.7The [facility] ShawComment on above: Performed By: #### SEDR #### [facility] [address] [place] [address] Dr. Bao Turpinosinophils/100 WBC (Bld)2.7 %Normal0.9-7.0[facility] Comment on above:Performed By: #### SEDR #### [facility] [address] [place] [address] Dr. Bao Turpinrythrocyte distribution width (RBC) [Ratio]23.8 %Critically high 11.0-15.0[facility] HospitalComment on above:Performed By: #### SEDR #### [facility] [address] [place] [address] Dr. Bao HsuHematocrit (Bld) [Volume fraction]29.0 %Critically low36.0-48.0 The [facility] ShawComment on above:Performed By: #### SEDR #### [facility] [facility] [address] [place] [address] Dr. Bao HsuHemoglobin (Bld) [Mass/Vol]8.3 g/dLCritically low12.0-16.0[facility] HospitalComment on above:Performed By: #### SEDR #### [facility] [address] [place] [address] Dr. Bao Alexandra #1.6 103/ulNormal1.2-3.8The [facility], [facility] ShawComment on above:Performed By: #### SEDR #### [facility] [address] [place] [address] Dr. Bao Pryormphocytes/100 WBC (Bld)14.0 %Critically low20.5-60.0The [facility] ShawComment on above:Performed By: #### SEDR #### [facility] [address] [place] [address] Dr. Bao EcholsH (RBC) [Entitic mass]19.1 pgCritically low26.7-34.0The [facility] ShawComment on above:Performed By: #### SEDR #### [facility] [address] [place] [address] Dr. Bao Echols (RBC) [Mass/Vol]28.6 g/dLCritically low29.9-35.2The [facility] ShawComment on above:Performed By: #### SEDR #### [facility] [address] [place] [address] Dr. Bao EcholsV (RBC) [Entitic vol]66.8 fLCritically low81.0-99.0The [facility] ShawComment on above:Performed By: #### SEDR #### [facility] [address] [place] [address] Dr. Bao Wallace #0.8 103/ulNormal0.3-0.8The [facility] ShawComment on above:Performed By: #### SEDR #### [facility] [address] [place] [address] Dr. Bao Keaneocytes/100 WBC (Bld)6.9 %Normal1.7-12.0The [facility] Comment on above:Performed By: #### SEDR #### [facility] [address] [place] [address] Dr. Bao Mchugh #8.7 103/ulCritically high1.4-6.5The [facility] Comment on above:Performed By: #### SEDR #### [facility] [address] [place] [address] Dr. Bao Dennisutrophils/100 WBC (Bld)75.4 %Critically high43.0-75.0The [facility] HospitalComment on above:Performed By: #### SEDR #### [facility] [address] [place] [address] Dr. Bao HsuPlatelet mean volume (Bld) [Entitic vol]8.1 fLCritically low 9.5-13.5The [facility] ShawComment on above:Performed By: #### SEDR #### [facility] [address] [place] [address] Dr. Bao HsuPLT327 103/ywYzbjoq395-685Bfz [facility] ShawComment on above: Performed By: #### SEDR #### [facility] [address] [place] [address] Dr. Bao HsuRBC4.34 106/ulNormal4.20-5.40The [facility] ShawComment on above:Performed By: #### SEDR #### [facility] [address] [place] [address] Dr. Bao HsuWBC11.5 103/ulCritically high4.0-11.0The [facility] ShawComment on above:Performed By: #### SEDR #### [facility] [address] [place] [address] Dr. Bao HsuMAGNESIUMon [id number] [Mass/Vol]1.8 mg/dLNormal1.8-2.4 The [facility] ShawComment on above:Performed By: #### SEDR #### [facility] [address] [place] [address] Dr. Bao HsuPROF 14(COMP METB)on [id number] [Mass/Vol]3.5 g/dLNormal 3.4-5.0The [facility] ShawComment on above:Performed By: #### SEDR #### [facility] [address] [place] [address] Dr. Bao HsuAlbumin/Globulin [Mass ratio]1.2 {ratio}NormalThe [facility] ShawComment on above:Performed By: #### SEDR #### [facility] [address] [place] [address] Dr. Bao Santos [Catalytic activity/Vol]135 U/LCritically ptxq64-443Hee [facility] ShawComment on above:Performed By: #### SEDR #### [facility] [address] [place] [address] Dr. Bao AlmanzarT [Catalytic activity/Vol]12 U/LCritically xqf17-89Eop [facility] ShawComment on above:Performed By: #### SEDR #### [facility] [address] [place] [address] Dr. Bao Chandler gap [Moles/Vol]9.3 mmol/LNormalThe [facility] ShawComment on above:Performed By: #### SEDR #### [facility] [address] [place] [address] Dr. Bao HsuAST [Catalytic activity/Vol]12 U/LCritically wqd04-62Wee [facility] ShawComment on above:Performed By: #### SEDR #### [facility] [address] [place] [address] Dr. Bao HsuBilirubin [Mass/Vol]0.7 mg/dLNormal0.2-1.0[facility] Comment on above:Performed By: #### SEDR #### [facility] [address] [place] [address] Dr. Bao HsuCalcium [Mass/Vol]8.6 mg/dLNormal8.5-10.1The [facility] Comment on above:Performed By: #### SEDR #### [facility] [address] [place] [address] Dr. Bao HsuChloride [Moles/Vol]102 mmol/EOffyuc48-858Pvc [facility] Comment on above:Performed By: #### SEDR #### [facility] [address] [place] [address] Dr. Bao HsuCO2 [Moles/Vol]26.6 mmol/KGhraly50.0-32.0The [facility] Comment on above:Performed By: #### SEDR #### [facility] [address] [place] [address] Dr. Bao Casillasatinine [Mass/Vol]0.59 mg/dLNormal0.55-1.02The [facility] ShawComment on above:Performed By: #### SEDR #### [facility] [address] [place] [address] Dr. Bao TurpinGFR-AF CHILEAN>60Normal>=60The [facility] ShawComment on above:Performed By: #### SEDR #### [facility] [address] [place] [address] Dr. Bao TurpinGFR-NON AF CHILEAN>60Normal>=60The [facility] ShawComment on above:Performed By: #### SEDR #### [facility] [address] [place] [address] Dr. Bao HsuGlobulin (S) [Mass/Vol]2.9 g/dLNormalThe [facility] ShawComment on above:Performed By: #### SEDR #### [facility] [address] [place] [address] Dr. Bao HsuGlucose [Mass/Vol]115 mg/dLCritically qshi36-911Isl [facility] ShawComment on above:Performed By: #### SEDR #### [facility] [address] [place] [address] Dr. Bao HsuPotassium [Moles/Vol]3.9 mmol/LNormal3.5-5.1The [facility] Comment on above:Performed By: #### SEDR #### [facility] [address] [place] [address] Dr. Bao HsuProtein [Mass/Vol]6.4 g/dLNormal6.4-8.2The [facility] Comment on above:Performed By: #### SEDR #### [facility] [address] [place] [address] Dr. Bao HsuSodium [Moles/Vol]134 mmol/LCritically iuf598-839Iax [facility] ShawComment on above:Performed By: #### SEDR #### [facility] [address] [place] [address] Dr. Bao Vasquez nitrogen [Mass/Vol]9.0 mg/dLNormal7.0-18.0The [facility] Centerment on above:Performed By: #### SEDR #### [facility] [address] [place] [address] Dr. Bao Vasquez nitrogen/Creatinine [Mass ratio]15.3 mg/mgNoSelect Medical Specialty Hospital - TrumbullComment on above:Performed By: #### SEDR #### [facility] [address] [place] [address] Dr. Bao Jimenez [id number] Coag (Bld) [Time]23.1 wOczlol83.3-36.2The [facility] ShawComasc[facility] on above:Performed By: #### SEDR #### [facility] [address] [place] [address] Dr. Bao Davalos RATE WESTERGRENon [id number] RATE23 mm/hrNormal<=30The [facility] ShawComment on above:Performed By: #### SEDR #### [facility] [address] [place] [address] Dr. Bao Rios RH RETYPEon [id number] and Rh group Nom (Bld)DONENoSelect Medical Specialty Hospital - TrumbullComment on above:Performed By: #### CMADM, BMP #### [facility] [address] [place] [address] Dr. Bao Whittaker DARION 3-6on [id number] [Catalytic activity/Vol]30 U/L Wdwmas80-406Hwk [facility] Centerment on above:Performed By: #### CMADM, BMP #### [facility] [address] [place] [address] Dr. Bao Lorenzo.MB [Mass/Vol]ng/mLNormal<=3.60The [facility] on above:Performed By: #### CMADM, BMP #### [facility] [address] [place] [address] Dr. Boa AlatorreTROP7.0 pg/mLNormal4.0-51.3The [facility]eston HospitalComment on above:Result Comment: CUT-OFF POINTS HAVE BEEN ESTABLISHED BASED ON THE FOURTH UNIVERSAL DEFINITIONS OF MYOCARDIAL INFARCTION. THE UPPER REFERENCE LIMIT (URL) OF TROPONIN, DEFINED THE 99TH PERCENTILE OF cTnI DISTRIBUTION IN A REFERENCE POPULATION, HAS BEEN CONFIRMED THE DECISION THRESHOLD FOR [place] DIAGNOSIS.Performed By: #### CMADM, BMP #### [facility] [address] [address] [address] Bao Lorenzo [Catalytic activity/Vol]62 U/SKidlgp43-131VgzDayton Osteopathic Hospital on above:Performed By: #### CMADM, BMP #### [facility] [address] [address] [address] Bao Lorenzo.MB [Mass/Vol]ng/mLNormal<=3.60The [facility] on above:Performed By: #### CMADM, BMP #### [facility] [address] [place] [address] Dr. Bao OvertonOP6.2 pg/mLNormal4.0-51.3TThe [facility] on above:Result Comment: CUT-OFF POINTS HAVE BEEN ESTABLISHED BASED ON THE FOURTH UNIVERSAL DEFINITIONS OF MYOCARDIAL INFARCTION. THE UPPER REFERENCE LIMIT (URL) OF TROPONIN, DEFINED THE 99TH PERCENTILE OF cTnI DISTRIBUTION IN A REFERENCE POPULATION, HAS BEEN CONFIRMED THE DECISION THRESHOLD FOR [place] DIAGNOSIS.Performed By: #### CMADM, BMP #### [facility] [address] [place] [address] Dr. Bao Whittaker DARION ADMITon [id number] [Catalytic activity/Vol]29 U/L Cbvqzg05-544QbeDayton Osteopathic Hospital on above:Performed By: #### CMADM, BMP #### [facility] [address] [address] [address] Bao Lorenzo.MB [Mass/Vol]ng/mLNormal<=3.60[facility] on above:Performed By: #### CMADM, BMP #### [facility] [address] [address] [address] Bao OvertonOP7.0 pg/mLNormal4.0-51.3TMercy Health Springfield Regional Medical CenterComment on above:Result Comment: CUT-OFF POINTS HAVE BEEN ESTABLISHED BASED ON THE FOURTH UNIVERSAL DEFINITIONS OF MYOCARDIAL INFARCTION. THE UPPER REFERENCE LIMIT (URL) OF TROPONIN, DEFINED THE 99TH PERCENTILE OF cTnI DISTRIBUTION IN A REFERENCE POPULATION, HAS BEEN CONFIRMED THE DECISION THRESHOLD FOR [place] DIAGNOSIS.Performed By: #### CMADM, BMP #### [facility] [address] [place] [address] Dr. Bao EatonO24 ng/mLNormal9-82The [facility] ShawComment on above: Performed By: #### CMADM, BMP #### [facility] [address] [place] [address] Dr. Bao Mckeon AUTO DIFFon [id number] #0.1 103/ulNormal0.0-0.1The [facility] ShawComment on above:Performed By: #### CBC #### [facility] [address] [place] [address] Dr. Bao HsuBasophils/100 WBC (Bld)0.5 %Normal0.2-2.0[facility] Comment on above:Performed By: #### CBC #### [facility] [address] [place] [address] Dr. Bao Peng #0.2 103/ulNormal0.0-0.7The [facility] ShawComment on above: Performed By: #### CBC #### [facility] [address] [place] [address] Dr. Bao Turpinosinophils/100 WBC (Bld)1.9 %Normal0.9-7.0The [facility] Comment on above:Performed By: #### CBC #### [facility] [address] [place] [address] Dr. Bao Turpinrythrocyte distribution width (RBC) [Ratio]24.0 %Critically high 11.0-15.0The [facility] ShawComment on above:Performed By: #### CBC #### [facility] [address] [place] [address] Dr. Bao HsuHematocrit (Bld) [Volume fraction]30.1 %Critically low36.0-48.0 The [facility]eston HospitalComment on above:Performed By: #### CBC #### [facility] [address] [place] [address] Dr. Bao HsuHemoglobin (Bld) [Mass/Vol]8.8 g/dLCritically low12.0-16.0The [facility] HospitalComment on above:Performed By: #### CBC #### [facility] [address] [place] [address] Dr. Bao Oliver #0.07 10e3/ulCritically high0.00-0.03The [facility] Comment on above:Performed By: #### CBC #### [facility] [address] [place] [address] Dr. Bao Oliver %0.6 %Critically high0.0-0.5The [facility] ShawComment on above:Performed By: #### CBC #### [facility] [address] [place] [address] Dr. Bao Alexandra #1.2 103/ulNormal1.2-3.8The [facility] ShawComment on above:Performed By: #### CBC #### [facility] [address] [place] [address] Dr. Bao Hillhocytes/100 WBC (Bld)10.6 %Critically low20.5-60.0[facility] HospitalComment on above:Performed By: #### CBC #### [facility] [address] [place] [address] Dr. Bao GutierrezUAL DIFF REQNONormalThe [facility]Comment on above: Performed By: #### CBC #### [facility] [address] [place] [address] Dr. Bao Middleton (RBC) [Entitic mass]19.4 pgCritically low26.7-34.0The [facility] ShawComment on above:Performed By: #### CBC #### [facility] [address] [place] [address] Dr. Bao Echols (RBC) [Mass/Vol]29.2 g/dLCritically low29.9-35.2The [facility] on above:Performed By: #### CBC #### [facility] [address] [place] [address] Dr. Bao EcholsV (RBC) [Entitic vol]66.3 fLCritically low81.0-99.0The [facility] on above:Performed By: #### CBC #### [facility] [address] [place] [address] Dr. Bao Wallace #0.7 103/ulNormal0.3-0.8The [facility] Shaw[facility] on above:Performed By: #### CBC #### [facility] [address] [place] [address] Dr. Bao Keaneocytes/100 WBC (Bld)6.1 %Normal1.7-12.0[facility] Comment on above:Performed By: #### CBC #### [facility] [address] [place] [address] Dr. Bao Mchugh #9.2 103/ulCritically high1.4-6.5The [facility] Comment on above:Performed By: #### CBC #### [facility] [address] [place] [address] Dr. Bao Deninsutrophils/100 WBC (Bld)80.3 %Critically high43.0-75.0The [facility] ShawComment on above:Performed By: #### CBC #### [facility] [address] [place] [address] Dr. Bao Garcialet mean volume (Bld) [Entitic vol]7.9 fLCritically low 9.5-13.5The [facility] ShawComment on above:Performed By: #### CBC #### [facility] [address] [place] [address] Dr. Bao GiraldoT322 103/fwFwwfqw307-237Eua [facility] ShawComment on above: Performed By: #### CBC #### [facility] [address] [place] [address] Dr. Bao MosquedaC4.54 106/ulNormal4.20-5.40The [facility] ShawComment on above:Performed By: #### CBC #### [facility] [address] [address] [address] Bao HsuWBC11.4 103/ulCritically high4.0-11.0The [facility] ShawComment on above:Performed By: #### CBC #### [facility] [address] [address] [address] Bao Mcmahon #0.1 103/ulNormal0.0-0.1The [facility] ShawComment on above:Performed By: #### CBC #### [facility] [address] [place] [address] Dr. Bao Finleysophils/100 WBC (Bld)0.4 %Normal0.2-2.0The [facility] Comment on above:Performed By: #### CBC #### [facility] [address] [place] [address] Dr. Bao Peng #0.2 103/ulNormal0.0-0.7The [facility] ShawComment on above: Performed By: #### CBC #### [facility] [address] [place] [address] Dr. Bao Turpinosinophils/100 WBC (Bld)1.6 %Normal0.9-7.0The [facility] Comment on above:Performed By: #### CBC #### [facility] [address] [place] [address] Dr. Bao Turpinrythrocyte distribution width (RBC) [Ratio]24.4 %Critically high 11.0-15.0The [facility] ShawComment on above:Performed By: #### CBC #### [facility] [address] [place] [address] Dr. Bao HsuHematocrit (Bld) [Volume fraction]29.5 %Critically low36.0-48.0 The [facility] ShawComment on above:Performed By: #### CBC #### [facility] [address] [address] [address] Bao HsuHemoglobin (Bld) [Mass/Vol]8.5 g/dLCritically low12.0-16.0The [facility] ShawComment on above:Performed By: #### CBC #### [facility] [address] [place] [address] Dr. Bao Oliver #0.06 10e3/ulCritically high0.00-0.03The [facility] Comment on above:Performed By: #### CBC #### [facility] [address] [place] [address] Dr. Bao Oliver %0.4 %Normal0.0-0.5The [facility] ShawComment on above: Performed By: #### CBC #### [facility] [address] [place] [address] Dr. Bao Alexandra #1.1 103/ulCritically low1.2-3.8The [facility] Comment on above:Performed By: #### CBC #### [facility] [address] [place] [address] Dr. Bao Hillhocytes/100 WBC (Bld)8.1 %Critically low20.5-60.0The [facility] ShawComment on above:Performed By: #### CBC #### [facility] [address] [place] [address] Dr. Bao GutierrezUAL DIFF REQNONormalThe [facility] ShawComment on above: Performed By: #### CBC #### [facility] [address] [place] [address] Dr. Bao Echols (RBC) [Entitic mass]19.3 pgCritically low26.7-34.0The [facility] ShawComment on above:Performed By: #### CBC #### [facility] [address] [place] [address] Dr. Bao Echols (RBC) [Mass/Vol]28.8 g/dLCritically low29.9-35.2The [facility] ShawComment on above:Performed By: #### CBC #### [facility] [address] [address] [address] Bao EcholsV (RBC) [Entitic vol]66.9 fLCritically low81.0-99.0The [facility] ShawComment on above:Performed By: #### CBC #### [facility] [address] [place] [address] Dr. Bao Wallace #0.7 103/ulNormal0.3-0.8The [facility] ShawComment on above:Performed By: #### CBC #### [facility] [address] [place] [address] Dr. Bao Keaneocytes/100 WBC (Bld)5.3 %Normal1.7-12.0The [facility] Comment on above:Performed By: #### CBC #### [facility] [address] [place] [address] Dr. Bao Mchugh #11.3 103/ulCritically high1.4-6.5The [facility] Comment on above:Performed By: #### CBC #### [facility] [address] [place] [address] Dr. Bao Dennisutrophils/100 WBC (Bld)84.2 %Critically high43.0-75.0The [facility] ShawComment on above:Performed By: #### CBC #### [facility] [address] [place] [address] Dr. Bao Garcialet mean volume (Bld) [Entitic vol]8.2 fLCritically low 9.5-13.5The [facility] ShawComment on above:Performed By: #### CBC #### [facility] [address] [place] [address] Dr. Bao HsuPLT353 103/lgBbjjzn547-290Cmc [facility] ShawComment on above: Performed By: #### CBC #### [facility] [address] [place] [address] Dr. Bao HsuRBC4.41 106/ulNormal4.20-5.40The [facility] ShawComment on above:Performed By: #### CBC #### [facility] [address] [address] [address] Bao HsuWBC13.4 103/ulCritically high4.0-11.0The [facility] ShawComment on above:Performed By: #### CBC #### [facility] [address] [address] [address] Bao FinleySO #0.1 103/ulNormal0.0-0.1The [facility] ShawComment on above:Performed By: #### CMADM, BMP #### [facility] [address] [place] [address] Dr. Bao Finleysophils/100 WBC (Bld)0.4 %Normal0.2-2.0The [facility] Comment on above:Performed By: #### CMADM, BMP #### [facility] [address] [place] [address] Dr. Bao Peng #0.2 103/ulNormal0.0-0.7The [facility] ShawComment on above: Performed By: #### CMADM, BMP #### [facility] [address] [place] [address] Dr. Bao Turpinosinophils/100 WBC (Bld)2.0 %Normal0.9-7.0The [facility] Comment on above:Performed By: #### CMADM, BMP #### [facility] [address] [place] [address] Dr. Bao Turpinrythrocyte distribution width (RBC) [Ratio]20.8 %Critically high 11.0-15.0The [facility] ShawComment on above:Performed By: #### CMADM, BMP #### [facility] [address] [place] [address] Dr. Bao HsuHematocrit (Bld) [Volume fraction]22.5 %Critically low36.0-48.0 The [facility] ShawComment on above:Performed By: #### CMADM, BMP #### [facility] [address] [place] [address] Dr. Bao HsuHemoglobin (Bld) [Mass/Vol]5.7 g/dLCritically low12.0-16.0The [facility] ShawComment on above:Performed By: #### JOSEPH, BMP #### [facility] [address] [place] [address] Dr. Bao Oliver #0.07 10e3/ulCritically high0.00-0.03The [facility] Comment on above:Performed By: #### JOSEPH, BMP #### [facility] [address] [place] [address] Dr. Bao Oliver %0.6 %Critically high0.0-0.5The [facility] ShawComment on above:Performed By: #### JOSEPH, BMP #### [facility] [address] [place] [address] Dr. Bao Alexandra #1.7 103/ulNormal1.2-3.8The [facility] ShawComment on above:Performed By: #### JOSEPH, BMP #### [facility] [address] [place] [address] Dr. Bao Hillhocytes/100 WBC (Bld)15.0 %Critically low20.5-60.0The [facility] ShawComment on above:Performed By: #### JOSEPH, BMP #### [facility] [address] [place] [address] Dr. Bao GutierrezUAL DIFF REQNONormalThe [facility] ShawComment on above: Performed By: #### JOSEPH, BMP #### [facility] [address] [place] [address] Dr. Bao Middleton (RBC) [Entitic mass]15.8 pgCritically low26.7-34.0The [facility] ShawComment on above:Performed By: #### JOSEPH, BMP #### [facility] [address] [place] [address] Dr. Bao Azar (RBC) [Mass/Vol]25.3 g/dLCritically low29.9-35.2The [facility] ShawComment on above:Performed By: #### JOSEPH, BMP #### [facility] [address] [place] [address] Dr. Bao EcholsV (RBC) [Entitic vol]62.3 fLCritically low81.0-99.0The [facility] ShawComment on above:Performed By: #### CMADM, BMP #### [facility] [address] [place] [address] Dr. Bao Wallace #0.7 103/ulNormal0.3-0.8The [facility] ShawComment on above:Performed By: #### CMADM, BMP #### [facility] [address] [place] [address] Dr. Bao Keaneocytes/100 WBC (Bld)5.8 %Normal1.7-12.0The [facility] Comment on above:Performed By: #### CMADM, BMP #### [facility] [address] [place] [address] Dr. Bao Mchugh #8.7 103/ulCritically high1.4-6.5The [facility] Comment on above:Performed By: #### CMADM, BMP #### [facility] [address] [place] [address] Dr. Bao Dennisutrophils/100 WBC (Bld)76.2 %Critically high43.0-75.0The [facility] ShawComment on above:Performed By: #### CMADM, BMP #### [facility] [address] [place] [address] Dr. Bao Garcialet mean volume (Bld) [Entitic vol]8.4 fLCritically low 9.5-13.5The [facility] ShawComment on above:Performed By: #### CMADM, BMP #### [facility] [address] [place] [address] Dr. Bao HsuPLT384 103/zaYdxigs174-613Dpg [facility] ShawComment on above: Performed By: #### CMADM, BMP #### [facility] [address] [place] [address] Dr. Bao HsuRBC3.61 106/ulCritically low4.20-5.40The [facility] ShawComment on above:Performed By: #### JOSEPH, BMP #### [facility] [address] [address] [address] Bao HsuWBC11.4 103/ulCritically high4.0-11.0The [facility] ShawComment on above:Performed By: #### JOSEPH, BMP #### [facility] [address] [address] [address] Bao HsuCovid-19 PCR (CVDTBH)on 59-25-1428TGBT-CoV-2 (COVID-19) RNA GREG+probe Ql (Unsp spec)Not detectedNormalNOT DETECTEDThe [facility] Comment on above:Result Comment: When diagnostic testing is negative, the [...] for this test is supported by the Medical Assisting Instructor of Health and Human Service's declaration that circumstances exist to justify the emergency use of in vitro diagnostics for the detection and/or diagnosis of the virus that causes COVID-19. This EUA will remain in effect for the duration of the COVID-19 declaration justifying emergency of IVDs, unless it is terminated or revoked by the FDA (after which the test may no longer be used).Performed By: #### CVDTBH #### [facility] [address] [place] [address] Dr. Bao HsuMAGNESIUMon 60-70-6047Tjyoguuna [Mass/Vol]1.7 mg/dLCritically low 1.8-2.4The [facility] on above:Performed By: #### JOSEPH, BMP #### [facility] [address] [place] [address] Dr. Bao HsuPROF 14(COMP METB)on 83-61-7011Gfprngd [Mass/Vol]3.7 g/dLNormal 3.4-5.0The [facility] ShawComment on above:Performed By: #### CMADM, BMP #### [facility] [address] [place] [address] Dr. Bao HsuAlbumin/Globulin [Mass ratio]1.2 {ratio}NormalThe [facility] ShawComment on above:Performed By: #### CMADM, BMP #### [facility] [address] [place] [address] Dr. Bao AlmanzarP [Catalytic activity/Vol]130 U/LCritically byxx96-787Mki [facility] ShawComment on above:Performed By: #### CMADM, BMP #### [facility] [address] [place] [address] Dr. Bao Crystal [Catalytic activity/Vol]10 U/LCritically xrr65-39Bbw [facility] ShawComment on above:Performed By: #### CMADM, BMP #### [facility] [address] [place] [address] Dr. Bao Chandler gap [Moles/Vol]14.4 mmol/LNormalThe [facility] Comment on above:Performed By: #### CMADM, BMP #### [facility] [address] [place] [address] Dr. Bao HsuAST [Catalytic activity/Vol]14 U/LCritically bqr37-32Ise [facility] ShawComment on above:Performed By: #### CMADM, BMP #### [facility] [address] [place] [address] Dr. Bao HsuBilirubin [Mass/Vol]1.3 mg/dLCritically high0.2-1.0The [facility] ShawComment on above:Performed By: #### CMADM, BMP #### [facility] [address] [place] [address] Dr. Bao HsuCalcium [Mass/Vol]8.9 mg/dLNormal8.5-10.1[facility] Comment on above:Performed By: #### CMADM, BMP #### [facility] [address] [place] [address] Dr. Bao HsuChloride [Moles/Vol]104 mmol/BZhrscq58-646Jku [facility] Comment on above:Performed By: #### CMADM, BMP #### [facility] [address] [address] [address] Bao HsuCO2 [Moles/Vol]25.6 mmol/PBszzaw87.0-32.0The [facility] Comment on above:Performed By: #### CMADM, BMP #### [facility] [address] [address] [address] Bao HsuCreatinine [Mass/Vol]0.62 mg/dLNormal0.55-1.02The [facility] ShawComment on above:Performed By: #### CMADM, BMP #### [facility] [address] [place] [address] Dr. Gore ChangEGFR-AF CHILEAN>60Normal>=60The [facility] ShawComment on above:Performed By: #### CMADM, BMP #### [facility] [address] [place] [address] Dr. Bao TurpinGFR-NON AF CHILEAN>60Normal>=60The [facility] ShawComment on above:Performed By: #### CMADM, BMP #### [facility] [address] [place] [address] Dr. Bao HsuGlobulin (S) [Mass/Vol]3.1 g/dLNormalThe [facility] ShawComment on above:Performed By: #### CMADM, BMP #### [facility] [address] [address] [address] Bao HsuGlucose [Mass/Vol]125 mg/dLCritically elhw41-622Dnn [facility] ShawComment on above:Performed By: #### CMADM, BMP #### [facility] [address] [address] [address] Bao HsuPotassium [Moles/Vol]4.0 mmol/LNormal3.5-5.1The [facility] Comment on above:Performed By: #### CMADM, BMP #### [facility] [address] [address] [address] Bao HsuProtein [Mass/Vol]6.8 g/dLNormal6.4-8.2The [facility] Comment on above:Performed By: #### CMADM, BMP #### [facility] [address] [address] [address] Bao HsuSodium [Moles/Vol]140 mmol/LIbhrhz109-981Jva [facility] Comment on above:Performed By: #### CMADM, BMP #### [facility] [address] [place] [address] Dr. Bao HsuUrea nitrogen [Mass/Vol]8.0 mg/dLNormal7.0-18.0The [facility] ShawComment on above:Performed By: #### CMADM, BMP #### [facility] [address] [place] [address] Dr. Bao HsuUrea nitrogen/Creatinine [Mass ratio]12.9 mg/mgNormalThe [facility] ShawComment on above:Performed By: #### CMADM, BMP #### [facility] [address] [place] [address] Dr. Bao HsuPROF CHEM 8 (BAS METB)on 71-49-5420Ijohz gap [Moles/Vol]10.3 mmol/LNormalThe [facility] ShawComment on above:Performed By: #### CMADM, BMP #### [facility] [address] [address] [address] Bao HsuCalcium [Mass/Vol]8.8 mg/dLNormal8.5-10.1The [facility] Comment on above:Performed By: #### CMADM, BMP #### [facility] [address] [address] [address] Bao HsuChloride [Moles/Vol]100 mmol/RDbtfzw78-817Abn [facility] Comment on above:Performed By: #### CMADM, BMP #### [facility] [address] [place] [address] Dr. Bao HsuCO2 [Moles/Vol]25.5 mmol/CHbqmys58.0-32.0The [facility] Comment on above:Performed By: #### CMADM, BMP #### [facility] [address] [address] [address] Bao HsuCreatinine [Mass/Vol]0.67 mg/dLNormal0.55-1.02The [facility] ShawComment on above:Performed By: #### CMADM, BMP #### [facility] [address] [place] [address] Dr. Bao TurpinGFR-AF CHILEAN>60Normal>=60The [facility] ShawComment on above:Performed By: #### CMADM, BMP #### [facility] [address] [place] [address] Dr. Bao TurpinGFR-NON AF CHILEAN>60Normal>=60The [facility] ShawComment on above:Performed By: #### CMADM, BMP #### [facility] [address] [place] [address] Dr. Bao HsuGlucose [Mass/Vol]118 mg/dLCritically tche52-405Alg [facility] ShawComment on above:Performed By: #### CMADM, BMP #### [facility] [address] [place] [address] Dr. Bao HsuPotassium [Moles/Vol]3.8 mmol/LNormal3.5-5.1[facility] Comment on above:Performed By: #### CMADM, BMP #### [facility] [address] [place] [address] Dr. Bao HsuSodium [Moles/Vol]132 mmol/LCritically wyw091-688Taq [facility] ShawComment on above:Performed By: #### CMADM, BMP #### [facility] [address] [place] [address] Dr. Bao HsuUrea nitrogen [Mass/Vol]12.0 mg/dLNormal7.0-18.0The [facility] ShawComment on above:Performed By: #### CMADM, BMP #### [facility] [address] [place] [address] Dr. Yilan ChangUrea nitrogen/Creatinine [Mass ratio]17.9 mg/mgUniversity Hospitals Lake West Medical CenterComment on above:Performed By: #### JOSEPH, BMP #### [facility] [address] [place] [address] Dr. Bao Jimenez 27-54-3356aAVI Coag (Bld) [Time]27.5 oTtvyrl66.3-36.2The [facility] ShawComment on above:Performed By: #### SEDR #### [facility] [address] [place] [address] Dr. Bao HsuSED RATE WESTERGRENon 28-47-3440XEX RATE15 mm/hrNormal<=30The [facility] ShawComment on above:Performed By: #### SEDR #### [facility] [address] [place] [address] Dr. Bao HsuTYPE AND SCREENon 61-68-3502BSST AND SCREENNegativeUniversity Hospitals Lake West Medical CenterComment on above:Performed By: #### JOSEPH BMP #### [facility] [address] [place] [address] Dr. Bao HsuXR CHEST 1 Von [id number] CHEST 1 VEXAMINATION: XR CHEST 1 V HISTORY: Chest pain COMPARISON: Portable chest 01/30/2021 TECHNIQUE: Portable chest FINDINGS: The lung parenchyma is free of consolidation or infiltrate. No pneumothorax or pleural effusion. The cardiac, mediastinal and hilar contours are normal. The visualized osseous structures exhibit no gross abnormality. IMPRESSION: No acute cardiopulmonary abnormality. Electronically authenticated by: EDDIE LACY Date: 2022-05-28 23:05University Hospitals Lake West Medical CenterFERRITINon 78-53-7257Nqaraqor [Mass/Vol]4.0 ng/mLCritically low 8.0-252.0The [facility] ShawComment on above:Performed By: #### SEDR #### [facility] [address] [place] [address] Dr. Bao Oviedo AND TIBCon 05-28-2022% SATURATION2.1 %NormalThe [facility] ShawComment on above:Performed By: #### SEDR #### [facility] [address] [place] [address] Dr. Bao Oviedo [Mass/Vol]10.0 ug/dLCritically low50.0-170.0The [facility] ShawComment on above:Performed By: #### SEDR #### [facility] [address] [place] [address] Dr. Bao Caldera BJKVLH639.0 ug/dLCritically tsyh346.0-450.0The [facility] ShawComment on above:Performed By: #### SEDR #### [facility] [address] [place] [address] Dr. Bao Gardner B12 AND FOLATEon 70-11-6440Socvehlmj (Vitamin B12) [Mass/Vol] 438.0 pg/aAHhybbh431.0-986.0The [facility] ShawComment on above:Performed By: #### SEDR #### [facility] [address] [place] [address] Dr. Bao HsuFOLATE8.80 ng/mLNormal8.60-58.90The [facility] ShawComment on above:Performed By: #### SEDR #### [facility] [address] [place] [address] Dr. Bao Mckeon W/DIFFon [id number] IMM GRANS0.1 10*3/uLNormal0.0-0.2The [facility] Hospital for RehabilitationComment on above:Order Comment: pre ablation? pacemaker?Performed By: #### [id number] ####[facility] [facility] [place] [address], USAABS SETMDIHNWNZ85.2 10*3/uLHigh1.6-7.6The [facility] for RehabilitationComment on above:Order Comment: pre ablation? pacemaker?Performed By: #### [id number] ####[facility] [place] [address], USABasophils (Bld) [#/Vol]0.0 10*3/uLNormal 0.0-0.2The [facility] Hospital for RehabilitationComment on above:Order Comment: pre ablation? pacemaker?Performed By: #### [id number] ####[facility] [place] [address], [facility]ITALBasophils/100 WBC (Bld)0.2 %Normal0.0-1.0The [facility] Hospital for RehabilitationComment on above:Order Comment: pre ablation? pacemaker?Performed By: #### [id number] ####[facility] [place] [address], [facility] HOSPITALEosinophils (Bld) [#/Vol]0.0 10*3/uLNormal0.0-0.5The [facility] Hospital for RehabilitationComment on above:Order Comment: pre ablation? pacemaker?Performed By: #### [id number] ####[facility] [place] [address], [place] Eosinophils/100 WBC (Bld)0.0 %Normal0.0-6.0The [facility] Hospital for RehabilitationComment on above:Order Comment: pre ablation? pacemaker?Performed By: #### [id number] ####[facility] [place] [address], USAErythrocyte distribution width (RBC) [Ratio]18.6 %High11.5-15.0The [facility] Hospital for RehabilitationComment on above:Order Comment: pre ablation? pacemaker?Performed By: #### 77984 ####[facility] [place] [address], [facility] HOSPITALHematocrit (Bld) [Volume fraction]29.4 %Low 36.0-45.0The [facility] Hospital for RehabilitationComment on above:Order Comment: pre ablation? pacemaker?Performed By: #### [id number] ####[facility] [place] [address], [facility] HOSPITALHemoglobin (Bld) [Mass/Vol]8.1 g/dLLow12.0-15.0The [facility] for RehabilitationComment on above:Order Comment: pre ablation? pacemaker?Performed By: #### 57679 ####[facility] [place] [address], [facility] IMMATURE GRANS0.6 %Normal0.0-1.0The [facility] Hospital for RehabilitationComment on above:Order Comment: pre ablation? pacemaker?Performed By: #### [id number] ####[facility] [place] [address].[place] [address], [facility] Lymphocytes (Bld) [#/Vol]1.2 10*3/uLNormal1.2-4.0The [facility] Hospital for RehabilitationComment on above:Order Comment: pre ablation? pacemaker?Performed By: #### [id number] ####[address] [place] [address], [facility] HOSPITALLymphocytes/100 WBC (Bld)6.8 %Low20.0-45.0The [facility] Hospital for RehabilitationComment on above:Order Comment: pre ablation? pacemaker?Performed By: #### 67116 ####[facility] [place] [address], [facility] (RBC) [Entitic mass]20.7 pgLow27.0-33.0The [facility] Hospital for RehabilitationComment on above:Order Comment: pre ablation? pacemaker?Performed By: #### 95986 ####[facility] [place] [address].[place] [address], [facility] (RBC) [Mass/Vol]27.6 g/dLLow32.0-35.0The [facility] for RehabilitationComment on above:Order Comment: pre ablation? pacemaker?Performed By: #### [id number] ####[facility] [place] [address].[place] [address], [facility] (RBC) [Entitic vol]75.2 fLLow 82.0-98.0The [facility] for RehabilitationComment on above:Order Comment: pre ablation? pacemaker?Performed By: #### [id number] ####[facility] [place] [address], USAMonocytes (Bld) [#/Vol]1.3 10*3/uLHigh0.1-1.0The [facility] Hospital for RehabilitationComment on above:Order Comment: pre ablation? pacemaker?Performed By: #### 52673 ####[facility] [place] [address], USAMONOS7.3 %Normal 5.0-12.0The [facility] Hospital for RehabilitationComment on above:Order Comment: pre ablation? pacemaker?Performed By: #### 54048 ####[facility] [place] [address], USANeutrophils/100 WBC (Bld) 85.1 %High40.0-72.0The [facility] Hospital for RehabilitationComment on above:Order Comment: pre ablation? pacemaker?Performed By: #### 80084 ####[facility] [place] [address], USANucleated RBC/100 WBC (Bld) [Ratio]0 %Normal0-0The [facility] Hospital for RehabilitationComment on above:Order Comment: pre ablation? pacemaker?Performed By: #### 40720 ####[facility] [place] [address], [place] PLAT [id number] 10*3/qHKbdn905-280Zfm [facility] for RehabilitationComment on above:Order Comment: pre ablation? pacemaker?Performed By: #### [id number] ####[facility] [place] [address], [place] RBC (Bld) [#/Vol]3.91 10*6/uLNormal3.80-5.00The [facility] Hospital for RehabilitationComment on above:Order Comment: pre ablation? pacemaker?Performed By: #### [id number] ####[facility] [place] [address], USAWBC (Bld) [#/Vol]17.85 10*3/uLHigh4.00-10.60The [facility] Hospital for RehabilitationComment on above:Order Comment: pre ablation? pacemaker?Performed By: #### 60797 ####[facility] [place] [address], USAABS IMM GRANS0.1 10*3/uLNormal0.0-0.2The [facility] Hospital for RehabilitationComment on above:Order Comment: No: Do not add to previous draw Performed By: #### 87037 #### [facility] [address] [place] [address], USAABS LKSTPMHHOIZ56.0 10*3/uLHigh1.6-7.6The [facility] Hospital for RehabilitationComment on above:Order Comment: No: Do not add to previous drawPerformed By: #### 78305 #### [facility] [address] [place] [address], USAANISOModerateNormalThe [facility]'s [facility] for Rehabilitation Comment on above:Order Comment: No: Do not add to previous drawPerformed By: #### [id number] #### [facility] [address] [place] [address], USABasophils (Bld) [#/Vol]0.0 10*3/uLNormal0.0-0.2The [facility] Hospital for RehabilitationComment on above:Order Comment: No: Do not add to previous drawPerformed By: #### 10286 #### [facility] [address] [place] [address], USABasophils/100 WBC (Bld)0.2 %Normal0.0-1.0The [facility] Hospital for RehabilitationComment on above:Order Comment: No: Do not add to previous drawPerformed By: #### 25162 #### [facility] [address] [place] [address], USAEosinophils (Bld) [#/Vol]0.0 10*3/uLNormal0.0-0.5The [facility] Hospital for RehabilitationComment on above:Order Comment: No: Do not add to previous drawPerformed By: #### 69455 #### [facility] [address] [place] [address], USAEosinophils/100 WBC (Bld)0.0 %Normal0.0-6.0The [facility] Hospital for RehabilitationComment on above:Order Comment: No: Do not add to previous drawPerformed By: #### 95382 #### [facility] [address] [place] [address], USAErythrocyte distribution width (RBC) [Ratio]18.6 %High 11.5-15.0The [facility] Hospital for RehabilitationComment on above:Order Comment: No: Do not add to previous drawPerformed By: #### 99072 #### [facility] [address] [place] [address], USAHematocrit (Bld) [Volume fraction]29.4 %Low36.0-45.0The [facility] Hospital for RehabilitationComment on above:Order Comment: No: Do not add to previous drawPerformed By: #### 68787 #### [facility] [address] [place] [address], USAHemoglobin (Bld) [Mass/Vol]8.3 g/dLLow12.0-15.0The [facility] Hospital for RehabilitationComment on above:Order Comment: No: Do not add to previous drawPerformed By: #### 10974 #### [facility] [address] [place] [address], USAHYPOSlightNormalThe [facility] Comment on above:Order Comment: No: Do not add to previous drawPerformed By: #### 47209 #### [facility] [address] [place] [address], USAIMMATURE GRANS0.5 %Normal0.0-1.0The [facility] Hospital for RehabilitationComment on above:Order Comment: No: Do not add to previous draw Performed By: #### 32800 #### [facility] [address] [place] [address], USALymphocytes (Bld) [#/Vol]0.6 10*3/uLLow1.2-4.0The [facility] for RehabilitationComment on above:Order Comment: No: Do not add to previous drawPerformed By: #### 44902 #### [facility] [address] [place] [address], USALymphocytes/100 WBC (Bld)5.7 %Low20.0-45.0The [facility] Hospital for RehabilitationComment on above:Order Comment: No: Do not add to previous drawPerformed By: #### [id number] #### [facility] [address] [place] [address], [facility] (RBC) [Entitic mass]20.9 pgLow27.0-33.0The [facility] Hospital for RehabilitationComment on above:Order Comment: No: Do not add to previous drawPerformed By: #### 42089 #### [facility] [address] [place] [address], USAPerformed By: #### [id number] ####[facility] [place] [address], [facility] (RBC) [Mass/Vol]28.2 g/dLLow 32.0-35.0The [facility] for RehabilitationComment on above:Order Comment: No: Do not add to previous drawPerformed By: #### 75189 #### [facility] [address] [facility] [place] [address], [facility] (RBC) [Entitic vol]73.9 fLLow82.0-98.0The [facility] for RehabilitationComment on above:Order Comment: No: Do not add to previous drawPerformed By: #### 78414 #### [facility] [address] [place] [address], USAMICROSlightNormalThe [facility] Comment on above:Order Comment: No: Do not add to previous drawPerformed By: #### 91918 #### [facility] [address] [place] [address], USAMonocytes (Bld) [#/Vol]0.4 10*3/uLNormal0.1-1.0The [facility] for RehabilitationComment on above:Order Comment: No: Do not add to previous drawPerformed By: #### 81736 #### [facility] [address] [place] [address], USAMONOS3.6 %Low5.0-12.0The [facility] for RehabilitationComment on above:Order Comment: No: Do not add to previous drawPerformed By: #### 66112 #### [facility] [address] [place] [address], USANeutrophils/100 WBC (Bld)90.0 %High40.0-72.0The [facility] for RehabilitationComment on above:Order Comment: No: Do not add to previous drawPerformed By: #### 33866 #### [facility] [address] [place] [address], USANucleated RBC/100 WBC (Bld) [Ratio]0 %Normal0-0The [facility] for RehabilitationComment on above:Order Comment: No: Do not add to previous drawPerformed By: #### 71376 #### [facility] [address] [place] [address], USAPerformed By: #### 40647 ####[facility] [place] [address], USAPLAT [id number] 10*3/wWEnquar270-024 The [facility] for RehabilitationComment on above:Order Comment: No: Do not add to previous drawPerformed By: #### 74902 #### [facility] [address] [place] [address], USARBC (Bld) [#/Vol]3.98 10*6/uLNormal3.80-5.00The [facility] for RehabilitationComment on above:Order Comment: No: Do not add to previous drawPerformed By: #### 93551 #### [facility] [address] [place] [address], USAWBC (Bld) [#/Vol]11.14 10*3/uLHigh4.00-10.60The [facility] for RehabilitationComment on above:Order Comment: No: Do not add to previous drawPerformed By: #### 54334 #### [facility] [address] [place] [address], USACBC COMPLETE BLOOD COUNTon 88-38-3257Bylikhxpuzu distribution width (RBC) [Ratio]18.2 %High11.5-15.0The [facility] for RehabilitationComment on above:Performed By: #### 09094 ####[facility] [place] [address], USAHematocrit (Bld) [Volume fraction]24.7 %Low36.0-45.0The [facility] for RehabilitationComment on above:Performed By: #### 69870 ####[facility] [place] [address], USAHemoglobin (Bld) [Mass/Vol]6.9 g/dLLow 12.0-15.0The [facility] for RehabilitationComment on above:Performed By: #### 47858 ####[facility] [place] [address], USAMCHC (RBC) [Mass/Vol]27.9 g/dLLow32.0-35.0The [facility] for RehabilitationComment on above:Performed By: #### 49293 ####[facility] [place] [address], [facility] HOSPITALMCV (RBC) [Entitic vol] 74.8 fLLow82.0-98.0The [facility] for RehabilitationComment on above: Performed By: #### 83390 ####[facility] [address], USAPLAT [id number] 10*3/iJWmbbhd379-408Kpa [facility] for RehabilitationComment on above:Performed By: #### 43585 ####[facility] [address], [facility]OM[facility] HOSPITALRBC (Bld) [#/Vol] 3.30 10*6/uLLow3.80-5.00The [facility] for RehabilitationComment on above: Performed By: #### 21988 ####[facility] [place] [address], [facility] HOSPITALWBC (Bld) [#/Vol]7.66 10*3/uLNormal4.00-10.60The [facility] for RehabilitationComment on above:Performed By: #### 36508 ####[facility] [place] [address], [facility] Cardiovascular Lab Reporton [id number] Lab ReportUnPremier Health Patient Name: Karolina Acevedo [facility] MR #: [id number] Physician: Maury Garza MD Department of Service Date: 01/01/2021 Medicine Birthdate: 1945 Division of Room #: 4CD 555337 Cardiology Adult Cardiovascular Services [place] [address] Cardiovascular Laboratory Report ATRIAL FIBRILLATION ABLATION PROCEDURE NOTE DATE OF PROCEDURE: 01/01/2021 PERFORMING PHYSICIAN: Dr. Maury Garza CONSENT: Patient NAME OF THE PROCEDURE: Pulmonary [...] SANDRA clot. Esophagus was mapped using the [employer] 3D mapping software and noted to be [...] Adenosine was given in (more content not included)...NormalThe [facility] GLUCOSE LABon [id number] [Mass/Vol]124 mg/dLHigh 70-100The [facility] for RehabilitationComment on above:Performed By: #### 56112 #### [facility] [address] [place] [address], [facility] HOSPITALPROTHROMBIN TIMEon [id number] Coag (PPP) [Relative time] 1.10 {INR}Normal0.91-1.16The [facility] for RehabilitationComment on above:Result Comment: ACCCP RECOMMENDED INR FOR WARFARIN THERAPY ------- CONDITION INR PROPHYLAXIS OF VENOUS THROMBOSIS 2-3 (HIGH-RISK SURGERY) TREATMENT OF VENOUS THROMBOSIS 2-3 TREATMENT OF PULMONARY EMBOLISM 2-3 PREVENTION OF SYSTEMIC EMBOLISM: 2-3 ACUTE MYOCARDIAL INFARCTION TISSUE HEART VALVES VALVULAR HEART DISEASE ATRIAL FIBRILLATION RECURRENT SYSTEMIC EMBOLISM MECHANICAL HEART VALVE 2.5-3.5 FROM: ORAL ANTICOAGULANTS. MECHANISM OF ACTION, CLINICAL EFFECTIVENESS, AND OPTIMAL THERAPEUTIC RANGE. CHEST 1995;108:231S-246S.Performed By: #### 89813 #### [facility] [address] [facility]. [address]PT Coag (PPP) [Time]14.2 eVgluya48.3-14.8The [facility] for RehabilitationComment on above:Result Comment: ALL RESULTS MUST BE INTERPRETED WITH RESPECT TO BLOOD DRAWING ARTIFACT OR DILUTION ERROR OF ANTICOAGULANT AT THE TIME OF SAMPLING.Performed By: #### [id number] #### [facility] [address] [facility]. [address]*SARS-CoV-2 COVID-19on [id number]-CoV-2 (COVID-19) RNA GREG+probe Ql (Unsp spec)Not detectedNormalNot DetectedThe Children's Hospital for RehabilitationComment on above:Order Comment: The Aptima SARS-CoV-2 assay is a nucleic acid amplification test intended for the qualitative detection of RNA from SARS-CoV-2 isolated and purified from nasopharyngeal (TRANSITIONAL KINDERGARTEN TEACHER),oropharyngeal (OP), nasal swab, sputum, and bronchoalveolar lavage (BAL) specimens from patients with signs and symptoms of infection who are suspected of COVID-19. Results are for the identification of SARS-CoV-2 RNA. The SARS-CoV-2 RNA is generally detectable during the acute phase of infection. The Aptima SARS-CoV-2 Assay on the [employer] [employer] system is intended for use by laboratory personnel specifically instructed and trained in the operation of the [employer] [employer] system. The Aptima SARS-CoV-2 assay is [...] with clinical observations, patient history, and epidemiological information.Performed By: #### [id number] #### [facility] [address] [place] [address], USABASIC METABOLIC PANELon [id number] [Mass/Vol]9.2 mg/dLNormal8.6-10.3The [facility] for RehabilitationComment on above: Performed By: #### 99455 #### [facility] [address] [place] [address], USAChloride [Moles/Vol]102 mmol/IRuenxt24-862Clt [facility] for RehabilitationComment on above:Performed By: #### 18596 #### [facility] [address] [place] [address], USACO2 [Moles/Vol]27 mmol/EWktdgd76-67Oqe [facility] for RehabilitationComment on above:Performed By: #### 38830 #### [facility] [address] [place] [address], USACreatinine [Mass/Vol]0.84 mg/dLNormal0.60-1.20The [facility] for RehabilitationComment on above:Performed By: #### 75783 #### [facility] [address] [place] [address], USAGFR/1.73 sq M.predicted among blacks MDRD (S/P/Bld) [Vol rate/Area]mL/min/{1.73_m2}Normal>60The [facility] Comment on above:Result Comment: Calculation may not be valid for patients over 70 yearsPerformed By: #### 09008 #### [facility] [address] [place] [address], USAGFR/1.73 sq M.predicted among non-blacks MDRD (S/P/Bld) [Vol rate/Area]mL/min/{1.73_m2}Normal>60The [facility] Comment on above:Result Comment: Calculation may not be valid for patients over 70 yearsPerformed By: #### 27359 #### [facility] [address] [place] [place] [address], [facility]S HOSPITALGlucose [Mass/Vol]105 mg/jIYxtu41-046Wpz [facility] for RehabilitationComment on above:Performed By: #### 82754 #### [facility] [address] [facility] [place] [address], USAPotassium [Moles/Vol]4.7 mmol/LNormal3.5-5.1The [facility] for RehabilitationComment on above:Performed By: #### 94146 #### [facility] [address] [place] [address], USASodium [Moles/Vol]136 mmol/UUtmpkc103-427Tcp [facility] for RehabilitationComment on above:Performed By: #### 71897 #### [facility] [address] [place] [place] [address], USAUrea nitrogen [Mass/Vol]17 mg/dLNormal7-25The [facility] for RehabilitationComment on above:Performed By: #### 96163 #### [facility] [address] [facility] [place] [address], USACBC W/DIFFon [id number] IMM GRANS0.0 10*3/uLNormal 0.0-0.2The [facility] for RehabilitationComment on above:Performed By: #### 25636 #### [facility] [address] [facility] [place] [address], USAABS NEUTROPHILS8.7 10*3/uLHigh1.6-7.6The [facility] Hospital for RehabilitationComment on above:Performed By: #### 00559 #### [facility] [address] [facility] [place] [address], USAANISOModerateNormalThe [facility] Comment on above:Performed By: #### 69145 #### [facility] [address] [facility] [place] [address], [facility] HOSPITALBasophils (Bld) [#/Vol]0.1 10*3/uLNormal0.0-0.2The [facility] for RehabilitationComment on above:Performed By: #### 57122 #### [facility] [address] [facility] [place] [address], USABasophils/100 WBC (Bld)0.8 %Normal0.0-1.0The [facility] for RehabilitationComment on above:Performed By: #### 88458 #### [facility] [address] [facility] [place] [address], USAEosinophils (Bld) [#/Vol]0.3 10*3/uLNormal0.0-0.5The [facility] for RehabilitationComment on above:Performed By: #### 31796 #### [facility] [address] [facility] [place] [address], USAEosinophils/100 WBC (Bld)2.2 %Normal0.0-6.0The [facility] for RehabilitationComment on above:Performed By: #### 28349 #### [facility] [address] [facility] [place] [address], USAErythrocyte distribution width (RBC) [Ratio]18.5 %High 11.5-15.0The [facility] Hospital for RehabilitationComment on above:Performed By: #### 70282 #### [facility] [address] [place] [address], USAHematocrit (Bld) [Volume fraction]33.7 %Low36.0-45.0The [facility] Hospital for RehabilitationComment on above:Performed By: #### 58803 #### [facility] [address] [place] [address], USAHemoglobin (Bld) [Mass/Vol]9.6 g/dLLow12.0-15.0The [facility] for RehabilitationComment on above:Performed By: #### 20881 #### [facility] [address] [facility] [place] [address], USAPOSfort madison community hospitalNoGood Samaritan [facility] Comment on above:Performed By: #### 95934 #### [facility] [address] [address], USAIMMATURE GRANS0.3 %Normal0.0-1.0The [facility] Hospital for RehabilitationComment on above:Performed By: #### 67978 #### [facility] [address] [address], USALymphocytes (Bld) [#/Vol]1.7 10*3/uLNormal1.2-4.0The [facility] for RehabilitationComment on above:Performed By: #### 08045 #### [facility] [address] [place] [address], USALymphocytes/100 WBC (Bld)14.7 %Low20.0-45.0The [facility] Hospital for RehabilitationComment on above:Performed By: #### 07334 #### [facility] [address] [facility] [place] [address], USAMCH (RBC) [Entitic mass]20.7 pgLow27.0-33.0The [facility] Hospital for RehabilitationComment on above:Performed By: #### 92274 #### [facility] [address] [facility] [place] [address], [facility] HOSPITALMCHC (RBC) [Mass/Vol]28.5 g/dLLow32.0-35.0The [facility] for RehabilitationComment on above:Performed By: #### 05633 #### [facility] [address] [place] [address], [facility]OM[facility] HOSPITALMCV (RBC) [Entitic vol]72.8 fLLow82.0-98.0The [facility] for RehabilitationComment on above:Performed By: #### 23465 #### [facility] [address] [facility] [place] [address], USAMICROSlightNoCleveland Clinic Ak[facility] L[facility] Hospitale [facility] Comment on above:Performed By: #### 88855 #### [facility] [address] [place] [address], [facility] HOSPITALMonocytes (Bld) [#/Vol]0.8 10*3/uLNormal0.1-1.0The [facility] for RehabilitationComment on above:Performed By: #### 36722 #### [facility] [address] [place] [address], [facility] HOSPITALMONOS6.6 %Normal5.0-12.0The [facility] Hospital for RehabilitationComment on above:Performed By: #### 03864 #### [facility] [address] [place] [address], USANeutrophils/100 WBC (Bld)75.4 %High40.0-72.0The [facility] Hospital for RehabilitationComment on above:Performed By: #### 16568 #### [facility] [address] [place] [address], USANucleated RBC/100 WBC (Bld) [Ratio]0 %Normal0-0The [facility] for RehabilitationComment on above:Performed By: #### 92710 #### [facility] [address] [place] [address], USAPLAT [id number] 10*3/zSUhix167-496Fuh [facility] for RehabilitationComment on above:Performed By: #### 76688 #### [facility] [address] [place] [address], USAPOIKSlightNormalThe [facility] Comment on above:Performed By: #### 14664 #### [facility] [address] [place] [address], USARBC (Bld) [#/Vol]4.63 10*6/uLNormal3.80-5.00The [facility] for RehabilitationComment on above:Performed By: #### 34809 #### [facility] [address] [place] [address], USAWBC (Bld) [#/Vol]11.48 10*3/uLHigh4.00-10.60The [facility] for RehabilitationComment on above:Performed By: #### 27680 #### [facility] [address] [place] [address], USACREATININE BLOODon [id number] [Mass/Vol]0.91 mg/dLNormal0.60-1.20The [facility] for RehabilitationComment on above: Performed By: #### 48092 #### [facility] [address] [place] [address], USAGFR/1.73 sq M.predicted among blacks MDRD (S/P/Bld) [Vol rate/Area]mL/min/{1.73_m2}Normal>60The [facility] Comment on above:Result Comment: Calculation may not be valid for patients over 70 yearsPerformed By: #### [id number] #### [facility] [address] [place] [address], USAGFR/1.73 sq M.predicted among non-blacks MDRD (S/P/Bld) [Vol rate/Area]mL/min/{1.73_m2}Normal>60[facility] Comment on above:Result Comment: Calculation may not be valid for patients over 70 yearsPerformed By: #### [id number] #### [address] [address], WAYLONCTOliva CHESTon [id number] CHESTUnMarymount Hospital Department of Radiology [address] [place] [id number] Patient Name: KAROLINA ACEVEDO : 1945 Sex: F Age: Race: White Pt. Location: Patient Status: D Ordered Date: 09/27/2020 9:50:00 AM Completed Date: 10/11/2020 01:50 PM Requesting Provider: MAURY GARZA Attending Provider: MAURY GARZA Report Copy To: JEB ROSA Signs & Symptoms: I48.0 Paroxysmal atrial fibrillation I10 History: [place] patient will need labs NPO 4 hrs. medicare no pc required med nec passed 10/02/20 *kw [id number] Comments: pre ablation? pacemaker? Exam: CTA CHEST CTA CHEST 10/11/2020 1:50 PM CLINICAL INDICATIONS: [...] apical bilateral pleural thickening. Electronically signed: Don Gerard. Transcribed by: [email or web address], User Resident: Electronically Signed by: DON PANCHOGUEVARAJeffrey @ 10/15/2020 09:26 AMNormalThe [facility]'s Hospital for RehabilitationComment on above:Order Comment: pre ablation? pacemaker?Cardiovascular Lab Reporton 35-16-9105Mgjliytpwqplht Lab Report [facility] MR #: [id number] Department of Physician: Maury Garza MD Medicine Service Date: 09/30/2020 Division of Birthdate: 1945 Cardiology Room #: [facility] Cardiovascular Services [address] [place] [address] Cardiovascular Laboratory Report DIRECT CARDIOVERSION PROCEDURE NOTE Date: 09/30/2020. Type of procedure: DC Cardioversion. Performed by: Maury Garza MD. Informed consent: Signed by patient. Indication: [...] EP clinic to discuss about ablation. Maury Garza MD Cardiac Electrophysiology Electronically Signed by: Maury Garza MD 10/16/2020 07:01 P Maury Graza MD Date Dict: 10/07/2020/08:03 P/Maury Garza MD Date Trans: 10/07/2020 09:00 P/alisa DN_JN:[id number] cc: Jeb Rosa D.O. [address] [place] [address]. [facility] [address]LjbfelWuzCore[facility] Vital Signs Date TimeVital SignValuePerforming MkuhhriwoAtmyybyd24-51-7824 10:19-0400Body xwbjha323 cm[address] [place], [place] [address]32307-15-2024 10:19-0400Body mass index (BMI) [Ratio]27.46 kg/m2Sta [address] [place], [place] 6232[address]-15-2024 10:19-0400Body nodjmb91.[address] [place], [place] [address]32308-24-2023 11:20-0400Body height 160.02 cmReferring Provider UohmkqkUC-Zfajyyebk-Oeskwzn Work Phone: [phone] 11:20-0400Body mass index (BMI) [Ratio] 25.69 kg/v2Gjhjilkbv Provider BpdyqjbBB-Qmklezmnq-Jbfyefp Work Phone: [phone] 11:20-0400Body surface area Derived from formula1.69 z8Yuxuvluef Provider LhcwpstBS-Jrhohwiro-Fkgietz Work Phone: [phone] 11:20-0400Body fmtufo09.77 kgReferring Provider [facility] Work Phone: [phone] 11:20-0400Diastolic blood nfuhrevd53 mm[Hg] Referring Provider SyafuffYT-Asdbpetce-Uchasub Work Phone: [phone] 11:20-0400Heart rate70 /minReferring Provider CwssfgqOZ-Ffeflidya-Pgptlta 5th Work Phone: 1(387) 867-539508-24-2023 11:20-0400Respiratory rate19 /minReferring Provider [facility] 5[facility] Work Phone: 1(658) 309-587008-24-2023 11:20-7580CoH9% (BldA) [Mass fraction]93 % Referring Provider [facility] Work Phone: [phone]) 305-978308-24-2023 11:20-0400Systolic blood fzkqoqfw375 mm[Hg] Referring Provider [facility] 5th Work Phone: Encounters Encounter DateEncounter TypeCare ProviderFacilityStart: 01-01-2025 End: 59-76-6437gfhfzspydzTL CHARLES P HOUSEFacility:[facility] ClinicStart: 12-12-2024 End: 88-25-4501kvnbfxfomuMOID [facility]tart: 11-23-2024 End: 16-76-7337tfmkrcfkvpMSJETXJ P HOUSEFacility:[facility] ClinicStart: 09-06-2024 End: 69-43-7928amnvfglhbbNGTMXCXBellevue Hospitaltart: 00-30-8524hyzmddagpwYJSCTYI P HOUSEFacility:[facility] ClinicStart: 05-24-2024 End: 22-86-9673dkzjfwxquuAHMZILWBellevue Hospitaltart: 11-72-6038aturogdcjlUPLXGJY P HOUSEFacility:[facility] ClinicStart: 02-21-2024 End: 11-58-6735wxhlwymokyARYLOAH P HOUSEFacility:[facility] ClinicStart: 01-17-2024 End: 93-19-0911xwonwdguzrCGCGGBH P HOUSEFacility:[facility] ClinicStart: 10-18-2023 End: 39-85-7334bgwysqjhrbGZRUYUU [facility] Hospitaltart: 10-04-2023 End: 28-16-3248Rnxukepbfg hospital visit by physicianSta Pat Rm 3STAZ PRE-ADMIT TESTINGComment on above:No ShowStart: 09-22-2023 End: 75-46-5452Ilfwvkdekh and management of inpatientSPRINCE [facility] HospitalStart: 09-21-2023 End: 71-83-9808Qfkbfadjma and management of inpatientTULIO Pinon [facility] HospitalStart: 75-94-6692Lvyulasve for other preprocedural examination TULIO Pinon [facility] HospitalStart: 09-21-2023 End: 00-20-0774Rkvogobaen and management of inpatientTULIO Pinon [facility] HospitalStart: 09-21-2023 End: 29-43-1648Okfrzbwfc department patient visitTULIO [facility] Hospitaltart: 18-55-6313Ummmgw outpatient new 20 minutesReferring Provider RuybiewOY-Ewjlcwdakraq-MKOHJ Work Phone: start: 20-20-0200Xwbawug encounter procedureReferring Provider EebatwyFF-Hgifsdjij-Lpekcht 5th Work Phone: Start: 27-24-1567tvdtchgcqhBpqrkndv SelfFacility:[facility] Start: 06-10-2022 End: 17-20-7445sncpjbcspmVN CHARLES HOUSEFacility:X3Crtsr: 65-50-2276icyfjydxbp Max R NILLFacility:CHARLY Enriqueztart: 05-30-2022 End: 27-16-5195rohzbmjsttXixhhws R NILLFacility:CD:[id number]: 05-29-2022 End: 00-02-3024Djvqyhhruc and management of inpatientDR JEB HOUSEFacility:H1 Start: 01-01-2021 End: 16-19-7348igfryfwuvzSHHQTDF HOUSEFacility:[facility]MCStart: 10-11-2020 End: 61-14-7781zzpmzcjuuzZLUM CHACKOFacility:UTMCStart: 09-30-2020 End: 28-87-4730lfvchzmjwsZRWY CHACKOFacility:[facility] Procedures DateProcedureProcedure DetailPerforming ClinicianStart: 56-86-8773Fwtyvoje of Ascending Colon, Via Natural or Artificial Opening Endoscopic, DiagnosticDR JEB HOUSEStart: 93-36-2986Arerarah of Sigmoid Colon, Via Natural or Artificial Opening EndoscopicDR JARRELL HOUSEStart: 17-92-5779Dgnasmacel of Upper Intestinal Tract, Via Natural or Artificial Opening EndoscopicDR JARRELL HOUSEStart: 85-75-4776Xtluzhpvoft of Nonautologous Red Blood Cells into Peripheral Vein, Percutaneous ApproachDR JARRELL [place] Plan of Treatment DateCare ActivityDetailAuthorStart: 22-02-0653Sjprdjrjj vaccinationFlu vaccine (#1)VAHID [facility]Start: 10-18-2023 End: 00-54-2952Lnytffhbj to same day surgery rghrvd3510/18/2023 8:00 AM EDT - 10/18/2023 10:55 AM EDT Surgery [facility] OR [address] [place], [place] [id number] Tulio Chavez MD [address] [place] [address] CYSTOSCOPY, RIGHT OCCLUSION BALLOON, URETERAL STENT PLACEMENT, RIGHT PERCUTANEOUS NEPHROLITHOTOMYSTAZ ORComment on above:CYSTOSCOPY, RIGHT OCCLUSION BALLOON, URETERAL STENT PLACEMENT, RIGHT PERCUTANEOUS NEPHROLITHOTOMYStart: 10-18-2023 End: 90-45-9563Mdhbz w/tx ureteral strictureCYSTOSCOPY URETERAL BALLOON DILATATION Right kidney stone 10/18/2023 8:00 AM [facility]TMPremier [facility] HospitalStart: 10-18-2023 End: 41-85-0788Gfsouuq encounter cnxyzgzbg79/29/2024 8:00 AM EDT Appointment [facility] [address] [place], [place] [id number] Radiologist, Ellie Do order in mediawire to bladder in laborer tin can, right, arrive 630am main reg, scheduled with nathan REN kidney stoneCincinnati Va Medical Center Special ProceduresComment on above:order in mediawire to bladder in laborer tin can, right, arrive 630am main reg, scheduled with margoDX kidney stoneStart: 10-18-2023 End: 82-30-4481Zrh nephrostolithotomy/pyelostolithotomy 2 cmNEPHROLITHOTOMY PERCUTANEOUS Right kidney stone 10/18/2023 8:00 AM [facility]: 92-51-9786Fpdlsjjdkj hospital visit by bygydsxzt32/29/2024 8:00 AM EDT Hospital Encounter ERASMO Lauren[address] [place], [place] [id number] Tulio Chavez MD [address], [place] [address] ERASMO FREEMANtart: 55-69-1096Hmzhhk Wellness Visit (Medicare)Annual Wellness Visit (Medicare)[facility]Start: 05-74-8557Frvwcsvmedbh 65+ years Vaccine (1 of 1 - PCV)Pneumococcal 65+ years Vaccine (1 of 1 - PCV)[facility]Start: 09-27-1672Orsdpppdzxp Syncytial Virus (RSV) or age 60 yrs+ (1 - 1-dose 60+ series)Respiratory Syncytial Virus (RSV) or age 60 yrs+ (1 - 1-dose 60+ series)[facility]Start: 78-28-6173Tidnnpszi for osteoporosisDEXA (modify frequency per FRAX score)[facility] Centerart: 29-04-1052Pxhprass vaccine (1 of 2)Shingles vaccine (1 of 2)[facility]Start: 36-69-8566RFiY/Tdap/Td vaccine (1 - Tdap)DTaP/Tdap/Td vaccine (1 - Tdap)[facility] Centerart: 77-91-5088Zkbwglfsi C screeningHepatitis C screenBON [facility] Hospitalart: 84-61-1381Bceetqmptn ScreenDepression ScreenBON [facility] Hospitalart: 39-33-0456Qpaog panelLipidsBON [facility] Start: 04-14-0528NPJES-19 Vaccine (#1)COVID-19 Vaccine (#1)[facility] Hospitalers DatePayer CategoryPayerPolicy [id number] [id number] [id number] 2.16840.1.796513.3.57[id number] 2.16840.1.684769.3.57[id number] 2.16840.1.926842.3.57[id number] 2.840.1.835692.3.57[id number] 2.840.1.211955.3.57[id number] 2.16840.1.890168.3.57[id number] 2.840.1.688825.3.57[id number] 2.840.1.914936.3.57[id number] 2.16840.1.637339.3.57[id number] 2.16840.1.812098.3.57[id number] 2.16840.1.138614.3.57[id number] 2.16840.1.148563.3.57[id number] 2.16.840.1.236703.3.57[id number] 2.16.840.1.047156.3.57[id number] 2.16.840.1.910891.3.57[id number] 2.16.840.1.662220.3.57[id number] 2.16.840.1.653714.3.57[id number] 2.16.840.1.913129.3.57[id number] 2.840.1.743740.3.57[id number] 2.16.840.1.832042.3.579.2.8UnknownMEDICARE Social History DateTypeDetailFacilityStart: 97-99-9403Jrfqvim smoking status NHISEx-smokerB[facility]ENTERHistory of tobacco useCurrent smokerB[facility] History of tobacco useCigarette SmokerB[facility]ENTERStart: 10-04-2023 Tobacco use and exposureSmokeless tobacco non-userB[facility]ENTERStart: 95-64-1528Whwknfr intakeLifetime non-drinker (finding)[facility] Start: 10-04-2023 End: 57-39-0559Qybpqfc of Social functionBON SECOURS [facility]PAUL MEDICAL CENTERStart: 10-04-2023 End: 81-21-8816Rsbqknm use panelB[facility]RS [facility]UL MEDICAL CENTERPhysical abuseDeniesB[facility] CENTERStart: 76-87-2825Dhi Assigned At BirthNot on [facility] Clinical Notes 05-29-2022 to 12-12-2024 Note Date & PwfnPuatLzogpyor76-73-0173 NoteUT Cardiology Consult Note Reason for Consultation: s/p PVI for [...] of bleeding concern. she was seen at [place] ER for diaphoresis and chest discomfort and she was found to have anemia hgb 5.7. she was stabilized and discharged. She later had colonoscopy done by [facility] found to have a large polyp. she is pending biopsy results. She was cleared to restart Xarelto. 02/03/[address] garza HPI: Karolina Acevedo is a 79 y.o. year old with past medical history of moderate one-vessel CAD, COPD, proximal A. fib, COPD, dyspnea on exertion. She was recentlyt [facility] with AF and RVR. She wa smarkedl [...] of colon Shortness of breath Stroke (CMS/HCC) PSH: Past Surgical History: Procedure Laterality Date ABLATION OF DYSRHYTHMIC FOCUS CARDIAC CATHETERIZATION CTA CHEST W IV CONTRAST 10/15/2020 CT CHEST ANGIOGRAM W AND/OR WO IV CONTRAST BELLO CONVERSION IR ABLATION VEIN RFA heart ablation SH: Social Drivers of Health Tobacco Use: Medium Risk (12/12/2024) Patient History Smoking Tobacco Use: Former Smokeless Tobacco Use: Never Passive Exposure: Not on file Alcohol Use: Not on file Financial Resource Strain: Not on file Food Insecurity: Not on file Transportation Needs: Not on file Physical Activity: Not on file Stress: Not on file Social Connections: Not on file Intimate Partner Violence: Unknown (05/13/2023) [place] Safety & Environment Fear of Current or Ex-Partner: Not on file Emotionally Abused: Not on file Physically Abused: Not on file Sexually Abused: Not on file Physically or Sexually Abused: Not on file Depression: Not on file Housi (more content not included)...[facility] 12-04-2024 NoteEntered by JEB ROSA DO on December 04, 2024 07:32:45 EDT From: JEB ROSA DO To: [facility]/pharmacy #[id number] Sent: 12/04/2024 07:32:45 EDT Subject: Medication Management Submitted: Complete:hydrOXYzine (hydrOXYzine hydrochloride 25 mg oral tablet) Signed by JEB ROSA DO 12/04/2024 07:32:00 EDT Approved with modifications: hydrOXYzine (HYDROXYZINE HCL 25 MG TABLET) TAKE 1 TABLET BY MOUTH EVERY DAY Qty: 30 tab(s) Days Supply: 30 Refills: 5 Substitutions Allowed Route To Pharmacy - [facility]/pharmacy #[id number] From: [id number] To: JEB ROSA DO Sent: December 03, 2024 11:25:32 PM CDT Subject: Medication Management Due: December 04, 2024 12:15:04 AM CDT On Hold Pending Signature Dispensed Drug: hydrOXYzine (hydrOXYzine hydrochloride 25 mg oral tablet), TAKE 1 TABLET BY MOUTH EVERY DAY Quantity: 30 tab(s) Days Supply: 30 Refills: 5 Substitutions Allowed Notes [id number] Note Entered by JEB ROSA DO on November 19, 2024 23:47:56 EDT From: JEB ROSA DO [id number] Sent: 11/19/2024 23:47:56 EDT Subject: Medication Management Submitted: Complete:rOPINIRole (rOPINIRole 0.5 mg oral tablet) Signed by JEB ROSA DO 11/19/2024 23:47:00 EDT Approved with modifications: rOPINIRole (ROPINIROLE HCL 0.5 MG TABLET) TAKE 1 TABLET BY MOUTH EVERY DAY Qty: 90 tab(s) Days Supply: 90 Refills: 1 Substitutions Allowed Route To Pharmacy - [facility]/pharmacy #[id number] From: [id number] To: JEB ROSA DO Sent: November 18, 2024 11:27:34 PM CDT Subject: Medication Management Due: November 19, 2024 12:20:15 AM CDT On Hold Pending Signature Dispensed Drug: rOPINIRole (rOPINIRole 0.5 mg oral tablet), TAKE 1 TABLET BY MOUTH EVERY DAY Quantity: 90 tab(s) Days Supply: 90 Refills: 1 Substitutions Allowed Notes from Pharm[facility]: [facility] [id number] Note Entered by JEB ROSA DO on September 07, 2024 07:25:41 EDT From: JEB ROSA DO To: [facility]/pharmacy #[id number] Sent: 09/07/2024 07:25:41 EDT Subject: Medication Management Submitted: Complete:dilTIAZem (Cardizem CD 240 mg/24 hours oral capsule, extended release) Signed by JEB ROSA DO 09/07/2024 07:25:00 EDT Approved with modifications: dilTIAZem (DILTIAZEM 24H ER(CD) 240 MG CP) TAKE 1 CAPSULE BY MOUTH EVERY DAY Qty: 90 cap(s) Days Supply: 90 Refills: 1 Substitutions Allowed Route To Pharmacy - [facility]/pharmacy #[id number] From: [facility] To: JEB ROSA DO Sent: September 07, 2024 12:21:28 AM CDT Subject: Medication Management Due: September 08, 2024 12:07:56 AM CDT On Hold Pending Signature Dispensed Drug: dilTIAZem (DilTIAZem (Eqv-Cardizem CD) 240 mg/24 hours oral capsule, extended release), TAKE 1 CAPSULE BY MOUTH EVERY DAY Quantity: 90 cap(s) Days Supply: 90 Refills: 1 Substitutions Allowed Notes from Pharm[facility]: [facility] [id number] Note Patient here for 3 mo follow up [...] balance. All other systems reviewed and are negative.[facility] 09-06-2024 NoteCardiovascular Medicine [facility] SUBJECTIVE Chief Complaint Patient presents with Atrial Fibrillation Hypertension Karolina Acevedo is a 79 y.o. female here for [...] with this change. She presented to [facility] ED last week for SOB. She's been out of Xarelto for about 5 days now. She's been having chest tightness and SOB for awhile now . She's now using O2 all the time. She doesn't see a manager support services for her COPD. She feels like she [...] Transient ischemic attack Coronary artery disease of [place] artery of [place] heart with stable angina pectoris Chronic fatigue Syncope and collapse Kidney stone Past Medical History: Diagnosis Date Anemia Arthritis Atrial fibrillation (CMS/HCC) Chest pain H/O COPD (chronic obstructive pulmonary disease) ([facility]) Hypertension Mass of colon Shortness of breath Stroke ([facility]) Family History Problem Relation Name Age of [...] is soft. Musculoskeletal: Cer (more content not included)...[facility]06-18-2025 NoteEntered by JEB ROSA DO on September 06, 2024 07:29:18 EDT From: JEB ROSA DO To: [facility]/pharmacy #[id number] Sent: 09/06/2024 07:29:18 EDT Subject: Medication Management Submitted: Complete:ferrous sulfate (ferrous sulfate 325 mg (65 mg elemental iron) oral tablet) Signed by JEB ROSA DO 09/06/2024 07:29:00 EDT Approved with modifications: ferrous sulfate (FERROUS SULFATE 325 MG TABLET) TAKE 1 TABLET BY MOUTH TWICE A DAY Qty: 180 tab(s) Days Supply: 90 Refills: 1 Substitutions Allowed Route To Pharmacy - [facility]/pharmacy #[id number] From: [id number] To: JEB ROSA DO Sent: September 05, 2024 11:29:14 PM CDT Subject: Medication Management Due: September 06, 2024 12:17:11 AM CDT On Hold Pending Signature Dispensed Drug: ferrous sulfate (ferrous sulfate 325 mg (65 mg elemental iron) oral tablet), TAKE 1TABLET BY MOUTH TWICE A DAY Quantity: 180 tab(s) Days Supply: 90 Refills: 1 Substitutions Allowed Notes from Pharmacy: [facility] HospitalAawhcphv17-11-3617 Note Entered by JEB ROSA DO on May 26, 2024 14:26:26 EST From: JEB ROSA DO To: [facility]/pharmacy #[id number] Sent: 05/26/2024 14:26:25 EST Subject: Medication Management Submitted: Complete:hydrOXYzine (hydrOXYzine hydrochloride 25 mg oral tablet) Signed by JEB ROSA DO 05/26/2024 14:26:00 EST Submitted: Complete:rOPINIRole (rOPINIRole 0.5 mg oral tablet) Signed by JEB ROSA DO 05/26/2024 14:26:00 EST Approved with modifications: rOPINIRole (ROPINIROLE HCL 0.5 MG TABLET) TAKE 1 TABLET BY MOUTH EVERY DAY Qty: 90 tab(s) Days Supply: 90 Refills: 1 Substitutions Allowed Route To Pharmacy - [facility]/pharmacy #[id number] Approved with modifications: hydrOXYzine (HYDROXYZINE HCL 25 MG TABLET) TAKE 1 TABLET BY MOUTH EVERY DAY Qty: 90 tab(s) Days Supply: 90 Refills: 1 Substitutions Allowed Route To Pharmacy - [facility]/pharmacy #[id number] From: [id number] To: JEB ROSA DO Sent: May 25, 2024 11:28:03 PM SECURITY PROGRAM MANAGER Subject: Medication Management Due: May 26, 2024 12:02:42 AM SECURITY PROGRAM MANAGER On Hold Pending Signature Dispensed Drug: rOPINIRole [...] Refills: 1 Substitutions Allowed Notes from Pharmacy: [facility] HospitalJnefwqyk99-56-8151 Note Cardiovascular Medicine [facility] SUBJECTIVE Chief Complaint Patient presents with Hypertension Atrial Fibrillation Karolina Acevedo is a 79 y.o. female here for follow-up. HPI PMHx: HTN, a.fib, non-obstructive CAD, syncope. Patient was referred to cardiology due to syncope, which was characterized by patient as not true syncope. Patient here for 6 mo follow up CAD, PAF, and hypertension. At last apt in Nov 2023, metoprolol was switched to carvedilol. Palpitations resolved with this change. She presented to [facility] ED last week for SOB. She's been out of Xarelto for about 5 days now. She's been having chest tightness and SOB for awhile now . She's now using O2 all the time. She doesn't see a manager support services for her COPD. She feels like she [...] Patient Active Problem List Diagnosis Atrial fibrillation (CMS/[facility]) Benign essential hypertension Chest pain Chronic obstructive lung disease (CMS/[facility]) Dyspnea Hyperlipidemia Migraine Transient ischemic attack Coronary artery disease of [place] artery of [place] heart with stable angina pectoris Chronic fatigue [...] Judgment normal. Labs: Hos (more content not included)...[facility]03-05-2025 NotePatient here for 6 mo follow up CAD, PAF, and hypertension. At last apt in Nov 2023, metoprolol was switched to carvedilol. Palpitations resolved with this change. She presented to [facility] ED last week for SOB. She's been out of Xarelto for about 5 days now. She's been having chest tightness and SOB for awhile now . She's now using O2 all the time. She doesn't see a manager support services for her COPD. Review of Systems Cardiovascular: Positive for chest pain ( tightness ) and dyspnea on exertion. Respiratory: Positive for cough, shortness of breath and sputum production. All other systems reviewed and are negative.[facility] 2024 NoteEntered by JEB ROSA DO on 2024 07:33:12 EST From: JEB ROSA DO To: [facility]/pharmacy #[id number] Sent: 2024 07:33:12 EST Subject: Medication Management Submitted: Complete:ferrous sulfate (ferrous sulfate 325 mg (65 mg elemental iron) oral tablet) Signed by JEB ROSA DO 2024 07:33:00 EST Approved with modifications: ferrous sulfate (FERROUS SULFATE 325 MG TABLET) TAKE 1 TABLET BY MOUTH TWICE A DAY Qty: 180 tab(s) Days Supply: 90 Refills: 1 Substitutions Allowed Route To Pharmacy - [facility]/pharmacy #[id number] From: [id number] To: JEB ROSA DO Sent: March 21, 2024 11:45:09 PM SECURITY PROGRAM MANAGER Subject: Medication Management Due: March 22, 2024 12:06:23 AM SECURITY PROGRAM MANAGER On Hold Pending Signature Dispensed Drug: ferrous sulfate (ferrous sulfate 325 mg (65 mg elemental iron) oral tablet), TAKE 1TABLET BY MOUTH TWICE A DAY Quantity: 180 tab(s) Days Supply: 90 Refills: 1 Substitutions Allowed Notes from Pharmacy: [facility] HospitalDhesgtyo78-65-9681 Note PROCEDURE: IR WIRE TO BLADDER PRE [...] by urology in cystoscopy prior procedure. A asbestos surveyor film was obtained. The patient was placed [...] the tract was accessed and various 4 Divehi angled catheters and a 0.035 inch glidewire were used access the ureter. Once in the urinary bladder, the Glidewire was removed and replaced with a 0.035 inch stiff Amplatz wire. The 3 in 1 transition set was removed, and the case was turned over to Dr. Chavez. FINDINGS: As above. IMPRESSION: Successful wire to bladder access for PCNL. Interpreted by: Christian Ordonez MD Signed by: Christian Ordonez MD 10/18/23 Final resultMercy Universal Health [id number] Chief complaint Narrative - ReportedPatient is being seen for an initial Neurosurgical evaluation and Hx of TIA with c/o of recent and sudden near syncope. Here for evaluation of possible Aneurysm. CTA 11/01/22 in PACs from [facility].AM-Veqgjbtna-Suscoaz 5th Work Phone: [phone] Chief complaint Narrative - ReportedPatient is being seen for an initial Neurosurgical evaluation and Hx of TIA with c/o of recent and sudden near syncope. Here for evaluation of possible Aneurysm. CTA 11/01/22 in PACs from [facility].GM-Juuoqyumxdde-FKQTB Work Phone: 1(439) 923-805503-10-2023 NoteOPERATIVE NOTE OPERATION DATE: 06/01/2022 PREOPERATIVE DIAGNOSIS: Iron [...] resection. CC: Jeb Rosa M.D. Nick Melendez M.D.[facility] [id number] NoteCONSULTATION CONSULTATION DATE: 05/30/2022 REASON FOR CONSULTATION: Iron [...] tomorrow and EGD and colonoscopy on Wednesday for further evaluation. Patient does wish to have this performed while she is inpatient rather than being discharged and having this done as an outpatient. I believe this is reasonable, given her anticoagulation that is already on hold. CC: Nick Melendez M.D.[facility] Present illness Narrative * Ms. Acevedo is a 77-year-old lady recently diagnosed with TIA and syncope. Further work-up at [facility] showed a a reported 8 to 9 mm left carotid aneurysm. * Quit smoking * No family history of ruptured brain aneurysm * No other symptoms [id number] Work Phone: Summary Purpose Family History No [...] and content) DATE CREATED AUTHOR 06/06/2021 [facility] DATE CREATED AUTHOR AUTHOR'S ORGANIZ ATION 06/21/2022 [facility] DATE CREATED AUTHOR AUTHOR'S ORGANIZ ATION 06/30/2022 [facility] DATE CREATED AUTHOR AUTHOR'S ORGANIZ ATION 11/15/2022 [facility] DATE CREATED AUTHOR AUTHOR'S ORGANIZ ATION 12/06/2022 [facility] DATE CREATED AUTHOR AUTHOR'S ORGANIZ ATION 09/22/2023 [facility] DATE CREATED AUTHOR AUTHOR'S ORGANIZ ATION 10/23/2023 [facility] DATE CREATED AUTHOR AUTHOR'S ORGANIZ ATION 01/02/2025 [facility] DATE CREATED AUTHOR AUTHOR'S ORGANIZ ATION 01/02/2025 [facility] FOR RECORDS PERTAINING TO PATIENTS WHO ARE [...] BE BASED ON THE PRIMARY CLINICAL RECORDS. [employer] provides no warranty or guarantee of the accuracy or completeness of information in this document.
--- NOTE | 2025-01-10 12:54 | ED.GENADUL1 ---
HPI HPI - General Adult General Chief complaint: Skin/Abscess/Foreign Body Stated complaint: PURPLE BRUSING ON STOMACH Time Seen by Provider: 01/10/25 12:45 Mode of arrival: walk-in Limitations: no limitations History of Present Illness HPI narrative: 79-year-old female presents for a large bruise on her abdomen. She recalls no injury. She is on Xarelto for A-fib and has been on it for 12 years. She also has a few small bruises on her leg. She states if she pushes on her abdomen it might hurt a little bit particularly on the left side. Related Data Home Medications ?Medication ?Instructions ?Recorded ?Confirmed diltiazem HCl 180 mg capsule,24 180 mg PO DAILY 11/01/22 12/29/24 hr,extended release (Tiadylt ER) ferrous sulfate 325 mg (65 mg 325 mg PO BID 11/01/22 12/29/24 iron) tablet rivaroxaban 20 mg tablet (Xarelto) 20 mg PO DAILY 11/01/22 12/29/24 albuterol sulfate 2.5 mg/3 mL 2.5 mg inhalation Q6H PRN 09/17/23 12/29/24 (0.083 %) solution for nebulization shortness of breath or wheezing hydroxyzine HCl 25 mg tablet 25 mg PO Q6H PRN anxiety 09/17/23 12/29/24 ropinirole 0.5 mg tablet 0.5 mg PO DAILY 09/17/23 12/29/24 rosuvastatin 20 mg tablet 20 mg PO DAILY 09/17/23 12/29/24 carvedilol 12.5 mg tablet 18.75 mg PO BID 05/17/24 12/29/24 amiodarone 200 mg tablet 200 mg PO Q24H 12/29/24 12/29/24 aspirin 81 mg capsule 81 mg PO DAILY 12/29/24 12/29/24 Previous Rx's ?Medication ?Instructions ?Recorded prednisone 20 mg tablet 40 mg (2 x 20 mg) PO DAILY 4 days 12/29/24 #8 tabs Allergies Allergy/AdvReac Type Severity Reaction Status Date / Time codeine AdvReac Intermediate Dizziness Verified 01/10/25 12:43 Opioid HPI Opioid Management Most Recent Opioid Data: Last Pain Scale 4 09/17/23, 21:38 Review of Systems ROS Narrative A ten point review of systems is negative except as noted above. [facility] Medical History (Updated 01/10/25 @ 15:45 by Sameer Lazar MD) COPD (chronic obstructive pulmonary disease) ?J44.9 - Chronic obstructive pulmonary disease, unspecified (ICD-10) Hypertension ?I10 - Essential (primary) hypertension (ICD-10) TIA (transient ischemic attack) ?G45.9 - Transient cerebral ischemic attack, unspecified (ICD-10) Afib ?I48.91 - Unspecified atrial fibrillation (ICD-10) Social History Smoking status: Former smoker Little interest or pleasure in doing things: not at all Feeling down, depressed, or hopeless: not at all Exam Narrative Exam Narrative: Nurses note and vital signs reviewed General:The patient appears in no apparent distress.Patient is resting comfortably on cart. Skin:Warm, dry, no pallor noted.There is no rash noted. Head:Normocephalic, atraumatic Eye: Normal conjunctiva, no drainage Ears, Nose, Mouth, and Throat: oral mucosa is moist. Nares patent. Cardiovascular:Regular Rate and Rhythm Respiratory:Patient is in no distress, no accessory muscle use, lungs are clear to auscultation, no wheezing, rales or rhonchi Back:non-tender, no bruising GI: Large ecchymosis on her abdomen above the umbilicus. Some tenderness present on the left side. Musculoskeletal: The patient has no evidence of calf tenderness, no pitting edema, symmetrical pulses noted bilaterally. A few small bruises on her leg. Neurological:A&O, normal speech Psychiatric:Cooperative Constitutional Vital Signs, click to edit/add: Last Vital Signs Temp 97.6 F 01/10/25 12:44 Pulse 79 01/10/25 12:44 Resp 28 H 01/10/25 12:44 BP 160/87 H 01/10/25 12:44 Pulse Ox 97 01/10/25 12:44 O2 Del Method Room Air 01/10/25 12:44 Course Vital Signs Vital signs: Vital Signs Temperature 97.6 F 01/10/25 12:44 Pulse Rate 79 01/10/25 12:44 Respiratory Rate 28 H 01/10/25 12:44 Blood Pressure 160/87 H 01/10/25 12:44 Pulse Oximetry 97 01/10/25 12:44 Oxygen Delivery Method Room Air 01/10/25 12:44 Temperature 97.6 F 01/10/25 12:44 Pulse Rate 79 01/10/25 12:44 Respiratory Rate 28 H 01/10/25 12:44 Blood Pressure 160/87 H 01/10/25 12:44 Pulse Oximetry 97 01/10/25 12:44 Oxygen Delivery Method Room Air 01/10/25 12:44 Medical Decision Making MDM Narrative Medical decision making narrative: CAT scan indicates abdominal wall hematoma and no intra-abdominal injury. Incidental finding is made of a colon mass. I discussed this finding with the patient and she reports that a few years ago she had part of this mass removed and it was not cancerous. She was told that they left part of it behind. She will follow-up with her doctor in that regard. Treatment diagnosis and follow-up were discussed with the patient. Differential Diagnosis Differential Diagnosis: Bruising, hematoma, intra-abdominal injury Lab Data Lab results reviewed: Yes I reviewed the patient's lab results Labs: Lab Results 01/10/25 Range/Units 13:18 WBC 19.0 H (4.0-11.0) 10^3/uL RBC 3.92 L (4.20-5.40) 10^6/uL Hgb 12.2 (12.0-16.0) g/dL Hct 37.0 (36.0-48.0) % MCV 94.4 (81.0-99.0) fL MCH 31.1 (26.7-34.0) pg MCHC 33.0 (29.9-35.2) g/dL RDW 14.2 (11.0-15.0) % Plt Count 236 (150-450) 10^3/uL MPV 8.6 L (9.5-13.5) fL Neut % (Auto) 91.7 H (43.0-75.0) % Lymph % (Auto) 4.3 L (20.5-60.0) % [place] % (Auto) 2.0 (1.7-12.0) % Eos % (Auto) 0.1 L (0.9-7.0) % Baso % (Auto) 0.2 (0.2-2.0) % Neut # (Auto) 17.4 H (1.4-6.5) 10^3/uL Lymph # (Auto) 0.8 L (1.2-3.8) 10^3/uL [place] # (Auto) 0.4 (0.3-0.8) 10^3/uL Eos # (Auto) 0.0 (0.0-0.7) 10^3/uL Baso # (Auto) 0.0 (0.0-0.1) 10^3/uL Abs Immat Gran (auto) 0.32 H (0.00-0.03) 10^3/uL Imm/Tot Granulo (auto) 1.7 H (0.0-0.5) % PT 12.6 H (9.0-11.6) sec INR 1.21 APTT 26.8 (22.3-36.2) sec Sodium 134 L (136-145) mmol/L Potassium 4.5 (3.5-5.1) mmol/L Chloride 100 (98-107) mmol/L Carbon Dioxide 27.3 (21.0-32.0) mmol/L Anion Gap 11.2 BUN 22.0 H (7.0-18.0) mg/dL Creatinine 0.97 (0.55-1.02) mg/dL Est GFR ( Amer) >60 (>=60 mL/min/1.73m^2) Est GFR (Non-Af Amer) 56 L (>=60 mL/min/1.73m^2) BUN/Creatinine Ratio 22.7 Glucose 196 H (74-106) mg/dL Calcium 7.8 L (8.5-10.1) mg/dL Imaging Data CT scan - abdomen: Radiologist's impression: ITS Impressions Abdomen/Pelvis CT 01/10/25 14:05 IMPRESSION: Soft tissue edema is noted along the anterior abdominal wall consistent with the history of ecchymosis. There is a focal area of soft tissue attenuation along the anterior abdominal musculature to the left midline measuring 3.0 x 1.5 x 2.7 cm in greatest dimension possibly representing an intramuscular hematoma. An underlying soft tissue mass is not excluded. There is nonspecific enhancing wall thickening in the ascending colon suspicious for an underlying mass. This is along the posterior wall and measures approximately 2.7 x 2.7 cm in greatest axial dimension. There is a soft tissue attenuating heterogeneous mass measuring 3.4 x 2.3 cm in greatest dimension on the right this is unchanged. Metastatic disease is not excluded. Impression dictated by: Lloyd Chaves M.D. 01/10/2025 2:51 PM Dictation Location: [place] [address] Electronically authenticated by: [id number] Y Date: 01/10/2025 14:51 Discharge Plan Discharge Chief Complaint: Skin/Abscess/Foreign Body Clinical Impression: Ecchymosis, Abdominal wall hematoma, Mass of colon Patient Disposition: Home, Self-Care Time of Disposition Decision: 15:45 Condition: Good Mode of Transportation: Private Vehicle Prescriptions / Home Meds: No Action amiodarone 200 mg tablet 200 mg PO Q24H aspirin 81 mg capsule 81 mg PO DAILY prednisone 20 mg tablet 40 mg PO DAILY 4 Days Qty: 8 0RF diltiazem HCl [Tiadylt ER] 180 mg capsule,extended release 24 hr 180 mg PO DAILY ferrous sulfate 325 mg (65 mg iron) tablet 325 mg PO BID Xarelto 20 mg tablet 20 mg PO DAILY albuterol sulfate 2.5 mg /3 mL (0.083 %) solution for nebulization 2.5 mg inhalation Q6H PRN (Reason: shortness of breath or wheezing) ropinirole 0.5 mg tablet 0.5 mg PO DAILY hydroxyzine HCl 25 mg tablet 25 mg PO Q6H PRN (Reason: anxiety) rosuvastatin 20 mg tablet 20 mg PO DAILY carvedilol 12.5 mg tablet 18.75 mg PO BID Print Language: Northern Irish Instructions: Ecchymosis (ED) Referrals: WESLY ROSA [Primary Care Provider, Family Practice] - 1 week
[2025-01-10 13:25] LABS: Hematocrit 37.0 % (36.0-48.0); Hemoglobin 12.2 g/dL (12.0-16.0); Immature Granulocytes Abs Auto 0.32 10^3/uL (0.00-0.03); Immature Granulocytes Pct Auto 1.7 % (0.0-0.5); Lymphocytes Absolute Auto 0.8 10^3/uL (1.2-3.8); Mean Corpuscular HGB Conc 33.0 g/dL (29.9-35.2); Mean Corpuscular Hemoglobin 31.1 pg (26.7-34.0); Mean Corpuscular Volume 94.4 fL (81.0-99.0); Platelet Count 236 10^3/uL (150-450); Red Blood Count 3.92 10^6/uL (4.20-5.40); White Blood Count 19.0 10^3/uL (4.0-11.0)
[2025-01-10 13:36] LABS: Anion Gap 11.2; Blood Urea Nitrogen 22.0 mg/dL (7.0-18.0); Calcium 7.8 mg/dL (8.5-10.1); Carbon Dioxide 27.3 mmol/L (21.0-32.0); Chloride 100 mmol/L (98-107); Estimated GFR (African America >60 (>=60 mL/min/1.73m^2); Estimated GFR (Non-African Ame 56 (>=60 mL/min/1.73m^2); Glucose 196 mg/dL (74-106); Potassium 4.5 mmol/L (3.5-5.1); Sodium 134 mmol/L (136-145)
[2025-01-10 13:40] LABS: INR 1.21; Partial Thromboplastin Time 26.8 sec (22.3-36.2); Prothrombin Time 12.6 sec (9.0-11.6)
--- NOTE | 2025-01-10 14:05 | CT_ITS ---
The [address] [address] Patient Name: JEANETTE ACEVEDO MRN: [id number] date: 1945 Sex: F Assigned Patient Location: ER Current Patient Location: ER Accession/Order Number: [id number] Exam Date: 01/10/2025 13:55 Report Date: 01/10/2025 14:51 At the request of: ERICK DE LA CRUZ MD Procedure: CT abdomen pelvis w con CT abdomen pelvis w con 01/10/2025 2:09 PM SIGNS AND SYMPTOMS: Large bruise along the abdominal wall above the umbilicus TECHNIQUE: Multidetector ct axial images of the abdomen and pelvis were obtained with IV contrast. Multiplanar reformats were performed and reviewed to further define anatomy and possible pathology. CT was performed with one or more of the following dose reduction techniques: Automated exposure control, adjustment of the mA and/or kV according to patient size, or use of iterative reconstruction technique. COMPARISON: 09/17/2023 FINDINGS: Lower Chest: Atherosclerotic changes are noted in the coronary arteries and thoracic aorta. Calcified granulomas are noted in the lingula. There is cardiomegaly with pericardial thickening. ABDOMEN: Liver: There are tiny subcentimeter areas of hypoattenuation in the liver similar to the prior exam presumably representing small cysts or hemangiomas. Bile Ducts: Normal caliber. Gallbladder: No calcified gallstones. Normal caliber wall. Pancreas: Within normal limits. Spleen: Within normal limits. Adrenals: There is a soft tissue attenuating heterogeneous mass measuring 3.4 x 2.3 cm in greatest dimension on the right this is unchanged. Kidneys: There is focal renal cortical atrophy on the right. Nonobstructing stone is noted in the right renal collecting system measuring up to 7 mm in greatest dimension. Pelvis: Reproductive Organs: No pelvic masses. Ureters: Within normal limits. Bladder: Within normal limits. Bowel: There are uncomplicated colonic diverticula. There is nonspecific enhancing wall thickening in the ascending colon suspicious for an underlying mass. This is along the posterior wall and measures approximately 2.7 x 2.7 cm in greatest axial dimension. No evidence of bowel obstruction. Mesenteric Lymph Nodes: No enlarged mesenteric lymph nodes. Peritoneum: No ascites or free air, no fluid collection. Vessels: Atherosclerotic changes are noted in the abdominal aorta and its branches. Retroperitoneum: Within normal limits. Abdominal Wall: Soft tissue edema is noted along the anterior abdominal wall consistent with the history of ecchymosis. There is a focal area of soft tissue attenuation along the anterior abdominal musculature to the left midline measuring 3.0 x 1.5 x 2.7 cm in greatest dimension possibly representing an intramuscular hematoma. Bones: Degenerative changes are noted in the thoracolumbar spine. Degenerative changes are noted in the hips and sacroiliac joints. CT/CT abdomen pelvis w con IMPRESSION: Soft tissue edema is noted along the anterior abdominal wall consistent with the history of ecchymosis. There is a focal area of soft tissue attenuation along the anterior abdominal musculature to the left midline measuring 3.0 x 1.5 x 2.7 cm in greatest dimension possibly representing an intramuscular hematoma. An underlying soft tissue mass is not excluded. There is nonspecific enhancing wall thickening in the ascending colon suspicious for an underlying mass. This is along the posterior wall and measures approximately 2.7 x 2.7 cm in greatest axial dimension. There is a soft tissue attenuating heterogeneous mass measuring 3.4 x 2.3 cm in greatest dimension on the right this is unchanged. Metastatic disease is not excluded. Impression dictated by: Lloyd Chaves M.D. 01/10/2025 2:51 PM Dictation Location: [place] [address] Electronically authenticated by: [id number] Y Date: 01/10/2025 14:51
[2025-01-10 16:42] VITALS: BP 142/90; PULSE 81; O2SAT 94
== END 2025-01-10 16:45 | disposition home or self-care (01) ==
PROVIDERS: Emergency Provider Emergency Medicine; PCP Family Medicine
DX: S30.11XA Contusion of abdominal wall, initial encounter (principal); R58 Hemorrhage, not elsewhere classified; K63.9 Disease of intestine, unspecified; I48.91 Unspecified atrial fibrillation; Z79.01 Long term (current) use of anticoagulants; Z87.891 Personal history of nicotine dependence
CPT/HCPCS: 36415; 74177; 80048; 85025; 85610; 85730; 99285; Q9967